=== PATIENT | female | born 1940 | race Caucasian/White ===

== ENCOUNTER → 2017-06-22 09:12 | Outpatient (CLI) | payer MEDICARE, OTHER, SELFPAY ==
[2017-06-22 10:09] LABS: Absolute Lymphocyte Count 0.96 X10^3/ul (0.83-4.51); Absolute Neutrophil Count 4.8 X10^3/uL (2.0-7.7); Basophil# 0.04 X10^3/uL; Basophil% 0.6 % (0-1); Eosinophil# 0.22 X10^3/uL; Eosinophils% 3.3 % (0-5); Hematocrit 41.8 % (37-47); Hemoglobin 13.4 g/dl (12.0-15.0); Lymphocyte # 0.96 X10^3/ul (4.0); Lymphocyte % 14.6 % (19-41); Mean Corp Hgb Conc 32.1 g/gl (32-36); Mean Corpuscular Hgb 28.2 pg (27.0-32.0); Mean Platelet Vol. 9.7 fl (6.2-12.0); Monocyte# 0.54 X10^3/uL; Monocyte% 8.2 % (0-10); Neutrophil % 73.1 % (47-70); Platelet Count 298 K/mm3 (150-450); RBC Distribution Width SD 50.8 fl (35.1-43.9); Red Blood Count 4.75 M/mm3 (4.2-5.4); White Blood Count 6.6 K/mm3 (4.4-11.0)
[2017-06-22 10:11] LABS: POSITIVE COUNT NO; POSITIVE DIFFERENTIAL NO; POSITIVE MORPHOLOGY NO
[2017-06-22 10:51] LABS: ALB/GLOB Ratio 0.7 RATIO (0.9-2.4); AST(SGOT) 16 U/L (15-37); Alanine Aminotransfer ALT/SGPT 18 U/L (13-56); Alkaline Phosphatase 100 U/L (45-117); Anion Gap 9 (5-15); BUN 14 mg/dL (7-18); BUN/Creat Ratio 23.4 RATIO (10-20); Calcium,Total 8.9 mg/dL (8.5-10.1); Chloride 105 mmol/L (98-107); EST Glomerular Filtration Rate 103 mL/min (>60); Est Glom Filt Rate - Afr Amer 125 mL/min (>60); Globulin 4.3 g/dL (2.2-4.2); Glucose 105 mg/dL (74-106); Potassium 4.1 mmol/L (3.5-5.1); Protein, Total 7.3 g/dL (6.4-8.2); Sodium Level 140 mmol/L (136-145); Thyroid Stim Hormone (TSH) 2.96 uIU/mL (0.358-3.74); Vitamin D,25 Hydroxy 15.1 ng/mL (19.95-100.01)
== END ==
PROVIDERS: Family Provider Nurse Practitioner; PCP Nurse Practitioner; Visit Provider Nurse Practitioner
DX: I10 Essential (primary) hypertension (principal); M81.0 Age-related osteoporosis without current pathological fracture
CPT/HCPCS: 36415; 80053; 82306; 84443; 85025

== ENCOUNTER → 2017-08-19 11:03 | Outpatient (CLI) | payer MEDICARE, OTHER, SELFPAY ==
--- NOTE | 2017-08-19 11:06 | BI_ITS ---
MAMMOGRAPHY - BILATERAL SCREENING REASON FOR EXAM: Female, 77 years old. Routine annual screening examination. PERTINENT HISTORY: Sister with breast cancer. TECHNIQUE: Digital bilateral breast sandy (3D mammographic acquisition) in the CC and MLO projections. 2-D mediolateral oblique (MLO) and craniocaudad (CC) views of both breasts were obtained. CAD: Full Field Digital Mammography with Computer Added Detection was performed. COMPARISON: Comparison is made with prior study dated August 18, 2016 and July 30, 2015. FINDINGS: Breast Composition: The breasts are almost entirely fatty. There are no dominant masses or suspicious calcifications. No other significant abnormalities are identified. There has been no significant change since the prior study. BI/SCREENING MAMM (CAD), BILAT IMPRESSION: Stable bilateral screening mammogram. Yearly follow-up mammogram recommended. (A) ASSESSMENT CATEGORY: BIRADS Category 1: Negative. A letter regarding these results will be sent to the patient by the facility within 30 days. Approximately 10% of breast cancers are not detected by mammography. A normal mammogram should not delay biopsy of a clinically suspicious abnormality. [id number] Electronically Signed: Luis Watkins MD at 13:24 EDT Tel [phone], Service support ,
== END ==
PROVIDERS: Family Provider Nurse Practitioner; PCP Nurse Practitioner; Visit Provider Nurse Practitioner
DX: Z12.31 Encounter for screening mammogram for malignant neoplasm of breast (principal)
CPT/HCPCS: 77063; 77067

== ENCOUNTER → 2017-09-14 08:42 | Outpatient (CLI) | payer MEDICARE, OTHER, SELFPAY ==
[2017-09-14 10:01] LABS: Absolute Lymphocyte Count 0.92 X10^3/ul (0.83-4.51); Absolute Neutrophil Count 4.1 X10^3/uL (2.0-7.7); Basophil# 0.02 X10^3/uL; Basophil% 0.3 % (0-1); Eosinophil# 0.24 X10^3/uL; Hematocrit 41.9 % (37-47); Hemoglobin 13.5 g/dl (12.0-15.0); Lymphocyte # 0.92 X10^3/ul (4.0); Lymphocyte % 15.5 % (19-41); Mean Corp Hgb Conc 32.2 g/gl (32-36); Mean Corpuscular Hgb 27.8 pg (27.0-32.0); Mean Corpuscular Volume 86.2 fL (81-99); Mean Platelet Vol. 9.3 fl (6.2-12.0); Monocyte# 0.62 X10^3/uL; Monocyte% 10.4 % (0-10); Neutrophil # 4.14 X10^3/uL (2.7-7.7); Neutrophil % 69.6 % (47-70); Platelet Count 305 K/mm3 (150-450); RBC Distribution Width CV 16.5 % (11.6-14.6); RBC Distribution Width SD 51.7 fl (35.1-43.9); Red Blood Count 4.86 M/mm3 (4.2-5.4)
[2017-09-14 10:12] LABS: POSITIVE COUNT NO; POSITIVE DIFFERENTIAL NO; POSITIVE MORPHOLOGY NO
[2017-09-14 10:17] LABS: ALB/GLOB Ratio 0.7 RATIO (0.9-2.4); AST(SGOT) 15 U/L (15-37); Alanine Aminotransfer ALT/SGPT 16 U/L (13-56); Alkaline Phosphatase 93 U/L (45-117); Anion Gap 8 (5-15); BUN 9 mg/dL (7-18); Calcium,Total 8.6 mg/dL (8.5-10.1); Chloride 107 mmol/L (98-107); Creatinine, Serum 0.64 mg/dL (0.55-1.02); EST Glomerular Filtration Rate 95 mL/min (>60); Est Glom Filt Rate - Afr Amer 115 mL/min (>60); Globulin 4.3 g/dL (2.2-4.2); Glucose 108 mg/dL (74-106); Potassium 4.1 mmol/L (3.5-5.1); Protein, Total 7.3 g/dL (6.4-8.2); Sodium Level 139 mmol/L (136-145)
== END ==
PROVIDERS: Family Provider Nurse Practitioner; PCP Nurse Practitioner; Visit Provider Internal Medicine Rheumatology
DX: M19.012 Primary osteoarthritis, left shoulder (principal); M19.011 Primary osteoarthritis, right shoulder; M15.9 Polyosteoarthritis, unspecified; M87.051 Idiopathic aseptic necrosis of right femur; I10 Essential (primary) hypertension; N20.0 Calculus of kidney
CPT/HCPCS: 36415; 80053; 85025

== ENCOUNTER → 2017-09-19 08:39 | Outpatient (CLI) | payer MEDICARE, OTHER, SELFPAY ==
[2017-09-19 10:36] LABS: Vitamin D,25 Hydroxy 24.9 ng/mL (29.95-100.01)
== END ==
PROVIDERS: Family Provider Nurse Practitioner; PCP Nurse Practitioner; Visit Provider Nurse Practitioner
DX: M81.0 Age-related osteoporosis without current pathological fracture (principal); I10 Essential (primary) hypertension
CPT/HCPCS: 36415; 82306

== ENCOUNTER → 2017-09-29 08:53 | Outpatient (CLI) | payer MEDICARE, OTHER, SELFPAY ==
[2017-09-29 10:19] LABS: Absolute Lymphocyte Count 1.11 X10^3/ul (0.83-4.51); Absolute Neutrophil Count 4.6 X10^3/uL (2.0-7.7); Basophil# 0.04 X10^3/uL; Basophil% 0.6 % (0-1); Eosinophil# 0.32 X10^3/uL; Eosinophils% 4.7 % (0-5); Hematocrit 42.5 % (37-47); Hemoglobin 13.4 g/dl (12.0-15.0); Lymphocyte # 1.11 X10^3/ul (4.0); Lymphocyte % 16.2 % (19-41); Mean Corp Hgb Conc 31.5 g/gl (32-36); Mean Corpuscular Hgb 27.5 pg (27.0-32.0); Mean Corpuscular Volume 87.3 fL (81-99); Mean Platelet Vol. 9.5 fl (6.2-12.0); Monocyte# 0.76 X10^3/uL; Monocyte% 11.1 % (0-10); Neutrophil # 4.61 X10^3/uL (2.7-7.7); Neutrophil % 67.3 % (47-70); Platelet Count 255 K/mm3 (150-450); RBC Distribution Width CV 16.2 % (11.6-14.6); RBC Distribution Width SD 51.7 fl (35.1-43.9); Red Blood Count 4.87 M/mm3 (4.2-5.4); White Blood Count 6.9 K/mm3 (4.4-11.0)
[2017-09-29 10:20] LABS: POSITIVE COUNT NO; POSITIVE DIFFERENTIAL NO; POSITIVE MORPHOLOGY NO
[2017-09-29 10:45] LABS: ALB/GLOB Ratio 0.8 RATIO (0.9-2.4); AST(SGOT) 18 U/L (15-37); Alanine Aminotransfer ALT/SGPT 14 U/L (13-56); Albumin, Serum 3.2 g/dL (3.2-5.0); Alkaline Phosphatase 79 U/L (45-117); Anion Gap 6 (5-15); BUN 14 mg/dL (7-18); BUN/Creat Ratio 20.4 RATIO (10-20); Calcium,Total 8.8 mg/dL (8.5-10.1); Chloride 109 mmol/L (98-107); Creatinine, Serum 0.69 mg/dL (0.55-1.02); EST Glomerular Filtration Rate 88 mL/min (>60); Est Glom Filt Rate - Afr Amer 106 mL/min (>60); Globulin 3.8 g/dL (2.2-4.2); Glucose 105 mg/dL (74-106); Potassium 4.3 mmol/L (3.5-5.1); Sodium Level 140 mmol/L (136-145)
== END ==
PROVIDERS: Family Provider Nurse Practitioner; PCP Nurse Practitioner; Visit Provider Internal Medicine Rheumatology
DX: M47.896 Other spondylosis, lumbar region (principal); M19.012 Primary osteoarthritis, left shoulder; M19.011 Primary osteoarthritis, right shoulder; M87.051 Idiopathic aseptic necrosis of right femur
CPT/HCPCS: 36415; 80053; 85025

== ENCOUNTER → 2018-01-16 18:50 | Outpatient (CLI) | payer MEDICARE, OTHER, SELFPAY | PROVIDERS: Family Provider Nurse Practitioner; PCP Nurse Practitioner; Visit Provider Otolaryngology Otolaryngology/Facial Plastic Surgery | DX: J02.9 Acute pharyngitis, unspecified (principal) | CPT/HCPCS: 87070 ==

== ENCOUNTER 2018-01-25 15:21 | Emergency (ER) | payer OTHER, MEDICARE, SELFPAY ==
[2018-01-25 15:22] VITALS: BP 132/86; PULSE 78; RESP 16; O2SAT 92
[2018-01-25 15:23] VITALS: BP 150/88; PULSE 82; RESP 14; TEMP 36.6; O2SAT 93; BMI 36.6
[2018-01-25] MEDS: Ondansetron 4 MG/2 ML Vial IV (16:03)
[2018-01-25] MEDS: Morphine 4 MG/ML Syringe IV ×3 (16:03→19:05)
--- NOTE | 2018-01-25 16:15 | CT_ITS ---
STUDY: CT BRAIN WITHOUT CONTRAST REASON FOR EXAM: Female, 77 years old. Trauma RADIATION DOSAGE (If Supplied By Facility): CTDIvol = ( 44.99 ) mGy, DLP = ( 779.24 ) mGycm TECHNIQUE: Transaxial CT imaging of the brain was performed without administration of intravenous contrast material. Individualized dose optimization techniques were used for this CT. COMPARISON: 04/14/2017 FINDINGS: There is no acute bleed or infarct. There are stable chronic ischemic and atrophic changes. The ventricles are normal in configuration. There is no hydrocephalus. The visualized paranasal sinuses are clear. The mastoid air cells are well aerated. There is no skull fracture. There is mild scalp soft tissue swelling in the left posterior parietal region. CT/Brain/Head without Contrast IMPRESSION: Stable chronic ischemic and atrophic changes. No acute intracranial abnormality. Mild scalp soft tissue swelling in the left posterior parietal region. Electronically Signed: Ashutosh Antonio, at 18:17 EDT Tel , Service support ,
--- NOTE | 2018-01-25 16:15 | CT_ITS ---
STUDY: CT CERVICAL SPINE WITHOUT CONTRAST REASON FOR EXAM: Female, 77 years old. Trauma RADIATION DOSAGE (If Supplied By Facility): CTDIvol = ( 29.61 ) mGy, DLP = ( 523.14 ) mGycm TECHNIQUE: High resolution transaxial imaging was performed without contrast material. Sagittal and coronal images were reconstructed. Individualized dose optimization techniques were used for this CT. COMPARISON: 04/14/2017 FINDINGS: There is no evidence of fracture or dislocation in the cervical spine. There are stable moderate degenerative changes. The visualized paraspinal soft tissues are within normal limits. CT/Spine Cervical without Contras IMPRESSION: No fracture or dislocation in the cervical spine. Stable degenerative change. Electronically Signed: Ashutosh Antonio, at 18:22 EDT Tel , Service support ,
--- NOTE | 2018-01-25 16:25 | ED.VISSUMM ---
- ER Visit Summary Date of Service: 01/25/18 Chief Complaint: Fall History of Present Illness: The patient is a 77 F presenting after fall. Patient was at Dr. Finch's office receiving an injection in her right shoulder. As she was leaving the office she tripped on a curb in the parking lot. She complains of low back pain. She hit her head but did not lose consciousness. She is on Pradaxa. She denies other complaints. Physical Examination: Vitals are stable. Patient is afebrile. Alert no acute distress. HEENT exam is unremarkable. Left scalp hematoma Neck is nontender Lungs are clear and equal bilaterally. Heart is regular rate and rhythm. Abdomen is soft nontender nondistended. Back: lumbar tenderness diffusely Extremities are unremarkable. Skin is warm and dry. No focal neurologic deficit. Remainder of exam is unremarkable. Emergency Department Course and Treatment: Patient given morphine, Zofran IV. CT head and C-spine showed no acute process. Lumbar x-ray shows no acute process. Patient feels improved in the emergency department. She is able to ambulate at her baseline. She will follow-up with her primary care physician. She is advised to return to ED for worsening complaints. Disposition: Discharge home Impression: Status post mechanical fall, lumbar strain This note was generated with [employer] dictation software. It may contain incorrect words, spelling, and punctuation that were not noted in review of the chart prior to signing ED Disposition - Plan for ED Patient: Disposition: Home or Assisted Living Chief Complaint: Fall Instructions: ED Mechanical Fall Referrals: Lydia Shearer [Primary Care Provider] -
--- NOTE | 2018-01-25 17:00 | RAD_ITS ---
STUDY: X-RAY - LUMBAR SPINE REASON FOR EXAM: Female, 77 years old. Fall. Pain. TECHNIQUE: 3 view(s) of the lumbar spine were obtained. COMPARISON: 04/14/2017 FINDINGS: There is no evidence of fracture or dislocation in the lumbar spine. There is stable extensive multilevel degenerative changes. There are atherosclerotic calcifications noted in the aorta. RAD/Lumbar Spine 2 or 3 Views IMPRESSION: No fracture or dislocation in the lumbar spine. Stable extensive degenerative change. Electronically Signed: Ashutosh Antonio, at 18:12 EDT Tel , Service support ,
--- NOTE | 2018-01-25 18:46 | ED.DEP ---
ED Disposition - Plan for ED Patient: Chief Complaint: Fall Instructions: ED Mechanical Fall Referrals: Lydia Shearer [Primary Care Provider] -
[2018-01-25 19:06] VITALS: BP 147/80; PULSE 102; RESP 17; O2SAT 91
[2018-01-25 19:34] VITALS: BP 147/80; PULSE 100; RESP 18
== END 2018-01-25 19:35 | disposition home or self-care (01) ==
PROVIDERS: Emergency Provider Emergency Medicine; Family Provider Nurse Practitioner; PCP Nurse Practitioner
DX: S39.012A Strain of muscle, fascia and tendon of lower back, initial encounter (principal); S00.03XA Contusion of scalp, initial encounter; W18.09XA Striking against other object with subsequent fall, initial encounter; Y93.01 Activity, walking, marching and hiking; Y92.481 Parking lot as the place of occurrence of the external cause
CPT/HCPCS: 70450; 72100; 72125; 96374; 96375; 96376; 99284; A4216; J2405

== ENCOUNTER → 2018-02-06 15:43 | Outpatient (CLI) | payer MEDICARE, OTHER, SELFPAY ==
--- NOTE | 2018-02-06 15:46 | RAD_ITS ---
STUDY: X-RAY - ABDOMEN/PELVIS REASON FOR EXAM: Female, 77 years old. Right-sided pain. TECHNIQUE: Two AP supine views of the abdomen and pelvis. COMPARISON: 3 views of the lumbar spine January 25, 2018. Right upper quadrant ultrasound October 16, 2014 not available for comparison at the time of this dictation, but reports that study was reviewed. FINDINGS: Bilaterally visualized lung bases. There is an unremarkable bowel gas pattern. There is no demonstrated free abdominal air. The visualized liver, spleen and kidneys are grossly normal in size and morphology. Atherosclerotic vascular calcifications project in the pelvic soft tissues. There are stable diffuse degenerative changes of the visualized spine as well as mild degenerative arthroses of the bilateral sacroiliac joints and left hip. 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 RAD/Abdomen Single View IMPRESSION: 1. Nonspecific bowel gas pattern. No free gas. 2. Mild atherosclerotic vascular calcifications present. 3. Extensive degenerative changes of the spine again noted. Prior right total hip arthroplasty. Electronically Signed: Robert King MD at 16:15 EDT , Service support ,
== END ==
PROVIDERS: Family Provider Nurse Practitioner; PCP Nurse Practitioner; Referring Provider Nurse Practitioner; Visit Provider Nurse Practitioner
DX: R10.9 Unspecified abdominal pain (principal)
CPT/HCPCS: 74018

== ENCOUNTER → 2018-03-27 14:29 | Outpatient (CLI) | payer MEDICARE, OTHER, SELFPAY ==
--- NOTE | 2018-03-27 14:32 | CT_ITS ---
STUDY: CT LEFT FEMUR WITH CONTRAST REASON FOR EXAM: Female, 77 years old. Left thigh soft tissue mass. History of fall one year ago. RADIATION DOSAGE (If Supplied By Facility): CTDIvol = ( ) mGy, DLP = ( ) mGycm TECHNIQUE: Transaxial CT imaging of the femur was performed post contrast administration. The examination was performed with intravenous administration of 100 ml of Isovue-300 contrast material. Sagittal and coronal images were reconstructed. Individualized dose optimization techniques were used for this CT. COMPARISON: None. FINDINGS: There is degenerative periarticular spurring of the superolateral left acetabular rim. There is mild cortical spurring at the greater tuberosity of the femur. Distally, there is subarticular sclerosis and periarticular spurring of the femoral condyles. Periarticular spurring of the tibial plateaus and subarticular sclerosis of the lateral tibial plateau also present at the knee. Degenerative narrowing most prominent in the lateral femorotibial joint compartment. There are subcutaneous varices in the dorsal lateral mid to lower thigh, extending to the lateral aspect of the knee or a small, ill-defined groundglass densities in the anterolateral subcutaneous tissues at the mid thigh may be small ecchymoses. There is no other defined soft tissue mass or enhancing abnormality.. Normal urinary bladder. Normal visualized small intestine. There are multiple colonic diverticula of the sigmoid colon consistent with chronic diverticulosis. There is no pelvic fluid. There is no pelvic lymphadenopathy or mass lesion. There is atrophy of the uterus. Normal visualized pelvic arteries. There is diffuse atherosclerotic calcification of the common and superficial femoral as well as popliteal arteries. There is normal is early takeoff of the anterior tibial artery just above the level of the knee joint CT/Extremity Lower WITH Contrast IMPRESSION: 1. Degenerative changes at the left hip and left knee, as described. Left femur is otherwise intact. 2. Small subcutaneous ecchymoses in the anterolateral mid left thigh. There are venous varices in the posterior lateral soft tissues extending from the mid to lower thigh to lateral knee. 3. Atherosclerotic vascular calcifications are present. No demonstrated left femoral or popliteal aneurysm. 4. Sigmoid colonic diverticulosis without acute diverticulitis. Electronically Signed: Robert King MD at 17:23 EST , Service support ,
== END ==
PROVIDERS: Family Provider Nurse Practitioner; PCP Nurse Practitioner; Referring Provider Internal Medicine Medical Oncology; Visit Provider Internal Medicine Medical Oncology
DX: R22.42 Localized swelling, mass and lump, left lower limb (principal)
CPT/HCPCS: 73701; Q9967

== ENCOUNTER → 2018-06-13 14:41 | Outpatient (CLI) | payer MEDICARE, OTHER, SELFPAY ==
[2018-04-11 11:29] VITALS: BMI 33.2
--- NOTE | 2018-06-13 14:54 | BD_ITS ---
STUDY: DUAL ENERGY X-RAY ABSORPTIOMETRY / DXA REASON FOR EXAM: Female, 77 years old. The patient is postmenopausal. Loss of height. TECHNIQUE: Bone Mineral Density (BMD) measurements of lumbar spine and left hip were obtained. The patient is status post right hip replacement. COMPARISON: Comparison is made with prior study dated May 04, 2016. FINDINGS: Lumbar Spine (L1-L4): g/cm2 (1.333) / T-score (1.1) / Z-score (2.9) Findings are suggestive of normal bone density with a low fracture risk. Left Femur Total: g/cm2 (0.738) / T-score (-2.1) / Z-score (-0.2) Left Femoral Neck: g/cm2 (0.678) / T-score (-2.6) / Z-score (-0.5) The T-Scores on the most recent prior examination were: Lumbar Spine (L1-L4): There has been improvement of bone density since the previous examination. Left Femur Total: which represents an improvement of 10.1%. Right Femur Total: . BD/Dexa Bone Density Study IMPRESSION: The patient is considered osteoporotic as outlined below according to World [employer] Organization (WHO) criteria with a high fracture risk. There has been improvement of bone density since the previous examination. Reference Information: The T-score is the number of standard deviations above or below the standard which is normal for young adults at their peak bone mineral density. The World Health Organization (WHO) interprets the T-scores as follows: Above -1 Normal bone density Between -1 and -2.5 Osteopenia Equal to / or below -2.5 Osteoporosis As a practical clinical guideline, osteopenia may be graded as follows: Mild -1 through -1.5 Moderate -1.6 through -2.0 Severe -2.1 through -2.4 The Z-score is the number of standard deviations above or below age-matched controls. A Z-score of less than -1.5 would be considered abnormal. References: 1. NIH Osteoporosis and Related Bone Diseases http://www.osteo.org 2. International Society for Clinical Densitometry http://www.iscd.org 3. National Osteoporosis Foundation http://www.nof.org Electronically Signed: Luis Watkins MD at 15:31 EST , Service support ,
== END ==
PROVIDERS: Family Provider Nurse Practitioner; PCP Nurse Practitioner; Visit Provider Nurse Practitioner
DX: M81.0 Age-related osteoporosis without current pathological fracture (principal)
CPT/HCPCS: 77080

== ENCOUNTER → 2018-08-09 08:36 | Outpatient (CLI) | payer MEDICARE, OTHER, SELFPAY ==
[2018-04-11 11:29] VITALS: BMI 33.2
[2018-08-09 09:58] LABS: Absolute Neutrophil Count 6.6 X10^3/uL (2.0-7.7); Basophil# 0.02 X10^3/uL; Basophil% 0.2 % (0-1); Eosinophil# 0.26 X10^3/uL; Eosinophils% 3.1 % (0-5); Hematocrit 41.4 % (37-47); Hemoglobin 13.2 g/dl (12.0-15.0); Lymphocyte % 11.8 % (19-41); Mean Corp Hgb Conc 31.9 g/gl (32-36); Mean Corpuscular Hgb 27.7 pg (27.0-32.0); Mean Corpuscular Volume 86.8 fL (81-99); Mean Platelet Vol. 9.5 fl (6.2-12.0); Monocyte# 0.56 X10^3/uL; Monocyte% 6.6 % (0-10); Neutrophil # 6.62 X10^3/uL (2.7-7.7); Neutrophil % 77.9 % (47-70); Platelet Count 258 K/mm3 (150-450); RBC Distribution Width CV 15.3 % (11.6-14.6); RBC Distribution Width SD 48.4 fl (35.1-43.9); Red Blood Count 4.77 M/mm3 (4.2-5.4); White Blood Count 8.5 K/mm3 (4.4-11.0)
[2018-08-09 09:59] LABS: POSITIVE COUNT NO; POSITIVE DIFFERENTIAL NO; POSITIVE MORPHOLOGY NO
[2018-08-09 10:17] LABS: Hemoglobin A1c 5.9 % (4.2-6.3)
[2018-08-09 10:36] LABS: ALB/GLOB Ratio 0.8 RATIO (0.9-2.4); AST(SGOT) 14 U/L (15-37); Alanine Aminotransfer ALT/SGPT 20 U/L (13-56); Albumin, Serum 3.1 g/dL (3.2-5.0); Alkaline Phosphatase 97 U/L (45-117); Anion Gap 8 (5-15); BUN 17 mg/dL (7-18); BUN/Creat Ratio 26.6 RATIO (10-20); Calcium,Total 8.4 mg/dL (8.5-10.1); Chloride 107 mmol/L (98-107); Cholesterol 150 mg/dL (200); Creatinine, Serum 0.64 mg/dL (0.55-1.02); EST Glomerular Filtration Rate 95 mL/min (>60); Est Glom Filt Rate - Afr Amer 115 mL/min (>60); Globulin 3.9 g/dL (2.2-4.2); Glucose 113 mg/dL (74-106); High Density Lipoprotein 44 mg/dL; Potassium 4.1 mmol/L (3.5-5.1); Sodium Level 140 mmol/L (136-145); Thyroid Stim Hormone (TSH) 1.91 uIU/mL (0.358-3.74); Triglycerides 216 mg/dL; Very Low Density Lipoprotein 43 mg/dL (5-40)
== END ==
PROVIDERS: Family Provider Nurse Practitioner; PCP Nurse Practitioner; Referring Provider Nurse Practitioner; Visit Provider Nurse Practitioner
DX: I10 Essential (primary) hypertension (principal); R73.01 Impaired fasting glucose
CPT/HCPCS: 36415; 80053; 80061; 83036; 84443; 85025

== ENCOUNTER → 2018-08-28 07:56 | Outpatient (CLI) | payer MEDICARE, OTHER, SELFPAY ==
[2018-04-11 11:29] VITALS: BMI 33.2
[2018-08-28 10:25] LABS: Absolute Lymphocyte Count 1.32 X10^3/ul (0.83-4.51); Absolute Neutrophil Count 4.5 X10^3/uL (2.0-7.7); Basophil# 0.03 X10^3/uL; Basophil% 0.4 % (0-1); Eosinophil# 0.26 X10^3/uL; Eosinophils% 3.9 % (0-5); Hematocrit 42.2 % (37-47); Hemoglobin 13.5 g/dl (12.0-15.0); Lymphocyte # 1.32 X10^3/ul (4.0); Lymphocyte % 19.6 % (19-41); Mean Corpuscular Hgb 28.2 pg (27.0-32.0); Mean Corpuscular Volume 88.3 fL (81-99); Mean Platelet Vol. 9.5 fl (6.2-12.0); Monocyte% 8.9 % (0-10); Neutrophil # 4.52 X10^3/uL (2.7-7.7); Neutrophil % 67.1 % (47-70); Platelet Count 261 K/mm3 (150-450); RBC Distribution Width CV 14.9 % (11.6-14.6); RBC Distribution Width SD 48.1 fl (35.1-43.9); Red Blood Count 4.78 M/mm3 (4.2-5.4); White Blood Count 6.7 K/mm3 (4.4-11.0)
[2018-08-28 10:27] LABS: POSITIVE COUNT NO; POSITIVE DIFFERENTIAL NO; POSITIVE MORPHOLOGY NO
[2018-08-28 10:45] LABS: ALB/GLOB Ratio 0.8 RATIO (0.9-2.4); AST(SGOT) 21 U/L (15-37); Alanine Aminotransfer ALT/SGPT 20 U/L (13-56); Albumin, Serum 3.3 g/dL (3.2-5.0); Alkaline Phosphatase 88 U/L (45-117); Anion Gap 7 (5-15); BUN 17 mg/dL (7-18); BUN/Creat Ratio 24.8 RATIO (10-20); Calcium,Total 8.8 mg/dL (8.5-10.1); Chloride 107 mmol/L (98-107); Creatinine, Serum 0.69 mg/dL (0.55-1.02); EST Glomerular Filtration Rate 88 mL/min (>60); Est Glom Filt Rate - Afr Amer 106 mL/min (>60); Globulin 3.9 g/dL (2.2-4.2); Glucose 110 mg/dL (74-106); Potassium 4.2 mmol/L (3.5-5.1); Protein, Total 7.2 g/dL (6.4-8.2); Sodium Level 142 mmol/L (136-145)
== END ==
PROVIDERS: Family Provider Nurse Practitioner; PCP Nurse Practitioner; Referring Provider Internal Medicine Rheumatology; Visit Provider Internal Medicine Rheumatology
DX: M47.896 Other spondylosis, lumbar region (principal); M19.012 Primary osteoarthritis, left shoulder; M19.011 Primary osteoarthritis, right shoulder; M87.051 Idiopathic aseptic necrosis of right femur; I10 Essential (primary) hypertension; N20.0 Calculus of kidney; I26.99 Other pulmonary embolism without acute cor pulmonale; G47.33 Obstructive sleep apnea (adult) (pediatric); E78.5 Hyperlipidemia, unspecified; I70.1 Atherosclerosis of renal artery; I25.10 Atherosclerotic heart disease of native coronary artery without angina pectoris; M81.0 Age-related osteoporosis without current pathological fracture
CPT/HCPCS: 36415; 80053; 85025

== ENCOUNTER → 2018-09-14 10:08 | Outpatient (CLI) | payer MEDICARE, OTHER, SELFPAY ==
[2018-04-11 11:29] VITALS: BMI 33.2
--- NOTE | 2018-09-14 10:11 | BI_ITS ---
MAMMOGRAPHY - BILATERAL SCREENING REASON FOR EXAM: Female, 78 years old. Routine annual screening examination. PERTINENT HISTORY: Sister with breast cancer. TECHNIQUE: Digital bilateral breast sandy (3D mammographic acquisition) in the CC and MLO projections. 2-D mediolateral oblique (MLO) and craniocaudad (CC) views of both breasts were obtained. CAD: Full Field Digital Mammography with Computer Added Detection was performed. COMPARISON: Comparison is made with prior study dated August 19, 2017 and August 18, 2016. FINDINGS: Breast Composition: The breasts are almost entirely fatty. There are no dominant masses or suspicious calcifications. No other significant abnormalities are identified. There has been no significant change since the prior study. BI/SCREENING MAMM (CAD), BILAT IMPRESSION: Stable bilateral screening mammogram. Yearly follow-up mammogram recommended. (A) ASSESSMENT CATEGORY: BIRADS Category 1: Negative. A letter regarding these results will be sent to the patient by the facility within 30 days. Approximately 10% of breast cancers are not detected by mammography. A normal mammogram should not delay biopsy of a clinically suspicious abnormality. [id number] Electronically Signed: Luis Watkins, at 13:04 EDT , Service support ,
== END ==
PROVIDERS: Family Provider Nurse Practitioner; PCP Nurse Practitioner; Referring Provider Nurse Practitioner; Visit Provider Nurse Practitioner
DX: Z12.31 Encounter for screening mammogram for malignant neoplasm of breast (principal)
CPT/HCPCS: 77063; 77067

== ENCOUNTER → 2018-11-24 | Outpatient (CLI) | payer MEDICARE, OTHER, SELFPAY ==
[2018-04-11 11:29] VITALS: BMI 33.2
[2018-11-24 14:27] LABS: D-Dimer Quantitative (DVT/PE) 0.68 FEU/ug/m (0.27-0.49)
== END | disposition home or self-care (01) ==
PROVIDERS: Family Provider Nurse Practitioner; PCP Nurse Practitioner; Referring Provider Internal Medicine Pulmonary Disease; Visit Provider Internal Medicine Pulmonary Disease
DX: R60.9 Edema, unspecified (principal); Z86.711 Personal history of pulmonary embolism
CPT/HCPCS: 36415; 85379

== ENCOUNTER → 2018-11-24 | Outpatient (CLI) | payer MEDICARE, OTHER, SELFPAY ==
[2018-04-11 11:29] VITALS: BMI 33.2
--- NOTE | 2018-11-24 12:46 | VDLE_ITS ---
Reason For Study: EDEMA RIGHT LEFT CFV is compressible, spontaneous, phasic, GSV is normal. competent and demonstrates normal CFV is compressible, spontaneous, phasic, augmentation. competent, and demonstrates normal FV is compressible, spontaneous, phasic, augmentation. competent and demonstrates normal FV is compressible, spontaneous, phasic, augmentation. competent and demonstrates normal POP V is compressible, spontaneous, phasic, augmentation. competent and demonstrates normal POP V is compressible, spontaneous, phasic, augmentation. competent and demonstrates normal T/P Trunk is compressible. augmentation. PTV is compressible. T/P Trunk is compressible. RT PerV is compressible. PTV is compressible. Rt GSV not visualized due to vein ablation. LT PerV is compressible. Interpretation Summary Deep veins of the lower extremities are bilaterally patent and compressible segmentally. There is no evidence of deep vein thrombosis on either side. Valvular competence appears intact within the proximal deep venous systems bilaterally. The right greater saphenous vein appears to be absent. The left greater saphenous vein appears patent and compressible segmentally. Ordering Physician: Kosta Spangler Referring Physician: MIKE GREENE Performed By: Rosy Zarate, LEATHA, RVT
== END | disposition home or self-care (01) ==
LOC: CVS 12:44
PROVIDERS: Family Provider Nurse Practitioner; PCP Nurse Practitioner; Referring Provider Internal Medicine Pulmonary Disease; Visit Provider Internal Medicine Pulmonary Disease
DX: Z86.711 Personal history of pulmonary embolism (principal); R60.9 Edema, unspecified
CPT/HCPCS: 93970

== ENCOUNTER → 2018-11-27 10:30 | Outpatient (CLI) | payer MEDICARE, OTHER, SELFPAY ==
[2018-04-11 11:29] VITALS: BMI 33.2
--- NOTE | 2018-11-27 10:40 | CT_ITS ---
STUDY: CTA CHEST REASON FOR EXAM: Female, 78 years old. Acute substernal shortness of breath RADIATION DOSAGE (If Supplied By Facility): CTDIvol = ( 12.16 ) mGy, DLP = ( 473.58 ) mGycm TECHNIQUE: The examination was performed with the intravenous administration of 100mL IV Isovue 370. Post-processing of the angiographic images was performed, with multiplanar reformation and 3D reconstruction. Individualized dose optimization techniques were used for this CT. COMPARISON: 2014 FINDINGS: There is limited enhancement of the main pulmonary artery and right and left pulmonary arteries. There is limited enhancement of the bilateral peripheral pulmonary arteries. There is no demonstrated pulmonary embolism. Normal thoracic aorta and visualized great vessels. There is no demonstrated aortic dissection. Normal heart and pericardium. Calcified coronary vessels. Scattered subcentimeter axillary and mediastinal lymphadenopathy Normal hilar regions. Normal visualized trachea and bronchi. The lungs are well expanded. Normal pulmonary parenchyma. Normal pleura. Normal chest wall structures. There are degenerative changes of thoracic spine. Limited cuts of the upper abdomen show stable renal cysts CT/CTA Chest W/WO Contrast IMPRESSION: No demonstrated PE, or thoracic aortic aneurysm or dissection. However, the contrast bolus within the pulmonary arteries is not optimal. A subtle filling defect could be present in the distal vessels. Chronic interstitial changes in both lung patel without a superimposed acute pulmonary process Calcified coronary vessels Degenerative bony changes Electronically Signed: Robert Whaley MD at 11:20 EDT , Service support ,
[2018-11-27 11:01] LABS: CREATININE FINGERSTICK < 0.6 mg/dL (0.55-1.02)
[2018-11-27 12:38] LABS: Prothrombin Time (Protime)PT. 13.4 SECONDS (11.7-14.9)
[2018-11-27 13:25] LABS: AST(SGOT) 15 U/L (15-37); Alanine Aminotransfer ALT/SGPT 17 U/L (13-56); Albumin, Serum 3.1 g/dL (3.2-5.0); Alkaline Phosphatase 81 U/L (45-117); Anion Gap 8 (5-15); BUN 17 mg/dL (7-18); BUN/Creat Ratio 26.1 RATIO (10-20); Bilirubin, Direct 0.06 mg/dL (0.00-0.30); Chloride 104 mmol/L (98-107); Creatinine, Serum 0.65 mg/dL (0.55-1.02); EST Glomerular Filtration Rate 93 mL/min (>60); Est Glom Filt Rate - Afr Amer 113 mL/min (>60); Globulin 3.8 g/dL (2.2-4.2); Glucose 89 mg/dL (74-106); Phosphorus 3.1 mg/dL (2.5-4.9); Potassium 4.3 mmol/L (3.5-5.1); Protein, Total 6.9 g/dL (6.4-8.2); Sodium Level 140 mmol/L (136-145)
== END ==
PROVIDERS: Family Provider Nurse Practitioner; PCP Nurse Practitioner; Referring Provider Nurse Practitioner; Visit Provider Nurse Practitioner
DX: R79.89 Other specified abnormal findings of blood chemistry (principal); Z86.711 Personal history of pulmonary embolism
CPT/HCPCS: 36415; 71275; 80048; 80076; 84100; 85610; Q9967

== ENCOUNTER → 2019-02-20 08:23 | Outpatient (CLI) | payer MEDICARE, OTHER, SELFPAY ==
[2018-04-11 11:29] VITALS: BMI 33.2
[2019-02-20 08:30] LABS: Mucous, Urine 0 SEEN /hpf (<or=2+)
[2019-02-20 10:00] LABS: Color, Urine Yellow (Yellow); Glucose, Dipstick Normal (Normal); Ketone-Dipstick Negative (Negative); Leukocyte Esterase-Dipstick 500 /ul (Negative); Nitrite-Dipstick Negative (Negative); Occult Blood-Urine 25 /ul (Negative); Protein-Dipstick 30 mg/dl (Negative); Specific Gravity, Urine 1.015 (1.002-1.030); Urine Bilirubin Dipstick Negative (Negative); Urine Clarity Cloudy (Clear); Urine Urobilinogen Normal (Normal)
[2019-02-20 10:05] LABS: Absolute Lymphocyte Count 1.43 X10^3/uL (0.83-4.51); Absolute Neutrophil Count 3.6 X10^3/uL (2.0-7.7); Basophil# 0.04 X10^3/uL; Basophil% 0.7 % (0-1); Eosinophil# 0.33 X10^3/uL; Eosinophils% 5.6 % (0-5); Hematocrit 42.3 % (37-47); Hemoglobin 13.3 g/dL (12.0-15.0); Lymphocyte # 1.43 X10^3/ul (4.0); Lymphocyte % 24.3 % (19-41); Mean Corp Hgb Conc 31.4 g/dL (32-36); Mean Corpuscular Hgb 28.2 pg (27.0-32.0); Mean Corpuscular Volume 89.8 fL (81-99); Mean Platelet Vol. 9.6 fl (6.2-12.0); Monocyte# 0.48 X10^3/uL; Monocyte% 8.2 % (0-10); NRBC Flagged by Analyzer 0 % (0-5); Neutrophil # 3.58 X10^3/uL (2.7-7.7); Neutrophil % 60.9 % (47-70); Platelet Count 244 K/mm3 (150-450); RBC Distribution Width CV 14.2 % (11.6-14.6); RBC Distribution Width SD 46.5 fl (35.1-43.9); Red Blood Count 4.71 M/mm3 (4.2-5.4); White Blood Count 5.9 K/mm3 (4.4-11.0)
[2019-02-20 10:17] LABS: Red Blood Cells-Urine 0-5 SEEN /hpf (0-5); White Blood Cells 50-100 SEEN /hpf (0-5)
[2019-02-20 10:18] LABS: Bacteria 2+ /hpf (None Seen); Squamous Epithelial Cells - UA 5-10 SEEN /hpf (5-10)
[2019-02-20 10:33] LABS: ALB/GLOB Ratio 0.8 RATIO (0.9-2.4); AST(SGOT) 20 U/L (15-37); Alanine Aminotransfer ALT/SGPT 18 U/L (13-56); Albumin, Serum 3.2 g/dL (3.2-5.0); Alkaline Phosphatase 89 U/L (45-117); Anion Gap 7 (5-15); BUN 24 mg/dL (7-18); BUN/Creat Ratio 36.9 RATIO (10-20); Calcium,Total 9.1 mg/dL (8.5-10.1); Chloride 107 mmol/L (98-107); Cholesterol 156 mg/dL (200); Creatinine, Serum 0.65 mg/dL (0.55-1.02); EST Glomerular Filtration Rate 93 mL/min (>60); Est Glom Filt Rate - Afr Amer 113 mL/min (>60); Glucose 102 mg/dL (74-106); High Density Lipoprotein 46 mg/dL; Protein, Total 7.2 g/dL (6.4-8.2); Sodium Level 142 mmol/L (136-145); Thyroid Stim Hormone (TSH) 2.91 uIU/mL (0.358-3.74); Triglycerides 293 mg/dL; Very Low Density Lipoprotein 59 mg/dL (5-40)
== END ==
PROVIDERS: Family Provider Nurse Practitioner; PCP Nurse Practitioner; Referring Provider Nurse Practitioner; Visit Provider Nurse Practitioner
DX: I10 Essential (primary) hypertension (principal)
CPT/HCPCS: 36415; 80053; 80061; 81001; 84443; 85025

== ENCOUNTER → 2019-03-07 10:42 | Outpatient (CLI) | payer MEDICARE, OTHER, SELFPAY ==
[2018-04-11 11:29] VITALS: BMI 33.2
[2019-03-07 14:08] LABS: Absolute Lymphocyte Count 1.71 X10^3/uL (0.83-4.51); Absolute Neutrophil Count 5.2 X10^3/uL (2.0-7.7); Basophil# 0.07 X10^3/uL; Basophil% 0.9 % (0-1); Eosinophil# 0.24 X10^3/uL; Hematocrit 41.5 % (37-47); Hemoglobin 13.5 g/dL (12.0-15.0); Lymphocyte # 1.71 X10^3/ul (4.0); Lymphocyte % 21.4 % (19-41); Mean Corp Hgb Conc 32.5 g/dL (32-36); Mean Corpuscular Hgb 28.5 pg (27.0-32.0); Mean Corpuscular Volume 87.7 fL (81-99); Mean Platelet Vol. 9.7 fl (6.2-12.0); Monocyte# 0.77 X10^3/uL; Monocyte% 9.6 % (0-10); NRBC Flagged by Analyzer 0 % (0-5); Neutrophil # 5.18 X10^3/uL (2.7-7.7); Neutrophil % 64.7 % (47-70); Platelet Count 298 K/mm3 (150-450); RBC Distribution Width CV 14.5 % (11.6-14.6); Red Blood Count 4.73 M/mm3 (4.2-5.4)
[2019-03-07 14:25] LABS: ALB/GLOB Ratio 0.8 RATIO (0.9-2.4); AST(SGOT) 16 U/L (15-37); Alanine Aminotransfer ALT/SGPT 21 U/L (13-56); Albumin, Serum 3.4 g/dL (3.2-5.0); Alkaline Phosphatase 93 U/L (45-117); Anion Gap 9 (5-15); BUN 19 mg/dL (7-18); BUN/Creat Ratio 27.1 RATIO (10-20); Calcium,Total 9.1 mg/dL (8.5-10.1); Chloride 105 mmol/L (98-107); EST Glomerular Filtration Rate 85 mL/min (>60); Est Glom Filt Rate - Afr Amer 103 mL/min (>60); Globulin 4.1 g/dL (2.2-4.2); Glucose 80 mg/dL (74-106); Potassium 3.9 mmol/L (3.5-5.1); Protein, Total 7.5 g/dL (6.4-8.2); Sodium Level 139 mmol/L (136-145)
== END ==
PROVIDERS: Family Provider Nurse Practitioner; PCP Nurse Practitioner; Referring Provider Internal Medicine Rheumatology; Visit Provider Internal Medicine Rheumatology
DX: M47.896 Other spondylosis, lumbar region (principal); M19.012 Primary osteoarthritis, left shoulder; M19.011 Primary osteoarthritis, right shoulder; M87.051 Idiopathic aseptic necrosis of right femur; I10 Essential (primary) hypertension; N20.0 Calculus of kidney; I26.99 Other pulmonary embolism without acute cor pulmonale; G47.33 Obstructive sleep apnea (adult) (pediatric); E78.5 Hyperlipidemia, unspecified; I70.0 Atherosclerosis of aorta; I25.10 Atherosclerotic heart disease of native coronary artery without angina pectoris; M81.0 Age-related osteoporosis without current pathological fracture
CPT/HCPCS: 36415; 80053; 85025

== ENCOUNTER → 2019-11-01 07:58 | Outpatient (CLI) | payer MEDICARE, OTHER, SELFPAY ==
[2018-04-11 11:29] VITALS: BMI 33.2
[2019-11-01 10:20] LABS: Absolute Lymphocyte Count 1.28 X10^3/uL (0.83-4.51); Absolute Neutrophil Count 4.6 X10^3/uL (2.0-7.7); Basophil# 0.06 X10^3/uL; Basophil% 0.9 % (0-1); Eosinophil# 0.37 X10^3/uL; Eosinophils% 5.4 % (0-5); Hematocrit 44.1 % (37-47); Hemoglobin 13.7 g/dL (12.0-15.0); Lymphocyte # 1.28 X10^3/ul (4.0); Lymphocyte % 18.7 % (19-41); Mean Corp Hgb Conc 31.1 g/dL (32-36); Mean Corpuscular Hgb 28.5 pg (27.0-32.0); Mean Corpuscular Volume 91.7 fL (81-99); Mean Platelet Vol. 10.3 fl (6.2-12.0); Monocyte% 7.3 % (0-10); NRBC Flagged by Analyzer 0 % (0-5); Neutrophil # 4.62 X10^3/uL (2.7-7.7); Neutrophil % 67.3 % (47-70); Platelet Count 275 K/mm3 (150-450); RBC Distribution Width CV 14.8 % (11.6-14.6); RBC Distribution Width SD 50.2 fl (35.1-43.9); Red Blood Count 4.81 M/mm3 (4.2-5.4); White Blood Count 6.9 K/mm3 (4.4-11.0)
[2019-11-01 10:56] LABS: ALB/GLOB Ratio 0.8 RATIO (0.9-2.4); AST(SGOT) 18 U/L (15-37); Alanine Aminotransfer ALT/SGPT 23 U/L (13-56); Albumin, Serum 3.3 g/dL (3.2-5.0); Alkaline Phosphatase 89 U/L (45-117); Anion Gap 7 (5-15); BUN 26 mg/dL (7-18); BUN/Creat Ratio 36.3 RATIO (10-20); Calcium,Total 9.5 mg/dL (8.5-10.1); Chloride 107 mmol/L (98-107); Cholesterol 168 mg/dL (200); Creatinine, Serum 0.72 mg/dL (0.55-1.02); EST Glomerular Filtration Rate 83 mL/min (>60); Est Glom Filt Rate - Afr Amer 101 mL/min (>60); Globulin 4.1 g/dL (2.2-4.2); Glucose 109 mg/dL (74-106); High Density Lipoprotein 48 mg/dL; Potassium 4.2 mmol/L (3.5-5.1); Protein, Total 7.4 g/dL (6.4-8.2); Sodium Level 139 mmol/L (136-145); Thyroid Stim Hormone (TSH) 2.28 uIU/mL (0.358-3.74); Triglycerides 241 mg/dL; Very Low Density Lipoprotein 48 mg/dL (5-40)
== END ==
PROVIDERS: PCP Nurse Practitioner; Referring Provider Nurse Practitioner; Visit Provider Nurse Practitioner
DX: I10 Essential (primary) hypertension (principal); E55.9 Vitamin D deficiency, unspecified
CPT/HCPCS: 36415; 80053; 80061; 82306; 84443; 85025

== ENCOUNTER 2019-12-06 09:23 | Inpatient (IN) | payer MEDICARE, OTHER, SELFPAY ==
[2018-04-11 11:29] VITALS: BMI 33.2
[2019-12-06] VITALS (23 sets, daily range): BP systolic 103–176; BP diastolic 61–104; PULSE 79–116; RESP 11–21; TEMP 36.7; O2SAT 95–100; BMI 33.0; BMI 31.4; BMI 31.5
--- NOTE | 2019-12-06 09:25 | RAD_ITS ---
STUDY: X-RAY CHEST REASON FOR EXAM: Female, 79 years old. STEMI, SOB, CHEST PAIN TECHNIQUE: Single AP portable view of the chest. COMPARISON: Comparison is made with prior study dated 08/17/2016. FINDINGS: Defibrillator pads are seen overlying the thorax. Stable elevation of the right hemidiaphragm. The lungs are clear. There is no demonstrated pleural abnormality. Normal size heart. Normal mediastinum and froylan. Normal visualized pulmonary arteries. There is atherosclerotic tortuosity of the aortic arch and descending thoracic aorta. There are diffuse degenerative changes of the visualized thoracic spine. There is degenerative osteoarthritis of the bilateral shoulders. There is no demonstrated abnormality of the visualized soft tissue structures of the upper abdomen. RAD/Chest 1 View (Portable) IMPRESSION: No acute abnormality is seen. Electronically Signed: Luis Watkins, at 10:00 EDT , Service support ,
--- NOTE | 2019-12-06 09:36 | EKG12_ITS ---
Test Reason : AM EKG Blood Pressure : / mmHG Vent. Rate : 098 BPM Atrial Rate : 098 BPM P-R Int : 180 ms QRS Dur : 078 ms QT Int : 342 ms P-R-T Axes : 045 -22 022 degrees QTc Int : 436 ms Normal sinus rhythm Low voltage QRS Inferior infarct , age undetermined Abnormal ECG When compared with ECG of 06-DEC-2019 11:42, MANUAL COMPARISON REQUIRED, DATA IS UNCONFIRMED Confirmed by CASSIDY ANTONIO, CRISTIN ([id number]), city editor GENIE QUACH ([id number]) on 12/10/2019 2:09:32 PM Referred By: Zahira Monet Confirmed By:GUIDO MONET MD
--- NOTE | 2019-12-06 09:38 | ED.VISSUMM ---
- ER Visit Summary Date of Service: 12/06/19 Chief Complaint: Syncope History of Present Illness: The patient is a 79 F who presents with a syncopal episode that occurred this morning. Patient was eating breakfast when she slumped over. reported that the patient was not breathing. reportedly did [id number] resuscitation. stated the patient did not lose her pulse during any of this. Patient denies any chest pain. Patient does admit to some shortness of breath. Patient admits to nausea but denies any vomiting. Patient denies any lightheadedness or dizziness. Physical Examination: Vital signs are stable except for an elevated blood pressure of 176/101. Patient is afebrile. Patient is in no acute distress. Patient is awake, alert, talking pleasantly. Oral mucosa is pink and moist. Neck is supple. Trachea is midline. There is no JVD. Heart was regular rate and rhythm. Lungs are clear and equal bilaterally. Abdomen is soft. Bowel sounds are normal. There is no tenderness. Pedal pulses are equal bilaterally. Radial pulses are equal bilaterally. Test Results: Prehospital EKG showed ST elevation in leads II, III, and aVF. EKG on arrival here showed continued ST elevation in leads II, III, and aVF with ST depression in leads I and aVL. CBC shows a leukocytosis of 14.9. Basic metabolic profile was essentially within normal limits. Troponin was slightly elevated at 0.164. Portable chest x-ray was obtained. There is no acute cardiopulmonary process. This was interpreted by myself and the radiologist. PT with INR and PTT were essentially within normal limits. Emergency Department Course and Treatment: Prehospital STEMI was called. EMS administered aspirin. Patient was given Brilinta and heparin here. Case was discussed with Dr. Monet. He agrees that this is a STEMI and will take the patient to the [facility] Project [facility]. Patient was advised of her results and the need for emergent heart catheterization. She is agreeable with this. Patient will be transferred to the Construction Project Engineer and then admitted to the hospital. Disposition: Admit to hospital Impression: 1. Acute STEMI This note was generated with [employer] dictation software. It may contain incorrect words, spelling, and punctuation that were not noted in review of the chart prior to signing ED Disposition - Plan for ED Patient: Disposition: Acute Care Hospital [facility] Diagnosis: Acute ST elevation myocardial infarction (STEMI)
[2019-12-06] MEDS: TICAGRELOR 90 MG TABLET 180 MG PO (09:39)
[2019-12-06] MEDS: Heparin Injection (Vial) 5,000 UNIT/ML VIAL 4000 UNIT IV (09:39)
[2019-12-06 09:55] LABS: Absolute Lymphocyte Count 1.45 X10^3/uL (0.83-4.51); Absolute Neutrophil Count 12.6 X10^3/uL (2.0-7.7); Basophil# 0.04 X10^3/uL; Basophil% 0.3 % (0-1); Eosinophil# 0.21 X10^3/uL; Eosinophils% 1.4 % (0-5); Hemoglobin 13.7 g/dL (12.0-15.0); Lymphocyte # 1.45 X10^3/ul (4.0); Lymphocyte % 9.7 % (19-41); Mean Corp Hgb Conc 31.9 g/dL (32-36); Mean Corpuscular Hgb 28.4 pg (27.0-32.0); Mean Platelet Vol. 9.8 fl (6.2-12.0); Monocyte# 0.59 X10^3/uL; NRBC Flagged by Analyzer 0 % (0-5); Neutrophil # 12.58 X10^3/uL (2.7-7.7); Neutrophil % 84.3 % (47-70); Platelet Count 287 K/mm3 (150-450); RBC Distribution Width CV 15.1 % (11.6-14.6); RBC Distribution Width SD 48.8 fl (35.1-43.9); Red Blood Count 4.83 M/mm3 (4.2-5.4); White Blood Count 14.9 K/mm3 (4.4-11.0)
[2019-12-06 10:03] LABS: Prothrombin Time (Protime)PT. 12.6 SECONDS (11.7-14.9)
[2019-12-06 10:04] LABS: Partial Thromboplast Time 23.2 Seconds (24.1-36.2)
[2019-12-06 10:08] LABS: Anion Gap 6 (5-15); BUN 27 mg/dL (7-18); BUN/Creat Ratio 33.7 RATIO (10-20); Calcium,Total 9.9 mg/dL (8.5-10.1); Chloride 108 mmol/L (98-107); EST Glomerular Filtration Rate 73 mL/min (>60); Est Glom Filt Rate - Afr Amer 89 mL/min (>60); Estimated Creatinine Clearance 40.29 ml/min; Glucose 170 mg/dL (74-106); Sodium Level 140 mmol/L (136-145)
[2019-12-06 11:56] LABS: ACT Activated Clotting Time 103 sec (74-137)
[2019-12-06 11:56] LABS: ACT Activated Clotting Time 109 sec (74-137)
--- NOTE | 2019-12-06 12:08 | HP.PCM_ITS ---
Problem List (1) Benign essential HTN Status: Chronic (2) HLD (hyperlipidemia) Status: Chronic Qualifiers: Hyperlipidemia type: unspecified hyperlipidemia Qualified Code(s): E78.5 - Hyperlipidemia, unspecified (3) Pulmonary embolism, bilateral Status: Resolved (4) Pulmonary HTN Status: Chronic (5) Obesity Status: Chronic Qualifiers: Obesity type: unspecified obesity type Qualified Code(s): E66.9 - Obesity, unspecified (6) Osteoarthritis Status: Chronic Qualifiers: Osteoarthritis location: unspecified site Osteoarthritis type: unspecified Qualified Code(s): M19.90 - Unspecified osteoarthritis, unspecified site (7) BALTAZAR (obstructive sleep apnea) Status: Chronic (8) 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 Before that, patient had syncope in the morning while she was eating her breakfast. 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 Patient denies any chest pain but has some shortness of breath. Mild nausea but not vomiting. Prehospital EKG shows ST elevation in leads II, III and aVF and EKG in the ED shows ST elevation, 2 mm in inferior leads with mild ST depression in lead V1 a nd aVL. STEMI alert was called and patient was taken to [facility] immediately. Troponin was found 0.164. 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 Patient started on aspirin, Brilinta Lipitor and metoprolol. Labs shows leukocytosis 15,000. Chest x-ray portable no acute cardiopulmonary abnormality seen. 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 Osteoporosis M81.0 Pulmonary embolism I26.99 Sleep apnea G47.30 laser vein surgery 2012 oopherectomy and tumor removed 1992 Hypertension I10 Allergies kiwi Allergy (Unknown, Verified 04/11/18 11:29) Anaphylaxis trimethoprim [From Bactrim] Allergy (Unknown, Verified 04/11/18 11:29) Rash tree and shrub pollen Allergy (Verified 04/11/18 11:29) Unknown ciprofloxacin HCl [From Cipro] Adverse Reaction (Severe, Verified 04/11/18 11:29) Itching rash clarithromycin [From Biaxin] Adverse Reaction (Severe, Verified 04/11/18 11:29) Rash codeine Adverse Reaction (Severe, Verified 04/11/18 11:29) Unknown prednisone Adverse Reaction (Severe, Verified 04/11/18 11:29) Unknown Sulfa (Sulfonamide Antibiotics) Adverse Reaction (Severe, Verified 04/11/18 11:29) Unknown adhesive Adverse Reaction (Intermediate, Verified 04/11/18 11:29) Rash animal dander Adverse Reaction (Unknown, Verified 04/11/18 11:29) Unknown levofloxacin [From Levaquin] Adverse Reaction (Unknown, Verified 04/11/18 11:29) Itching nickel Adverse Reaction (Unknown, Verified 04/11/18 11:29) NOT SURE sulfamethoxazole [From Bactrim] Adverse Reaction (Unknown, Verified 04/11/18 11:29) Rash tape Allergy (Unknown, Uncoded 04/11/18 11:29) Itching Home Medications: Ambulatory Orders Medication Instructions Recorded Atorvastatin Calcium [Lipitor] 40 mg PO QHS 02/21/13 Metoprolol(XL)Succ [Toprol Xl 50 mg PO DAILY 02/21/13 (Beta Romina)] Multivit-Min/FA/Lycopen/Lutein 1 each PO DAILY 06/17/15 [Centrum Silver Tablet] Amlodipine Besylate [Norvasc] 5 mg PO DAILY 08/04/16 Cholecalciferol (Vitamin D3) 10,000 unit PO DAILY 08/04/16 [Vitamin D3] Olmesartan Medoxomil [Benicar] 20 mg PO DAILY 08/04/16 Duloxetine HCl 60 mg PO DAILY 12/06/16 Morphine Sulfate [Arymo ER] 15 mg PO TID PRN 09/21/17 Gabapentin [Neurontin] 100 mg PO DAILY 01/25/18 Glucosamn/Condroitn/C/Mn/[place] 1 tab PO DAILY 03/21/18 [[facility] Glucosamine Chondroit Cplt] Denosumab [Prolia] 60 mg SQ Q6M 12/06/19 Surgical History: Surgical History (Last Reviewed 04/11/18 @ 11:28 by Arleen Reyes) H/O repair of rotator cuff Z98.890 1999 History of right hip replacement Z96.641 03/10/15 Hx of tonsillectomy Z90.89 1971 Surgical History: - - Right rotator cuff surgery, benign tumor right kidney, A&P repair, GF filter placement, R THR as noted. Psychiatric History: Anxiety - with occasional panic attacks. DIESEL ENGINE SPECIALIST History: No pertinent DIESEL ENGINE SPECIALIST history Smoking Status: Never smoker - *Family History Maternal Family History: Family History (Last Reviewed 04/11/18 @ 11:28 by Arleen Reyes) Father Bone cancer Arthritis Mother Leukemia Heart disease History Items: No pertinent history Paternal Family History: Family History (Last Reviewed 04/11/18 @ 11:28 by Arleen Reyes) Father Bone cancer Arthritis Mother Leukemia Heart disease History Items: No pertinent history Review of Systems Constitutional: Denies: Chills, Fever, Weight Change HEENT: Denies: Head Aches, Sinus Congestion, Sinus Drainage Cardiovascular: Reports: Edema, Syncope, - - Mild dizziness in ICU. Denies: Chest Pain, Chest Pressure, Chest Tightness, Palpitations Respiratory: Reports: Shortness of breath at rest. Denies: Cough, Sputum production Gastrointestinal: Denies: Abdominal Pain, Vomiting Genitourinary: Denies: Dysuria Musculoskeletal: Reports: Joint Pain. Denies: Joint Tenderness Skin: Denies: Rash, Wounds Neurological: Denies: Focal weakness, Numbness, Tingling Psychiatric: Denies: Anxiety, Depression, Homicidal Ideations, Suicidal Ideations Hematologic/ Lymphatic: Denies: Easy Bleeding VTE Information - Inpt Only VTE Present on Admission: No VTE Mechan Device Prophylaxis: SCD's VTE Pharm Prophylaxis ordered?: No Reason prophylaxis not ordered:: Medical Contraindication - STEMI, 24 hours after the procedure of cardiac cath On IV Integrilin drip Patient Problems: Active and Suspected Problems (Last Reviewed 04/11/18 @ 11:28 by Arleen Reyes) Acute ST elevation myocardial infarction (STEMI) (Acute) - Physical Exam Vitals/I&O's: Vital Signs Temp Pulse Resp BP Pulse Ox 98.1 F 107 H 17 176/104 H 98 12/06/19 09:44 12/06/19 09:44 12/06/19 09:44 12/06/19 09:44 12/06/19 09:44 Oxygen Flow Rate (L/min) 2 Oxygen Delivery Method Nasal Cannula Weight: 168 lb 13.985 oz Body Mass Index (BMI) 33.0 General: Alert, Oriented x3, Cooperative HEENT: Atraumatic, PERRLA, EOMI, Normocephalic Neck: Supple, No JVD, Negative Carotid Bruits Lungs: Clear to auscultation, Normal air movement, No rhonchi, No wheeze, No rales Cardiovascular: Regular rate, Regular Rhythm, Normal S1, Normal S2, No murmurs Abdomen: Bowel Sounds Present, Soft, Non Tender, Non-Distended Extremities: Capillary Refill Less than 3 Seconds, Edema - Mild ankle edema Skin: No rashes, No breakdown Musculoskeletal: No Tenderness to Palpation of Joints or Extremities, Arthritic Changes Neurological: Cranial nerves II-XII grossly intact, Deep Tendon Reflexes 2+/4 and Symmetrical, Neuro grossly intact, Motor Exam 5/5 strength throughout Psych/Mental Status: Normal Affect, Appropriate Laboratory Results 12/06/19 09:30: WBC 14.9 H, RBC 4.83, Hgb 13.7, Hct 43.0, MCV 89.0, MCH 28.4, MCHC 31.9 L, RDW Std Deviation 48.8 H, RDW Coeff of Archie 15.1 H, Plt Count 287, MPV 9.8, Immature Gran % (Auto) 0.300, Neut % (Auto) 84.3 H, Lymph % (Auto) 9.7 L, [place] % (Auto) 4.0, Eos % (Auto) 1.4, Baso % (Auto) 0.3, Absolute Neuts (auto) 12.6 H, Absolute Lymphs (auto) 1.45, Nucleated RBC % 0 12/06/19 09:30: PT 12.6, INR 1.0, APTT 23.2 L 12/06/19 09:30: Sodium 140, Potassium 4.0, Chloride 108 H, Carbon Dioxide 26.0, Anion Gap 6, BUN 27 H, Creatinine 0.80, Estim Creat Clear Calc 40.29, Est GFR (MDRD) Af Amer 89, Est GFR (MDRD) Non-Af 73, BUN/Creatinine Ratio 33.7 H, Glucose 170 H, Calcium 9.9, Troponin I 0.164 H 12/06/19 10:44: Activated Clotting Time 103 12/06/19 11:06: Activated Clotting Time 109 Assessment/Plan All Active Problems (Last Reviewed 04/11/18 @ 11:28 by Arleen Reyes) Pulmonary embolism, bilateral (Resolved) Acute ST elevation myocardial infarction (STEMI) (Acute) The patient is a 79 year old F with history of pulmonary embolism and hypertension was brought in by EMS for syncope and found to be inferior wall STEMI. 1. Inferior wall STEMI: Patient is being admitted in ICU after emergent cardiac cath as per STEMI protocol. Discussed with the personal chef. Patient was developing clot at the end of the procedure probably has hypercoagulable state and she also history of DVT and PE and varicose vein. On aspirin, Brilinta, IV Integrilin drip, beta-romina, losartan and high intensity statin Fasting profile and A1c tomorrow a.m. Hyperglycemia on BMP 170. Patient denies history of diabetes. 2. Hypertension: Patient on amlodipine and olmesartan at home. Blood pressure is elevated 176/104. Losartan and amlodipine. IV labetalol for systolic blood pressure more than 180. On labetalol 10 mg IV as needed for SBP more than 180 mmHg 3. History of recurrent DVT/PE: Patient not on Xarelto for last 2 to 3 years patient developed severe epistaxis and was discontinued. Patient also has history of varicose vein and laser surgery on right leg 4. Obstructive sleep apnea on CPAP, pulmonary hypertension, dyslipidemia and obesity grade 2, BMI 31.5 kg/m?. Home medication reconciliation done. DVT prophylaxis: Bilateral SCDs. As patient just had cardiac cath and on IV Integrilin drip, no pharmacological prophylaxis for 24 hours Living will/advanced directive/end of life care: Patient does not have living will. Her is power of commercial attorney for health. After discussion of procedures involved with full code, DNR CC arrest and DNR CC, the patient want intubation, ventilator and other resuscitation measures for temporary length of time but want to withdraw if it prolongs or goes an irreversible stage Patient does want artificial life support including intubation, tube feed, ventilator and/chest compression, central venous catheter, vasopressor and DC shock if needed in the beginning. Full code. Total time spent in [id number] encounter in discussion of advanced directive 16 minutes Inpatient E&M: 25297 Init Hosp L3 Procedures: 20140 Advncd Care Plan 30 Min
--- NOTE | 2019-12-06 12:09 | EKG12_ITS ---
Test Reason : L ARM PAIN Blood Pressure : / mmHG Vent. Rate : 072 BPM Atrial Rate : 072 BPM P-R Int : 192 ms QRS Dur : 078 ms QT Int : 408 ms P-R-T Axes : 044 -06 064 degrees QTc Int : 446 ms Normal sinus rhythm Low voltage QRS Inferior infarct , age undetermined Abnormal ECG When compared with ECG of 08-SEP-2014 09:14, Vent. rate has decreased BY [address] elevation now present in Inferior leads Confirmed by CASSIDY ANTONIO, CRISTIN ([id number]), acquisition editor GENIE QUACH ([id number]) on 12/10/2019 2:15:50 PM Referred By: Zahira Monet Confirmed By:GUIDO MONET MD
[2019-12-06] MEDS: 0.9% Normal Saline 1,000 ML 60 ML IV (12:15)
--- NOTE | 2019-12-06 12:24 | PCM.CONS.C ---
Reason for Consult Date of Consultation: 12/06/19 History of Present Illness: The patient is a 79 year old F [with past medical history of hypertension, PE for which she was on Xarelto and then had to discontinue it because of nosebleeds coming to [facility] after passing out this morning patient was having breakfast with her when she passed out. Patient's who is a retired psychiatric nursing assistant noted that she had a pulse but she was not breathing and he had to give [id number] breaths a few times. Patient finally regained consciousness. 911 was called and an EKG done at the scene revealed inferior ST elevation NE. Patient had another EKG done in the ER which also confirmed this. Patient was not having any chest pain. However because of syncope which could be secondary to cardiac arrest related to an arrhythmia related to patient's inferior ST elevation NE, patient was brought emergently to the cardiac Pooling Operator and underwent coronary angiography which revealed 100% occlusion of the RCA. This was treated with thrombectomy and bare-metal stent placement. Patient is doing well at the end of the procedure. Review of systems: All systems reviewed. All else is negative except that in the HPI] Past Medical History Allergies/Adverse Reactions: Allergies kiwi Allergy (Unknown, Verified 04/11/18 11:29) Anaphylaxis trimethoprim [From Bactrim] Allergy (Unknown, Verified 04/11/18 11:29) Rash tree and shrub pollen Allergy (Verified 04/11/18 11:29) Unknown ciprofloxacin HCl [From Cipro] Adverse Reaction (Severe, Verified 04/11/18 11:29) Itching rash clarithromycin [From Biaxin] Adverse Reaction (Severe, Verified 04/11/18 11:29) Rash codeine Adverse Reaction (Severe, Verified 04/11/18 11:29) Unknown prednisone Adverse Reaction (Severe, Verified 04/11/18 11:29) Unknown Sulfa (Sulfonamide Antibiotics) Adverse Reaction (Severe, Verified 04/11/18 11:29) Unknown adhesive Adverse Reaction (Intermediate, Verified 04/11/18 11:29) Rash animal dander Adverse Reaction (Unknown, Verified 04/11/18 11:29) Unknown levofloxacin [From Levaquin] Adverse Reaction (Unknown, Verified 04/11/18 11:29) Itching nickel Adverse Reaction (Unknown, Verified 04/11/18 11:29) NOT SURE sulfamethoxazole [From Bactrim] Adverse Reaction (Unknown, Verified 04/11/18 11:29) Rash tape Allergy (Unknown, Uncoded 04/11/18 11:29) Itching Home Medications: Ambulatory Orders Medication Instructions Recorded Atorvastatin Calcium [Lipitor] 40 mg PO QHS 02/21/13 Metoprolol(XL)Succ [Toprol Xl 50 mg PO DAILY 02/21/13 (Beta Romina)] Multivit-Min/FA/Lycopen/Lutein 1 each PO DAILY 06/17/15 [Centrum Silver Tablet] Amlodipine Besylate [Norvasc] 5 mg PO DAILY 08/04/16 Cholecalciferol (Vitamin D3) 10,000 unit PO DAILY 08/04/16 [Vitamin D3] Olmesartan Medoxomil [Benicar] 20 mg PO DAILY 08/04/16 Duloxetine HCl 60 mg PO DAILY 12/06/16 Morphine Sulfate [Arymo ER] 15 mg PO TID PRN 09/21/17 Gabapentin [Neurontin] 100 mg PO DAILY 01/25/18 Glucosamn/Condroitn/C/Mn/[place] 1 tab PO DAILY 03/21/18 [[facility] Glucosamine Chondroit Cplt] Denosumab [Prolia] 60 mg SQ Q6M 12/06/19 Past Medical History (Chronic Problems): Chronic Problems (Last Reviewed 04/11/18 @ 11:28 by Arleen Reyes) Benign essential HTN (Chronic) HLD (hyperlipidemia) (Chronic) Pulmonary HTN (Chronic) Obesity (Chronic) Osteoarthritis (Chronic) BALTAZAR (obstructive sleep apnea) (Chronic) History of recurrent deep vein thrombosis (DVT) (Chronic) History of pulmonary embolism (Chronic) Surgical History: - - Right rotator cuff surgery, benign tumor right kidney, A&P repair, GF filter placement, R THR as noted. Psychiatric History: Anxiety - with occasional panic attacks. BUNDLE CLERK History: No pertinent BUNDLE CLERK history - *Family History Maternal Family History: Family History (Last Reviewed 04/11/18 @ 11:28 by Arleen Reyes) Father Bone cancer Arthritis Mother Leukemia Heart disease History Items: No pertinent history Paternal Family History: Family History (Last Reviewed 04/11/18 @ 11:28 by Arleen Reyes) Father Bone cancer Arthritis Mother Leukemia Heart disease History Items: No pertinent history Smoking Status: Never smoker Objective: Vital Signs Temp Pulse Resp BP Pulse Ox 98.1 F 107 H 17 176/104 H 98 12/06/19 09:44 12/06/19 09:44 12/06/19 09:44 12/06/19 09:44 12/06/19 09:44 Oxygen Flow Rate (L/min) 2 Oxygen Delivery Method Nasal Cannula Weight: 171 lb 15.369 oz Body Mass Index (BMI) 31.4 General: Awake, Alert, Oriented x 3 HEENT: Atraumatic Neck: Supple Lungs: Clear to auscultation Cardiovascular: Normal S1, Normal S2 Abdomen: Soft 12/06/19 09:30: WBC 14.9 H, RBC 4.83, Hgb 13.7, Hct 43.0, MCV 89.0, MCH 28.4, MCHC 31.9 L, Plt Count 287, MPV 9.8, Immature Gran % (Auto) 0.300, Neut % (Auto) 84.3 H, Lymph % (Auto) 9.7 L, [place] % (Auto) 4.0, Eos % (Auto) 1.4, Baso % (Auto) 0.3, Absolute Neuts (auto) 12.6 H, Nucleated RBC % 0 12/06/19 09:30: PT 12.6, INR 1.0, APTT 23.2 L 12/06/19 09:30: Sodium 140, Potassium 4.0, Chloride 108 H, Carbon Dioxide 26.0, Anion Gap 6, BUN 27 H, Creatinine 0.80, Est GFR (MDRD) Af Amer 89, Est GFR (MDRD) Non-Af 73, BUN/Creatinine Ratio 33.7 H, Glucose 170 H, Calcium 9.9, Troponin I 0.164 H Rhythm: EKG: ECHO: Stress Test: Cardiac Cath: PCI: CT Surgery: Holter monitor: EPS: PPM: CXR: Chest CT Scan: Assessment/Plan 1. Inferior ST elevation NE: Patient appears to have had cardiac arrest as well secondary to this. She did not require intubation or any further maneuvers for cardiac arrest apart from the [id number] resuscitation done by the . She was found to have 100% occlusion of the RCA that was treated with thrombectomy and bare-metal stent placement. Patient appears to have a hypercoagulable state with her history of PE and also because she was developing clots at the end of the procedure. We had to do thrombectomy a few times. We will keep the patient on Integrilin overnight. We will also keep her on aspirin, Brilinta, Lipitor and metoprolol. We will check a 2D echo to evaluate her LV function.
--- NOTE | 2019-12-06 13:44 | CRPHASE1 ---
Patient Communication Former Patient:: Phase I PHII Cardiac Rehab Discussed with Patient:: Yes Guide to Cardiac Rehab Given to Patient:: Yes Cardiac Rehab Facility Choice List Given to Patient:: Yes Choice Program [facility] CR PHII:: Communication Given to CR Numerical Analysis Group Manager:: Zahira Monet Phase II Cardiac Rehab:: Yes Sessions:: 36 sessions - 3 days/wk, 12 weeks Risk Factors/Lifestyle Smoking Status: Former smoker Second-Hand Smoke:: No Hx Hypertension: Yes Hx Diabetes Mellitus Type 1: No Hx Diabetes Mellitus Type 2: No Hx Metabolic Disorders: No Hx Dyslipidemia: Yes Hx Obesity: Yes Post-Menopausal: Yes ETOH: No Caffeine: No Substance Abuse: No Risk Factor for Sedentary Lifestyle: Moderate Risk Family History: Family History (Last Reviewed 04/11/18 @ 11:28 by Arleen Reyes) Father Bone cancer Arthritis Mother Leukemia Heart disease Phase I Education Given On:: [place], Nutrition, Antiplatelet medication Issues Affecting Care:: None Knowledge of Condition:: Yes Learning Preferences: Verbal Cardiac Rehabilitation Info Cardiac Rehabilitation Program Information: Cardiac Rehabilitation is important for patients like you who are recovering from a heart problem. Cardiac rehabilitation programs are recognized as integral to the continued care of the patient with coronary heart disease. The cardiac rehabilitation program is designed to optimize a patient's physical, psychological, and social functioning. Health health care specialist work in cardiac rehabilitation programs and assist you with getting the treatments you need to get stronger and healthier - like exercise, healthy eating habits, and medications. Cardiac rehabilitation has been show to help people with heart problems live longer and have better life enjoyment than people who do not go to cardiac rehabilitation. Please contact the Cardiac Rehabilitation Program at [facility] at in two weeks if you have not heard from them.
--- NOTE | 2019-12-06 13:46 | CRPH1.INSTRU ---
General Education CAD and cardiac anatomy and function:: Patient communicates acknowledgment Explanation of diagnoses and procedures:: Patient communicates acknowledgment Sign/Symptoms of ID:: Patient communicates acknowledgment Antiplatelet therapy: Patient communicates acknowledgment Proper use of NTG-SL: Patient communicates acknowledgment Emergency procedures and activation of EMS: Patient communicates acknowledgment Compliance of all prescribed medications: Patient communicates acknowledgment Dyslipidemia Patient Dyslipidemia Risk Factors Are:: Triglycerides, LDL Recommendations Include:: Lipid profile provided, Reviewed NCEP/ATP guidelines, Therapeutic Lifestyle Change dietary guidelines Dyslipidemia Response Code:: Patient communicates acknowledgment Overweight/Obesity Patient Overweight/Obesity Risk Factors Are:: Obesity - > or = 30 Recommendations Include:: Weight loss of 5-10%, Reduced calorie diet, Exercise 5-7 times/week Overweight/Obesity:: Patient communicates acknowledgment Hypertension Recommendations Include:: Maintain BP <130/85, DASH dietary guidelines, Decrease/maintain normal body weight, Moderation of ETOH Hypertension:: Patient communicates acknowledgment Sedentary Patient Sedentary Risk Factors Are:: Lack of regular exercise Recommendations Include:: Aerobic exercise 5-7 times/week for 20-30 minutes continuously, Benefits of regular exercise, Discussed home walking program, Monitored Outpatient Cardiac Rehab Sedentary Response Code:: Patient communicates acknowledgment Stress Patient Stress Risk Factors Are:: Patient denies stress as a risk factor
[2019-12-06 13:48] LABS: Magnesium 1.9 mg/dL (1.6-2.6)
[2019-12-06 14:19] LABS: Hemoglobin A1c 5.7 % (3.8-5.6)
--- NOTE | 2019-12-06 16:15 | ECHOD_ITS ---
Version 2 Reason For Study: S/P [place] Procedure This was a 2D Doppler, Color Flow transthoracic echocardiogram. Exam performed portable in ICU/CCU. Left Ventricle Normal LV size. The estimated ejection fraction is 60 %. Unable to assess diastolic dysfunction. No regional wall motion abnormalities noted. Right Ventricle Normal RV size. Normal systolic function. Atria Normal left atrium. Normal right atrium. No doppler evidence for ASD. Mitral Valve There is moderate mitral annular calcification. There is no mitral valve stenosis. No mitral valve insufficiency. Tricuspid Valve There is no tricuspid stenosis. Trivial tricuspid valve insufficiency. Unable to estimate RV systolic pressure due to insufficient tricuspid regurgitant envelope. Aortic Valve Trisinus/trileaflet aortic valve. There is no aortic stenosis. No aortic valve insufficiency. Pulmonic Valve There is no pulmonic valvular stenosis. No pulmonic valve insufficiency. Great Vessels Normal aortic root. Pericardium/Pleural No pericardial effusion. MMode/2D Measurements & Calculations LVIDd: 4.5 cm IVSd: 1.3 cm Ao root diam: 3.3 cm LVIDs: 2.5 cm LVPWd: 1.1 cm RVDd: 3.1 cm FS: 43.9 % LAV(MOD-bp): 34.3 ml LA A4 area: 12.3 cm2 LA dimension(2D): 3.1 cm LAV(MOD-bp) Indexed: 19.2 ml/m2 LAV(MOD-sp2): 32.5 ml LAV(MOD-sp4): 30.2 ml RA A4 area: 8.3 cm2 Doppler Measurements & Calculations MV E max cruz: 65.1 cm/sec Lat Peak E' Cruz: 5.7 cm/sec Med Peak E' Cruz: 3.4 cm/sec MV A max cruz: 129.8 cm/sec E/E' lat: 11.3 E/E' med: 18.9 MV E/A: 0.50 Ao V2 max: 150.5 cm/sec LV V1 max: 137.6 cm/sec PA V2 max: 114.6 cm/sec Ao max P.1 mmHg LV V1 max P.6 mmHg Interpretation Summary The estimated ejection fraction is 60 %. Unable to assess diastolic dysfunction. Ordering Physician: Zahira Monet Referring Physician: Lydia Shearer Performed By: Michelle Ellsworth, RUELCS, RVT
[2019-12-06 16:41] LABS: Bedside Glucose 93 mg/dL (70-110)
[2019-12-06] MEDS: TICAGRELOR 90 MG TABLET PO (21:19)
[2019-12-06] MEDS: Atorvastatin Calcium 40 MG Tablet PO (21:22)
[2019-12-07] VITALS (30 sets, daily range): BP systolic 100–153; BP diastolic 61–96; PULSE 78–118; RESP 14–118; TEMP 36.4–36.7; O2SAT 92–100
[2019-12-07 04:53] LABS: Hematocrit 34.4 % (37-47); Hemoglobin 10.9 g/dL (12.0-15.0); Mean Corp Hgb Conc 31.7 g/dL (32-36); Mean Corpuscular Hgb 28.2 pg (27.0-32.0); Mean Corpuscular Volume 89.1 fL (81-99); Mean Platelet Vol. 9.6 fl (6.2-12.0); Platelet Count 252 K/mm3 (150-450); RBC Distribution Width CV 15.1 % (11.6-14.6); RBC Distribution Width SD 48.7 fl (35.1-43.9); Red Blood Count 3.86 M/mm3 (4.2-5.4); White Blood Count 9.3 K/mm3 (4.4-11.0)
[2019-12-07] MEDS: oxyCODONE 5 MG Tablet PO (05:21)
[2019-12-07 05:24] LABS: ALB/GLOB Ratio 0.9 RATIO (0.9-2.4); AST(SGOT) 101 U/L (15-37); Alanine Aminotransfer ALT/SGPT 29 U/L (13-56); Albumin, Serum 2.9 g/dL (3.2-5.0); Alkaline Phosphatase 75 U/L (45-117); Anion Gap 5 (5-15); BUN 24 mg/dL (7-18); BUN/Creat Ratio 32.8 RATIO (10-20); Calcium,Total 8.4 mg/dL (8.5-10.1); Chloride 110 mmol/L (98-107); Cholesterol 128 mg/dL (200); Creatinine, Serum 0.73 mg/dL (0.55-1.02); EST Glomerular Filtration Rate 81 mL/min (>60); Est Glom Filt Rate - Afr Amer 98 mL/min (>60); Estimated Creatinine Clearance 35.49 ml/min; Globulin 3.4 g/dL (2.2-4.2); Glucose 99 mg/dL (74-106); High Density Lipoprotein 40 mg/dL; Phosphorus 3.2 mg/dL (2.5-4.9); Potassium 3.6 mmol/L (3.5-5.1); Protein, Total 6.3 g/dL (6.4-8.2); Sodium Level 140 mmol/L (136-145); Triglycerides 199 mg/dL; Very Low Density Lipoprotein 40 mg/dL (5-40)
[2019-12-07] MEDS: 0.9% Saline Lock 10 ML Syringe IV (07:01)
--- NOTE | 2019-12-07 09:31 | EKG12_ITS ---
Test Reason : AFIB Blood Pressure : / mmHG Vent. Rate : 101 BPM Atrial Rate : 101 BPM P-R Int : 182 ms QRS Dur : 082 ms QT Int : 362 ms P-R-T Axes : 048 -05 -06 degrees QTc Int : 469 ms Sinus tachycardia Low voltage QRS Inferior infarct , age undetermined Abnormal ECG When compared with ECG of 07-DEC-2019 09:39, MANUAL COMPARISON REQUIRED, DATA IS UNCONFIRMED Confirmed by ANGELINA ANTONIO, JUAN ([id number]), map editor NOEMY SOLER ([id number]) on 12/13/2019 3:50:08 PM Referred By: Zahira Monet Confirmed By:JUAN ALFARO MD
[2019-12-07] MEDS: Gabapentin 100 MG Capsule PO (09:47)
[2019-12-07] MEDS: Metoprolol(XL)Succ 50 MG Tablet PO ×2 (09:48→12:18)
[2019-12-07] MEDS: amLODIPine 5 MG Tablet PO (09:49)
[2019-12-07] MEDS: TICAGRELOR 90 MG TABLET PO ×2 (09:49→21:35)
[2019-12-07] MEDS: DULoxetine Hcl 60 MG Capsule PO (09:50)
--- NOTE | 2019-12-07 10:00 | EKG12_ITS ---
Test Reason : AFIB Blood Pressure : / mmHG Vent. Rate : 102 BPM Atrial Rate : 102 BPM P-R Int : 170 ms QRS Dur : 080 ms QT Int : 358 ms P-R-T Axes : 037 -25 007 degrees QTc Int : 466 ms Sinus tachycardia Low voltage QRS Inferior infarct , age undetermined , age undetermined Poor R wave progression Anterior septal Mi, age undetermined, cannot be excluded Abnormal ECG Confirmed by DULCE ANTONIO, YVONNE ([id number]), order editor NOEMY SOLER ([id number]) on 12/13/2019 3:46:41 PM Referred By: Zahira Monet Confirmed By:YVONNE CARDONA MD
[2019-12-07] MEDS: 0.9% Normal Saline 1,000 ML 100 ML IV (12:49)
[2019-12-07] MEDS: Ondansetron 4 MG/2 ML Vial IV (14:15)
--- NOTE | 2019-12-07 14:53 | CT_ITS ---
STUDY: CTA CHEST REASON FOR EXAM: Female, 79 years old. R/O PE, HEART STENT PERFORMED YESTERDAY, HX PE RADIATION DOSAGE (If Supplied By Facility): CTDIvol = ( 12.46 ) mGy, DLP = ( 474.86 ) mGycm TECHNIQUE: The examination was performed with the intravenous administration of 100ML ISOVUE 370. Post-processing of the angiographic images was performed, with multiplanar reformation and 3D reconstruction. Individualized dose optimization techniques were used for this CT. COMPARISON: None. FINDINGS: Normal enhancement of the main pulmonary artery and right and left pulmonary arteries. Normal enhancement of the bilateral peripheral pulmonary arteries. There is no demonstrated pulmonary embolism. Normal thoracic aorta and visualized great vessels. There is no demonstrated aortic dissection. Normal heart and pericardium. Normal mediastinum. Normal hilar regions. Normal visualized trachea and bronchi. The lungs are well expanded. Normal pulmonary parenchyma. Normal pleura. Normal chest wall structures. Normal osseous structures. Normal visualized upper abdomen. CT/CTA Chest W/WO Contrast IMPRESSION: Normal CTA chest examination, without a demonstrated pulmonary embolism or arterial dissection. Electronically Signed: Vamshi Payton MD at 16:19 EDT Tel , Service support ,
--- NOTE | 2019-12-07 15:07 | CHAPLAIN ---
Type of Pastoral Visit _x__ Initial Visit ___ Follow-up Visit ___ On-call Visit ___ General Patient Visit ___ Spiritual Assessment ___ Family Conference ___ Bereavement ___ Rapid Response ___ Code Blue ___ Other (describe below) Pastoral Care Referral From _x__ Patient ___ Family ___ Nurse ___ Physician ___ Conveyor System Dispatcher ___ General Teller ___ Other (describe below) Sacrament/Intervention ___ Active listening ___ Anointing ___ Amish ___ Bereavement ___ Communion ___ Naty exploration ___ ___ Life review ___ Prayer ___ Reconciliation ___ Sacrament of Sick _x__ Supportive presence ___ Wedding _x__ Other (describe below) Pastoral Comments patient had indicated at admission of desire to have her baptist contacted; after meeting with pt this was completed by this dynamite packing machine operator; pt was offered spiritual support during her stay
--- NOTE | 2019-12-07 15:16 | PCM.PN.HOSP ---
Patient Problems: Active and Suspected Problems (Last Reviewed 04/11/18 @ 11:28 by Arleen Reyes) Acute ST elevation myocardial infarction (STEMI) (Acute) Reason for Visit: Inferior wall STEMI. Patient is mildly tachycardic Objective: Sinus tachycardia, heart rate is increased to 110 in the morning currently 100. Metoprolol dose increased from 50 mg 200 mg daily. No chest pain or shortness of breath. Physical exam General: Alert, Oriented x3, Cooperative HEENT: Atraumatic, PERRLA, EOMI, Normocephalic Oral: No Gingival or Mucosal Lesions/ Ulcerations Neck: Supple, No JVD, Negative Carotid Bruits Lungs: Air entry diminished in bilateral lung bases. No crepitation/rhonchi. No hypoxia Cardiovascular: Sinus tachycardia. Regular Rhythm, Normal S1, Normal S2, No murmurs Abdomen: Bowel Sounds Present, Soft, Non Tender, Non-Distended : No renal angle tenderness. No suprapubic tenderness. Extremities: No edema, Capillary Refill Less than 3 Seconds. Right forearm is wrapped under Juan Carlos wrap bandage Skin: No rashes, No breakdown Musculoskeletal: No Tenderness to Palpation of Joints or Extremities Neurological: Cranial nerves II-XII grossly intact, Deep Tendon Reflexes 2+/4 and Symmetrical, Neuro grossly intact Psych/Mental Status: Normal Affect, Appropriate. Vitals/I&O's: Vital Signs Temp Pulse Resp BP Pulse Ox 98.0 F 101 H 18 115/65 93 12/07/19 12:00 12/07/19 13:00 12/07/19 13:00 12/07/19 13:00 12/07/19 13:00 Oxygen Flow Rate (L/min) 2 Oxygen Delivery Method Room Air Weight: 172 lb 13.478 oz Body Mass Index (BMI) 31.4 Intake and Output for Last 24 Hours 12/05/19 12/06/19 12/07/19 23:59 23:59 23:59 Intake Total 1539.38 / 1551.88 1400.00 / 1400.00 Output Total 900 / 950 1050 / 1050 Balance 639.38 / 601.88 350.0 / 350.00 Laboratory Results 12/06/19 16:32: POC Glucose 93 12/07/19 04:40: Sodium 140, Potassium 3.6, Chloride 110 H, Carbon Dioxide 25.0, Anion Gap 5, BUN 24 H, Creatinine 0.73, Estim Creat Clear Calc 35.49, Est GFR (MDRD) Af Amer 98, Est GFR (MDRD) Non-Af 81, BUN/Creatinine Ratio 32.8 H, Glucose 99, Calcium 8.4 L, Phosphorus 3.2, Total Bilirubin 0.60, Direct Bilirubin 0.20, AST 101 H, ALT 29, Alkaline Phosphatase 75, Total Protein 6.3 L, Albumin 2.9 L, Globulin 3.4, Albumin/Globulin Ratio 0.9, Triglycerides 199, Cholesterol 128, LDL Cholesterol 48, VLDL Cholesterol 40, HDL Cholesterol 40 12/07/19 04:40: WBC 9.3, RBC 3.86 L, Hgb 10.9 L, Hct 34.4 L, MCV 89.1, MCH 28.2, MCHC 31.7 L, RDW Std Deviation 48.7 H, RDW Coeff of Archie 15.1 H, Plt Count 252, MPV 9.6 Current Medications Acetaminophen (Tylenol) 650 mg PO Q6H PRN PRN PRN Reason: Pain Score 1-3/Temp > 100.7 F Al Hydroxide/Mg Hydroxide (Mylanta Ii) 30 ml PO Q6H PRN PRN PRN Reason: Gastric Burning Albuterol Sulfate (Ventolin Aerosols) 2.5 mg INHALATION Q2H PRN PRN PRN Reason: SOB/Wheezing Amlodipine Besylate (Norvasc) 5 mg PO DAILY [facility] Last Admin: 12/07/19 09:49 Dose: 5 mg Documented by: Atorvastatin Calcium (Lipitor) 40 mg PO QHS [facility] Last Admin: 12/06/19 21:22 Dose: 40 mg Documented by: Atropine Sulfate () 0.5 mg IV UD PRN PRN Reason: HR <50 bpm Cholecalciferol (Vitamin D (25mcg)) 10,000 unit PO DAILY [facility] Last Admin: 12/07/19 09:51 Dose: 10,000 unit Documented by: Duloxetine HCl (Cymbalta) 60 mg PO DAILY [facility] Last Admin: 12/07/19 09:50 Dose: 60 mg Documented by: Gabapentin (Neurontin) 100 mg PO DAILY [facility] Last Admin: 12/07/19 09:47 Dose: 100 mg Documented by: Heparin Sodium (Beef Lung) (Heparin 500 Unit/5 Ml (100/Ml)) 500 unit IV UD PRN PRN Reason: HEPARIN FLUSH Sodium Chloride () 1,000 mls @ 100 mls/hr IV .Q10H [facility] Stop: 12/07/19 22:59 Last Admin: 12/07/19 12:49 Dose: 100 mls/hr Documented by: Labetalol HCl (Trandate) 5 mg IV X1 PRN PRN Reason: SBP > 160 when pulling sheath Labetalol HCl (Trandate) 10 mg IV Q6H PRN PRN Reason: SBP>180 Melatonin (Melatonin) 3 mg PO QHS PRN PRN PRN Reason: INSOMNIA Metoprolol Succinate (Toprol Xl (Beta Romina)) 100 mg PO DAILY [facility] Morphine Sulfate () 2 mg IV Q3H PRN PRN PRN Reason: Pain Score 6-10/10 Nitroglycerin (Nitrostat) 0.4 mg SUBLINGUAL Q5M PRN PRN Reason: CHEST PAIN Ondansetron HCl (Zofran) 4 mg IV Q8H PRN PRN PRN Reason: NAUSEA/VOMITING Last Admin: 12/07/19 14:15 Dose: 4 mg Documented by: Oxycodone HCl (Oxyir) 5 mg PO Q4H PRN PRN PRN Reason: Pain Score 4-5/10 Last Admin: 12/07/19 05:21 Dose: 5 mg Documented by: Senna/Docusate Sodium (Senokot-S, Gabi-Colace) 2 tablet PO BID PRN PRN Reason: Constipation Sodium Chloride () 500 ml IV BOLUS PRN PRN Reason: VASO-VAGAL PROTOCOL Sodium Chloride () 10 - 40 ml IV UD PRN PRN Reason: SALINE FLUSH Last Admin: 12/07/19 07:01 Dose: 20 ml Documented by: Ticagrelor (Brilinta) 90 mg PO BID [facility] Last Admin: 12/07/19 09:49 Dose: 90 mg Documented by: STROKE Vital Signs/Narrative: Vital Signs Temp Pulse Resp BP Pulse Ox 12/07/19 13:00 101 H 18 115/65 93 12/07/19 12:18 115 H 114/66 12/07/19 12:11 110 H 12/07/19 12:00 98.0 F 113 H 118 H 114/66 96 Medical Necessity - Tobacco Use Smoking Status: Former smoker Assessment/Plan All Active Problems (Last Reviewed 04/11/18 @ 11:28 by Arleen Reyes) Pulmonary embolism, bilateral (Resolved) Acute ST elevation myocardial infarction (STEMI) (Acute) The patient is a 79 year old F with history of pulmonary embolism and hypertension was brought in by EMS for syncope and found to be inferior wall STEMI. 1. Inferior wall STEMI: Patient is being admitted in ICU after emergent cardiac cath as per STEMI protocol. Discussed with the lingo cleaner. Patient was developing clot at the end of the procedure probably has hypercoagulable state and she also history of DVT and PE and varicose vein. On aspirin, Brilinta, beta-romina, losartan and high intensity statin 12/06 mild sinus tachycardia. Metoprolol succinate increased to 100 mg daily. Fasting profile LDL 48, total cholesterol 128. Integrilin drip discontinued. Hyperglycemia on BMP 170. Patient denies history of diabetes. A1c 5.7 suggestive of prediabetes. 2. Hypertension: Patient on amlodipine and olmesartan at home. Blood pressure was elevated 176/104. Losartan and amlodipine. On labetalol 10 mg IV as needed for SBP more than 180 mmHg Blood pressure is controlled. 3. History of recurrent DVT/PE: Patient not on Xarelto for last 2 to 3 years patient developed severe epistaxis and was discontinued. Patient also has history of varicose vein and laser surgery on right leg 4. Obstructive sleep apnea on CPAP, pulmonary hypertension, dyslipidemia and obesity grade 2, BMI 31.5 kg/m?. Home medication reconciliation done. DVT prophylaxis: Bilateral SCDs. As patient just had cardiac cath and on IV Integrilin drip, no pharmacological prophylaxis for 24 hours Total time of the visit including total time spent in counseling or coordination of care, (more than 50% of the total time, spent in obtaining medical information from nurses and other ancillary care providers), , review of labs and imaging is 30 minutes. Living will/advanced directive/end of life care: Patient does not have living will. Her is power of attorney general for health. After discussion of procedures involved with full code, DNR CC arrest and DNR CC, the patient want intubation, ventilator and other resuscitation measures for temporary length of time but want to withdraw if it prolongs or goes an irreversible stage Patient does want artificial life support including intubation, tube feed, ventilator and/chest compression, central venous catheter, vasopressor and DC shock if needed in the beginning. Full code. Total time spent in [id number] encounter in discussion of advanced directive 16 minutes Inpatient E&M: 85236 Subs Hosp L3
--- NOTE | 2019-12-07 15:22 | CASEMGMT ---
Addendum entered by Tanisha Barney 12/07/19 15:38: Assessment completed at 1040, not 1538. Original Note: RN CM MACHINE SHORTHAND REPORTER CM to room to meet with patient for initial transition planning/care coordination assessment. GRETA GRULLON introduced self and role at [facility]. Pt voices understanding and consents to assessment at this time. Pt resting in bed in no distress at this time. Pt is A/O at this time and answers all questions appropriately. Care providers, pharmacy, and demographics verified/updated at this time. PCP: Lydia Shearer, FORGING MACHINE HAND Specialists: Dr Spangler--pulmonology, Dr Christopher--oncology, Dr Wong--pain mgmt Preferred Pharmacy: Curry Kirk ([facility]) Insurance: [facility] [place] Prescription Benefit: yes. Pt will be going home on Brilinta. Brilinta savings card given to pt and instructed on use. Pt made aware, if cost of refills is not affordable to discuss other options w/cable tester. Pt states has had big nose bleed in the past when on anticoagulant in the past. Pt made aware to let her physician know if she develops nosebleed while on Brilinta. Living Will/HPOA: Has both LW and Healthcare POA, who is her , Jamie LNOK: , Jamie. 4 adult children. Living Arrangements: Lives w/her in one-story home w/basement. Pt independent w/ADL's. /pt share home mgmt tasks. Pt manages her own medications/doctor appts. Transportation: DME: States has the following DME: shower chair, rails/grab bars, hand held shower, walker, CPAP. Pt states no need for further DME at this time. HHC/SNF: [facility] and [facility] in the past. Denies need for HHC or OP therapy at this time. No needs identified. Plans on doing cardiac rehab. Pt wishes to return home and states has no concerns with going home at time of discharge. CM to follow for any further discharge planning/needs. Pt voices no concerns/needs at this time. Advised pt to ask for CM if any further questions/concerns/needs arise. Voices understanding. PLAN: Home on Brilinta. Has been given Brilinta savings card. Jennifer CEJA RN, CM
--- NOTE | 2019-12-07 17:56 | PCM.PN.CARD ---
Subjectve: Have any chest pain or shortness of breath. She had one episode of sudden onset of nausea and significant sweating. She was evaluated after that. By then her profuse sweating had resolved and she was given Zofran. This helped with her nausea. Patient has been having on and off sinus tachycardia. Her EKGs have not revealed significant ST elevation. Objective: Vital Signs Temp Pulse Resp BP Pulse Ox 97.6 F L 86 18 129/68 H 97 12/07/19 16:00 12/07/19 17:00 12/07/19 17:00 12/07/19 17:00 12/07/19 17:00 Oxygen Flow Rate (L/min) 2 Oxygen Delivery Method Room Air Weight: 172 lb 13.478 oz Body Mass Index (BMI) 31.4 Intake and Output for Last 24 Hours 12/05/19 12/06/19 12/07/19 23:59 23:59 23:59 Intake Total 1539.38 / 1551.88 1768.33 / 1768.33 Output Total 900 / 950 1350 / 1350 Balance 639.38 / 601.88 418.33 / 418.33 General: Awake, Alert, Oriented x 3 HEENT: Atraumatic Oral: Moist Mucosa Neck: Supple Lungs: Clear to auscultation Cardiovascular: Regular Rhythm Abdomen: Soft Skin: No Rashes Psych/Mental Status: Appropriate 12/07/19 04:40: Sodium 140, Potassium 3.6, Chloride 110 H, Carbon Dioxide 25.0, Anion Gap 5, BUN 24 H, Creatinine 0.73, Est GFR (MDRD) Af Amer 98, Est GFR (MDRD) Non-Af 81, BUN/Creatinine Ratio 32.8 H, Glucose 99, Calcium 8.4 L, Phosphorus 3.2, Total Bilirubin 0.60, Direct Bilirubin 0.20, Triglycerides 199, Cholesterol 128, LDL Cholesterol 48, VLDL Cholesterol 40, HDL Cholesterol 40 12/07/19 04:40: WBC 9.3, RBC 3.86 L, Hgb 10.9 L, Hct 34.4 L, MCV 89.1, MCH 28.2, MCHC 31.7 L, Plt Count 252, MPV 9.6 Rhythm: EKG: ECHO: Stress Test: Cardiac Cath: PCI: CT Surgery: Holter monitor: EPS: PPM: CXR: Chest CT Scan: Medical Necessity - Tobacco Use Smoking Status: Former smoker Assessment/Plan 1. Inferior ST elevation CT: EF is preserved. Status post thrombectomy and bare-metal stent placement to the RCA. We will keep the patient on dual antiplatelet therapy. We will increase the beta-macrina. Since patient is tachycardic without a clear explanation for it and has history of PE we will proceed with a CT angiogram to rule out new pulmonary embolism. When patient had the PE last time she said she was just feeling anxious and did not have any shortness of breath or chest pain. She seems to have similar symptoms at this time as well.
--- NOTE | 2019-12-07 20:15 | CPS ---
Hospital CPAP pulled from room. Patient's own PAP machine setup and tested. She would like to wear this over the hospital's machine. COMPUTING CONSULTANT will monitor overnight.
[2019-12-07] MEDS: Atorvastatin Calcium 40 MG Tablet PO (21:35)
[2019-12-08] VITALS (15 sets, daily range): BP systolic 118–143; BP diastolic 73–94; PULSE 68–111; RESP 15–19; TEMP 36.5–36.7; O2SAT 91–97
[2019-12-08 04:59] LABS: Hematocrit 34.2 % (37-47); Hemoglobin 11.3 g/dL (12.0-15.0); Mean Corpuscular Hgb 28.7 pg (27.0-32.0); Mean Corpuscular Volume 86.8 fL (81-99); Mean Platelet Vol. 9.4 fl (6.2-12.0); Platelet Count 249 K/mm3 (150-450); RBC Distribution Width CV 14.6 % (11.6-14.6); RBC Distribution Width SD 46.5 fl (35.1-43.9); Red Blood Count 3.94 M/mm3 (4.2-5.4); White Blood Count 9.9 K/mm3 (4.4-11.0)
[2019-12-08] MEDS: DULoxetine Hcl 60 MG Capsule PO (08:23)
[2019-12-08] MEDS: Metoprolol(XL)Succ 100 MG Tablet PO (08:23)
[2019-12-08] MEDS: amLODIPine 5 MG Tablet PO (08:23)
[2019-12-08] MEDS: TICAGRELOR 90 MG TABLET PO (08:23)
[2019-12-08] MEDS: Gabapentin 100 MG Capsule PO (08:24)
--- NOTE | 2019-12-08 08:34 | PCM.DC ---
- Discharge Diagnoses Current Active Problems: Current Active and Chronic Problems (Last Reviewed 04/11/18 @ 11:28 by Arleen Reyes) Acute ST elevation myocardial infarction (STEMI) (Acute) You will use the following diet at home:: Cardiac Your food should be the consistency of: Regular Discharge Activity: May Not Drive Call your doctor if you observe: Fever of 101 or Higher, Coldness, Increased Pain, Change in Color, Inability to urinate, Inability to have a bowel movement, Shortness of breath, Dizziness, Fainting spells, Swelling in the ankles, Chest pain, Prolonged hiccoughing, Increased palpitations (irregular heartbeat) Allergies/Adverse Reactions: Allergies kiwi Allergy (Unknown, Verified 04/11/18 11:29) Anaphylaxis trimethoprim [From Bactrim] Allergy (Unknown, Verified 04/11/18:) Rash tree and shrub pollen Allergy (Verified 04/11/18 11:29) Unknown ciprofloxacin HCl [From Cipro] Adverse Reaction (Severe, Verified 04/11/18 11:29) Itching rash clarithromycin [From Biaxin] Adverse Reaction (Severe, Verified 04/11/18 11:29) Rash codeine Adverse Reaction (Severe, Verified 04/11/18 11:29) Unknown prednisone Adverse Reaction (Severe, Verified 04/11/18 11:29) Unknown Sulfa (Sulfonamide Antibiotics) Adverse Reaction (Severe, Verified 04/11/18 11:29) Unknown adhesive Adverse Reaction (Intermediate, Verified 04/11/18 11:29) Rash animal dander Adverse Reaction (Unknown, Verified 04/11/18 11:29) Unknown levofloxacin [From Levaquin] Adverse Reaction (Unknown, Verified 04/11/18 11:29) Itching nickel Adverse Reaction (Unknown, Verified 04/11/18 11:29) NOT SURE sulfamethoxazole [From Bactrim] Adverse Reaction (Unknown, Verified 04/11/18 11:29) Rash tape Allergy (Unknown, Uncoded 04/11/18 11:29) Itching Medications to take at Discharge Multivit-Min/FA/Lycopen/Lutein [Centrum Silver Tablet] 1 each PO DAILY 06/17/15 Amlodipine Besylate [Norvasc] 5 mg PO DAILY 08/04/16 Cholecalciferol (Vitamin D3) [Vitamin D3] 10,000 unit PO DAILY 08/04/16 Olmesartan Medoxomil [Benicar] 20 mg PO DAILY 08/04/16 Duloxetine HCl 60 mg PO DAILY 12/06/16 Morphine Sulfate [Arymo ER] 15 mg PO TID PRN 09/21/17 Gabapentin [Neurontin] 100 mg PO DAILY 01/25/18 Glucosamn/Condroitn/C/Mn/[place] [[facility] Glucosamine Chondroit Cplt] 1 tab PO DAILY 03/21/18 Denosumab [Prolia] 60 mg SQ Q6M 12/06/19 Aspirin E.C. [Ecotrin] 81 mg PO DAILY@0800 #30 tab 12/08/19 Atorvastatin Calcium [Lipitor] 40 mg PO QHS #30 tab 12/08/19 Metoprolol(XL)Succ [Toprol Xl (Beta Romina)] 100 mg PO DAILY #30 tab 12/08/19 Ticagrelor [Brilinta] 90 mg PO BID #30 tab 12/08/19 The following prescriptions were given: Ticagrelor [Brilinta] 90 mg PO BID #30 tab Transmission Status: Received by [facility]/pharmacy #[id number] Aspirin E.C. [Ecotrin] 81 mg PO DAILY@0800 #30 tab Transmission Status: Received by [facility]/pharmacy #[id number] Atorvastatin Calcium [Lipitor] 40 mg PO QHS #30 tab Transmission Status: Received by [facility]/pharmacy #[id number] Metoprolol(XL)Succ [Toprol Xl (Beta Romina)] 100 mg PO DAILY #30 tab Transmission Status: Received by [facility]/pharmacy #[id number] Primary Care Physician: Lydia Shearer, CONTROL VALVE MECHANIC-C [Primary Care Provider] - Please follow up with your Primary Care Physician in: [place] 2 weeks Test Results: Test results from this visit will be discussed in further detail at your follow-up appointment, if applicable. Please Follow Up With: Zahira Monet MD When: in 3-4 weeks
--- NOTE | 2019-12-08 08:46 | DS.PCM_ITS ---
Discharge Date and Diagnosis Date of Admission: 12/06/19 Date of Discharge: 12/08/19 - Primary Discharge Diagnosis Acute Problems: Active Problems (Last Reviewed 04/11/18 @ 11:28 by Arleen Reyes) Acute ST elevation myocardial infarction (STEMI) (Acute) - Secondary Discharge Diagnosis Chronic Problems: Chronic Problems (Last Reviewed 04/11/18 @ 11:28 by Arleen Reyes) Benign essential HTN (Chronic) HLD (hyperlipidemia) (Chronic) Pulmonary HTN (Chronic) Obesity (Chronic) Osteoarthritis (Chronic) BALTAZAR (obstructive sleep apnea) (Chronic) History of recurrent deep vein thrombosis (DVT) (Chronic) History of pulmonary embolism (Chronic) Mass of left thigh (Chronic) Ecchymosis (Chronic) Hospital Course and Treatment Operations: None Summary of Care Provided: [] The patient is a 79 year old F with history of pulmonary embolism and hypertension was brought in by EMS for syncope and found to be inferior wall STEMI. 1. Inferior wall STEMI: Patient is being admitted in ICU after emergent cardiac cath as per STEMI protocol. Discussed with the pyrometallurgical engineer. Patient was developing clot at the end of the procedure probably has hypercoagulable state and she also history of DVT and PE and varicose vein is maintained on IV and Integrilin drip for some time after the procedure. On aspirin, Brilinta, beta-romina, losartan and high intensity statin Metoprolol succinate was increased 200 mg daily. Patient had sinus tachycardia for which CTPA was done which reported normal without PE or arterial dissection. Metoprolol dose increased to 100 mg daily. Fasting profile LDL 48, total cholesterol 128. Hyperglycemia on BMP 170. Patient denies history of diabetes. A1c 5.7 suggestive of prediabetes. 2. Hypertension: Patient on amlodipine and olmesartan at home. Blood pressure was elevated 176/104. Losartan and amlodipine. On labetalol 10 mg IV as needed for SBP more than 180 mmHg Blood pressure is controlled. 3. History of recurrent DVT/PE: Patient not on Xarelto for last 2 to 3 years patient developed severe epistaxis and was discontinued. Patient also has history of varicose vein and laser surgery on right leg 4. Obstructive sleep apnea on CPAP, pulmonary hypertension, dyslipidemia and obesity grade 2, BMI 31.5 kg/m?. Home medication reconciliation done. DVT prophylaxis: Bilateral SCDs. As patient just had cardiac cath and on IV Integrilin drip, no pharmacological prophylaxis for 24 hours Patient is prescription was sent to the pharmacy. Discharge medication reconciliation done. Discharge follow-up instructions completed. Discharge process discussed with the patient and all questions were answered to patient's satisfaction. Total time spent, exact 35 minutes on discharge meds reconciliation, examination, coordination of care with nurses and ancillary staff, review of imaging and blood test and discussion with the patient on follow-up instructions Objective: Seen and examined. No fever or chills. Blood pressure and heart rate is good Normal sinus rhythm on surveillance system monitor. Physical exam General: Alert, Oriented x3, Cooperative HEENT: Atraumatic, PERRLA, EOMI, Normocephalic Oral: No Gingival or Mucosal Lesions/ Ulcerations Neck: Supple, No JVD, Negative Carotid Bruits Lungs: Air entry equal in bilateral lung bases. No crepitation/rhonchi Cardiovascular: Regular rate, Regular Rhythm, Normal S1, Normal S2, No murmurs Abdomen: Bowel Sounds Present, Soft, Non Tender, Non-Distended : No renal angle tenderness. No suprapubic tenderness. Extremities: Mild bruise over right forearm at cardiac access site. No hematoma or bruit. No edema, Capillary Refill Less than 3 Seconds Skin: No rashes, No breakdown Musculoskeletal: No Tenderness to Palpation of Joints or Extremities Neurological: Cranial nerves II-XII grossly intact, Deep Tendon Reflexes 2+/4 and Symmetrical, Neuro grossly intact Psych/Mental Status: Normal Affect, Appropriate. - Physical Exam Vitals/I&O's: Vital Signs Temp Pulse Resp BP Pulse Ox 97.7 F L 89 18 135/78 H 97 12/08/19 04:00 12/08/19 08:23 12/08/19 06:00 12/08/19 08:23 12/08/19 07:47 Oxygen Flow Rate (L/min) 2 Oxygen Delivery Method Room Air Weight: 171 lb 8.314 oz Body Mass Index (BMI) 31.4 Intake and Output for Last 24 Hours 12/06/19 12/07/19 12/08/19 23:59 23:59 23:59 Intake Total 1539.38 / 1551.88 2028.33 / 2148.33 120 / 120 Output Total 900 / 950 1750 / 1850 300 / 300 Balance 639.38 / 601.88 278.33 / 298.33 -180 / -180 Laboratory Results 12/08/19 04:55: WBC 9.9, RBC 3.94 L, Hgb 11.3 L, Hct 34.2 L, MCV 86.8, MCH 28.7, MCHC 33.0, RDW Std Deviation 46.5 H, RDW Coeff of Archie 14.6, Plt Count 249, MPV 9.4 12/08/19 04:55: Troponin I 6.490 H* Current Medications Acetaminophen (Tylenol) 650 mg PO Q6H PRN PRN PRN Reason: Pain Score 1-3/Temp > 100.7 F Al Hydroxide/Mg Hydroxide (Mylanta Ii) 30 ml PO Q6H PRN PRN PRN Reason: Gastric Burning Albuterol Sulfate (Ventolin Aerosols) 2.5 mg INHALATION Q2H PRN PRN PRN Reason: SOB/Wheezing Amlodipine Besylate (Norvasc) 5 mg PO DAILY [facility] Last Admin: 12/08/19 08:23 Dose: 5 mg Documented by: Aspirin (Ecotrin) 81 mg PO DAILY@0800 [facility] Atorvastatin Calcium (Lipitor) 40 mg PO QHS [facility] Last Admin: 12/07/19 21:35 Dose: 40 mg Documented by: Atropine Sulfate () 0.5 mg IV UD PRN PRN Reason: HR <50 bpm Cholecalciferol (Vitamin D (25mcg)) 10,000 unit PO DAILY [facility] Last Admin: 12/08/19 08:24 Dose: 10,000 unit Documented by: Duloxetine HCl (Cymbalta) 60 mg PO DAILY [facility] Last Admin: 12/08/19 08:23 Dose: 60 mg Documented by: Gabapentin (Neurontin) 100 mg PO DAILY [facility] Last Admin: 12/08/19 08:24 Dose: 100 mg Documented by: Heparin Sodium (Beef Lung) (Heparin 500 Unit/5 Ml (100/Ml)) 500 unit IV UD PRN PRN Reason: HEPARIN FLUSH Labetalol HCl (Trandate) 5 mg IV X1 PRN PRN Reason: SBP > 160 when pulling sheath Labetalol HCl (Trandate) 10 mg IV Q6H PRN PRN Reason: SBP>180 Melatonin (Melatonin) 3 mg PO QHS PRN PRN PRN Reason: INSOMNIA Metoprolol Succinate (Toprol Xl (Beta Romina)) 100 mg PO DAILY [facility] Last Admin: 12/08/19 08:23 Dose: 100 mg Documented by: Morphine Sulfate () 2 mg IV Q3H PRN PRN PRN Reason: Pain Score 6-10/10 Nitroglycerin (Nitrostat) 0.4 mg SUBLINGUAL Q5M PRN PRN Reason: CHEST PAIN Ondansetron HCl (Zofran) 4 mg IV Q8H PRN PRN PRN Reason: NAUSEA/VOMITING Last Admin: 12/07/19 14:15 Dose: 4 mg Documented by: Oxycodone HCl (Oxyir) 5 mg PO Q4H PRN PRN PRN Reason: Pain Score 4-5/10 Last Admin: 12/07/19 05:21 Dose: 5 mg Documented by: Senna/Docusate Sodium (Senokot-S, Gabi-Colace) 2 tablet PO BID PRN PRN Reason: Constipation Sodium Chloride () 500 ml IV BOLUS PRN PRN Reason: VASO-VAGAL PROTOCOL Sodium Chloride () 10 - 40 ml IV UD PRN PRN Reason: SALINE FLUSH Last Admin: 12/07/19 07:01 Dose: 20 ml Documented by: Ticagrelor (Brilinta) 90 mg PO BID [facility] Last Admin: 12/08/19 08:23 Dose: 90 mg Documented by: Home Medications: Medications to take at Discharge Multivit-Min/FA/Lycopen/Lutein [Centrum Silver Tablet] 1 each PO DAILY 06/17/15 Amlodipine Besylate [Norvasc] 5 mg PO DAILY 08/04/16 Cholecalciferol (Vitamin D3) [Vitamin D3] 10,000 unit PO DAILY 08/04/16 Olmesartan Medoxomil [Benicar] 20 mg PO DAILY 08/04/16 Duloxetine HCl 60 mg PO DAILY 12/06/16 Morphine Sulfate [Arymo ER] 15 mg PO TID PRN 09/21/17 Gabapentin [Neurontin] 100 mg PO DAILY 01/25/18 Glucosamn/Condroitn/C/Mn/[place] [[facility] Glucosamine Chondroit Cplt] 1 tab PO DAILY 03/21/18 Denosumab [Prolia] 60 mg SQ Q6M 12/06/19 Aspirin E.C. [Ecotrin] 81 mg PO DAILY@0800 #30 tab 08/01/20 Atorvastatin Calcium [Lipitor] 40 mg PO QHS #30 tab 12/08/19 Metoprolol(XL)Succ [Toprol Xl (Beta Romina)] 100 mg PO DAILY #30 tab 12/08/19 Ticagrelor [Brilinta] 90 mg PO BID #30 tab 12/08/19 Following Prescriptions Were Given to Patient: Ticagrelor [Brilinta] 90 mg PO BID #30 tab Transmission Status: Received by [facility]/pharmacy #[id number] Aspirin E.C. [Ecotrin] 81 mg PO DAILY@0800 #30 tab Transmission Status: Received by [facility]/pharmacy #[id number] Atorvastatin Calcium [Lipitor] 40 mg PO QHS #30 tab Transmission Status: Received by [facility]/pharmacy #[id number] Metoprolol(XL)Succ [Toprol Xl (Beta Romina)] 100 mg PO DAILY #30 tab Transmission Status: Received by [facility]/pharmacy #[id number] Primary Care Physician: Lydia Shearer NP-C [Primary Care Provider] - Medical Necessity - Tobacco Use Smoking Status: Former smoker Meaningful Use Info Meaningful Use Diagnoses (Choose all that apply): AMI - AMI/Post PCI/Angioplasty Aspirin given w/in 24hrs of arrival?: Yes ASA at discharge?: Yes Antiplatelet Therapy at Discharge:: Yes Statins at discharge?: Yes Juan Carlos/ARB at discharge?: Yes Beta Romina at discharge?: Yes Done w/ Acute PA measure.: Yes Documented LVEF (%): 60 OBSV E&M: [id number] Initial observation care L3
--- NOTE | 2019-12-08 10:00 | EKG12_ITS ---
Test Reason : AM EKG Blood Pressure : / mmHG Vent. Rate : 081 BPM Atrial Rate : 081 BPM P-R Int : 178 ms QRS Dur : 080 ms QT Int : 362 ms P-R-T Axes : 040 -18 -02 degrees QTc Int : 420 ms Normal sinus rhythm Inferior infarct , age undetermined Abnormal ECG Confirmed by DULCE ANTONIO, YVONNE ([id number]), non linear editor NOEMY SOLER ([id number]) on 12/13/2019 3:46:59 PM Referred By: Zahira Monet Confirmed By:YVONNE CARDONA MD
[2019-12-08] MEDS: Aspirin E.C. 81 MG Tablet PO (10:11)
--- NOTE | 2019-12-11 10:36 | CL.I_ITS ---
Patient Name: JODI SANCHES Study Date: 12/06/2019 Performing: Juan Miguel Monet MD Ht: 59.84 inches 152 cm : 1940 Wt: 169.76 lbs 77 kg Age: 79 Gender: female BSA: 1.74 PROCEDURE(S) PERFORMED [id number]/COR [id number], BMS AND/OR PTCA ARTERY OR GRAFT SINGLE VESSEL CLINICAL PROFILE AND CO-MORBIDITIES Indications: ACS <= 24 hrs Heart Failure: None Stress/Imaging Stress/Image Study Performed: No CAD Presentations: STEMI. Symptom onset Date/Time: 12/06/19 Time Not Available CONCLUSIONS CAD as described. Successful thrombectomy and BMS to the RCA as described RECOMMENDATIONS DESCRIPTION OF PROCEDURE The patient arrived to the procedure lab. The risks and benefits of the procedure as well as a full d escription of our services here and lack of surgical backup were fully explained to the patient and/o r their significant other prior to the catheterization. The Timeout was completed, verifying the elba ect patient and procedure. The patient's procedural site was prepped and draped in the usual fashion. Local anesthetic was given subcutaneously to right radial region with Lidocaine 2%. Using a modified Seldinger technique, arterial access was obtained via the right radial artery, a 6Fr sheath was inse rted.. Left Coronary Artery selective angiography was performed in multiple views using a 5 Fr. JL3. 5 catheter JR 4 Guide catheter was inserted and engaged into the RCA. Guide wire was inserted as a marivel wir e BMW Guide wire was advanced to the RCA. [place] AP inserted Pass # 1 [place] AP Removed Angiogram per formed pre balloon dilatation. Emerge 2.50x12 Balloon catheter was inserted. Emerge 2.50x12 Balloon c atheter was inserted. Emerge 1.50x15 Balloon catheter was inserted. PTCA balloon inflated at 12 atms for 15 secs. PTCA balloon inflated at 12 atms for 16 secs. Emerge 2.50x12 Balloon catheter was insert ed. PTCA balloon inflated at 14 atms for 27 secs. Angiogram performed post balloon dilatation. Integr ity 3.5x22 Bare Metal stent was inserted Bare Metal stent was removed with stent intact, failed to cr oss lesion Integrity 3.5x22 Bare Metal stent was inserted Angiogram performed post stent deployment. NC Emerge 3.50x12 Balloon catheter was inserted. Angiogram performed post balloon dilatation. Emerge 2.50x12 Balloon catheter was inserted. PTCA balloon inflated at 12 atms for 14 secs. PTCA balloon inflated at 12 atms for 10 secs. Angiogram performed post balloon dilatation. [place] AP inser lynntete Pass # 2 [place] AP Removed Angiogram performed post [place] JR 4 Guide catheter was inserted and e ngaged into the RCA. BMW Guide wire was advanced to the RCA. [place] AP inserted Pass # 3 [place] AP Re moved Angiogram performed post [place] Emerge 3.50x12 Balloon catheter was inserted. PTCA balloon infl ated at 8 atms for 29 secs. PTCA balloon inflated at 6 atms for 16 secs. Angiogram performed post bal loon dilatation. Integrity 3.5x30 Bare Metal stent was inserted Angiogram performed post stent deploy ment. Emerge 3.50x15 Balloon catheter was inserted. PTCA balloon inflated at 12 atms for 10 secs. PTC A balloon inflated at 6 atms for 19 secs. PTCA balloon inflated at 10 atms for 10 secs. PTCA balloon inflated at 10 atms for 15 secs. PTCA balloon inflated at 10 atms for 15 secs. Angiogram performed po st balloon dilatation. Emerge 3.50x15 Balloon catheter was inserted. PTCA balloon inflated at 8 atms for 14 secs. Angiogram performed post balloon dilatation. The arterial sheath was pulled and a TR Band was applied for hemostasis w/ 11ml air CORONARY ANGIOGRAPHY DOMINANCE: Right Dominant LEFT HEART ASSESSMENT Left Ventricular Ejection Fraction: Not assessed LEFT MAIN: Mild luminal irregularities LEFT ANTERIOR DESCENDING ARTERY: PROX LAD: 50 % Stenosis. There is myocardial bridging in the mLAD CIRCUMFLEX ARTERY: Mild luminal irregularities OM 1: Proximal - 50 % Stenosis RIGHT CORONARY ARTERY: DISTAL RCA: 100 % Stenosis INTERVENTION INFORMATION LESION SITE: RCA (Distal) Lesion Complexity: High/C, chronic total occlusion: No, lesion at bifurcation: No, thrombus present: Yes, lesion length: 40 mm, culprit lesion: Yes, Previously treated lesion: No Pre Stenosis: 100 % Pre intervention GELACIO flow: 0 PROCEDURE: Thrombectomy, Bare Metal Stent with pre and post dilatation. There was thrombus that developed immediately proximal to the first stent despite using heparin and i ntegrillin and this was treated with thrombectomy and PTCA Post Stenosis: 0 % Post intervention GELACIO flow: 3 Lesion Devices: Cardinal 6 Fr JR4 100cm Guide Catheter Goode .014 BMW [place] Straight 190cm Medtronic 6 Fr. [place] AP Aspiration Catheter Luis Sci EMERGE MR 2.50x12 BALLOON Luis Sci EMERGE MR 1.50x15 BALLOON Medtronic Integrity RX BMS 3.5x22 Luis Sci NC EMERGE MR 3.50x12 BALLOON Medtronic Integrity RX BMS 3.5x30 Luis Sci EMERGE MR 3.50x15 BALLOON COMPLICATIONS No Complications PROCEDURE MEDICATIONS Fentanyl 50 mcg IV Fentanyl 25 mcg IV Oxygen: 2 L/min via nasal cannula Heparin given IA 12/06/2019 09:58:03 Heparin 3000 unit(s) IV 12/06/2019 10:46:33 Heparin 2000 unit(s) IV 12/06/2019 11:09:02 Nitro 200 mcg IC 12/06/2019 10:39:10 Verapamil 2.5mg, Ntg 100mcgs, 3000 units of Heparin given IA 12/06/2019 09:58:03 Zofran 4 mg IV 12/06/2019 10:10:36 IV Bolus: .9 NaCl 1000 ml total 12/06/2019 11:28:32 SUMMARY OF HEMODYNAMIC DATA Time AIR REST ECG 09:43:05 AO 96/66 (79) SA 10:00:54 Signed By Juan Miguel Monet MD On 12/11/2019 10:35:10 Juan Miguel Monet MD
== END 2019-12-08 11:30 | disposition home or self-care (01) | DRG 249 ==
LOC: ED 09:43 → ICU 13:18
PROVIDERS: Admitting Provider Internal Medicine; Emergency Provider Emergency Medicine; PCP Nurse Practitioner; Referring Provider Specialist; Visit Provider Specialist
DX: I21.19 ST elevation (STEMI) myocardial infarction involving other coronary artery of inferior wall (principal); I25.10 Atherosclerotic heart disease of native coronary artery without angina pectoris; I27.20 Pulmonary hypertension, unspecified; I10 Essential (primary) hypertension; E78.5 Hyperlipidemia, unspecified; M19.90 Unspecified osteoarthritis, unspecified site; R73.9 Hyperglycemia, unspecified; G47.33 Obstructive sleep apnea (adult) (pediatric); F41.0 Panic disorder [episodic paroxysmal anxiety]; F41.9 Anxiety disorder, unspecified; E66.9 Obesity, unspecified; Z68.31 Body mass index [BMI] 31.0-31.9, adult; Z79.899 Other long term (current) drug therapy; Z86.711 Personal history of pulmonary embolism; Z86.718 Personal history of other venous thrombosis and embolism; Z87.891 Personal history of nicotine dependence; Z96.641 Presence of right artificial hip joint
CPT/HCPCS: 71045; 71275; 80048; 80053; 80061; 82248; 82962; 83036; 83735; 84100; 84484; 85025; 85027; 85347; 85610; 85730; 92941; 93005; 93306; 93454; 99152; 99153; 99251; 99281; 99284; J7030; J7040; Q9967; A4216; C1725; C1757; C1769; C1876; C1887; C1894; G0463; J1327; J2405

== ENCOUNTER 2020-01-20 12:48 | Inpatient (IN) | payer MEDICARE, OTHER, SELFPAY ==
[2019-12-24 15:10] VITALS: BMI 31.4
[2020-01-20] VITALS (8 sets, daily range): BP systolic 127–158; BP diastolic 62–87; PULSE 76–103; RESP 17–20; TEMP 36.2–37.3; O2SAT 86–99; BMI 32.4
--- NOTE | 2020-01-20 12:58 | RAD_ITS ---
STUDY: X-RAY - LEFT KNEE REASON FOR EXAM: Female, 79 years old. Fell last night -- unable to ambulate -- pain left leg -- unable to straighten knee for x-rays TECHNIQUE: 3 view(s) of the knee. COMPARISON: None. FINDINGS: Normal visualized distal femur. Normal visualized proximal tibia and fibula. Normal proximal tibiofibular articulation. Normal medial femorotibial compartment. There is moderate degenerative arthrosis of the lateral femorotibial compartment with moderate joint space narrowing. There is mild degenerative arthrosis of the patellofemoral articulation. There is a soft tissue prominence in the suprapatellar region suggesting a small volume joint effusion. There are atherosclerotic calcifications. RAD/Knee 3 Views IMPRESSION: Joint effusion. Degenerative changes. Atherosclerosis. Electronically Signed: Joan Pérez MD at 14:30 EDT Tel , Service support ,
--- NOTE | 2020-01-20 12:58 | RAD_ITS ---
STUDY: X-RAY - PELVIS AND LEFT HIP REASON FOR EXAM: Female, 79 years old. Fell last night, unable to ambulate, unable to straighten leg for xrays-knee bent for APs TECHNIQUE: 4 views of the pelvis and hip. COMPARISON: 10/19/2016 FINDINGS: There is a non-specific bowel gas pattern. There are atherosclerotic vascular calcifications of the pelvic arteries. There are degenerative changes of the visualized lower lumbar spine. Normal bilateral iliac wings, sacroiliac joints and visualized sacrum. Normal bilateral superior and inferior pubic rami. Normal pubic symphysis. Normal bilateral ischial tuberosities. There is a stable right hip arthroplasty. There are degenerative changes of the left hip. RAD/HIP, UNI W/ Pelvis 2-3 Views IMPRESSION: Degenerative changes. Electronically Signed: Joan Pérez MD at 14:52 EDT Tel , Service support ,
--- NOTE | 2020-01-20 13:02 | ED.DCSUM_ITS ---
- ER Visit Summary Date of Service: 01/20/20 Chief Complaint: [Fall] History of Present Illness: The patient is a 79 F [presents to the emergency department via EMS after sustaining a fall last evening after dinner. Patient states that she was walking with her walker and bent over to pick something off the floor when she lost her balance and fell. Patient denies striking her head or loss of consciousness. She denies any neck pain. Patient is complaining of pain in her left hip and left knee and inability to ambulate. She denies any pain in her back. Patient has history of coronary artery disease, hypertension, DVT history, PE history, and history of obstructive sleep apnea. Currently on Brilinta.] Physical Examination: [HEENT-PERRLA, EOMI. Cranial nerves II through XII grossly intact. TMs clear. Mucous membranes moist. No adenopathy. Cardiovascular-regular rate and rhythm without murmur or ectopy Lungs-clear to auscultation, chest wall stable without crepitus or subcu emphysema Abdomen-normoactive bowel sounds, soft, nontender, no rebound or rigidity, no p eritoneal signs. Extremities-intact ?4, normal range of motion, normal pulses. Left leg-patient holds the hip flexed as well as the knee flexed. She has diffuse tenderness palpation over the right hip with painful range of motion. Patient also has diffuse tenderness about left knee. Painful flexion extension of the knee. There is no obvious effusion or ecchymosis or bruising noted. She does not tolerate ligamentous exam. She is neurovascular intact distally.] Test Results: [CBC with differential obtained was unremarkable. Chemistries unremarkable. X-rays of the left hip obtained showed no fractures only degenerative changes. Patient also had x-rays of the left knee which showed an effusion and degenerative changes but no fractures.] Emergency Department Course and Treatment: [Patient was medicated with Dilaudid 1 mg IV.] Treatment Plan: [Admit] Disposition: [Admit] Impression: [Mechanical fall Inability to ambulate Contusion left hip Contusion/sprain left knee-possible internal derangement] This note was generated with [employer] dictation software. It may contain incorrect words, spelling, and punctuation that were not noted in review of the chart prior to signing ED Disposition - Plan for ED Patient: Referrals: Lydia Shearer NP, [employer] MECHANIC APPRENTICE-C [Primary Care Provider] -
[2020-01-20] MEDS: Ondansetron 4 MG/2 ML Vial IV (13:11)
[2020-01-20] MEDS: HYDROmorphone 1 MG/ML Syringe IV (13:11)
[2020-01-20 13:19] LABS: Absolute Lymphocyte Count 0.81 X10^3/uL (0.83-4.51); Absolute Neutrophil Count 11.4 X10^3/uL (2.0-7.7); Basophil# 0.05 X10^3/uL; Basophil% 0.4 % (0-1); Eosinophil# 0.24 X10^3/uL; Eosinophils% 1.8 % (0-5); Hematocrit 38.6 % (37-47); Hemoglobin 12.5 g/dL (12.0-15.0); Lymphocyte # 0.81 X10^3/ul (4.0); Mean Corp Hgb Conc 32.4 g/dL (32-36); Mean Corpuscular Hgb 28.9 pg (27.0-32.0); Mean Corpuscular Volume 89.4 fL (81-99); Mean Platelet Vol. 9.4 fl (6.2-12.0); Monocyte# 1.09 X10^3/uL; NRBC Flagged by Analyzer 0 % (0-5); Neutrophil # 11.35 X10^3/uL (2.7-7.7); Neutrophil % 83.4 % (47-70); Platelet Count 303 K/mm3 (150-450); RBC Distribution Width SD 49.1 fl (35.1-43.9); Red Blood Count 4.32 M/mm3 (4.2-5.4); White Blood Count 13.6 K/mm3 (4.4-11.0)
[2020-01-20] MEDS: 0.9% Normal Saline 1,000 ML 150 ML IV (13:19)
[2020-01-20 13:48] LABS: Anion Gap 6 (5-15); BUN 16 mg/dL (7-18); BUN/Creat Ratio 22.9 RATIO (10-20); Calcium,Total 9.2 mg/dL (8.5-10.1); Chloride 110 mmol/L (98-107); EST Glomerular Filtration Rate 86 mL/min (>60); Est Glom Filt Rate - Afr Amer 104 mL/min (>60); Estimated Creatinine Clearance 33.86 ml/min; Glucose 110 mg/dL (74-106); Sodium Level 140 mmol/L (136-145)
--- NOTE | 2020-01-20 15:31 | HP.PCM_ITS ---
<Jacqui Wang RN MANAGED CARE - Last Filed: 01/20/20 15:49> Problem List (1) Atherosclerosis of coronary artery of kiana heart without angina pectoris Status: Chronic (2) History of coronary artery stent placement Status: Chronic Comment: 3.5 x 30 mm Integrity RX BMS to RCA 12/11/19 (3) Benign essential HTN Status: Chronic (4) HLD (hyperlipidemia) Status: Chronic (5) Pulmonary embolism, bilateral Status: Resolved (6) Pulmonary HTN Status: Chronic (7) Obesity Status: Chronic (8) Osteoarthritis Status: Chronic (9) BALTAZAR (obstructive sleep apnea) Status: Chronic (10) History of recurrent deep vein thrombosis (DVT) Status: Chronic (11) History of pulmonary embolism Status: Chronic (12) Mass of left thigh Status: Chronic (13) Acute ST elevation myocardial infarction (STEMI) Status: Resolved History of Present Illness Date of Admission: 01/20/20 Chief Complaint: Fall with left leg pain. The patient is a 79 year old F who presents the emergency room due to fall with left leg pain. 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 She denies hitting her head. She complains of left buttock pain which extends down to her left knee. Her was able to help her up however today she is unable to ambulate due to significant pain. She denies loss of consciousness. Patient was recently admitted 12/06/2019 where she was found to have inferior wall STEMI. Patient did not want to come to hospital cardiac rehab due to COVID and has been doing light exercises at home without any chest pain. She does report some shortness of breath with exertion. She has a past medical history of PE/DVT, hypertension, BALTAZAR, hyperlipidemia, CAD with recent thrombectomy and BMS to RCA, severe osteoarthritis. Past Medical History Past Medical History (Chronic Problems): Chronic Problems (Last Reviewed 12/24/19 @ 16:[address] Zahira Monet MD) Atherosclerosis of coronary artery of kiana heart without angina pectoris (Chronic) History of coronary artery stent placement (Chronic) 3.5 x 30 mm Integrity RX BMS to RCA 12/11/19 Benign essential HTN (Chronic) HLD (hyperlipidemia) (Chronic) Pulmonary HTN (Chronic) Obesity (Chronic) Osteoarthritis (Chronic) BALTAZAR (obstructive sleep apnea) (Chronic) History of recurrent deep vein thrombosis (DVT) (Chronic) History of pulmonary embolism (Chronic) Mass of left thigh (Chronic) Medical History: Medical History (Last Reviewed 12/24/19 @ 16:[address] 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 Pulmonary embolism I26.99 laser vein surgery 2012 oopherectomy and tumor removed 1992 Allergies rivaroxaban [From Xarelto] Allergy (Intermediate, Verified 01/20/20 12:48) nose bleeds kiwi Allergy (Unknown, Verified 01/20/20 12:48) Anaphylaxis trimethoprim [From Bactrim] Allergy (Unknown, Verified 01/20/20 12:48) Rash tree and shrub pollen Allergy (Verified 01/20/20 12:48) Unknown ciprofloxacin HCl [From Cipro] Adverse Reaction (Severe, Verified 01/20/20 12:48) Itching rash clarithromycin [From Biaxin] Adverse Reaction (Severe, Verified 01/20/20 12:48) Rash codeine Adverse Reaction (Severe, Verified 01/20/20 12:48) Unknown prednisone Adverse Reaction (Severe, Verified 01/20/20 12:48) Unknown Sulfa (Sulfonamide Antibiotics) Adverse Reaction (Severe, Verified 01/20/20 12:48) Unknown adhesive Adverse Reaction (Intermediate, Verified 01/20/20 12:48) Rash animal dander Adverse Reaction (Unknown, Verified 01/20/20 12:48) Unknown levofloxacin [From Levaquin] Adverse Reaction (Unknown, Verified 01/20/20 12:48) Itching nickel Adverse Reaction (Unknown, Verified 01/20/20 12:48) NOT SURE sulfamethoxazole [From Bactrim] Adverse Reaction (Unknown, Verified 01/20/20 12:48) Rash tape Allergy (Unknown, Uncoded 01/20/20 12:48) Itching Home Medications: Ambulatory Orders Medication Instructions Recorded Multivit-Min/FA/Lycopen/Lutein 1 ea PO DAILY 06/17/15 [Centrum Silver Tablet] Amlodipine Besylate [Norvasc] 5 mg PO DAILY 08/04/16 Cholecalciferol (Vitamin D3) 10,000 unit PO DAILY 08/04/16 [Vitamin D3] Morphine Sulfate [Arymo ER] 15 mg PO TID PRN 09/21/17 Glucosamn/Condroitn/C/Mn/[place] 1 tab PO DAILY 03/21/18 [[facility] Glucosamine Chondroit Cplt] Aspirin E.C. [Ecotrin] 81 mg PO DAILY@0800 #30 tab 12/08/19 Atorvastatin Calcium [Lipitor] 40 mg PO QHS #30 tab 12/08/19 alendronate 70 mg tablet 70 mg PO QWEEK 12/24/19 losartan 100 mg tablet 50 mg PO DAILY tab 12/24/19 meloxicam 15 mg tablet 15 mg PO DAILY PRN tab 12/24/19 metoprolol succinate 100 mg 100 mg PO DAILY tab 12/24/19 tablet,extended release 24 hr ticagrelor 90 mg tablet 90 mg PO BID #180 tab 12/27/19 Surgical History: Surgical History (Last Reviewed 12/24/19 @ 16:[address] Zahira Monet MD) History of coronary artery stent placement (Acute) Z95.5 3.5 x 30 mm Integrity RX BMS to RCA 12/11/19 A&P repair 1991 H/O repair of rotator cuff Z98.890 1999 History of right hip replacement Z96.641 03/10/15 Hx of tonsillectomy Z90.89 1971 Surgical History: - - Right rotator cuff surgery, benign tumor right kidney, A&P repair, GF filter placement, R THR, thrombectomy and BMS to RCA. Psychiatric History: Anxiety - with occasional panic attacks. 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 Lives: Spouse/ Significant Other Smoking Status: Former smoker Alcohol: None Drugs: None - *Family History Maternal Family History: Family History (Last Reviewed 01/20/20 @ 15:41 by Jacqui Wang NP, RN MANAGED CARE-C) Father Bone cancer Arthritis Mother Leukemia Heart disease Paternal Family History: Family History (Last Reviewed 01/20/20 @ 15:41 by Jacqui Wang NP, RN MANAGED CARE-C) Father Bone cancer Arthritis Mother Leukemia Heart disease Review of Systems Constitutional: Denies: Chills, Fever, Weight Change HEENT: Denies: Head Aches, Sinus Congestion, Sinus Drainage Cardiovascular: Denies: Chest Pain, Palpitations Respiratory: Denies: Cough, Shortness of breath at rest, Sputum production Gastrointestinal: Denies: Abdominal Pain, Nausea, Vomiting Genitourinary: Denies: Dysuria Musculoskeletal: Reports: - - Left leg pain, hip/knee Skin: Denies: Rash, Wounds Neurological: Denies: Numbness, Tingling, Focal weakness Psychiatric: Denies: Anxiety, Depression, Homicidal Ideations, Suicidal Ideations Hematologic/ Lymphatic: Denies: Easy Bruising, Easy Bleeding VTE Information - Inpt Only VTE Present on Admission: No VTE Mechan Device Prophylaxis: None VTE Pharm Prophylaxis ordered?: Yes - Physical Exam Vitals/I&O's: Vital Signs Temp Pulse Resp BP Pulse Ox 97.1 F L 84 18 158/85 H 99 01/20/20 15:26 01/20/20 15:26 01/20/20 15:26 01/20/20 15:26 01/20/20 15:26 Oxygen Delivery Method Room Air Weight: 171 lb 11.841 oz Body Mass Index (BMI) 32.4 Intake and Output for Last 24 Hours 01/18/20 01/19/20 01/20/20 23:59 23:59 23:59 Intake Total 322.5 / 322.5 Balance 322.5 / 322.5 General: Alert, Oriented x3, Cooperative HEENT: Atraumatic, PERRLA, EOMI, Normocephalic Oral: Dry Mucosa Neck: Supple, No JVD, Negative Carotid Bruits Lungs: Clear to auscultation, Diminished Cardiovascular: Regular rate, No murmurs Abdomen: Bowel Sounds Present, Soft, Non Tender, Non-Distended Extremities: No clubbing, No cyanosis, Capillary Refill Less than 3 Seconds, Edema - Left knee edema Skin: No rashes, No breakdown, - - Ecchymosis bilateral legs Musculoskeletal: Tenderness - Left knee and hip Neurological: Cranial nerves II-XII grossly intact, Neuro grossly intact Psych/Mental Status: Normal Affect, Appropriate Laboratory Results 01/20/20 13:14: WBC 13.6 H, RBC 4.32, Hgb 12.5, Hct 38.6, MCV 89.4, MCH 28.9, MCHC 32.4, RDW Std Deviation 49.1 H, RDW Coeff of Archie 15.0 H, Plt Count 303, MPV 9.4, Immature Gran % (Auto) 0.400, Neut % (Auto) 83.4 H, Lymph % (Auto) 6.0 L, [place] % (Auto) 8.0, Eos % (Auto) 1.8, Baso % (Auto) 0.4, Absolute Neuts (auto) 11.4 H, Absolute Lymphs (auto) 0.81 L, Nucleated RBC % 0 01/20/20 13:14: Sodium 140, Potassium 4.0, Chloride 110 H, Carbon Dioxide 24.0, Anion Gap 6, BUN 16, Creatinine 0.70, Estim Creat Clear Calc 33.86, Est GFR (MDRD) Af Amer 104, Est GFR (MDRD) Non-Af 86, BUN/Creatinine Ratio 22.9 H, Glucose 110 H, Calcium 9.2 Current Medications Sodium Chloride () 1,000 mls @ 150 mls/hr IV .Q6H40M AMBERLY Last Infusion: 01/20/20 15:28 Dose: Infused Documented by: Assessment/Plan All Active Problems (Last Reviewed 12/24/19 @ 16:[address] Zahira Monet MD) Pulmonary embolism, bilateral (Resolved) Acute ST elevation myocardial infarction (STEMI) (Resolved) 1. Mechanical fall with left lower extremity pain causing debility with inability to ambulate-hip and pelvis x-ray demonstrate degenerative changes, no acute process. Left knee x-ray shows joint effusion in the suprapatellar region. PRN pain regimen. PT/OT. Case management consult for discharge planning. Patient's states patient has been in rehab in the past and pending PT eval, would like to return there if appropriate at discharge. Consider MRI of left knee if no improvement. 2. CAD with recent thrombectomy and BMS to RCA 12/06/2019 -continue aspirin, statin, Brilinta, metoprolol. 3. History of PE/DVT-chronic/recurrent. Follows with hematology. Placed on Pradaxa by hematology. Previously on Xarelto however had multiple episodes of epistaxis. Appears patient is now on aspirin and Brilinta. 4. Hypertension-stable, continue amlodipine, losartan, metoprolol. 5. Hyperlipidemia- continue statin. 6. BALTAZAR- continue home CPAP regimen. 7. Severe osteoarthritis- prn pain regimen. PT/OT. DVT prophylaxis- lovenox sc This patient was seen by TORI Lewis under the supervision of Dr. Keenan. <Koby Keenan - Last Filed: 01/20/20 16:03> History of Present Illness The patient is a 79 year old F with recent admission on 12/06.?12/08 2019 for inferior wall STEMI for which RCA was stented came to ER fall when she lost her balance while picking up pill from floor and fell down on her left side. She does not remember exactly whether she twisted her hip or knee but her left knee, hip and buttock hurts. She denies loss of consciousness or hitting head. She is on aspirin and Brilinta after recent PCI. Earlier, she was on Xarelto for DVT and PE but she stopped after developing severe epistaxis. Complaint of severe left knee pain mainly on lateral aspect, 9/10 intensity. In ED, vitals shows blood pressure elevated 158/85 with heart rate is controlled. Left hip/pelvis and knee x-ray shows degenerative changes. She had right hip total hip replacement couple years ago and she has bilateral shoulder joint and left hip arthritis. [] Past Medical History Medical History: Medical History (Last Reviewed 12/24/19 @ 16:[address] Zahira Monet MD) Atherosclerosis of coronary artery of kiana heart without angina pectoris (Acute) I25.10 Arthritis M19.90 Essential hypertension I10 Hypercholesterolemia E78.00 BALTAZAR on CPAP G47.33, Z99.89 Osteoporosis M81.0 Kidney tumor D49.519 removed 2008 Pulmonary embolism I26.99 laser vein surgery 2012 oopherectomy and tumor removed 1992 Allergies rivaroxaban [From Xarelto] Allergy (Intermediate, Verified 01/20/20 12:48) nose bleeds kiwi Allergy (Unknown, Verified 01/20/20 12:48) Anaphylaxis trimethoprim [From Bactrim] Allergy (Unknown, Verified 01/20/20 12:48) Rash tree and shrub pollen Allergy (Verified 01/20/20 12:48) Unknown ciprofloxacin HCl [From Cipro] Adverse Reaction (Severe, Verified 01/20/20 12:48) Itching rash clarithromycin [From Biaxin] Adverse Reaction (Severe, Verified 01/20/20 12:48) Rash codeine Adverse Reaction (Severe, Verified 01/20/20 12:48) Unknown prednisone Adverse Reaction (Severe, Verified 01/20/20 12:48) Unknown Sulfa (Sulfonamide Antibiotics) Adverse Reaction (Severe, Verified 01/20/20 12:48) Unknown adhesive Adverse Reaction (Intermediate, Verified 01/20/20 12:48) Rash animal dander Adverse Reaction (Unknown, Verified 01/20/20 12:48) Unknown levofloxacin [From Levaquin] Adverse Reaction (Unknown, Verified 01/20/20 12:48) Itching nickel Adverse Reaction (Unknown, Verified 01/20/20 12:48) NOT SURE sulfamethoxazole [From Bactrim] Adverse Reaction (Unknown, Verified 01/20/20 12:48) Rash tape Allergy (Unknown, Uncoded 01/20/20 12:48) Itching Surgical History: Surgical History (Last Reviewed 12/24/19 @ 16:[address] Zahira Monet MD) History of coronary artery stent placement (Acute) Z95.5 3.5 x 30 mm Integrity RX BMS to RCA 12/11/19 A&P repair 1991 H/O repair of rotator cuff Z98.890 1999 History of right hip replacement Z96.641 03/10/15 Hx of tonsillectomy Z90.89 1971 - *Family History Maternal Family History: Family History (Last Reviewed 01/20/20 @ 15:41 by Jacqui Wang NP, RN MANAGED CARE-C) Father Bone cancer Arthritis Mother Leukemia Heart disease Paternal Family History: Family History (Last Reviewed 01/20/20 @ 15:41 by Jacqui Wang NP, RN MANAGED CARE-C) Father Bone cancer Arthritis Mother Leukemia Heart disease Review of Systems Constitutional: Denies: Chills, Fever, Weight Change HEENT: Denies: Head Aches, Sinus Congestion, Sinus Drainage Cardiovascular: Denies: Chest Pain, Palpitations Respiratory: Denies: Cough, Shortness of breath at rest, Sputum production Gastrointestinal: Denies: Abdominal Pain, Constipation, Diarrhea, Nausea, Vomiting Genitourinary: Reports: Incontinence - Urgent and distress incontinence, Urgency. Denies: Dysuria, Frequency Musculoskeletal: Reports: Back Pain, Joint Pain, Joint stiffness, Joint Tenderness Skin: Denies: Rash, Wounds Neurological: Reports: Balance problems, Incoordination. Denies: Focal weakness, Numbness, Tingling Psychiatric: Denies: Anxiety, Depression, Homicidal Ideations, Suicidal Ideations Hematologic/ Lymphatic: Denies: Easy Bruising, Easy Bleeding VTE Information - Inpt Only VTE Present on Admission: No VTE Mechan Device Prophylaxis: None VTE Pharm Prophylaxis ordered?: Yes - Physical Exam Vitals/I&O's: Vital Signs Temp Pulse Resp BP Pulse Ox 97.1 F L 84 18 158/85 H 99 01/20/20 15:26 01/20/20 15:26 01/20/20 15:26 01/20/20 15:26 01/20/20 15:26 Oxygen Delivery Method Room Air Weight: 171 lb 11.841 oz Body Mass Index (BMI) 32.4 Intake and Output for Last 24 Hours 01/18/20 01/19/20 01/20/20 23:59 23:59 23:59 Intake Total 322.5 / 322.5 Balance 322.5 / 322.5 General: Alert, Oriented x3, Cooperative HEENT: Atraumatic, PERRLA, EOMI, Normocephalic Neck: Supple, No JVD, Negative Carotid Bruits Lungs: Clear to auscultation, No rhonchi, No wheeze, No rales, Diminished Cardiovascular: Regular rate, Regular Rhythm, Normal S1, Normal S2, No murmurs Abdomen: Bowel Sounds Present, Soft, Non Tender, No Hepato-splenomegaly Extremities: Capillary Refill Less than 3 Seconds, Edema, Tenderness Skin: No rashes, No breakdown Musculoskeletal: Arthritic Changes, Tenderness - Left knee and hip Tenderness to the left knee mainly anterolateral aspect and left thigh and buttock area. Patient extension is restricted to 30 degrees at knee joint. Neurological: Cranial nerves II-XII grossly intact, Deep Tendon Reflexes 2+/4 and Symmetrical, Neuro grossly intact Psych/Mental Status: Normal Affect, Appropriate Laboratory Results 01/20/20 13:14: WBC 13.6 H, RBC 4.32, Hgb 12.5, Hct 38.6, MCV 89.4, MCH 28.9, MCHC 32.4, RDW Std Deviation 49.1 H, RDW Coeff of Archie 15.0 H, Plt Count 303, MPV 9.4, Immature Gran % (Auto) 0.400, Neut % (Auto) 83.4 H, Lymph % (Auto) 6.0 L, [place] % (Auto) 8.0, Eos % (Auto) 1.8, Baso % (Auto) 0.4, Absolute Neuts (auto) 11.4 H, Absolute Lymphs (auto) 0.81 L, Nucleated RBC % 0 01/20/20 13:14: Sodium 140, Potassium 4.0, Chloride 110 H, Carbon Dioxide 24.0, Anion Gap 6, BUN 16, Creatinine 0.70, Estim Creat Clear Calc 33.86, Est GFR ( MDRD) Af Amer 104, Est GFR (MDRD) Non-Af 86, BUN/Creatinine Ratio 22.9 H, Glucose 110 H, Calcium 9.2 Current Medications Sodium Chloride () 1,000 mls @ 150 mls/hr IV .Q6H40M AMBERLY Last Infusion: 01/20/20 15:28 Dose: Infused Documented by: Assessment/Plan This patient was seen in conjunction with RN MANAGED CARE, Jacqui. I have independently interviewed and examined the patient and reviewed pertinent history, examination findings, laboratory and plan of management. I have reviewed the note and agree with the documented findings with the few additional points. In brief, patient is 79-year-old female is being admitted for left knee, hip and buttock pain after she fell down on walker. Pain control, PT, OT and incentive spirometry. If pain is not controlled or exacerbates especially at knee joint she might need orthopedic consult and MRI to evaluate for ligament injury of the knee. Patient might need SNF. Continue meloxicam for anti-inflammatory effect. She has recent inferior wall STEMI status post RCA BMS stent and is on aspirin and Brilinta. Earlier, she was on Xarelto for DVT and PE but she stopped after developing severe epistaxis. She other chronic comorbidities hypertension, dyslipidemia, chronic degenerative joint disease: Home medication reconciliation done. VTE prophylaxis: Lovenox. Discontinue if platelet count drops less than 50,000 or hemoglobin less than 8 g% Living will/advanced directive/end of life care: Patient does not have living will. Her is power of county attorney for health. After discussion of procedures involved with full code, DNR CC arrest and DNR CC, the patient and her does not want intubation, ventilator, CPR and other resuscitation measures including CVC, vasopressor, DC shock DNR CC arrest with no intubation. Total time spent in [id number]-ty-lobg encounter in discussion of advanced directive 16 minutes Clinical Impression(s) from Imaging Studies Hip/Pelvis X-Ray 01/20/20 12:58 IMPRESSION: Degenerative changes. Electronically Signed: Joan Pérez MD at 14:52 EDT Tel , Service support , Knee X-Ray 01/20/20 12:58 IMPRESSION: Joint effusion. Degenerative changes. Atherosclerosis. I have discussed my assessment with Jacqui GUSTAFSON and orders have been reviewed. OBSV E&M: 13641 Initial observation care L3 Procedures: 81476 Advncd Care Plan 30 Min
[2020-01-20] MEDS: Acetaminophen 325 MG Tablet 650 MG PO (16:28)
[2020-01-20] MEDS: 0.9% Saline Lock 10 ML Syringe IV (16:28)
[2020-01-20] MEDS: HYDROmorphone 0.5 MG/0.5 ML SYRINGE IV ×2 (16:29→20:37)
[2020-01-20] MEDS: 0.9% Normal Saline 1,000 ML 75 ML IV (16:29)
[2020-01-20] MEDS: oxyCODONE 5 MG Tablet PO ×2 (17:26→21:56)
[2020-01-20] MEDS: Senna/Docusate Sodium 1 Tablet 2 TABLET PO (17:26)
[2020-01-20] MEDS: Enoxaparin 40 MG/0.4 ML Syringe SC (17:26)
[2020-01-20] MEDS: Meloxicam 15 MG Tablet PO (17:26)
[2020-01-20] MEDS: Losartan Potassium 50 MG Tablet PO (17:27)
[2020-01-20 18:12] LABS: Color, Urine Yellow (Yellow); Glucose, Dipstick Normal (Normal); Ketone-Dipstick Negative (Negative); Leukocyte Esterase-Dipstick Negative /ul (Negative); Nitrite-Dipstick Negative (Negative); Occult Blood-Urine 10 /ul (Negative); Protein-Dipstick 30 mg/dl (Negative); Specific Gravity, Urine 1.025 (1.002-1.030); Urine Bilirubin Dipstick Negative (Negative); Urine Clarity Clear (Clear); Urine Urobilinogen Normal (Normal)
[2020-01-20] MEDS: Atorvastatin Calcium 40 MG Tablet PO (21:56)
[2020-01-20] MEDS: Metoprolol(XL)Succ 100 MG Tablet PO (21:56)
[2020-01-20] MEDS: Menthol/Lanolin/Calamine/Znox 113 GM Tube 1 APPLIC TOPICAL (21:56)
[2020-01-20] MEDS: TICAGRELOR 90 MG TABLET PO (21:56)
[2020-01-20] MEDS: Nystatin Powder 15gm Bottle 1 APPLIC TOPICAL (21:56)
--- NOTE | 2020-01-20 22:37 | NURSING ---
VS entered at 2015 by Christine WEAVER were entered under the wrong patient, please refer to VS for this patient at 2008 entered by this RN.
[2020-01-21] VITALS (9 sets, daily range): BP systolic 101–125; BP diastolic 52–74; PULSE 64–99; RESP 15–20; TEMP 36.5–37.3; O2SAT 92–100
[2020-01-21] MEDS: Acetaminophen 325 MG Tablet 650 MG PO ×2 (02:18→09:48)
[2020-01-21] MEDS: oxyCODONE 5 MG Tablet PO ×2 (02:19→09:49)
[2020-01-21] MEDS: Enoxaparin 40 MG/0.4 ML Syringe SC (05:19)
[2020-01-21 06:23] LABS: Absolute Lymphocyte Count 0.88 X10^3/uL (0.83-4.51); Absolute Neutrophil Count 8.8 X10^3/uL (2.0-7.7); Basophil# 0.05 X10^3/uL; Basophil% 0.4 % (0-1); Eosinophil# 0.12 X10^3/uL; Hematocrit 33.3 % (37-47); Hemoglobin 10.5 g/dL (12.0-15.0); Lymphocyte # 0.88 X10^3/ul (4.0); Lymphocyte % 7.7 % (19-41); Mean Corp Hgb Conc 31.5 g/dL (32-36); Mean Corpuscular Hgb 28.2 pg (27.0-32.0); Mean Corpuscular Volume 89.3 fL (81-99); Mean Platelet Vol. 9.7 fl (6.2-12.0); Monocyte# 1.54 X10^3/uL; Monocyte% 13.5 % (0-10); NRBC Flagged by Analyzer 0 % (0-5); Neutrophil # 8.78 X10^3/uL (2.7-7.7); Neutrophil % 76.9 % (47-70); POSITIVE DIFFERENTIAL YES; Platelet Count 274 K/mm3 (150-450); RBC Distribution Width SD 49.2 fl (35.1-43.9); Red Blood Count 3.73 M/mm3 (4.2-5.4); White Blood Count 11.4 K/mm3 (4.4-11.0)
[2020-01-21 06:34] LABS: Differential Indicated SCAN CRITERIA MET
[2020-01-21 06:56] LABS: Differential Comment SCANNED
[2020-01-21] MEDS: Nystatin Powder 15gm Bottle 1 APPLIC TOPICAL ×2 (07:31→20:38)
[2020-01-21] MEDS: TICAGRELOR 90 MG TABLET PO ×2 (07:32→20:35)
[2020-01-21] MEDS: Aspirin E.C. 81 MG Tablet PO (07:32)
[2020-01-21] MEDS: Psyllium 1 PACKET PO (07:32)
[2020-01-21] MEDS: amLODIPine 5 MG Tablet PO (07:32)
[2020-01-21] MEDS: Menthol/Lanolin/Calamine/Znox 113 GM Tube 1 APPLIC TOPICAL ×2 (07:33→20:37)
[2020-01-21] MEDS: 0.9% Saline Lock 10 ML Syringe IV ×2 (07:35→13:15)
[2020-01-21] MEDS: Ondansetron 4 MG/2 ML Vial IV (07:35)
--- NOTE | 2020-01-21 10:33 | CASEMGMT ---
Addendum entered by Chantel Stahl 01/21/20 13:02: SW spoke with Kalpana with [facility], [facility] is able to accept pt tomorrow. SW in to speak with pt. SW updated pt on acceptance to [facility] and likely discharge tomorrow. Pt gave this worker permission to call her Jamie to update him. SW placed a call to pt's Jamie and updated him on plan for [facility] likely tomorrow. Jamie states understanding. 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 SW introduced self and role at [facility]. Pt is alert and orientated x3. Pt states that she lives with her in a two story home with first floor set up. Pt states there are four steps to enter the home. Pt states she doesn't drive but her does. Pt states she utilizes a walker at home and assists with getting pt dressed. DME include walker, shower chair, rails/grab bars. and CPAP. PCP is Lydia Shearer. Pharmacy is [facility] in [place]. Substance abuse Hx: Pt denied Mental Health Hx: Pt states little bit of anxiety and depression. Pt denied currently taking any medications. HHC: Pt states has had [facility] in the past SNF: Pt denied SNF, does confirm pt has been to [facility] at [facility] before SW spoke with pt regarding discharge plans. Pt states she prefers to discharge home but may be agreeable to [facility] if [facility] is able to accept pt. JAIME explained that pt will need to have qualifying diagnosis for [facility] so this worker will need to make referral and determine if [facility] is able to accept or not. Pt states understanding, agreeable to [facility] referral. JAIME attempted to call Kalpana with [facility], Kalpana states she will call this worker back. Plan: TBD. [facility] vs Home Chantel HUBBARD, JEIMY
--- NOTE | 2020-01-21 11:00 | PCM.PROGNOTE ---
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 Reports left knee pain slightly improved however continues to have significant pain and unable to ambulate. Denies other symptoms or complaints. - Physical Exam Vitals/I&O's: Vital Signs Temp Pulse Resp BP Pulse Ox 98.0 F 67 18 101/63 97 01/21/20 07:28 01/21/20 07:28 01/21/20 07:28 01/21/20 07:28 01/21/20 08:00 Oxygen Flow Rate (L/min) 2 Oxygen Delivery Method Room Air Weight: 171 lb 11.841 oz Body Mass Index (BMI) 32.4 Intake and Output for Last 24 Hours 01/19/20 01/20/20 01/21/20 23:59 23:59 23:59 Intake Total 562.5 / 562.5 926.25 / 926.25 Output Total 150 / 150 150 / 150 Balance 412.5 / 412.5 776.25 / 776.25 General: Alert, Oriented x3, Cooperative HEENT: Atraumatic, PERRLA, EOMI, Normocephalic Neck: Supple, No JVD, Negative Carotid Bruits Lungs: Clear to auscultation, Diminished Cardiovascular: Regular rate, No murmurs Abdomen: Bowel Sounds Present, Soft, Non Tender, Non-Distended Extremities: No clubbing, No cyanosis, Capillary Refill Less than 3 Seconds, Edema - Left knee Skin: No rashes, No breakdown, - - Scattered ecchymosis bilateral legs Musculoskeletal: No Tenderness to Palpation of Joints or Extremities, Tenderness - Left knee and hip Neurological: Cranial nerves II-XII grossly intact, Neuro grossly intact Psych/Mental Status: Normal Affect, Appropriate Laboratory Results 01/20/20 13:14: WBC 13.6 H, RBC 4.32, Hgb 12.5, Hct 38.6, MCV 89.4, MCH 28.9, MCHC 32.4, RDW Std Deviation 49.1 H, RDW Coeff of Archie 15.0 H, Plt Count 303, MPV 9.4, Immature Gran % (Auto) 0.400, Neut % (Auto) 83.4 H, Lymph % (Auto) 6.0 L, Wirt % (Auto) 8.0, Eos % (Auto) 1.8, Baso % (Auto) 0.4, Absolute Neuts (auto) 11.4 H, Absolute Lymphs (auto) 0.81 L, Nucleated RBC % 0 01/20/20 13:14: Sodium 140, Potassium 4.0, Chloride 110 H, Carbon Dioxide 24.0, Anion Gap 6, BUN 16, Creatinine 0.70, Estim Creat Clear Calc 33.86, Est GFR (MDRD) Af Amer 104, Est GFR (MDRD) Non-Af 86, BUN/Creatinine Ratio 22.9 H, Glucose 110 H, Calcium 9.2 01/20/20 17:36: Urine Color Yellow, Urine Clarity Clear, Urine pH 5.0, Ur Specific [place] 1.025, Urine Protein 30 H, Urine Glucose (UA) Normal, Urine Ketones Negative, Urine Occult Blood 10 H, Urine Nitrite Negative, Urine Bilirubin Negative, Urine Urobilinogen Normal, Ur Leukocyte Esterase Negative 01/21/20 05:37: WBC 11.4 H, RBC 3.73 L, Hgb 10.5 L, Hct 33.3 L, MCV 89.3, MCH 28.2, MCHC 31.5 L, RDW Std Deviation 49.2 H, RDW Coeff of Archie 15.0 H, Plt Count 274, MPV 9.7, Immature Gran % (Auto) 0.500, Neut % (Auto) 76.9 H, Lymph % (Auto) 7.7 L, Wirt % (Auto) 13.5 H, Eos % (Auto) 1.0, Baso % (Auto) 0.4, Absolute Neuts (auto) 8.8 H, Absolute Lymphs (auto) 0.88, Nucleated RBC % 0, Differential Comment SCANNED, Diff Path Review May foll Current Medications Acetaminophen (Tylenol) 650 mg PO Q6H PRN PRN PRN Reason: Pain Score 1-10/Temp > 100.7 F Last Admin: 01/21/20 09:48 Dose: 650 mg Documented by: Al Hydroxide/Mg Hydroxide (Mylanta Ii) 30 ml PO Q6H PRN PRN PRN Reason: Gastric Burning Albuterol Sulfate (Ventolin Aerosols) 2.5 mg INHALATION Q2H PRN PRN PRN Reason: Shortness of Breath/Wheezing Amlodipine Besylate (Norvasc) 5 mg PO DAILY [facility] Last Admin: 01/21/20 07:32 Dose: 5 mg Documented by: Aspirin (Ecotrin) 81 mg PO DAILY@0800 [facility] Last Admin: 01/21/20 07:32 Dose: 81 mg Documented by: Atorvastatin Calcium (Lipitor) 40 mg PO QHS [facility] Last Admin: 01/20/20 21:56 Dose: 40 mg Documented by: Calamine/Phenol (Calmoseptine Ointment) 1 applic TOPICAL BID [facility]; Protocol Last Admin: 01/21/20 07:33 Dose: 1 applicatio Documented by: Enoxaparin Sodium (Lovenox) 40 mg SC DAILY@0600 [facility] Last Admin: 01/21/20 05:19 Dose: 40 mg Documented by: Hydromorphone HCl (Dilaudid Inj) 0.5 mg IV Q4H PRN PRN PRN Reason: Pain Score 6-10/10 Last Admin: 01/20/20 20:37 Dose: 0.5 mg Documented by: Sodium Chloride () 250 mls @ 15 mls/hr IV .[id number] PRN PRN Reason: Saline Flush Sodium Chloride () 250 mls @ 15 mls/hr IV .[id number] PRN PRN Reason: Additional IVPB Infusion Losartan Potassium (Cozaar) 50 mg PO DAILY@1400 [facility] Last Admin: 01/20/20 17:27 Dose: 50 mg Documented by: Melatonin (Melatonin) 3 mg PO QHS PRN PRN PRN Reason: INSOMNIA Meloxicam (Mobic) 15 mg PO DAILY PRN PRN Reason: Pain 1-10/10 or Fever Last Admin: 01/20/20 17:26 Dose: 15 mg Documented by: Metoprolol Succinate (Toprol Xl (Beta Romina)) 100 mg PO QHS [facility] Last Admin: 01/20/20 21:56 Dose: 100 mg Documented by: Nitroglycerin (Nitrostat) 0.4 mg SUBLINGUAL Q5M PRN PRN Reason: CARDIAC/CHEST PAIN Nystatin (Mycostatin Powder) 1 applic TOPICAL BID [facility]; Protocol Last Admin: 01/21/20 07:31 Dose: 1 applicatio Documented by: Ondansetron HCl (Zofran) 4 mg IV Q8H PRN PRN PRN Reason: NAUSEA/VOMITING Last Admin: 01/21/20 07:35 Dose: 4 mg Documented by: Oxycodone HCl (Oxyir) 5 mg PO Q4H PRN PRN PRN Reason: Pain Score 4-10/10 Last Admin: 01/21/20 09:49 Dose: 5 mg Documented by: Psyllium Hydrophilic Mucilloid (Metamucil) 1 packet PO DAILY [facility] Last Admin: 01/21/20 07:32 Dose: 1 packet Documented by: Senna/Docusate Sodium (Senokot-S, Gabi-Colace) 2 tablet PO BID PRN PRN PRN Reason: Constipation Last Admin: 01/20/20 17:26 Dose: 2 tablet Documented by: Sodium Chloride () 10 - 40 ml IV UD PRN PRN Reason: SALINE FLUSH Last Admin: 01/21/20 07:35 Dose: 10 ml Documented by: Ticagrelor (Brilinta) 90 mg PO BID [facility] Last Admin: 01/21/20 07:32 Dose: 90 mg Documented by: Medical Necessity - Tobacco Use Smoking Status: Former smoker Assessment/Plan All Active Problems (Last Reviewed 12/24/19 @ 16:[address] Zahira Monet MD) Pulmonary embolism, bilateral (Resolved) Acute ST elevation myocardial infarction (STEMI) (Resolved) 1. Mechanical fall with left knee pain causing debility with inability to ambulate-hip and pelvis x-ray demonstrate degenerative changes, no acute process. Left knee x-ray shows joint effusion in the suprapatellar region. PRN pain regimen. PT/OT. Case management consult for discharge planning. Patient's states patient has been in rehab in the past and pending PT eval, would like to return there if appropriate at discharge. Given continued intractable pain with inability to ambulate, will obtain MRI for further evaluation regarding left knee pain. 2. CAD with recent inferior wall STEMI s/p thrombectomy and BMS to RCA 12/06/2019 -continue aspirin, statin, Brilinta, metoprolol. 3. History of PE/DVT-chronic/recurrent. Follows with hematology. Placed on Pradaxa by hematology. Previously on Xarelto however had multiple episodes of epistaxis. Appears patient is now on aspirin and Brilinta. 4. Hypertension-stable, continue amlodipine, losartan, metoprolol. 5. Hyperlipidemia- continue statin. 6. BALTAZAR- continue home CPAP regimen. 7. Severe osteoarthritis- prn pain regimen. PT/OT. DVT prophylaxis- lovenox sc This patient was seen by TORI Lewis under the supervision of Dr. Faria. <Lucho Faria F - Last Filed: 01/21/20 16:23> - Physical Exam Vitals/I&O's: Vital Signs Temp Pulse Resp BP Pulse Ox 97.7 F L 64 15 118/63 100 01/21/20 13:22 01/21/20 14:32 01/21/20 14:32 01/21/20 14:32 01/21/20 14:32 Oxygen Flow Rate (L/min) 2 Oxygen Delivery Method Room Air Weight: 171 lb 11.841 oz Body Mass Index (BMI) 32.4 Intake and Output for Last 24 Hours 01/19/20 01/20/20 01/21/20 23:59 23:59 23:59 Intake Total 562.5 / 562.5 1286.25 / 1286.25 Output Total 150 / 150 150 / 150 Balance 412.5 / 412.5 1136.25 / 1136.25 Laboratory Results 01/20/20 17:36: Urine Color Yellow, Urine Clarity Clear, Urine pH 5.0, Ur Specific [place] 1.025, Urine Protein 30 H, Urine Glucose (UA) Normal, Urine Ketones Negative, Urine Occult Blood 10 H, Urine Nitrite Negative, Urine Bilirubin Negative, Urine Urobilinogen Normal, Ur Leukocyte Esterase Negative 01/21/20 05:37: WBC 11.4 H, RBC 3.73 L, Hgb 10.5 L, Hct 33.3 L, MCV 89.3, MCH 28.2, MCHC 31.5 L, RDW Std Deviation 49.2 H, RDW Coeff of Archie 15.0 H, Plt Count 274, MPV 9.7, Immature Gran % (Auto) 0.500, Neut % (Auto) 76.9 H, Lymph % (Auto) 7.7 L, Wirt % (Auto) 13.5 H, Eos % (Auto) 1.0, Baso % (Auto) 0.4, Absolute Neuts (auto) 8.8 H, Absolute Lymphs (auto) 0.88, Nucleated RBC % 0, Differential Comment SCANNED, Diff Path Review May foll Current Medications Acetaminophen (Tylenol) 1,000 mg PO Q8 [facility] Last Admin: 01/21/20 13:19 Dose: 1,000 mg Documented by: Al Hydroxide/Mg Hydroxide (Mylanta Ii) 30 ml PO Q6H PRN PRN PRN Reason: Gastric Burning Albuterol Sulfate (Ventolin Aerosols) 2.5 mg INHALATION Q2H PRN PRN PRN Reason: Shortness of Breath/Wheezing Amlodipine Besylate (Norvasc) 5 mg PO DAILY [facility] Last Admin: 01/21/20 07:32 Dose: 5 mg Documented by: Aspirin (Ecotrin) 81 mg PO DAILY@0800 [facility] Last Admin: 01/21/20 07:32 Dose: 81 mg Documented by: Atorvastatin Calcium (Lipitor) 40 mg PO QHS [facility] Last Admin: 01/20/20 21:56 Dose: 40 mg Documented by: Calamine/Phenol (Calmoseptine Ointment) 1 applic TOPICAL BID [facility]; Protocol Last Admin: 01/21/20 07:33 Dose: 1 applicatio Documented by: Enoxaparin Sodium (Lovenox) 40 mg SC DAILY@0600 [facility] Last Admin: 01/21/20 05:19 Dose: 40 mg Documented by: Hydromorphone HCl (Dilaudid Inj) 0.5 mg IV Q4H PRN PRN PRN Reason: Pain Score 6-10/10 Last Admin: 01/20/20 20:37 Dose: 0.5 mg Documented by: Sodium Chloride () 250 mls @ 15 mls/hr IV .[id number] PRN PRN Reason: Saline Flush Sodium Chloride () 250 mls @ 15 mls/hr IV .[id number] PRN PRN Reason: Additional IVPB Infusion Losartan Potassium (Cozaar) 50 mg PO DAILY@1400 [facility] Last Admin: 01/21/20 13:17 Dose: 50 mg Documented by: Melatonin (Melatonin) 3 mg PO QHS PRN PRN PRN Reason: INSOMNIA Meloxicam (Mobic) 15 mg PO DAILY PRN PRN Reason: Pain 1-10/10 or Fever Last Admin: 01/20/20 17:26 Dose: 15 mg Documented by: Metoprolol Succinate (Toprol Xl (Beta Romina)) 100 mg PO QHS [facility] Last Admin: 01/20/20 21:56 Dose: 100 mg Documented by: Nitroglycerin (Nitrostat) 0.4 mg SUBLINGUAL Q5M PRN PRN Reason: CARDIAC/CHEST PAIN Nystatin (Mycostatin Powder) 1 applic TOPICAL BID [facility]; Protocol Last Admin: 01/21/20 07:31 Dose: 1 applicatio Documented by: Ondansetron HCl (Zofran) 4 mg IV Q8H PRN PRN PRN Reason: NAUSEA/VOMITING Last Admin: 01/21/20 07:35 Dose: 4 mg Documented by: Oxycodone HCl (Oxyir) 5 - 10 mg PO Q4H PRN PRN PRN Reason: Pain Score 4-10/10 Psyllium Hydrophilic Mucilloid (Metamucil) 1 packet PO DAILY [facility] Last Admin: 01/21/20 07:32 Dose: 1 packet Documented by: Senna/Docusate Sodium (Senokot-S, Gabi-Colace) 2 tablet PO BID PRN PRN PRN Reason: Constipation Last Admin: 01/20/20 17:26 Dose: 2 tablet Documented by: Sodium Chloride () 10 - 40 ml IV UD PRN PRN Reason: SALINE FLUSH Last Admin: 01/21/20 13:15 Dose: 10 ml Documented by: Ticagrelor (Brilinta) 90 mg PO BID [facility] Last Admin: 01/21/20 07:32 Dose: 90 mg Documented by: Addendum: Dr. Faria I personally examined the patient and reviewed the chart. I agree with the above. 79-year-old female status post mechanical fall with left hip and knee pain. X-rays demonstrate initially degenerative changes however an MRI today obtained of her left knee demonstrates a partial tear of the ACL, with tears of the medial and lateral meniscus and sprains of the medial collateral and fibular collateral ligaments. The MRI findings were discussed with orthopedic surgery who felt like she can be seen as an outpatient. Unfortunately she is unable to bear weight, or at least significant weight on her left knee while undergoing physical therapy today therefore she may need to be placed in a halfway facility for rehab at discharge. Inpatient E&M: [id number] [facility] L[facility]
--- NOTE | 2020-01-21 11:04 | MRI_ITS ---
STUDY: MRI LEFT KNEE REASON FOR EXAM: Left knee pain, fall. TECHNIQUE: Standardized fat and water weighted pulse sequences were obtained in all 3 orthogonal planes. COMPARISON: Radiographs 01/20/2020. FINDINGS: Although there is image degradation secondary to patient motion, there is still significant diagnostically useful information available from this examination. There is a horizontal/oblique tear of the inferior articular surface of the posterior horn/posterior body of the medial meniscus (proton-density coronal images 13-15). Normal hyaline cartilage of the medial femorotibial compartment. Normal medial femoral condyle and tibial plateau. There is a sprain of the superficial fibers of the medial collateral ligament (T2 coronal image 17). Normal distal semimembranosus, gracilis and semitendinosus tendons. There is diffuse tear/degeneration of the lateral meniscus (proton-density sagittal images 29-34). There is arthrosis of the lateral femorotibial compartment with marginal osteophytes, chondral thinning (T2 sagittal image 16) and slight subchondral bone edema of the lateral tibial plateau. Normal proximal tibiofibular articulation. There is a sprain of the superficial fibers of the fibular collateral ligament (T2 coronal image 15). Normal popliteus tendon. Normal biceps femoris tendon. There is a tear of the proximal anterior cruciate ligament, likely a partial tear (T2 axial image 12; series 8 image 13). Normal posterior cruciate ligament (PCL). Normal congruent patellofemoral articulation. There is chondromalacia of the medial patellar facet (T2 axial image 9) with very mild subchondral bone edema. There are sprains of the medial and lateral patellar retinaculum (T2 axial image 11). Normal quadriceps tendon. Normal patellar tendon. Normal Hoffa''s fat pad. There is a moderate-sized joint effusion with extravasation of fluid. There is a medial patellar plica. There are strains of the distal vastus medialis and lateralis muscles (T2 coronal images 19-23). There is a low-grade strain of the popliteus muscle (T2 axial image 23). There is a small cyst in the proximal tibia at the insertion site of the posterior cruciate ligament. MRI/Lower Ext Joint Only (Routine) IMPRESSION: Tear/degeneration of the lateral meniscus. Medial meniscal tear. Partial tear of the anterior cruciate ligament. Sprains of the medial collateral and fibular collateral ligaments. Arthrosis of the lateral femorotibial compartment. Chondromalacia patellae. Sprains of the medial and lateral patellar retinaculum. Strains of the vastus medialis, vastus lateralis and popliteus muscles. Joint effusion with extravasation of fluid. Electronically Signed: Yon Pro MD at 15:17 EDT Tel , Service support ,
[2020-01-21] MEDS: LORazepam 2 MG/ML Syringe 0.5 MG IV (13:15)
[2020-01-21] MEDS: Losartan Potassium 50 MG Tablet PO (13:17)
[2020-01-21] MEDS: Acetaminophen 500 MG Tablet 1000 MG PO ×2 (13:19→20:35)
--- NOTE | 2020-01-21 13:22 | CHAPLAIN ---
Type of Pastoral Visit _x__ Initial Visit ___ Follow-up Visit ___ On-call Visit ___ General Patient Visit ___ Spiritual Assessment ___ Family Conference ___ Bereavement ___ Rapid Response ___ Code Blue ___ Other (describe below) Pastoral Care Referral From _x__ Patient ___ Family ___ Nurse ___ Physician ___ Structural Biologist ___ Sinker Puller ___ Other (describe below) Sacrament/Intervention _x__ Active listening ___ Anointing ___ Restorationist ___ Bereavement ___ Communion ___ Naty exploration ___ _x__ Life review _x__ Prayer ___ Reconciliation ___ Sacrament of Sick _x__ Supportive presence ___ Wedding ___ Other (describe below) Pastoral Comments patient had alston to be delivered to room and this delivery crew member offered to assist with delivery; at meeting the patient and introducing self the patient was welcoming and began to talk about her story and health need; 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
[2020-01-21] MEDS: Metoprolol(XL)Succ 100 MG Tablet PO (20:36)
[2020-01-21] MEDS: Atorvastatin Calcium 40 MG Tablet PO (20:37)
[2020-01-22 01:51] VITALS: BP 125/67; PULSE 74; RESP 16; TEMP 36.5; O2SAT 95
[2020-01-22] MEDS: Acetaminophen 500 MG Tablet 1000 MG PO ×2 (04:52→13:27)
[2020-01-22] MEDS: Enoxaparin 40 MG/0.4 ML Syringe SC (04:53)
[2020-01-22 06:00] LABS: Hematocrit 31.6 % (37-47); Hemoglobin 10.4 g/dL (12.0-15.0); Mean Corp Hgb Conc 32.9 g/dL (32-36); Mean Corpuscular Hgb 29.6 pg (27.0-32.0); Mean Platelet Vol. 9.7 fl (6.2-12.0); Platelet Count 233 K/mm3 (150-450); RBC Distribution Width CV 14.9 % (11.6-14.6); RBC Distribution Width SD 49.1 fl (35.1-43.9); Red Blood Count 3.51 M/mm3 (4.2-5.4); White Blood Count 8.9 K/mm3 (4.4-11.0)
[2020-01-22 07:21] VITALS: O2SAT 94
[2020-01-22 07:50] VITALS: BP 107/60; PULSE 79; RESP 14; TEMP 36.9; O2SAT 97
[2020-01-22] MEDS: amLODIPine 5 MG Tablet PO (08:26)
[2020-01-22] MEDS: Aspirin E.C. 81 MG Tablet PO (08:26)
[2020-01-22] MEDS: Nystatin Powder 15gm Bottle 1 APPLIC TOPICAL (08:27)
[2020-01-22] MEDS: TICAGRELOR 90 MG TABLET PO (08:27)
[2020-01-22] MEDS: Menthol/Lanolin/Calamine/Znox 113 GM Tube 1 APPLIC TOPICAL (08:27)
[2020-01-22] MEDS: Psyllium 1 PACKET PO (08:27)
[2020-01-22] MEDS: Meloxicam 15 MG Tablet PO (08:32)
--- NOTE | 2020-01-22 09:12 | NURSING ---
AM MEDS GIVEN EARLY THIS AM PER PT REQUEST
--- NOTE | 2020-01-22 11:32 | PCM.DC ---
You will use the following diet at home:: Cardiac Discharge Activity: Return to Normal Activity, Use Walker, - - Weightbearing as tolerated Call your doctor if you observe: Shortness of breath, Dizziness, Fainting spells, Chest pain Additional Instructions: Please obtain brace for left knee. Allergies/Adverse Reactions: Allergies rivaroxaban [From Xarelto] Allergy (Intermediate, Verified 01/20/20 12:48) nose bleeds kiwi Allergy (Unknown, Verified 01/20/20 12:48) Anaphylaxis trimethoprim [From Bactrim] Allergy (Unknown, Verified 01/20/20 12:48) Rash tree and shrub pollen Allergy (Verified 01/20/20 12:48) Unknown ciprofloxacin HCl [From Cipro] Adverse Reaction (Severe, Verified 01/20/20 12:48) Itching rash clarithromycin [From Biaxin] Adverse Reaction (Severe, Verified 01/20/20 12:48) Rash codeine Adverse Reaction (Severe, Verified 01/20/20 12:48) Unknown prednisone Adverse Reaction (Severe, Verified 01/20/20 12:48) Unknown Sulfa (Sulfonamide Antibiotics) Adverse Reaction (Severe, Verified 01/20/20 12:48) Unknown adhesive Adverse Reaction (Intermediate, Verified 01/20/20 12:48) Rash animal dander Adverse Reaction (Unknown, Verified 01/20/20 12:48) Unknown levofloxacin [From Levaquin] Adverse Reaction (Unknown, Verified 01/20/20 12:48) Itching nickel Adverse Reaction (Unknown, Verified 01/20/20 12:48) NOT SURE sulfamethoxazole [From Bactrim] Adverse Reaction (Unknown, Verified 01/20/20 12:48) Rash tape Allergy (Unknown, Uncoded 01/20/20 12:48) Itching Medications to take at Discharge Multivit-Min/FA/Lycopen/Lutein [Centrum Silver Tablet] 1 ea PO DAILY 06/17/15 Amlodipine Besylate [Norvasc] 5 mg PO QHS 08/04/16 Cholecalciferol (Vitamin D3) [Vitamin D3] 10,000 unit PO DAILY 08/04/16 Morphine Sulfate [Arymo ER] 15 mg PO TID PRN 09/21/17 Glucosamn/Condroitn/C/Mn/[place] [Cvs Glucosamine Chondroit Cplt] 1 tab PO DAILY 03/21/18 Aspirin E.C. [Ecotrin] 81 mg PO DAILY@0800 #30 tab 12/08/19 Atorvastatin Calcium [Lipitor] 40 mg PO QHS #30 tab 12/08/19 alendronate 70 mg tablet 70 mg PO QWEEK 12/24/19 losartan 100 mg tablet 50 mg PO 1400 tab 12/24/19 metoprolol succinate 100 mg tablet,extended release 24 hr 100 mg PO 0800 tab 12/24/19 ticagrelor 90 mg tablet 90 mg PO BID #180 tab 12/27/19 Acetaminophen [Tylenol] 1,000 mg PO Q8 tablet 01/22/20 Primary Care Physician: Lydia Shearer STAIN SPRAYER, STAIN SPRAYER-C [Primary Care Provider] - Please follow up with your Primary Care Physician in: 1 Week Test Results: Test results from this visit will be discussed in further detail at your follow-up appointment, if applicable. Please Follow Up With: Danish Finch MD When: 2 Weeks Proposed Discharge Date: 01/22/20
--- NOTE | 2020-01-22 12:52 | DS.PCM_ITS ---
<FelipeJacqui [facility] [facility] - Last Filed: 01/22/20 13:03> Discharge Date and Diagnosis Date of Admission: 01/20/20 Date of Discharge: 01/22/20 - Primary Discharge Diagnosis Acute Problems: 1. Mechanical fall with left knee pain causing debility with inability to ambulate 2. CAD with recent inferior wall STEMI s/p thrombectomy and BMS to RCA 12/06/2019 3. History of PE/DVT-chronic/recurrent. 4. Hypertension 5. Hyperlipidemia 6. BALTAZAR 7. Severe osteoarthritis - Secondary Discharge Diagnosis Chronic Problems: Chronic Problems (Last Reviewed 12/24/19 @ 16:[address] Zahira Monet MD) Atherosclerosis of coronary artery of [place] heart without angina pectoris (Chronic) History of coronary artery stent placement (Chronic) 3.5 x 30 mm Integrity RX BMS to RCA 12/11/19 Benign essential HTN (Chronic) HLD (hyperlipidemia) (Chronic) Pulmonary HTN (Chronic) Obesity (Chronic) Osteoarthritis (Chronic) BALTAZAR (obstructive sleep apnea) (Chronic) History of recurrent deep vein thrombosis (DVT) (Chronic) History of pulmonary embolism (Chronic) Mass of left thigh (Chronic) Hospital Course and Treatment Imaging Results: Diagnostic Data Hip/Pelvis X-Ray 01/20/20 12:58 IMPRESSION: Degenerative changes. Electronically Signed: Joan Pérez MD at 14:52 EDT Tel , Service support , Knee X-Ray 01/20/20 12:58 IMPRESSION: Joint effusion. Degenerative changes. Atherosclerosis. Electronically Signed: Joan Pérez MD at 14:30 EDT Tel , Service support , Lower Extremity MRI 01/21/20 11:04 IMPRESSION: Tear/degeneration of the lateral meniscus. Medial meniscal tear. Partial tear of the anterior cruciate ligament. Sprains of the medial collateral and fibular collateral ligaments. Arthrosis of the lateral femorotibial compartment. Chondromalacia patellae. Sprains of the medial and lateral patellar retinaculum. Strains of the vastus medialis, vastus lateralis and popliteus muscles. Joint effusion with extravasation of fluid. Electronically Signed: Yon Pro MD at 15:17 EDT Tel , Service support , Operations: None Procedures: None Summary of Care Provided: The patient is a 79 year old F admitted 01/20/2020 due to fall with left leg pain. 1. Mechanical fall with left knee pain causing debility with inability to ambulate-hip and pelvis x-ray demonstrate degenerative changes, no acute process. Left knee x-ray shows joint effusion in the suprapatellar region. MRI obtained which shows tear/degeneration of the lateral meniscus, medial meniscus tear, partial tear of the ACL, sprains of the medial collateral and fibular collateral ligaments, sprains of the medial and lateral patellar retinaculum as well as muscle strains and joint effusion. Discussed with orthopedic medicine, recommended conservative management and outpatient follow-up. Continue ice, elevation. Requested knee brace. Scheduled Tylenol. Avoid meloxicam/NSAIDs given patient is on Brilinta with recent STEMI/stent. Rehab at discharge for further therapy and continued pain management. 2. CAD with recent inferior wall STEMI s/p thrombectomy and BMS to RCA 12/06/2019 -continue aspirin, statin, Brilinta, metoprolol. 3. History of PE/DVT-chronic/recurrent. Follows with hematology. Placed on Pradaxa by hematology. Previously on Xarelto however had multiple episodes of epistaxis. Appears patient is now on aspirin and Brilinta. 4. Hypertension-stable, continue amlodipine, losartan, metoprolol. 5. Hyperlipidemia- continue statin. 6. BALTAZAR- continue home CPAP regimen. 7. Severe osteoarthritis- prn pain regimen. PT/OT. General: Alert, Oriented x3, Cooperative HEENT: Atraumatic, PERRLA, EOMI, Normocephalic Neck: Supple, No JVD, Negative Carotid Bruits Lungs: Clear to auscultation, Diminished Cardiovascular: Regular rate, No murmurs Abdomen: Bowel Sounds Present, Soft, Non Tender, Non-Distended Extremities: No clubbing, No cyanosis, Capillary Refill Less than 3 Seconds, Edema - Left knee Skin: No rashes, No breakdown, - - Scattered ecchymosis bilateral legs Musculoskeletal: No Tenderness to Palpation of Joints or Extremities, Tenderness - Left knee and hip Neurological: Cranial nerves II-XII grossly intact, Neuro grossly intact Psych/Mental Status: Normal Affect, Appropriate Patient seen and examined prior to discharge. Physical assessment as noted above. Patient is stable for discharge with follow up recommendations as noted above. This patient was seen by TORI Lewis under the supervision of Dr. Faria. - Physical Exam Vitals/I&O's: Vital Signs Temp Pulse Resp BP Pulse Ox 98.5 F 79 14 107/60 97 01/22/20 07:50 01/22/20 07:50 01/22/20 07:50 01/22/20 07:50 01/22/20 07:50 Oxygen Flow Rate (L/min) 2 Oxygen Delivery Method Room Air Weight: 171 lb 11.841 oz Body Mass Index (BMI) 32.4 Intake and Output for Last 24 Hours 01/20/20 01/21/20 01/22/20 23:59 23:59 23:59 Intake Total 562.5 / 562.5 1286.25 / 1286.25 Output Total 150 / 150 150 / 150 700 / 700 Balance 412.5 / 412.5 1136.25 / 1136.25 -700 / -700 Microbiology Past 72 Hours 01/20/20 17:36 Urine, Catheterized Urine Culture - Preliminary Culture exhibits no growth. Laboratory Results 01/22/20 05:42: WBC 8.9, RBC 3.51 L, Hgb 10.4 L, Hct 31.6 L, MCV 90.0, MCH 29.6, MCHC 32.9, RDW Std Deviation 49.1 H, RDW Coeff of Archie 14.9 H, Plt Count 233, MPV 9.7 Current Medications Acetaminophen (Tylenol) 1,000 mg PO Q8 [facility] Last Admin: 01/22/20 04:52 Dose: 1,000 mg Documented by: Al Hydroxide/Mg Hydroxide (Mylanta Ii) 30 ml PO Q6H PRN PRN PRN Reason: Gastric Burning Albuterol Sulfate (Ventolin Aerosols) 2.5 mg INHALATION Q2H PRN PRN PRN Reason: Shortness of Breath/Wheezing Amlodipine Besylate (Norvasc) 5 mg PO DAILY [facility] Last Admin: 01/22/20 08:26 Dose: 5 mg Documented by: Aspirin (Ecotrin) 81 mg PO DAILY@0800 [facility] Last Admin: 01/22/20 08:26 Dose: 81 mg Documented by: Atorvastatin Calcium (Lipitor) 40 mg PO QHS [facility] Last Admin: 01/21/20 20:37 Dose: 40 mg Documented by: Calamine/Phenol (Calmoseptine Ointment) 1 applic TOPICAL BID [facility]; Protocol Last Admin: 01/22/20 08:27 Dose: 1 applicatio Documented by: Enoxaparin Sodium (Lovenox) 40 mg SC DAILY@0600 [facility] Last Admin: 01/22/20 04:53 Dose: 40 mg Documented by: Hydromorphone HCl (Dilaudid Inj) 0.5 mg IV Q4H PRN PRN PRN Reason: Pain Score 6-10/10 Last Admin: 01/20/20 20:37 Dose: 0.5 mg Documented by: Sodium Chloride () 250 mls @ 15 mls/hr IV .[id number] PRN PRN Reason: Saline Flush Sodium Chloride () 250 mls @ 15 mls/hr IV .[id number] PRN PRN Reason: Additional IVPB Infusion Losartan Potassium (Cozaar) 50 mg PO DAILY@1400 [facility] Last Admin: 01/21/20 13:17 Dose: 50 mg Documented by: Melatonin (Melatonin) 3 mg PO QHS PRN PRN PRN Reason: INSOMNIA Meloxicam (Mobic) 15 mg PO DAILY PRN PRN Reason: Pain 1-10/10 or Fever Last Admin: 01/22/20 08:32 Dose: 15 mg Documented by: Metoprolol Succinate (Toprol Xl (Beta Romina)) 100 mg PO QHS [facility] Last Admin: 01/21/20 20:36 Dose: 100 mg Documented by: Nitroglycerin (Nitrostat) 0.4 mg SUBLINGUAL Q5M PRN PRN Reason: CARDIAC/CHEST PAIN Nystatin (Mycostatin Powder) 1 applic TOPICAL BID [facility]; Protocol Last Admin: 01/22/20 08:27 Dose: 1 applicatio Documented by: Ondansetron HCl (Zofran) 4 mg IV Q8H PRN PRN PRN Reason: NAUSEA/VOMITING Last Admin: 01/21/20 07:35 Dose: 4 mg Documented by: Oxycodone HCl (Oxyir) 5 - 10 mg PO Q4H PRN PRN PRN Reason: Pain Score 4-10/10 Psyllium Hydrophilic Mucilloid (Metamucil) 1 packet PO DAILY [facility] Last Admin: 01/22/20 08:27 Dose: 1 packet Documented by: Senna/Docusate Sodium (Senokot-S, Gabi-Colace) 2 tablet PO BID PRN PRN PRN Reason: Constipation Last Admin: 01/20/20 17:26 Dose: 2 tablet Documented by: Sodium Chloride () 10 - 40 ml IV UD PRN PRN Reason: SALINE FLUSH Last Admin: 01/21/20 13:15 Dose: 10 ml Documented by: Ticagrelor (Brilinta) 90 mg PO BID [facility] Last Admin: 01/22/20 08:27 Dose: 90 mg Documented by: Discharge Diet: Low fat/ Low Cholesterol Discharge Activity: Return to Normal Activity, Use Walker, - - Weightbearing as tolerated Call your doctor if you observe: Shortness of breath, Dizziness, Fainting spells, Chest pain Home Medications: Medications to take at Discharge Multivit-Min/FA/Lycopen/Lutein [Centrum Silver Tablet] 1 ea PO DAILY 06/17/15 Amlodipine Besylate [Norvasc] 5 mg PO QHS 08/04/16 Cholecalciferol (Vitamin D3) [Vitamin D3] 10,000 unit PO DAILY 08/04/16 Morphine Sulfate [Arymo ER] 15 mg PO TID PRN 09/21/17 Glucosamn/Condroitn/C/Mn/Montegut [Cvs Glucosamine Chondroit Cplt] 1 tab PO DAILY 03/21/18 Aspirin E.C. [Ecotrin] 81 mg PO DAILY@0800 #30 tab 12/08/19 Atorvastatin Calcium [Lipitor] 40 mg PO QHS #30 tab 12/08/19 alendronate 70 mg tablet 70 mg PO QWEEK 12/24/19 losartan 100 mg tablet 50 mg PO 1400 tab 12/24/19 metoprolol succinate 100 mg tablet,extended release 24 hr 100 mg PO 0800 tab 12/24/19 ticagrelor 90 mg tablet 90 mg PO BID #180 tab 12/27/19 Acetaminophen [Tylenol] 1,000 mg PO Q8 tab 01/22/20 Primary Care Physician: Lydia Shearer [facility], [facility] [Primary Care Provider] - Please follow up with your Primary Care Physician in: 1 Week Please Follow Up With: Danish Finch MD When: 2 Weeks Disposition: Inpt Rehab Unit/Facility Minutes spent on discharge:: 35 Patient Condition:: Stable Medical Necessity - Tobacco Use Smoking Status: Former smoker Meaningful Use Info Meaningful Use Diagnoses (Choose all that apply): None applicable <Lucho Faria F - Last Filed: 01/22/20 14:09> Discharge Date and Diagnosis - Secondary Discharge Diagnosis Chronic Problems: Chronic Problems (Last Reviewed 12/24/19 @ 16:[address] Zahira Monet MD) Atherosclerosis of coronary artery of [place] heart without angina pectoris (Chronic) History of coronary artery stent placement (Chronic) 3.5 x 30 mm Integrity RX BMS to RCA 12/11/19 Benign essential HTN (Chronic) HLD (hyperlipidemia) (Chronic) Pulmonary HTN (Chronic) Obesity (Chronic) Osteoarthritis (Chronic) BALTAZAR (obstructive sleep apnea) (Chronic) History of recurrent deep vein thrombosis (DVT) (Chronic) History of pulmonary embolism (Chronic) Mass of left thigh (Chronic) Hospital Course and Treatment Summary of Care Provided: The patient is a 79 year old F [] - Physical Exam Vitals/I&O's: Vital Signs Temp Pulse Resp BP Pulse Ox 98.5 F 79 14 107/60 97 01/22/20 07:50 01/22/20 07:50 01/22/20 07:50 01/22/20 07:50 01/22/20 07:50 Oxygen Flow Rate (L/min) 2 Oxygen Delivery Method Room Air Weight: 171 lb 11.841 oz Body Mass Index (BMI) 32.4 Intake and Output for Last 24 Hours 01/20/20 01/21/20 01/22/20 23:59 23:59 23:59 Intake Total 562.5 / 562.5 1286.25 / 1286.25 Output Total 150 / 150 150 / 150 700 / 700 Balance 412.5 / 412.5 1136.25 / 1136.25 -700 / -700 Microbiology Past 72 Hours 01/20/20 17:36 Urine, Catheterized Urine Culture - Preliminary Culture exhibits no growth. Laboratory Results 01/21/20 05:37: Diff Path Review Reviewed 01/22/20 05:42: WBC 8.9, RBC 3.51 L, Hgb 10.4 L, Hct 31.6 L, MCV 90.0, MCH 29.6, MCHC 32.9, RDW Std Deviation 49.1 H, RDW Coeff of Archie 14.9 H, Plt Count 233, MPV 9.7 Current Medications Acetaminophen (Tylenol) 1,000 mg PO Q8 [facility] Last Admin: 01/22/20 13:27 Dose: 1,000 mg Documented by: Al Hydroxide/Mg Hydroxide (Mylanta Ii) 30 ml PO Q6H PRN PRN PRN Reason: Gastric Burning Albuterol Sulfate (Ventolin Aerosols) 2.5 mg INHALATION Q2H PRN PRN PRN Reason: Shortness of Breath/Wheezing Amlodipine Besylate (Norvasc) 5 mg PO DAILY [facility] Last Admin: 01/22/20 08:26 Dose: 5 mg Documented by: Aspirin (Ecotrin) 81 mg PO DAILY@0800 [facility] Last Admin: 01/22/20 08:26 Dose: 81 mg Documented by: Atorvastatin Calcium (Lipitor) 40 mg PO QHS [facility] Last Admin: 01/21/20 20:37 Dose: 40 mg Documented by: Calamine/Phenol (Calmoseptine Ointment) 1 applic TOPICAL BID [facility]; Protocol Last Admin: 01/22/20 08:27 Dose: 1 applicatio Documented by: Enoxaparin Sodium (Lovenox) 40 mg SC DAILY@0600 [facility] Last Admin: 01/22/20 04:53 Dose: 40 mg Documented by: Hydromorphone HCl (Dilaudid Inj) 0.5 mg IV Q4H PRN PRN PRN Reason: Pain Score 6-10/10 Last Admin: 01/20/20 20:37 Dose: 0.5 mg Documented by: Sodium Chloride () 250 mls @ 15 mls/hr IV .[id number] PRN PRN Reason: Saline Flush Sodium Chloride () 250 mls @ 15 mls/hr IV .[id number] PRN PRN Reason: Additional IVPB Infusion Losartan Potassium (Cozaar) 50 mg PO DAILY@1400 [facility] Last Admin: 01/22/20 13:27 Dose: 50 mg Documented by: Melatonin (Melatonin) 3 mg PO QHS PRN PRN PRN Reason: INSOMNIA Meloxicam (Mobic) 15 mg PO DAILY PRN PRN Reason: Pain 1-10/10 or Fever Last Admin: 01/22/20 08:32 Dose: 15 mg Documented by: Metoprolol Succinate (Toprol Xl (Beta Romina)) 100 mg PO QHS [facility] Last Admin: 01/21/20 20:36 Dose: 100 mg Documented by: Nitroglycerin (Nitrostat) 0.4 mg SUBLINGUAL Q5M PRN PRN Reason: CARDIAC/CHEST PAIN Nystatin (Mycostatin Powder) 1 applic TOPICAL BID [facility]; Protocol Last Admin: 01/22/20 08:27 Dose: 1 applicatio Documented by: Ondansetron HCl (Zofran) 4 mg IV Q8H PRN PRN PRN Reason: NAUSEA/VOMITING Last Admin: 01/21/20 07:35 Dose: 4 mg Documented by: Oxycodone HCl (Oxyir) 5 - 10 mg PO Q4H PRN PRN PRN Reason: Pain Score 4-10/10 Last Admin: 01/22/20 13:28 Dose: 5 mg Documented by: Psyllium Hydrophilic Mucilloid (Metamucil) 1 packet PO DAILY [facility] Last Admin: 01/22/20 08:27 Dose: 1 packet Documented by: Senna/Docusate Sodium (Senokot-S, Gabi-Colace) 2 tablet PO BID PRN PRN PRN Reason: Constipation Last Admin: 01/20/20 17:26 Dose: 2 tablet Documented by: Sodium Chloride () 10 - 40 ml IV UD PRN PRN Reason: SALINE FLUSH Last Admin: 01/21/20 13:15 Dose: 10 ml Documented by: Ticagrelor (Brilinta) 90 mg PO BID [facility] Last Admin: 01/22/20 08:27 Dose: 90 mg Documented by: Addendum: Dr. Faria I personally examined the patient and reviewed the chart. I agree with the above. 79-year-old female status post mechanical fall with left hip and knee pain. X-rays demonstrate initially degenerative changes however an MRI today obtained of her left knee demonstrates a partial tear of the ACL, with tears of the medial and lateral meniscus and sprains of the medial collateral and fibular collateral ligaments. The MRI findings were discussed with orthopedic surgery who felt like she can be seen as an outpatient. Unfortunately she is unable to bear weight, or at least significant weight on her left knee while undergoing physical therapy today therefore she may need to be placed in a [facility] facility for rehab at discharge. 01/22/2020: Doing well today, no new issues. Pain is little bit better controlled in her left knee but still has difficulty walking and would like to go to the inpatient rehab facility if able. We will provide her with a knee brace from the hospital prior to transfer to the rehab unit to assist with stability and hopefully pain management. She will likely need to follow-up with orthopedic surgery as an outpatient for her partial ACL tear as well as her meniscal tears. Inpatient E&M: [id number] [facility] Hosp
[2020-01-22 12:59] LABS: Pathologist Review Reviewed
[2020-01-22] MEDS: Losartan Potassium 50 MG Tablet PO (13:27)
[2020-01-22] MEDS: oxyCODONE 5 MG Tablet PO (13:28)
[2020-01-22 14:00] VITALS: BP 123/56; PULSE 75; RESP 14; TEMP 36.7; O2SAT 100
--- NOTE | 2020-01-22 14:21 | CASEMGMT ---
Social Work Note Pt is able to discharge to [facility] today. SW in to speak with pt. SW updated pt on discharge to [facility] today. Pt states understanding, agreeable to [facility]. JAIME updated pt that this worker will call her Jamie to update, pt states understanding. JAIME placed a call to pt's Jamie and updated him on discharge to [facility] today. Jamei states understanding. JAIME placed a call to Kalpana with [facility] and updated her on discharge to [facility] today. JAIME updated RN. 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
== END 2020-01-22 15:40 | DRG 563 ==
LOC: ED 13:26 → MS3 15:11
PROVIDERS: Nurse Practitioner Family; Admitting Provider Internal Medicine; Emergency Provider Emergency Medicine; PCP Nurse Practitioner; Visit Provider Family Medicine
DX: S83.512A Sprain of anterior cruciate ligament of left knee, initial encounter (principal); I25.2 Old myocardial infarction; S83.242A Other tear of medial meniscus, current injury, left knee, initial encounter; I25.10 Atherosclerotic heart disease of native coronary artery without angina pectoris; E78.5 Hyperlipidemia, unspecified; I10 Essential (primary) hypertension; G47.33 Obstructive sleep apnea (adult) (pediatric); I27.20 Pulmonary hypertension, unspecified; E66.9 Obesity, unspecified; M16.12 Unilateral primary osteoarthritis, left hip; W01.0XXA Fall on same level from slipping, tripping and stumbling without subsequent striking against object, initial encounter; Y93.01 Activity, walking, marching and hiking; Y92.9 Unspecified place or not applicable; Z87.891 Personal history of nicotine dependence; Z86.711 Personal history of pulmonary embolism; Z86.718 Personal history of other venous thrombosis and embolism; Z68.32 Body mass index [BMI] 32.0-32.9, adult; M25.462 Effusion, left knee
CPT/HCPCS: 36415; 73502; 73562; 73721; 80048; 81002; 85025; 85027; 87086; 97110; 97116; 97162; 97166; 97530; 99251; 99285; J7030; A4216; G0463; J2405

== ENCOUNTER 2020-01-22 15:45 | Inpatient (IN) | payer MEDICARE, OTHER, SELFPAY ==
[2020-01-20 16:03] VITALS: BMI 32.4
[2020-01-22 15:53] VITALS: BP 135/71; PULSE 92; RESP 18; TEMP 37; O2SAT 96; BMI 31.0
[2020-01-22] MEDS: oxyCODONE 5 MG Tablet PO (18:47)
--- NOTE | 2020-01-22 19:00 | NURSING ---
PT INCONTINENT OF URINE, THEN ASSISTED TO BSC & VOIDED MORE. UNABLE TO GET ACCURATE AMOUNT OF URINE PRIOR TO PVR. PVR 12ML.
[2020-01-22 19:36] VITALS: BP 135/71; PULSE 92; RESP 18; TEMP 37; O2SAT 96
[2020-01-22] MEDS: Nystatin Powder 15gm Bottle 1 APPLIC TOPICAL (21:33)
[2020-01-22] MEDS: MELATONIN 3 MG TABLET PO (21:36)
[2020-01-22] MEDS: Acetaminophen 500 MG Tablet 1000 MG PO (21:36)
[2020-01-22 21:37] VITALS: PULSE 89
[2020-01-22] MEDS: Metoprolol(XL)Succ 100 MG Tablet PO (21:37)
[2020-01-22] MEDS: TICAGRELOR 90 MG TABLET PO (21:37)
[2020-01-22] MEDS: Atorvastatin Calcium 40 MG Tablet PO (21:37)
[2020-01-22] MEDS: Senna/Docusate Sodium 1 Tablet 2 TABLET PO (21:38)
[2020-01-22] MEDS: amLODIPine 5 MG Tablet PO (21:38)
[2020-01-22] MEDS: Menthol/Lanolin/Calamine/Znox 113 GM Tube 1 APPLIC TOPICAL (21:40)
[2020-01-22 22:00] VITALS: PULSE 68; RESP 16
[2020-01-23] MEDS: Acetaminophen 500 MG Tablet 1000 MG PO ×3 (06:35→20:03)
[2020-01-23 08:10] VITALS: PULSE 72
[2020-01-23] MEDS: Meloxicam 15 MG Tablet PO (08:13)
[2020-01-23] MEDS: oxyCODONE 5 MG Tablet PO ×3 (08:14→17:42)
[2020-01-23] MEDS: Enoxaparin 40 MG/0.4 ML Syringe SC (08:15)
[2020-01-23] MEDS: Senna/Docusate Sodium 1 Tablet 2 TABLET PO (08:15)
[2020-01-23] MEDS: Multivitamins,Ther W-Minerals Tablet 1 TABLET PO (08:15)
[2020-01-23] MEDS: Aspirin E.C. 81 MG Tablet PO (08:15)
[2020-01-23] MEDS: Polyethylene Glycol 3350 17 GM PACKET PO (08:15)
[2020-01-23] MEDS: Losartan Potassium 50 MG Tablet PO (08:17)
[2020-01-23] MEDS: TICAGRELOR 90 MG TABLET PO ×2 (08:17→20:05)
[2020-01-23] MEDS: Nystatin Powder 15gm Bottle 1 APPLIC TOPICAL (08:23)
[2020-01-23] MEDS: Menthol/Lanolin/Calamine/Znox 113 GM Tube 1 APPLIC TOPICAL ×2 (08:25→20:05)
[2020-01-23 08:27] VITALS: BP 108/61; PULSE 69; RESP 18; TEMP 36.7; O2SAT 99
--- NOTE | 2020-01-23 16:03 | PCM.HP.STD ---
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 (4) Effusion of left knee joint Status: Acute (5) Atherosclerosis of coronary artery of [place] heart without angina pectoris Status: Chronic Qualifiers: (6) History of coronary artery stent placement Status: Chronic Comment: 3.5 x 30 mm Integrity RX BMS to RCA 12/11/19 (7) Benign essential HTN Status: Chronic (8) HLD (hyperlipidemia) Status: Chronic (9) Pulmonary HTN Status: Chronic (10) Obesity Status: Chronic (11) Osteoarthritis Status: Chronic Qualifiers: Osteoarthritis location: knee (12) BALTAZAR (obstructive sleep apnea) Status: Chronic (13) History of recurrent deep vein thrombosis (DVT) Status: Chronic (14) History of pulmonary embolism Status: Chronic (15) Mass of left thigh Status: Chronic (16) Acute ST elevation myocardial infarction (STEMI) Status: Resolved Qualifiers: (17) Osteoporosis Status: Chronic History of Present Illness Date of Admission: 01/22/20 Chief Complaint: Inability to ambulate secondary to recent mechanical fall resulting in traumatic injuries to the left knee and exacerbation of osteoarthritis of the left hip. The patient is a 79 year old F who fell on 01/19/2020 while leaning over with her wheeled walker to pick something off the floor. She lost her balance and fell to the floor. She presented to the emergency department at [facility] on 01/20/2020 complaining of left hip and left knee pain with inability to ambulate. X-ray of the left hip showed degenerative arthritis with no acute fracture. Left knee x-ray showed a joint effusion with degenerative changes. She was admitted to the hospital due to her inability to ambulate. An MRI of the left knee was done on 01/21/2020 and showed a tear/degeneration of the lateral meniscus, medial meniscal tear, partial tear of the ACL, sprains of the medial collateral and fibular collateral ligaments, chondral malacia patellae, sprains of the medial and lateral patellar retinaculum, strains of the vastus medialis, vastus lateralis and popliteus muscles and a joint effusion with extravasation of fluid. She was seen by orthopedics and no surgery was recommended. She was seen by PT/OT and admission to the acute rehab unit was recommended. Sonia was admitted to the in rehab unit on 01/22/20 for > 3 Hours of therapy daily to restore her at or near her prior level of function. Past medical history is significant for hypertension, hyperlipidemia, recurrent DVTs, pulmonary emboli, obesity, osteoarthritis, obstructive sleep apnea, a mass of the left thigh and acute STEMI on 12/06/2019. She underwent cardiac catheterization on 12/06/2019 and this showed 100% occlusion of the distal RCA, 50% stenosis of the OM1, 50% stenosis of the proximal LAD and mild luminal irregularities of the left main. She underwent successful thrombectomy and a bare-metal stent to the RCA. Past Medical History Past Medical History (Chronic Problems): Chronic Problems (Last Reviewed 01/23/20 @ 17:[address] Lydia Glass DO) Chondromalacia patellae of left knee (Chronic) Osteoporosis (Chronic) Atherosclerosis of coronary artery of [place] heart without angina pectoris (Chronic) History of coronary artery stent placement (Chronic) 3.5 x 30 mm Integrity RX BMS to RCA 12/11/19 Benign essential HTN (Chronic) HLD (hyperlipidemia) (Chronic) Pulmonary HTN (Chronic) Obesity (Chronic) Osteoarthritis (Chronic) BALTAZAR (obstructive sleep apnea) (Chronic) History of recurrent deep vein thrombosis (DVT) (Chronic) History of pulmonary embolism (Chronic) Mass of left thigh (Chronic) Medical History: Medical History (Last Reviewed 01/23/20 @ 17:[address] 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 Pulmonary embolism I26.99 laser vein surgery 2012 oopherectomy and tumor removed 1992 Allergies rivaroxaban [From Xarelto] Allergy (Intermediate, Verified 01/20/20 12:48) nose bleeds kiwi Allergy (Unknown, Verified 01/20/20 12:48) Anaphylaxis trimethoprim [From Bactrim] Allergy (Unknown, Verified 01/20/20 12:48) Rash tree and shrub pollen Allergy (Verified 01/20/20 12:48) Unknown ciprofloxacin HCl [From Cipro] Adverse Reaction (Severe, Verified 01/20/20 12:48) Itching rash clarithromycin [From Biaxin] Adverse Reaction (Severe, Verified 01/20/20 12:48) Rash codeine Adverse Reaction (Severe, Verified 01/20/20 12:48) Unknown prednisone Adverse Reaction (Severe, Verified 01/20/20 12:48) Unknown Sulfa (Sulfonamide Antibiotics) Adverse Reaction (Severe, Verified 01/20/20 12:48) Unknown adhesive Adverse Reaction (Intermediate, Verified 01/20/20 12:48) Rash animal dander Adverse Reaction (Unknown, Verified 01/20/20 12:48) Unknown levofloxacin [From Levaquin] Adverse Reaction (Unknown, Verified 01/20/20 12:48) Itching nickel Adverse Reaction (Unknown, Verified 01/20/20 12:48) NOT SURE sulfamethoxazole [From Bactrim] Adverse Reaction (Unknown, Verified 01/20/20 12:48) Rash tape Allergy (Unknown, Uncoded 01/20/20 12:48) Itching Home Medications: Ambulatory Orders Medication Instructions Recorded Multivit-Min/FA/Lycopen/Lutein 1 ea PO DAILY 06/17/15 [Centrum Silver Tablet] Amlodipine Besylate [Norvasc] 5 mg PO QHS 08/04/16 Cholecalciferol (Vitamin D3) 10,000 unit PO DAILY 08/04/16 [Vitamin D3] Glucosamn/[place]n/C/Mn/[place] 1 tab PO DAILY 03/21/18 [Cvs Glucosamine [place] Cplt] alendronate 70 mg tablet 70 mg PO QWEEK 12/24/19 losartan 100 mg tablet 50 mg PO DAILY tab 12/24/19 metoprolol succinate 100 mg 100 mg PO QHS tab 12/24/19 tablet,extended release 24 hr Acetaminophen [Tylenol] 1,000 mg PO Q8 01/22/20 Albuterol Sulfate 2.5 mg IH Q2H PRN 01/22/20 Aspirin E.C. [Ecotrin] 81 mg PO DAILY@0800 01/22/20 Atorvastatin Calcium [Lipitor] 40 mg PO QHS 01/22/20 Enoxaparin Sodium [Lovenox] 40 mg SQ DAILY 01/22/20 Mag Hydrox/Al Hydrox/Simeth 30 ml PO Q6H PRN PRN 01/22/20 [Mylanta II] Melatonin 3 mg PO QHS PRN 01/22/20 Meloxicam 15 mg PO DAILY PRN 01/22/20 Menthol/Lanolin/Calamine/Znox 1 applic TOPICAL BID 01/22/20 [Calmoseptine Ointment] Nitroglycerin 0.4 mg SL PRN 01/22/20 Oxycodone [Oxyir] 5 mg PO Q4H PRN PRN 01/22/20 Ticagrelor [Brilinta] 90 mg PO BID 01/22/20 Surgical History: Surgical History (Last Reviewed 01/23/20 @ 17:[address] Lydia Glass DO) History of coronary artery stent placement (Chronic) Z95.5 3.5 x 30 mm Integrity RX BMS to RCA 12/11/19 A&P repair 1991 H/O repair of rotator cuff Z98.890 1999 History of right hip replacement Z96.641 03/10/15 Hx of tonsillectomy Z90.89 1971 Surgical History: - - Right rotator cuff surgery, benign tumor right kidney, A&P repair, GF filter placement, R THR, thrombectomy and BMS to RCA. Psychiatric History: No pertinent psych hx, Anxiety - with occasional panic attacks. 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 Lydia Glass DO) Father Bone cancer Arthritis Mother Leukemia Heart disease Review of Systems Constitutional: Denies: Chills, Fever, Weight Change Eyes: Denies: Vision Change HEENT: Denies: Head Aches, Nasal Congestion, Post Nasal Drip, Sinus Congestion, Sinus Drainage, Sore Throat Cardiovascular: Denies: Chest Pain, Edema, Light Headedness, Palpitations, Syncope Respiratory: Denies: Cough, Shortness of Breath, Shortness of breath at rest, Sputum production Gastrointestinal: Reports: Constipation. Denies: Abdominal Pain, Diarrhea, Nausea, Vomiting Genitourinary: Denies: Dysuria Gynecological: Denies: Breast symptoms, Vaginal itching Musculoskeletal: Reports: Back Pain, Joint Pain - Left hip and knee Skin: Reports: Skin Changes. Denies: Jaundice, Lesions, Rash, Wounds Neurological: Denies: Numbness, Tingling, Focal weakness Psychiatric: Denies: Anxiety, Depression, Homicidal Ideations, Suicidal Ideations Endocrine: Denies: Hx of Irradiation Hematologic/ Lymphatic: Reports: Easy Bruising, Hx of blood clot. Denies: Easy Bleeding VTE Information - Inpt Only VTE Present on Admission: No VTE Mechan Device Prophylaxis: Knee High WALDO Hose VTE Pharm Prophylaxis ordered?: Yes Patient Problems: Active and Suspected Problems (Last Reviewed 01/23/20 @ 17:[address] Lydia Glass, ) Physical debility (Acute) Due to injuries to the left knee and left hip related to a fall on 01/19/2020 Acute meniscal tear of left knee (Acute) Medial and lateral meniscus Effusion of left knee joint (Acute) - Physical Exam Vitals/I&O's: Vital Signs Temp Pulse Resp BP Pulse Ox 98.0 F 69 18 108/61 99 01/23/20 08:27 01/23/20 08:27 01/23/20 08:27 01/23/20 08:27 01/23/20 08:27 Oxygen Delivery Method Room Air Weight: 164 lb 6 oz Body Mass Index (BMI) 31.0 Intake and Output for Last 24 Hours 01/21/20 01/22/20 01/23/20 23:59 23:59 23:59 Intake Total 480 / 480 960 / 960 Output Total 350 / 350 600 / 600 Balance 130 / 130 360 / 360 General: Alert, Oriented x3, Cooperative, Well developed, Well nourished, - - NASD while sitting in the recliner but has significant L knee pain with weight bearing. HEENT: Atraumatic, PERRLA, EOMI, Normocephalic Oral: No Gingival or Mucosal Lesions/ Ulcerations, Dry Mucosa Neck: Supple, No JVD, Negative Carotid Bruits, - - Brisk carotid upstroke with good pulse volume Lungs: Clear to auscultation - With excellent air exchange, Normal air movement, No rhonchi, No wheeze, No rales Cardiovascular: Regular rate, Regular Rhythm, Normal S1, Normal S2, No murmurs, No rub noted, No Gallop Abdomen: Bowel Sounds Present, Soft, Non Tender, Non-Distended Extremities: No clubbing, No cyanosis, No edema, Capillary Refill Less than 3 Seconds, Tenderness - mild tenderness in the left calf.....neg Loli's and no ankle edema Skin: No breakdown, Rash Present - beneath the breasts and the pannus .......no openings in the skin. The skin is pink and rash is consistent with intertrigo, - - large area of ecchymosis on the Left back extending from the mid thoracic area to the lumbar area...no openings in the skin Musculoskeletal: No Tenderness to Palpation of Joints or Extremities, Arthritic Changes, - - The Left knee is swollen and has increased warmth to touch. No openings in the skin. There is an effusion present. Increrased pain with flexion and with weight bearing Neurological: Cranial nerves II-XII grossly intact, Neuro grossly intact Psych/Mental Status: Normal Affect, Appropriate Current Medications Acetaminophen (Tylenol) 650 mg PO Q6H PRN PRN PRN Reason: Pain Score 1-10/10 Acetaminophen (Tylenol) 1,000 mg PO Q8 [facility] Last Admin: 01/23/20 13:34 Dose: 1,000 mg Documented by: Albuterol Sulfate (Ventolin Aerosols) 2.5 mg INHALATION Q2H PRN PRN Reason: SOB/WHEEZING Alendronate Sodium (Fosamax) 70 mg PO QWEEK [facility] Amlodipine Besylate (Norvasc) 5 mg PO QHS [facility] Last Admin: 01/22/20 21:38 Dose: 5 mg Documented by: Aspirin (Ecotrin) 81 mg PO DAILY@0800 [facility] Last Admin: 01/23/20 08:15 Dose: 81 mg Documented by: Atorvastatin Calcium (Lipitor) 40 mg PO QHS [facility] Last Admin: 01/22/20 21:37 Dose: 40 mg Documented by: Bisacodyl (Dulcolax) 10 mg RECTAL .PRN X 1 PRN PRN Reason: Constipation Calamine/Phenol (Calmoseptine Ointment) 1 applic TOPICAL BID [facility]; Protocol Last Admin: 01/23/20 08:25 Dose: 1 applicatio Documented by: Enoxaparin Sodium (Lovenox) 40 mg SC DAILY [facility] Last Admin: 01/23/20 08:15 Dose: 40 mg Documented by: Losartan Potassium (Cozaar) 50 mg PO DAILY [facility] Last Admin: 01/23/20 08:17 Dose: 50 mg Documented by: Magnesium Hydroxide (Milk Of Magnesia) 30 ml PO .PRN X 1 PRN PRN Reason: Constipation Melatonin (Melatonin) 3 mg PO QHS PRN PRN Reason: .INSOMNIA Last Admin: 01/22/20 21:36 Dose: 3 mg Documented by: Meloxicam (Mobic) 15 mg PO DAILY PRN PRN Reason: PAIN 1-10/10 Last Admin: 01/23/20 08:13 Dose: 15 mg Documented by: Metoprolol Succinate (Toprol Xl (Beta Romina)) 100 mg PO QHS [facility] Last Admin: 01/22/20 21:37 Dose: 100 mg Documented by: Multivitamins/Minerals (Multivitamin With Minerals (Bkc)) 1 tablet PO DAILY@0800 [facility] Last Admin: 01/23/20 08:15 Dose: 1 tablet Documented by: Nitroglycerin (Nitrostat) 0.4 mg SUBLINGUAL Q5M PRN PRN Reason: chest pain Nystatin (Mycostatin Powder) 1 applic TOPICAL BID [facility]; Protocol Last Admin: 01/23/20 08:23 Dose: 1 applicatio Documented by: Oxycodone HCl (Oxyir) 5 - 10 mg PO Q4H PRN PRN PRN Reason: Pain Score 1-10/10 Last Admin: 01/23/20 11:46 Dose: 5 mg Documented by: Polyethylene Glycol (Miralax) 17 gm PO DAILY [facility] Last Admin: 01/23/20 08:15 Dose: 17 gm Documented by: Senna/Docusate Sodium (Senokot-S, Gabi-Colace) 2 tablet PO BID [facility] Last Admin: 01/23/20 08:15 Dose: 2 tablet Documented by: Ticagrelor (Brilinta) 90 mg PO BID [facility] Last Admin: 01/23/20 08:17 Dose: 90 mg Documented by: Assessment/Plan All Active Problems (Last Reviewed 01/23/20 @ 17:[address] Lydia Glass, DO) Physical debility (Acute) Acute meniscal tear of left knee (Acute) Effusion of left knee joint (Acute) Acute ST elevation myocardial infarction (STEMI) (Resolved) Impressions 1. Physical debility secondary to recent mechanical fall with multiple traumatic injuries to the left knee and exacerbation of osteoarthritis of the left hip. 2. Traumatic acute meniscal tears of the left knee-medial and lateral, partial tear of the left ACL, sprains of the medial collateral and fibular collateral ligaments, sprains of the medial and lateral patellar retinaculum, strains of the vastus medialis, vastus lateralis and popliteus muscles 3. Left knee effusion 4. Chondromalacia patella of the left knee 5. Osteoarthritis 6. Coronary artery disease with history of STEMI on 12/06/2019 with bare-metal stent to the RCA 7. Hypertension 8. Hyperlipidemia 9. Obesity 10. BALTAZAR on CPAP 11. History of recurrent DVT and pulmonary emboli - not currently on an anticoagulant....possibly because she is now on ASA and Brilinta 12. Osteoporosis PLAN PT for gait stability OT for ADL's Analgesics as needed Bowel protocol - no BM in 4 days...started on stool softeners and given prune juice tonight. Has PRN Dulcolax ordered Fall precautions Assess for Anxiety/Depression GI prophylaxis not needed at this time - she has no hx of PUD and has no sx at this time DVT prophylaxis with Lovenox 40 mg subcu daily Follow up with Dr. Danish Finch following DC from IP Rehab to follow her progress with knee pain CMP, magnesium, phosphorus, H&H on Tuesday Encouraged increased fluid intake I am concerned about the hx of recurrent DVT's and PE. She has severe knee pain that is limiting her ability to walk and this puts her at increased risk for DVT. She is on ASA and Brilinta since STEMI on 12/06/19. She has a BMS to the RCA. Will discuss with Dr. Monet what to do if she develops DVT. I think she is likely going to need DVT prophylaxis until she can ambulate much better.......Lovenox OR should she be placed on Apixaban? Continue Tylenol 1 g p.o. every 8 hours, discontinue meloxicam as needed, start compounded arthritic cream 3 times daily to the left knee, secured a polar ice machine for her and apply ice at least 3 times a day for 15 minutes to the left knee to decrease inflammation. Continue OxyIR every 4 hours as needed. If pain continues to be uncontrolled with these measures will discuss with orthopedics whether a steroid injection into the left knee will help with pain control/inflammation. is going to obtain a brace from [employer]....PT gave him the measurements of the L knee. She will wear this anytime she is weight bearing Inpatient E&M: [id number] Init Hosp L3
[2020-01-23 16:17] VITALS: BP 134/68; PULSE 77; RESP 16; TEMP 36.7; O2SAT 97
--- NOTE | 2020-01-23 17:39 | PCM.RU.PYE ---
Admission Information Primary Diagnosis:: Debility secondary to recent mechanical fall resulting in multiple traumatic injuries to the left knee and acute exacerbation of arthritic pain left hip. Status Changes from Prescreening?: No changes Identified Actual Problem List:: Falls, Pain, ALteration in Cmfrt, Bowel, Constipation, Mobility Impaired, Self Care Deficit, Fluid Change-Dehydration Potential Problem List:: DVT, Bleeding, Infection, UTI, Aspiration, Falls, Skin Integrity, Depression Risk of Complications DVT: LMWH, WALDO Hose Bleeding: Monitor Lab Values, Nursing to Teach Precautions for anti-coagulation therapy., Wound, if applicable, to be assessed every shift., Stroke patients assessed for lethargy or change in status. Infection: Clinical Staff to Monitor for S/S of infection:, S/S of infection include fever, redness, warmth, etc. Urinary Tract Infection: Monitor for frequency, burning, discomfort, or incontinence., Nursing will obtain urine sample for urinalysis and C&S when ordered. Aspiration: Clinical staff will monitor for coughing, drooling, congestion., Speech will evaluate swallowing and dsyphasia., Nursing will monitor patient swallowing during meals. Falls: Patient will be evaluated for Fall Precautions, Patient will be placed on Fall Precautions as indicated per protocol. Skin Breakdown: Nursing will assess skin daily using assessment tool., Nursing will place on Skin Breakdown Precautions as indicated. Pain: Clinical staff will assess patient's pain level per protocol., Medications will be given, if needed, and the pain level reassessed., Other methods: Massage, distraction, decrease stimulus, etc. used PRN. Plan of Care Patient requires physician specializing in physical medicine and rehab oversight to provide close medical supervision of rehab issues including: Pain Management, Sleep Problems, Bowel and Bladder, Medical and co-morbidity Management, DVT prophylaxis, Rehabilitation Leadership, Coordination of treatment team Patient needs Physical Therapy: For a minimum of 1 hour, At least 5 out of 7 days Patient needs Physical Therapy to improve:: Mobility, Mobility, Mobility, Strengthening, Transfers, Stretching, ROM, Endurance, Stairs, Gait, Balance Patient needs Occupational Therapy: For a minimum of 1 hour, At least 5 out of 7 days Patient needs Occupational Therapy to improve ADL's incl.: Eating, Grooming, Bathing, Dressing, Toileting, Toilet transfers, Community Reintegration, Higher functioning activities, Household tasks, Adaptive Equipment, Splinting, Other activities as determined Patient requires 24/7 Rehabilitation Nursing for: Pain Issues, Identifying and preventing risk factors, Monitoring and reporting current medical conditions, Assisting with ambulation, transfer, and all ADL's, Teaching patients about disease process and medications, Family teaching, Providing safe environment, Bowel and Bladder Issues, Skin integrity, Medication Management Patient needs Acting Instructor/ Case Management for: Discharge Planning, Arranging Home Equipment or Services, Family Interventions Patient needs Dietary and Nutrition Services for: Adequate Nutrition, Nutritional Supplements, Nutritional Education Goals Patient will remain: free from falls, or injury at time of discharge. Patient will perform bed mobility at: MOD I level of assist. Patient will complete transfers from bed to chair at: - - Will complete transfers from various surfaces at mod I Patient will ambulate: with MOD I assist, with LRD, - - 150 feet with a wheeled walker on various surfaces. She will ascend and descend 5 steps with 2 rails at standby assist Patient will propel wheelchair: - - Not applicable Patient will complete upper body dressing at: MOD I level of assist. Patient will complete lower body dressing at: MOD I level of assist. Patient will complete toileting at: Standby Assist. Patient will perform bathing at: Standby Assist. Patient will complete grooming at: MOD I level of assist. Patient will complete home management skills at: MOD I level of assist. Patient will achieve: 12 stairs, at MOD I assist Patient will have pain level of: of 3 or less Patient's skin will: remain intact, free from infection. Patient will receive: adequate nutrition. Discharge Planning Pt Prognosis for Sig. Practical Improv. w/in Reasonable Time: Good Estimated Length of stay (days): 12 Anticipated D/C Destination: Home with Outpt Therapy Was Preadmission Assessment Accurate?: Yes
[2020-01-23 19:43] VITALS: BP 134/68; PULSE 77; RESP 16; TEMP 36.7; O2SAT 97
[2020-01-23 19:45] VITALS: PULSE 77; RESP 16; O2SAT 97
[2020-01-23 20:04] VITALS: BP 134/68; PULSE 77
[2020-01-23] MEDS: Atorvastatin Calcium 40 MG Tablet PO (20:04)
[2020-01-23] MEDS: amLODIPine 5 MG Tablet PO (20:04)
[2020-01-23] MEDS: Metoprolol(XL)Succ 100 MG Tablet PO (20:04)
[2020-01-23] MEDS: Arthritis Pain Compound 60 CLICK TUBE TOPICAL (20:05)
[2020-01-23] MEDS: MELATONIN 3 MG TABLET PO (20:07)
[2020-01-23] MEDS: Nystatin/Triamcin Cream Tube 1 APPLIC TOPICAL (20:31)
--- NOTE | 2020-01-24 02:28 | NURSING ---
Reviewed and agree with ENVIRONMENTAL LAW PROFESSOR documentation and charting.
[2020-01-24] MEDS: Acetaminophen 500 MG Tablet 1000 MG PO ×3 (05:03→20:28)
[2020-01-24] MEDS: Arthritis Pain Compound 60 CLICK TUBE TOPICAL ×2 (05:06→20:31)
[2020-01-24] MEDS: Aspirin E.C. 81 MG Tablet PO (07:55)
[2020-01-24] MEDS: Multivitamins,Ther W-Minerals Tablet 1 TABLET PO (07:55)
[2020-01-24] MEDS: TICAGRELOR 90 MG TABLET PO ×2 (07:55→20:30)
[2020-01-24] MEDS: Polyethylene Glycol 3350 17 GM PACKET PO (07:56)
[2020-01-24] MEDS: Losartan Potassium 50 MG Tablet PO (07:56)
[2020-01-24] MEDS: Nystatin/Triamcin Cream Tube 1 APPLIC TOPICAL ×2 (07:56→20:29)
[2020-01-24] MEDS: Enoxaparin 40 MG/0.4 ML Syringe SC (07:56)
[2020-01-24] MEDS: oxyCODONE 5 MG Tablet PO (07:58)
[2020-01-24] MEDS: Menthol/Lanolin/Calamine/Znox 113 GM Tube 1 APPLIC TOPICAL ×2 (08:02→20:30)
--- NOTE | 2020-01-24 08:57 | PCM.PN.BLA ---
Progress Note Afebrile VSS Maintaining appropriate oxygen saturation on RA Oral intake is good Discussed with nursing - no problems that need addressed Reviewed the PT/OT/ST notes Medication list reviewed. She is still complaining of L knee pain.....mostly when bearing weight. She thinks the compounded cream is helping somewhat. She denies calf pain. She also denies chest pain, shortness of breath, nausea/vomiting/abdominal pain. Alert, oriented x3, no apparent distress while sitting in the recliner at the bedside. Mucous membranes are dry and the patient was reminded to increase her fluid intake Lungs-clear to auscultation with good air exchange throughout Heart-regular rate and rhythm, no murmur, no gallop Abdomen-soft, nontender, nondistended, normal bowel sounds heard No calf pain No focal neurologic deficits Impressions 1. Debility secondary to a fall resulting in multiple traumatic injuries to the left knee and exacerbation of osteoarthritis in the left hip. 2. Pain secondary to above-not adequately controlled yet 3. NSTEMI on 12/06/2019-on aspirin and Brilinta... Not currently on pharmacologic prophylaxis for DVT. Discontinue meloxicam. Patient is already on aspirin and Brilinta and this would likely significantly increase her risk for GI bleeding. Continue oxycodone for breakthrough pain. Continue Tylenol every 8 hours Inpatient E&M: [id number] [facility] Hosp L2
[2020-01-24 09:28] VITALS: BP 138/71; PULSE 68; RESP 18; TEMP 36.9; O2SAT 98
--- NOTE | 2020-01-24 14:51 | PT ---
MEASURED L KNEE (3 ABOVE/BELOW) TO GIVE TO FOR HIM TO GET A KNEE BRACE. DISCUSSED STYLES WITH Pt AND AND PLACES TO PURCHASE WELL.
--- NOTE | 2020-01-24 15:43 | NURSING ---
pt calls this nurse into pt room and shows this nurse scratch fisher on posterior portion of L wrist. this nurse removed bracelet and places a new one onto R wrist. will continue to monitor L wrist for s/sx of infection.
[2020-01-24 19:25] VITALS: BP 129/70; PULSE 89; RESP 16; TEMP 36.5; O2SAT 99
[2020-01-24 20:29] VITALS: BP 129/70; PULSE 89
[2020-01-24] MEDS: amLODIPine 5 MG Tablet PO (20:29)
[2020-01-24] MEDS: Senna/Docusate Sodium 1 Tablet 2 TABLET PO (20:29)
[2020-01-24] MEDS: Metoprolol(XL)Succ 100 MG Tablet PO (20:29)
[2020-01-24] MEDS: Atorvastatin Calcium 40 MG Tablet PO (20:30)
--- NOTE | 2020-01-25 01:00 | NURSING ---
PT UP TO [facility] AND HAS DIARRHEA. REPORTS FINGERTIPS OF BOTH HANDS FEEL NUMB. REPORTS SHE DOES NOT GET THIS NUMB SENSATION AT HOME. FINGERS/HANDS ARE WARM AND PIN. PT HAS BEEN LAYING ON LEFT SIDE.
[2020-01-25 01:20] VITALS: BP 149/80; PULSE 90; RESP 16; TEMP 36.5; O2SAT 98
--- NOTE | 2020-01-25 01:20 | NURSING ---
PT CONTINUES TO FEEL NUMB SENSATION-IS ABLE TO FEEL NURSE TOUCHING FINGERTIPS-BUT SENSATION IS DECREASED. VITAL SIGNS OBTAINED WHILE PT LAYING ON HER BACK. NO CHANGE IN NUMBNESS WITH PT LAYING ON BACK. PT STATES HER STOMACH IS GURGLING. PT DOES NOT HAVE PAIN ANYWHERE.
--- NOTE | 2020-01-25 01:30 | NURSING ---
DR HOLLIS NOTIFIED OF PT'S C/O NUMB SENSATION TO FINGERTIPS BOTH HANDS. INFORMED THAT VITAL SIGNS HAVE BEEN OBTAINED. TO CONTINUE TO MONITOR PT AT THIS TIME.
[2020-01-25] MEDS: oxyCODONE 5 MG Tablet PO ×2 (01:53→07:00)
[2020-01-25] MEDS: Acetaminophen 500 MG Tablet 1000 MG PO ×3 (05:42→21:55)
[2020-01-25] MEDS: Enoxaparin 40 MG/0.4 ML Syringe SC (05:42)
[2020-01-25] MEDS: Arthritis Pain Compound 60 CLICK TUBE TOPICAL ×3 (05:43→21:52)
[2020-01-25 05:50] LABS: Hematocrit 36.1 % (37-47); Hemoglobin 11.6 g/dL (12.0-15.0)
[2020-01-25 06:10] LABS: ALB/GLOB Ratio 0.7 RATIO (0.9-2.4); AST(SGOT) 31 U/L (15-37); Alanine Aminotransfer ALT/SGPT 27 U/L (13-56); Albumin, Serum 2.9 g/dL (3.2-5.0); Alkaline Phosphatase 83 U/L (45-117); Anion Gap 7 (5-15); BUN 16 mg/dL (7-18); BUN/Creat Ratio 24.4 RATIO (10-20); Chloride 106 mmol/L (98-107); Creatinine, Serum 0.66 mg/dL (0.55-1.02); EST Glomerular Filtration Rate 92 mL/min (>60); Est Glom Filt Rate - Afr Amer 112 mL/min (>60); Estimated Creatinine Clearance 33.86 ml/min; Globulin 4.3 g/dL (2.2-4.2); Glucose 111 mg/dL (74-106); Magnesium 1.9 mg/dL (1.6-2.6); Phosphorus 3.1 mg/dL (2.5-4.9); Potassium 3.9 mmol/L (3.5-5.1); Protein, Total 7.2 g/dL (6.4-8.2); Sodium Level 139 mmol/L (136-145)
[2020-01-25 07:36] VITALS: BP 145/88; PULSE 91; RESP 16; TEMP 36.6; O2SAT 97
[2020-01-25] MEDS: TICAGRELOR 90 MG TABLET PO ×2 (07:51→21:55)
[2020-01-25] MEDS: Multivitamins,Ther W-Minerals Tablet 1 TABLET PO (07:51)
[2020-01-25] MEDS: Aspirin E.C. 81 MG Tablet PO (07:51)
[2020-01-25] MEDS: Losartan Potassium 50 MG Tablet PO (07:52)
[2020-01-25] MEDS: Nystatin/Triamcin Cream Tube 1 APPLIC TOPICAL ×2 (07:56→21:56)
[2020-01-25] MEDS: Menthol/Lanolin/Calamine/Znox 113 GM Tube 1 APPLIC TOPICAL ×2 (07:59→21:55)
--- NOTE | 2020-01-25 12:38 | PN_ITS ---
Progress Note Afebrile VSS -BP is mildly increased today and the most recent blood pressure is 145/88. Maintaining appropriate oxygen saturation on RA Oral intake is good Post void residuals at admission were not elevated. Discussed with nursing - night nurses report that the pt is having numbness in both hands at night Reviewed the PT/OT notes Medication list reviewed. All labs personally reviewed. Hemoglobin is stable at 11.6. Sodium, potassium, calcium, phosphorus and magnesium are all within normal limits. The BUN is 16 and the creatinine is 0.66. Sonia tells me that she has had numbness in her hands prior to the recent fall. I suspect she has CTS. She tells me the Oxycodone improves pain when she takes it and she is not having pain awaken her at night. She has been able to do PT/OT despite some increased pain with activity. She denies chest pain, dyspnea on exertion, orthopnea, palpitations. Alert, oriented x3, no apparent distress when sitting in her recliner at the bedside Lungs-clear to auscultation Heart-regular rate and rhythm, no gallop Abdomen-soft nontender No calf pain Impressions 1. 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 There are no hip fractures. 2. Pain secondary to above 3. Coronary artery disease with recent NSTEMI on 12/06/2019. Continue current pain relief regimen Continue therapy Inpatient E&M: [id number] [facility] L1
[2020-01-25 19:39] VITALS: BP 157/85; PULSE 87; RESP 16; TEMP 36.7; O2SAT 95
[2020-01-25 21:54] VITALS: PULSE 86
[2020-01-25] MEDS: Metoprolol(XL)Succ 100 MG Tablet PO (21:54)
[2020-01-25] MEDS: amLODIPine 5 MG Tablet PO (21:54)
[2020-01-25] MEDS: Atorvastatin Calcium 40 MG Tablet PO (21:55)
[2020-01-26] MEDS: Acetaminophen 500 MG Tablet 1000 MG PO ×3 (06:38→22:01)
[2020-01-26] MEDS: Enoxaparin 40 MG/0.4 ML Syringe SC (06:38)
[2020-01-26] MEDS: Arthritis Pain Compound 60 CLICK TUBE TOPICAL ×3 (06:41→22:04)
[2020-01-26] MEDS: Multivitamins,Ther W-Minerals Tablet 1 TABLET PO (07:43)
[2020-01-26] MEDS: Aspirin E.C. 81 MG Tablet PO (07:43)
[2020-01-26] MEDS: TICAGRELOR 90 MG TABLET PO ×2 (07:43→22:04)
[2020-01-26] MEDS: Losartan Potassium 50 MG Tablet PO (07:44)
[2020-01-26] MEDS: oxyCODONE 5 MG Tablet PO ×2 (07:45→12:43)
[2020-01-26] MEDS: Menthol/Lanolin/Calamine/Znox 113 GM Tube 1 APPLIC TOPICAL ×2 (07:47→22:04)
[2020-01-26] MEDS: Nystatin/Triamcin Cream Tube 1 APPLIC TOPICAL ×2 (07:47→22:03)
[2020-01-26 08:00] VITALS: BP 140/81; PULSE 100; RESP 18; TEMP 36.4; O2SAT 98
--- NOTE | 2020-01-26 18:32 | NURSING ---
offered to apply ice to left knee today and pt denied the need for.
--- NOTE | 2020-01-26 19:24 | NURSING ---
This nurse offered flu vaccine and patient refused at this time.
[2020-01-26 19:35] VITALS: BP 144/77; PULSE 56; RESP 16; TEMP 36.6; O2SAT 94
[2020-01-26 22:02] VITALS: BP 144/77; PULSE 88
[2020-01-26] MEDS: Metoprolol(XL)Succ 100 MG Tablet PO (22:02)
[2020-01-26] MEDS: amLODIPine 5 MG Tablet PO (22:03)
[2020-01-26] MEDS: Senna/Docusate Sodium 1 Tablet 2 TABLET PO (22:03)
[2020-01-26] MEDS: Atorvastatin Calcium 40 MG Tablet PO (22:04)
[2020-01-27] MEDS: Arthritis Pain Compound 60 CLICK TUBE TOPICAL ×3 (05:27→20:11)
[2020-01-27] MEDS: Acetaminophen 500 MG Tablet 1000 MG PO ×3 (05:27→20:09)
[2020-01-27] MEDS: Alendronate Sodium 70 MG Tablet PO (06:50)
[2020-01-27] MEDS: Enoxaparin 40 MG/0.4 ML Syringe SC (06:50)
[2020-01-27 07:32] VITALS: BP 142/80; PULSE 89; RESP 16; TEMP 36.6; O2SAT 96
[2020-01-27] MEDS: TICAGRELOR 90 MG TABLET PO ×2 (07:52→20:11)
[2020-01-27] MEDS: Multivitamins,Ther W-Minerals Tablet 1 TABLET PO (07:52)
[2020-01-27] MEDS: Aspirin E.C. 81 MG Tablet PO (07:53)
[2020-01-27] MEDS: Losartan Potassium 100 MG Tablet PO (07:53)
[2020-01-27] MEDS: Nystatin/Triamcin Cream Tube 1 APPLIC TOPICAL ×2 (07:54→20:10)
[2020-01-27] MEDS: Menthol/Lanolin/Calamine/Znox 113 GM Tube 1 APPLIC TOPICAL ×2 (07:55→20:11)
[2020-01-27] MEDS: oxyCODONE 5 MG Tablet PO ×2 (07:59→13:19)
[2020-01-27 19:09] VITALS: BP 143/79; PULSE 79; RESP 18; TEMP 36.6; O2SAT 97
[2020-01-27 20:09] VITALS: BP 143/79; PULSE 79
[2020-01-27] MEDS: Metoprolol(XL)Succ 100 MG Tablet PO (20:09)
[2020-01-27] MEDS: amLODIPine 5 MG Tablet PO (20:10)
[2020-01-27] MEDS: Atorvastatin Calcium 40 MG Tablet PO (20:10)
--- NOTE | 2020-01-28 01:30 | NURSING ---
PT WAKES FROM SLEEP WITH HEAD KINKED TOWARDS R SIDE C/O R SHOULDER AND NECK PAIN. PT STATES SHE HAS ARTHRITIS IN NECK. SKIN IS WARM AND DRY AND COLOR IS PINK. PT REPORTS UPPER R BACK/SHOULDER AREA FEELS BETTER WITH MILD MASSAGE. PT WANTS ROOM TEMP WARMER. MEDICATED FOR PAIN AND PT EATS PACK OF SALTINE CRACKERS TOO.
[2020-01-28] MEDS: oxyCODONE 5 MG Tablet PO ×2 (01:34→07:51)
--- NOTE | 2020-01-28 02:05 | NURSING ---
PT RESTING ON LEFT SIDE WITH EYES CLOSED. RESP ARE EVEN AND EASY.
[2020-01-28] MEDS: Acetaminophen 500 MG Tablet 1000 MG PO ×3 (05:50→20:07)
[2020-01-28] MEDS: Enoxaparin 40 MG/0.4 ML Syringe SC (05:51)
[2020-01-28] MEDS: Arthritis Pain Compound 60 CLICK TUBE TOPICAL ×3 (05:51→20:09)
[2020-01-28] MEDS: Aspirin E.C. 81 MG Tablet PO (07:48)
[2020-01-28] MEDS: Multivitamins,Ther W-Minerals Tablet 1 TABLET PO (07:48)
[2020-01-28] MEDS: Losartan Potassium 100 MG Tablet PO (07:49)
[2020-01-28] MEDS: TICAGRELOR 90 MG TABLET PO ×2 (07:49→20:09)
[2020-01-28] MEDS: Nystatin/Triamcin Cream Tube 1 APPLIC TOPICAL (07:52)
[2020-01-28] MEDS: Menthol/Lanolin/Calamine/Znox 113 GM Tube 1 APPLIC TOPICAL (07:52)
[2020-01-28 07:53] VITALS: BP 104/62; PULSE 80; RESP 12; TEMP 37.1; O2SAT 97
--- NOTE | 2020-01-28 13:08 | CASEMGMT ---
Social Work IDT met with patient and for Team meeting. Discussed patient's progress in therapy. Pt is SBA to min for transfers, ambulating 200ft with FWW SBA, completed 3 steps with 2HR CGA, Joshua for bathing, SBA to min for UE dressing depending on pain in shoulders, SBA for LE dressing if using AE but Joshua for pants and max for socks w/o AE, supervision for toileting, SBA to CGA for shower tx. at home to assist pt. Pt's pain varies. Physician adding pain cream to shoulders. Explained Medicare approved 12 days with DC 02/02. Pt and requesting DC 02/01 as it is their wedding anniversary. IDT agreed. Pt prefers HHC then OP and requesting MOW resources. Provided MOW resources, referred to [facility] HHC PT/OT and no DME needs. Plan: DC home with 02/01 with above services. Apoorva Gleason, STEVIE RUSSELLW
--- NOTE | 2020-01-28 15:10 | PCM.PN.BLA ---
Progress Note Sonia was seen on team rounds today. Her was present. Afebrile VSS Maintaining appropriate oxygen saturation on RA Oral intake is [] Discussed with nursing - no problems that need addressed Reviewed the PT/OT/ST notes Medication list reviewed. Sonia is c/o BL shoulder pain R>L. This is not new but, the pressure on the WW by UE's may be exacerbating. 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 The arthritic cream is working well on her knee and she wonders if we can try this on her shoulders. She denies CP, calf pain, SOB. Alert, appropriate Mucous membranes are moist Lungs-clear to auscultation Heart-regular rate and rhythm, no gallop Abdomen-soft, nontender No calf pain No rashes and no skin breakdown Knee brace is in place Impressions 1. Physical debility secondary to recent fall resulting in multiple injuries to the left knee and exacerbation of left hip osteoarthritis 2. Bilateral shoulder pain-this is not new but has been made worse by the pressure she is applying to the walker with her upper extremities to offload the weight on the left lower extremity. Apply the arthritic pain cream to the bilateral shoulders as well as the left knee 3 times daily. Continue therapy. Inpatient E&M: [id number] [facility] L1
--- NOTE | 2020-01-28 16:02 | CHAPLAIN ---
Type of Pastoral Visit ___ Initial Visit _x__ Follow-up Visit ___ On-call Visit ___ General Patient Visit ___ Spiritual Assessment ___ Family Conference ___ Bereavement ___ Rapid Response ___ Code Blue ___ Other (describe below) Pastoral Care Referral From _x__ Patient ___ Family ___ Nurse ___ Physician ___ Assistant Designer ___ Acid Purification Equipment Operator ___ Other (describe below) Sacrament/Intervention _x__ Active listening ___ Anointing ___ Pentecostal ___ Bereavement ___ Communion ___ Naty exploration ___ _x__ Life review _x__ Prayer ___ Reconciliation ___ Sacrament of Sick ___ Supportive presence ___ Wedding ___ Other (describe below) Pastoral Comments conversation and support offered; pt has life review; pt is expressive about going home on Tuesday for her anniversary; pt acknowledges good care and things yet to do
[2020-01-28 20:00] VITALS: PULSE 92; RESP 18; O2SAT 97
[2020-01-28 20:08] VITALS: BP 134/69; PULSE 92
[2020-01-28] MEDS: Atorvastatin Calcium 40 MG Tablet PO (20:08)
[2020-01-28] MEDS: Metoprolol(XL)Succ 100 MG Tablet PO (20:08)
[2020-01-28] MEDS: amLODIPine 5 MG Tablet PO (20:09)
[2020-01-28] MEDS: MELATONIN 3 MG TABLET PO (20:09)
[2020-01-28 22:00] VITALS: BP 134/69; PULSE 92; RESP 18; TEMP 36.8; O2SAT 97
[2020-01-29] MEDS: oxyCODONE 5 MG Tablet PO ×2 (06:49→22:17)
[2020-01-29] MEDS: Enoxaparin 40 MG/0.4 ML Syringe SC (06:49)
[2020-01-29] MEDS: Acetaminophen 500 MG Tablet 1000 MG PO ×3 (06:49→20:44)
[2020-01-29] MEDS: Arthritis Pain Compound 60 CLICK TUBE TOPICAL ×3 (06:50→20:42)
[2020-01-29 07:44] VITALS: BP 133/72; PULSE 95; RESP 16; TEMP 36.5; O2SAT 99
[2020-01-29] MEDS: TICAGRELOR 90 MG TABLET PO ×2 (08:31→20:43)
[2020-01-29] MEDS: Aspirin E.C. 81 MG Tablet PO (08:31)
[2020-01-29] MEDS: Losartan Potassium 100 MG Tablet PO (08:31)
[2020-01-29] MEDS: Multivitamins,Ther W-Minerals Tablet 1 TABLET PO (08:31)
[2020-01-29] MEDS: Bupivacaine Mpf 0.5% 30 ML VIAL INFILT ×2 (14:08→14:09)
[2020-01-29 20:43] VITALS: PULSE 77
[2020-01-29] MEDS: amLODIPine 5 MG Tablet PO (20:43)
[2020-01-29] MEDS: Senna/Docusate Sodium 1 Tablet 2 TABLET PO (20:43)
[2020-01-29] MEDS: Metoprolol(XL)Succ 100 MG Tablet PO (20:43)
[2020-01-29] MEDS: Atorvastatin Calcium 40 MG Tablet PO (20:43)
[2020-01-29 22:00] VITALS: BP 120/71; PULSE 77; RESP 16; TEMP 36.8; O2SAT 97
[2020-01-30] MEDS: oxyCODONE 5 MG Tablet PO ×3 (06:45→23:42)
[2020-01-30] MEDS: Enoxaparin 40 MG/0.4 ML Syringe SC (06:45)
[2020-01-30] MEDS: Acetaminophen 500 MG Tablet 1000 MG PO ×3 (06:45→20:50)
[2020-01-30] MEDS: Arthritis Pain Compound 60 CLICK TUBE TOPICAL ×3 (06:45→20:48)
[2020-01-30] MEDS: Senna/Docusate Sodium 1 Tablet 2 TABLET PO (08:50)
[2020-01-30] MEDS: TICAGRELOR 90 MG TABLET PO ×2 (08:50→20:50)
[2020-01-30] MEDS: Multivitamins,Ther W-Minerals Tablet 1 TABLET PO (08:50)
[2020-01-30] MEDS: Aspirin E.C. 81 MG Tablet PO (08:50)
[2020-01-30] MEDS: Losartan Potassium 100 MG Tablet PO (08:50)
[2020-01-30] MEDS: Polyethylene Glycol 3350 17 GM PACKET PO (08:50)
[2020-01-30] MEDS: Menthol/Lanolin/Calamine/Znox 113 GM Tube 1 APPLIC TOPICAL (08:51)
[2020-01-30 09:39] VITALS: BP 147/62; PULSE 69; RESP 16; TEMP 36.8; O2SAT 98
--- NOTE | 2020-01-30 13:09 | PN_ITS ---
Progress Note Late entry for 01/28. She continues to c/o pain in the arms and the shoulders. The pain is actually in the trapezius muscles and not in the shoulder joint itself. She does not appear to be in any distress. there is no swelling or redness in either shoulder joint. There is muscle spasm in both Trapezius muscles and she has point tenderness with palpation of the paravertebral muscles medial to the scapula BL. There are small bruises over the traps BL and this is more than likely due to the recent fall. The bruise over the Left low back is fading but blending kettle tender. There are no openings in the skin. The focal areas of reproducible ppain medial to the scapula BL were each injected with 2 cc of Marcaine and 1 cc of 2% lidocaine. The area was cleansed with a chlorhexidine sponge followed by alcohol wipes. The skin was allowed to and dry and the areas were injected. She tolerated the procedure well and 10 minutes after injection she denied pain. Impressions 1. Myospasm with trigger points in the trapezius muscle BL - likely due to leaning on the walker heavily 2. Trigger point injection X 2 sites STROKE Vital Signs/Narrative: Vital Signs Temp Pulse Resp BP Pulse Ox 01/30/20 09:39 98.2 F 69 16 147/62 H 98 Multi Select Codes - Visit Charges Visit Charges: 30034 Subs Hosp L1 - Hospitalists' Procedures Procedures: Other Procedure - See Report - trigger point injections with Lidocaine and Marcaine X 2 sites
--- NOTE | 2020-01-30 13:21 | PN_ITS ---
Progress Note Afebrile since admission Vital signs are stable She is maintaining appropriate oxygen saturation on room air She is still requiring Oxycodone for pain control. Pain medicine currently consists of acetaminophen 1 g p.o. every 8 hours, compounded arthritic cream 3 times daily to the shoulders and knee, oxycodone 5 mg every morning and 5 mg every 4 hours as needed pain. I have not placed her on a nonsteroidal anti- inflammatory drug because she is currently taking Lovenox for DVT prophylaxis and aspirin and Brilinta for recent stent placement. She had trigger points in the upper back injected yesterday and she tells me the pain is a little better. She has been on Gabapentin in the past which helped but, Dr. Simpson would no longer prescribe because the patient was not coming to the office to be examined. She has spasm of the BL trapezius muscles but, they are better than yesterday. There is no erythema of the shoulder joints and no significant increased warmth to touch. Her gait is less antalgic and she is walking at a more normal pace She is sleeping well at night Good bowel function no calf pain Impressions 1. Her complaints of pain are more in the shoulders and the muscles in the upper back and UE's - fibromyalgia? Gabapentin has helped with pain in the past. The left knee pain is much better controlled. 2. physical debility due to recent fall with multiple internal injuries to the left knee 3. CAD on dual antiplatelet agents for the next year Add Gabapentin 100 TID She is doing well in therapy and will continue. STROKE Vital Signs/Narrative: Vital Signs Temp Pulse Resp BP Pulse Ox 01/30/20 09:39 98.2 F 69 16 147/62 H 98 Inpatient E&M: [id number] Subs Hosp L1
[2020-01-30] MEDS: Gabapentin 100 MG Capsule PO (17:37)
[2020-01-30 20:50] VITALS: BP 126/73; PULSE 82; RESP 16; TEMP 37.1; O2SAT 96
[2020-01-30] MEDS: Atorvastatin Calcium 40 MG Tablet PO (20:50)
[2020-01-30] MEDS: amLODIPine 5 MG Tablet PO (20:50)
[2020-01-30 20:51] VITALS: BP 126/73; PULSE 82
[2020-01-30] MEDS: Metoprolol(XL)Succ 100 MG Tablet PO (20:51)
--- NOTE | 2020-01-31 04:49 | NURSING ---
Reviewed and agree with RETAIL PRODUCT ADVISOR documentation and charting
[2020-01-31] MEDS: Acetaminophen 500 MG Tablet 1000 MG PO ×3 (05:40→21:12)
[2020-01-31] MEDS: Enoxaparin 40 MG/0.4 ML Syringe SC (05:41)
[2020-01-31] MEDS: oxyCODONE 5 MG Tablet PO (05:41)
[2020-01-31] MEDS: Gabapentin 100 MG Capsule PO ×3 (08:00→16:49)
[2020-01-31] MEDS: Aspirin E.C. 81 MG Tablet PO (08:00)
[2020-01-31] MEDS: Arthritis Pain Compound 60 CLICK TUBE TOPICAL ×3 (08:00→21:11)
[2020-01-31] MEDS: Multivitamins,Ther W-Minerals Tablet 1 TABLET PO (08:00)
[2020-01-31] MEDS: TICAGRELOR 90 MG TABLET PO ×2 (08:00→21:11)
[2020-01-31] MEDS: Losartan Potassium 100 MG Tablet PO (08:00)
[2020-01-31 08:53] VITALS: BP 137/88; PULSE 70; RESP 18; TEMP 36.6; O2SAT 99
--- NOTE | 2020-01-31 15:26 | PCM.PN.BLA ---
Progress Note Afebrile Vital signs stable-blood pressure is well controlled Maintaining good oxygen saturation on room air Pt states that her pain in the left knee is well controlled. She continues to have some pain in the shoulders. The Gabapentin has helped with the pain in the shoulders and the upper back. It is much more tolerable. No adverse reactions with the addition of the Gabapentin to her drug regimen. Alert, no apparent distress Lungs-clear to auscultation No calf pain No rashes and no skin breakdown The muscle spasms in the trapezius have improved and today there is no focal/trigger points in the trapezius muscles. Less painful range of motion in the shoulders. Impressions 1. Physical debility secondary to a fall resulting in multiple internal derangements of the left knee, exacerbation of osteoarthritis of the left hip and exacerbation of suspected fibromyalgia. 2. Coronary artery disease with recent NSTEMI the end of November 3. Essential [id number] H&H, BMP, ESR and CRP in the a.m. Patient was instructed to continue to ice her knee after activity 2-3 times daily, even after DC. We discussed her planned discharge tomorrow and I answered all her questions. I advised her not to take nonsteroidal anti-inflammatory drugs such as meloxicam, Motrin, naproxen....... due to increased risk for GI bleeds since she is on Brilinta and aspirin for the next year. She can use Tylenol as needed. She will follow up with Dr. Ashutosh Singleton for orthopedics. I suspect she may need a total knee replacement in the future but due to the recent NSTEMI no elective surgeries should be considered until June 2020. She will also follow-up with Lydia Shearer in 1 to 2 weeks following discharge. Inpatient E&M: [id number] Subs Hosp L2
[2020-01-31 19:24] VITALS: BP 118/62; PULSE 80; RESP 18; TEMP 36.7; O2SAT 93
[2020-01-31] MEDS: amLODIPine 5 MG Tablet PO (21:08)
[2020-01-31] MEDS: Senna/Docusate Sodium 1 Tablet 2 TABLET PO (21:08)
[2020-01-31] MEDS: Gabapentin 100 MG Capsule 200 MG PO (21:09)
[2020-01-31] MEDS: Atorvastatin Calcium 40 MG Tablet PO (21:11)
[2020-01-31 21:12] VITALS: PULSE 83
[2020-01-31] MEDS: Metoprolol(XL)Succ 100 MG Tablet PO (21:12)
[2020-01-31 22:00] VITALS: PULSE 82; RESP 16; O2SAT 94
[2020-02-01] MEDS: Acetaminophen 500 MG Tablet 1000 MG PO ×3 (05:54→20:35)
[2020-02-01] MEDS: Enoxaparin 40 MG/0.4 ML Syringe SC (05:56)
[2020-02-01] MEDS: oxyCODONE 5 MG Tablet PO ×2 (05:57→22:50)
[2020-02-01] MEDS: Arthritis Pain Compound 60 CLICK TUBE TOPICAL ×3 (05:59→20:40)
[2020-02-01 06:22] LABS: Hematocrit 40.9 % (37-47)
[2020-02-01 06:35] LABS: Erythrocyte Sedimentation Rate 50 mm/hr (0-30)
[2020-02-01 06:43] LABS: Anion Gap 5 (5-15); BUN 18 mg/dL (7-18); BUN/Creat Ratio 24.7 RATIO (10-20); CRP 4.99 mg/L (0.0-3.0); Calcium,Total 9.2 mg/dL (8.5-10.1); Chloride 106 mmol/L (98-107); Creatinine, Serum 0.73 mg/dL (0.55-1.02); EST Glomerular Filtration Rate 82 mL/min (>60); Est Glom Filt Rate - Afr Amer 99 mL/min (>60); Estimated Creatinine Clearance 33.86 ml/min; Glucose 89 mg/dL (74-106); Potassium 4.3 mmol/L (3.5-5.1); Sodium Level 136 mmol/L (136-145)
[2020-02-01] MEDS: Aspirin E.C. 81 MG Tablet PO (07:45)
[2020-02-01] MEDS: Gabapentin 100 MG Capsule PO ×3 (07:45→17:39)
[2020-02-01] MEDS: Multivitamins,Ther W-Minerals Tablet 1 TABLET PO (07:45)
[2020-02-01] MEDS: Losartan Potassium 100 MG Tablet PO (07:45)
[2020-02-01] MEDS: Menthol/Lanolin/Calamine/Znox 113 GM Tube 1 APPLIC TOPICAL (07:46)
[2020-02-01] MEDS: TICAGRELOR 90 MG TABLET PO ×2 (07:46→20:39)
[2020-02-01 09:18] VITALS: BP 149/73; PULSE 73; RESP 17; TEMP 36.6; O2SAT 97
--- NOTE | 2020-02-01 15:07 | DCINST_ITS ---
- Discharge Diagnoses Current Active Problems: Current Active and Chronic Problems (Last Reviewed 01/23/20 @ 17:[address] Lydia Glass, DO) Physical debility (Acute) Due to injuries to the left knee and left hip related to a fall on 01/19/2020 Acute meniscal tear of left knee (Acute) Medial and lateral meniscus Chondromalacia patellae of left knee (Chronic) Effusion of left knee joint (Acute) Osteoporosis (Chronic) You will use the following diet at home:: Cardiac - low salt and low fat Your food should be the consistency of: Regular Your liquids should be the consistency of: Regular/Thin Discharge Activity: May not drive while taking narcotic pain medications., May Shower, Use Walker, - - make sure to do the exercises given to you by the therapists twice a day Ice area for (Minutes): 15 - 2-3 times a day and ALWAYS after PT Weight Bearing Status: Weight bearing as tolerated Keep extremity elevated above heart level: Left Leg Additional Activity Instructions:: The longer you sit the stiffer you get SO DO NOT sit for longer than 1-2 hours without getting up and taking a stroll. Call your doctor if you observe: Fever of 101 or Higher, Inability to urinate, Inability to have a bowel movement, Shortness of breath, Dizziness, Fainting spells, Swelling in the ankles, Chest pain, Increased palpitations (irregular heartbeat), Calf discomfort, Uncontrolled pain Additional Instructions: 1. You have done very well in therapy Sonia. I am sending you home with prescriptions for the pain cream and Gabapentin. I think it is possible you have fibromyalgia and Gabapentin helps with the pain due to this. It has helped you in the past. I do not want you taking Meloxicam for now.......you are on both Aspirin and Brilinta for your heart and both of theses medications cam lead to bleeding in the GI tract. Meloxicam increases the risk for bleeding in the GI tract. I have given you a few Oxycodone to take home with you in case the pain gets very bad. 2. Take care of yourself Sonia. I have enjoyed meeting you and if you have any questions after you go home or the re is anything we can help with please do not hesitate to call me. cell - [phone]. Office - [phone]. Rehab floor [phone]. I hope you do not need a knee replacement BUT if you do we would be happy to see you in rehab again! Allergies/Adverse Reactions: Allergies rivaroxaban [From Xarelto] Allergy (Intermediate, Verified 01/20/20 12:48) nose bleeds kiwi Allergy (Unknown, Verified 01/20/20 12:48) Anaphylaxis trimethoprim [From Bactrim] Allergy (Unknown, Verified 01/20/20 12:48) Rash tree and shrub pollen Allergy (Verified 01/20/20 12:48) Unknown ciprofloxacin HCl [From Cipro] Adverse Reaction (Severe, Verified 01/20/20 12:48) Itching rash clarithromycin [From Biaxin] Adverse Reaction (Severe, Verified 01/20/20 12:48) Rash codeine Adverse Reaction (Severe, Verified 01/20/20 12:48) Unknown prednisone Adverse Reaction (Severe, Verified 01/20/20 12:48) Unknown Sulfa (Sulfonamide Antibiotics) Adverse Reaction (Severe, Verified 01/20/20 12:48) Unknown adhesive Adverse Reaction (Intermediate, Verified 01/20/20 12:48) Rash animal dander Adverse Reaction (Unknown, Verified 01/20/20 12:48) Unknown levofloxacin [From Levaquin] Adverse Reaction (Unknown, Verified 01/20/20 12:48) Itching nickel Adverse Reaction (Unknown, Verified 01/20/20 12:48) NOT SURE sulfamethoxazole [From Bactrim] Adverse Reaction (Unknown, Verified 01/20/20 1 2:48) Rash tape Allergy (Unknown, Uncoded 01/20/20 12:48) Itching Medications to take at Discharge Multivit-Min/FA/Lycopen/Lutein [Centrum Silver Tablet] 1 ea PO DAILY 06/17/15 Amlodipine Besylate [Norvasc] 5 mg PO QHS 08/04/16 Cholecalciferol (Vitamin D3) [Vitamin D3] 10,000 unit PO DAILY 08/04/16 Glucosamn/Condroitn/C/Mn/Frankewing [Cvs Glucosamine Chondroit Cplt] 1 tab PO DAILY 03/21/18 alendronate 70 mg tablet 70 mg PO QWEEK 12/24/19 metoprolol succinate 100 mg tablet,extended release 24 hr 100 mg PO QHS tab 12/24/19 Aspirin E.C. [Ecotrin] 81 mg PO DAILY@0800 01/22/20 Atorvastatin Calcium [Lipitor] 40 mg PO QHS 01/22/20 Enoxaparin Sodium [Lovenox] 40 mg SQ DAILY 01/22/20 Mag Hydrox/Al Hydrox/Simeth [Mylanta II] 30 ml PO Q6H PRN PRN 01/22/20 Melatonin 3 mg PO QHS PRN 01/22/20 Nitroglycerin 0.4 mg SL PRN 01/22/20 Ticagrelor [Brilinta] 90 mg PO BID 01/22/20 Acetaminophen [Tylenol] 1,000 mg PO Q8 PRN #1 tablet 02/01/20 Arthritis Pain Compound 2 click TOPICAL TID gm 02/01/20 Gabapentin [Neurontin] 100 mg PO BIDCM #90 cap 02/01/20 Losartan Potassium 100 mg PO DAILY #30 tab 02/01/20 Oxycodone [Oxyir] 5 mg PO Q4H PRN PRN 7 Days #14 tablet 02/01/20 The following prescriptions were given: Losartan Potassium 100 mg PO DAILY #30 tab Transmission Status: Pending to [id number] Gabapentin [Neurontin] 100 mg PO BIDCM #90 cap Transmission Status: Pending to [facility][id number] Oxycodone [Oxyir] 5 mg PO Q4H PRN PRN 7 Days #14 tablet PRN Reason: Pain Score 1-10/10 Transmission Status: Received by [facility][id number] Acetaminophen [Tylenol] 1,000 mg PO Q8 PRN #1 tablet PRN Reason: pain Primary Care Physician: Lydia Shearer LOCKSTITCH LINING SETTER, LOCKSTITCH LINING SETTER-C [Primary Care Provider] - Test Results: Test results from this visit will be discussed in further detail at your follow- up appointment, if applicable. Please Follow Up With: Lydia Shearer-SLATE CUTTER When: 5-10 days Please Follow Up With: Ashutosh Singleton MD When: 2-3 weeks Proposed Discharge Date: 02/02/20
--- NOTE | 2020-02-01 15:23 | DS.PCM_ITS ---
Discharge Date and Diagnosis - Problem List Patient Problems: Active and Suspected Problems (Last Reviewed 01/23/20 @ 17:[address] Lydia Glass DO) Muscle spasm (Acute) Physical debility (Acute) Due to injuries to the left knee and left hip related to a fall on 01/19/2020 Acute meniscal tear of left knee (Acute) Medial and lateral meniscus Effusion of left knee joint (Acute) Date of Admission: 01/22/20 Date of Discharge: 02/02/20 - Primary Discharge Diagnosis Acute Problems: Active Problems (Last Reviewed 01/23/20 @ 17:[address] Lydia Glass DO) Physical debility (Acute) Due to injuries to the left knee and left hip related to a fall on 01/19/2020 Acute meniscal tear of left knee (Acute) Medial and lateral meniscus Effusion of left knee joint (Acute) Muscle spasm (Acute) - BL Trapezius muscles anemia - this is new since the end of November when she was placed on Brilinta and ASA. She has also been taking Meloxicam. elevated ESR and CRP - Secondary Discharge Diagnosis Chronic Problems: Chronic Problems (Last Reviewed 01/23/20 @ 17:[address] Lydia Glass DO) Chondromalacia patellae of left knee (Chronic) Osteoporosis (Chronic) Atherosclerosis of coronary artery of [place] heart without angina pectoris (Chronic) History of coronary artery stent placement (Chronic) 3.5 x 30 mm Integrity RX BMS to RCA 12/11/19 Benign essential HTN (Chronic) HLD (hyperlipidemia) (Chronic) Pulmonary HTN (Chronic) Obesity (Chronic) Osteoarthritis (Chronic) BALTAZAR (obstructive sleep apnea) (Chronic) History of recurrent deep vein thrombosis (DVT) (Chronic) History of pulmonary embolism (Chronic) Mass of left thigh (Chronic) Hospital Course and Treatment Imaging Results: Laboratory Last Values Hgb 13.0 g/dL (12.0-15.0) 02/01/20 06:10 Hct 40.9 % (37-47) 02/01/20 06:10 ESR 50 mm/hr (0-30) H 02/01/20 06:10 Sodium 136 mmol/L (136-145) 02/01/20 06:10 Potassium 4.3 mmol/L (3.5-5.1) 02/01/20 06:10 Chloride 106 mmol/L (98-107) 02/01/20 06:10 Carbon Dioxide 25.0 mmol/L (21.0-32.0) 02/01/20 06:10 Anion Gap 5 (5-15) 02/01/20 06:10 BUN 18 mg/dL (7-18) 02/01/20 06:10 Creatinine 0.73 mg/dL (0.55-1.02) 02/01/20 06:10 Estim Creat Clear Calc 33.86 ml/min 02/01/20 06:10 Est GFR (MDRD) Af Amer 99 mL/min (>60) 02/01/20 06:10 Est GFR (MDRD) Non-Af 82 mL/min (>60) 02/01/20 06:10 BUN/Creatinine Ratio 24.7 RATIO (10-20) H 02/01/20 06:10 Glucose 89 mg/dL (74-106) 02/01/20 06:10 Calcium 9.2 mg/dL (8.5-10.1) 02/01/20 06:10 Phosphorus 3.1 mg/dL (2.5-4.9) 01/25/20 05:40 Magnesium 1.9 mg/dL (1.6-2.6) 01/25/20 05:40 Total Bilirubin 0.70 mg/dL (0.20-1.00) 01/25/20 05:40 AST 31 U/L (15-37) 01/25/20 05:40 ALT 27 U/L (13-56) 01/25/20 05:40 Alkaline Phosphatase 83 U/L (45-117) 01/25/20 05:40 C-React Prot Ext Range 4.99 mg/L (0.0-3.0) H 02/01/20 06:10 Total Protein 7.2 g/dL (6.4-8.2) 01/25/20 05:40 Albumin 2.9 g/dL (3.2-5.0) L 01/25/20 05:40 Globulin 4.3 g/dL (2.2-4.2) H 01/25/20 05:40 Albumin/Globulin Ratio 0.7 RATIO (0.9-2.4) L 01/25/20 05:40 MRI/Lower Ext Joint Only (Routine) IMPRESSION: Tear/degeneration of the lateral meniscus. Medial meniscal tear. Partial tear of the anterior cruciate ligament. Sprains of the medial collateral and fibular collateral ligaments. Arthrosis of the lateral femorotibial compartment. Chondromalacia patellae. Sprains of the medial and lateral patellar retinaculum. Strains of the vastus medialis, vastus lateralis and popliteus muscles. Joint effusion with extravasation of fluid. none Operations: None Procedures: - - BL trigger point injections into trapezius muscles Summary of Care Provided: The patient is a 79 year old F who fell on 01/19/2020 while leaning over with her wheeled walker to pick something off the floor. She lost her balance and fell to the floor. She presented to the emergency department at [facility] on 01/20/2020 complaining of left hip and left knee pain with inability to ambulate. X-ray of the left hip showed degenerative arthritis with no acute fracture. Left knee x-ray showed a joint effusion with degenerative changes. She was admitted to the hospital due to her inability to ambulate. An MRI of the left knee was done on 01/21/2020 and showed a tear/degeneration of the lateral meniscus, medial meniscal tear, partial tear of the ACL, sprains of the medial collateral and fibular collateral ligaments, chondral malacia patellae, sprains of the medial and lateral patellar retinaculum, strains of the vastus medialis, vastus lateralis and popliteus muscles and a joint effusion with extravasation of fluid. She was seen by orthopedics and no surgery was recommended. She was seen by PT/OT and admission to the acute rehab unit was recommended. Sonia was admitted to the inpt rehab unit on 01/22/20 for > 3 Hours of therapy daily to restore her at or near her prior level of function. Sonia's past medical history is significant for hypertension, hyperlipidemia, recurrent DVTs, pulmonary emboli, obesity, osteoarthritis, obstructive sleep apnea, a mass of the left thigh and acute STEMI on 12/06/2019. She underwent cardiac catheterization on 12/06/2019 and this showed 100% occlusion of the distal RCA, 5 0% stenosis of the OM1, 50% stenosis of the proximal LAD and mild luminal irregularities of the left main. She underwent successful thrombectomy and a bare-metal stent to the RCA. Significant lab while in rehab included a low hemoglobin of 11.6. On January 202019 it was as low as 10.5. Prior to December 05 when she had the myocardial infarction her hemoglobin was within normal limits. She has now been taking Brilinta, aspirin and meloxicam at home. she had no GI complaints. HGB at MN was 13 however we had taken her off Meloxicam at admission to rehab and I think she is somewhat dry because here oral intake is poor at times. The BMP on 02/01/2020 shows a BUN of 18, creatinine of 0.73, normal electrolytes and an elevated BUN/creatinine ratio at 24.7. Sonia has persistently complained of BL shoulder pain. She had 2 particularly tender spots in the trapezius muscles BL and she had trigger point injections which helped some. The pain is more in the muscle than in the joint. We did a ESR on the day prior to discharge and it was elevated at 50. The CRP was mildly [id number] at 4.99. Generally if a patient has PMR the CRP is much more elevated. I suspect she may have Fibrom yalgia. She has been on Neurontin in the past, prescribed by Dr Simpson, and Sonia stated this helped her. We started Gabapentin 100 mg BID and 200 mg at HS and this has helped somewhat. We have also prescribed a compounded arthritic cream containing baclofen, lidocaine and Voltaren and this has helped considerably. She was given a prescription at discharge with 2 refills. With gabapentin and scheduled Tylenol and the compounded cream she had not required narcotics for a few days prior to discharge. Sonia was discharged home with home health care on 02/02/2020. She will follow-up with Lydia Shearer in the office in 5 to 10 days. I also instructed her to follow-up with Dr. Ashutosh Singleton in the office in 2 to 3 weeks. I am suspicious that she may need a TKR in the future. If she needs to go back on a nonsteroidal anti-inflammatory drug I would definitely consider starting an H2 romina or a PPI for GI prophylaxis. Currently she is doing well with topical Voltaren. Alert and oriented X 3, NAD, appropriate, cooperative, sitting in her chair at the bedside PERRL, EOMI MM are dry and there are no mucosal lesions The neck is supple and the trachea is midline, there are no cervical nodes Lungs are clear to auscultation throughout with good air exchange Heart has a RRR with no gallop, no murmur and no rub. Abdomen is soft, NT, ND and there are normal bowel sounds heard in all quadrants. There was no guarding with palpation CN's II - XII are grossly intact and there are no focal neurologic deficits No peripheral edema, no calf tenderness Skin is warm and dry, no rashes, no breakdown. Mood is upbeat and pleasant Patient Problems: Active and Suspected Problems (Last Reviewed 01/23/20 @ 17:[address] Lydia Glass, DO) Muscle spasm (Acute) Physical debility (Acute) Due to injuries to the left knee and left hip related to a fall on 01/19/2020 Acute meniscal tear of left knee (Acute) Medial and lateral meniscus Effusion of left knee joint (Acute) - Physical Exam Vitals/I&O's: Vital Signs Temp Pulse Resp BP Pulse Ox 97.9 F 73 17 149/73 H 97 02/01/20 09:18 02/01/20 09:18 02/01/20 09:18 02/01/20 09:18 02/01/20 09:18 Oxygen Delivery Method Room Air Weight: 163 lb 12.855 oz Body Mass Index (BMI) 31.0 Intake and Output for Last 24 Hours 01/30/20 01/31/20 02/01/20 23:59 23:59 23:59 Intake Total 860 / 860 1750 / 1750 1000 / 1000 Output Total 300 / 300 Balance 860 / 860 1450 / 1450 1000 / 1000 Laboratory Results 02/01/20 06:10: Hgb 13.0, Hct 40.9, ESR 50 H 02/01/20 06:10: Sodium 136, Potassium 4.3, Chloride 106, Carbon Dioxide 25.0, Anion Gap 5, BUN 18, Creatinine 0.73, Estim Creat Clear Calc 33.86, Est GFR (MDRD) Af Amer 99, Est GFR (MDRD) Non-Af 82, BUN/Creatinine Ratio 24.7 H, Glucose 89, Calcium 9.2, C-React Prot Ext Range 4.99 H Current Medications Acetaminophen (Tylenol) 650 mg PO Q6H PRN PRN PRN Reason: Pain Score 1-10/10 Acetaminophen (Tylenol) 1,000 mg PO Q8 AMBERLY Last Admin: 02/01/20 14:14 Dose: 1,000 mg Documented by: Albuterol Sulfate (Ventolin Aerosols) 2.5 mg INHALATION Q2H PRN PRN Reason: SOB/WHEEZING Alendronate Sodium (Fosamax) 70 mg PO QWEEK [facility] Last Admin: 01/27/20 06:50 Dose: 70 mg Documented by: Amlodipine Besylate (Norvasc) 5 mg PO QHS [facility] Last Admin: 01/31/20 21:08 Dose: 5 mg Documented by: Aspirin (Ecotrin) 81 mg PO DAILY@0800 [facility] Last Admin: 02/01/20 07:45 Dose: 81 mg Documented by: Atorvastatin Calcium (Lipitor) 40 mg PO QHS [facility] Last Admin: 01/31/20 21:11 Dose: 40 mg Documented by: Bisacodyl (Dulcolax) 10 mg RECTAL .PRN X 1 PRN PRN Reason: Constipation Calamine/Phenol (Calmoseptine Ointment) 1 applic TOPICAL BID [facility]; Protocol Last Admin: 02/01/20 07:46 Dose: 1 applicatio Documented by: Compound Med (Arthritis Pain Compound) 2 click TOPICAL TID [facility]; Protocol Last Admin: 02/01/20 14:15 Dose: 2 click Documented by: Enoxaparin Sodium (Lovenox) 40 mg SC DAILY@0600 [facility] Last Admin: 02/01/20 05:56 Dose: 40 mg Documented by: Gabapentin (Neurontin) 100 mg PO BIDCM [facility] Last Admin: 02/01/20 07:45 Dose: 100 mg Documented by: Gabapentin (Neurontin) 200 mg PO QHS [facility] Last Admin: 01/31/20 21:09 Dose: 200 mg Documented by: Losartan Potassium (Cozaar) 100 mg PO DAILY [facility] Last Admin: 02/01/20 07:45 Dose: 100 mg Documented by: Magnesium Hydroxide (Milk Of Magnesia) 30 ml PO .PRN X 1 PRN PRN Reason: Constipation Melatonin (Melatonin) 3 mg PO QHS PRN PRN Reason: .INSOMNIA Last Admin: 01/28/20 20:09 Dose: 3 mg Documented by: Metoprolol Succinate (Toprol Xl (Beta Romina)) 100 mg PO QHS [facility] Last Admin: 01/31/20 21:12 Dose: 100 mg Documented by: Multivitamins/Minerals (Multivitamin With Minerals (Bkc)) 1 tablet PO DAILY@0800 [facility] Last Admin: 02/01/20 07:45 Dose: 1 tablet Documented by: Nitroglycerin (Nitrostat) 0.4 mg SUBLINGUAL Q5M PRN PRN Reason: chest pain Oxycodone HCl (Oxyir) 5 mg PO Q4H PRN PRN PRN Reason: Pain Score 1-10/10 Last Admin: 01/30/20 23:42 Dose: 5 mg Documented by: Oxycodone HCl (Oxyir) 5 mg PO 0600 [facility] Last Admin: 02/01/20 05:57 Dose: 5 mg Documented by: Polyethylene Glycol (Miralax) 17 gm PO DAILY [facility] Last Admin: 02/01/20 07:47 Dose: Not Given Documented by: Senna/Docusate Sodium (Senokot-S, Gabi-Colace) 2 tablet PO BID [facility] Last Admin: 02/01/20 07:47 Dose: Not Given Documented by: Ticagrelor (Brilinta) 90 mg PO BID [facility] Last Admin: 02/01/20 07:46 Dose: 90 mg Documented by: Discharge Activity: May not drive while taking narcotic pain medications., May Shower, Use Walker, - - make sure to do the exercises given to you by the therapists twice a day Ice area for (Minutes): 15 - 2-3 times a day and ALWAYS after PT Weight Bearing Status: Weight bearing as tolerated Keep extremity elevated above heart level: Left Leg Additional Activity Instructions:: The longer you sit the stiffer you get SO DO NOT sit for longer than 1-2 hours without getting up and taking a stroll. Call your doctor if you observe: Fever of 101 or Higher, Inability to urinate, Inability to have a bowel movement, Shortness of breath, Dizziness, Fainting spells, Swelling in the ankles, Chest pain, Increased palpitations (irregular heartbeat), Calf discomfort, Uncontrolled pain Home Medications: Medications to take at Discharge Multivit-Min/FA/Lycopen/Lutein [Centrum Silver Tablet] 1 ea PO DAILY 06/17/15 Amlodipine Besylate [Norvasc] 5 mg PO QHS 08/04/16 Cholecalciferol (Vitamin D3) [Vitamin D3] 10,000 unit PO DAILY 08/04/16 Glucosamn/Condroitn/C/Mn/[place] [Cvs Glucosamine Chondroit Cplt] 1 tab PO DAILY 03/21/18 alendronate 70 mg tablet 70 mg PO QWEEK 12/24/19 metoprolol succinate 100 mg tablet,extended release 24 hr 100 mg PO QHS tab 12/24/19 Aspirin E.C. [Ecotrin] 81 mg PO DAILY@0800 01/22/20 Atorvastatin Calcium [Lipitor] 40 mg PO QHS 01/22/20 Enoxaparin Sodium [Lovenox] 40 mg SQ DAILY 01/22/20 Mag Hydrox/Al Hydrox/Simeth [Mylanta II] 30 ml PO Q6H PRN PRN 01/22/20 Melatonin 3 mg PO QHS PRN 01/22/20 Nitroglycerin 0.4 mg SL PRN 01/22/20 Ticagrelor [Brilinta] 90 mg PO BID 01/22/20 Acetaminophen [Tylenol] 1,000 mg PO Q8 PRN #1 tablet 02/01/20 Arthritis Pain Compound 2 click TOPICAL TID gm 02/01/20 Gabapentin [Neurontin] 100 mg PO BIDCM #90 cap 02/01/20 Losartan Potassium 100 mg PO DAILY #30 tab 02/01/20 Oxycodone [Oxyir] 5 mg PO Q4H PRN PRN 7 Days #14 tablet 02/01/20 Following Prescriptions Were Given to Patient: Losartan Potassium 100 mg PO DAILY #30 tab Transmission Status: Pending to [facility]/pharmacy #[id number] Gabapentin [Neurontin] 100 mg PO BIDCM #90 cap Transmission Status: Pending to [facility]/pharmacy #[id number] Oxycodone [Oxyir] 5 mg PO Q4H PRN PRN 7 Days #14 tablet PRN Reason: Pain Score 1-10/10 Transmission Status: Received by [facility]/pharmacy #[id number] Acetaminophen [Tylenol] 1,000 mg PO Q8 PRN #1 tablet PRN Reason: pain Primary Care Physician: Lydia Shearer MORTGAGE SALES MANAGER, [employer] SALES MANAGER[employer] [Primary Care Provider] - Please Follow Up With: Lydia Shearer-HARSH When: 5-10 days Please Follow Up With: Ashutosh Singleton MD When: 2-3 weeks Disposition: Home with Home Health Minutes spent on discharge:: 40 Patient Condition:: Good Medical Necessity - Tobacco Use Smoking Status: Former smoker Tobacco Use: Non-smoker Meaningful Use Info Meaningful Use Diagnoses (Choose all that apply): None applicable Inpatient E&M: 11944 Disch Hosp
[2020-02-01 19:54] VITALS: BP 129/68; PULSE 92; RESP 16; TEMP 36.6; O2SAT 96
[2020-02-01 20:35] VITALS: BP 129/68; PULSE 92
[2020-02-01] MEDS: amLODIPine 5 MG Tablet PO (20:35)
[2020-02-01] MEDS: Metoprolol(XL)Succ 100 MG Tablet PO (20:35)
[2020-02-01] MEDS: Gabapentin 100 MG Capsule 200 MG PO (20:36)
[2020-02-01] MEDS: Atorvastatin Calcium 40 MG Tablet PO (20:39)
[2020-02-01] MEDS: MELATONIN 3 MG TABLET PO (22:57)
[2020-02-02] MEDS: Losartan Potassium 100 MG Tablet PO (07:44)
[2020-02-02] MEDS: Arthritis Pain Compound 60 CLICK TUBE TOPICAL (07:44)
[2020-02-02] MEDS: Multivitamins,Ther W-Minerals Tablet 1 TABLET PO (07:44)
[2020-02-02] MEDS: Aspirin E.C. 81 MG Tablet PO (07:44)
[2020-02-02] MEDS: TICAGRELOR 90 MG TABLET PO (07:44)
[2020-02-02] MEDS: Acetaminophen 500 MG Tablet 1000 MG PO (07:44)
[2020-02-02 10:00] VITALS: BP 109/57; PULSE 66; RESP 18; TEMP 36.8; O2SAT 97
[2020-02-02 10:35] VITALS: BP 109/57; PULSE 66; RESP 18; TEMP 36.8; O2SAT 97
--- NOTE | 2020-02-02 10:35 | NURSING ---
Discharge to home. Patient verbalized understanding to dc instruct. Refused flu vaccine. Patient will make pcp and ortho follow appts.
== END 2020-02-02 10:35 | disposition home health service (06) | DRG 950 ==
PROVIDERS: Admitting Provider Internal Medicine; PCP Nurse Practitioner; Visit Provider Internal Medicine
DX: S83.282D Other tear of lateral meniscus, current injury, left knee, subsequent encounter (principal); S83.242D Other tear of medial meniscus, current injury, left knee, subsequent encounter; S83.512D Sprain of anterior cruciate ligament of left knee, subsequent encounter; W18.39XD Other fall on same level, subsequent encounter; S30.0XXD Contusion of lower back and pelvis, subsequent encounter; I25.10 Atherosclerotic heart disease of native coronary artery without angina pectoris; I10 Essential (primary) hypertension; E78.5 Hyperlipidemia, unspecified; I27.20 Pulmonary hypertension, unspecified; E66.9 Obesity, unspecified; G47.33 Obstructive sleep apnea (adult) (pediatric); M81.0 Age-related osteoporosis without current pathological fracture; M16.12 Unilateral primary osteoarthritis, left hip; M22.42 Chondromalacia patellae, left knee; Z86.718 Personal history of other venous thrombosis and embolism; I25.2 Old myocardial infarction; Z86.711 Personal history of pulmonary embolism; Z87.891 Personal history of nicotine dependence; Z68.31 Body mass index [BMI] 31.0-31.9, adult
CPT/HCPCS: 36415; 80048; 80053; 83735; 84100; 85014; 85018; 85652; 86140; 97110; 97116; 97162; 97166; 97530; 97535; 97802; 97803; 99251; G0463

== ENCOUNTER 2020-05-19 16:58 | Emergency (ER) | payer MEDICARE, OTHER, SELFPAY ==
[2020-01-22 15:53] VITALS: BMI 31.0
[2020-05-19 16:59] VITALS: BP 122/80; PULSE 89; RESP 16; TEMP 36.2; O2SAT 98; BMI 32.1
[2020-05-19 17:20] VITALS: O2SAT 100
--- NOTE | 2020-05-19 17:40 | EKG12_ITS ---
Test Reason : ANXIETY Blood Pressure : / mmHG Vent. Rate : 080 BPM Atrial Rate : 080 BPM P-R Int : 176 ms QRS Dur : 076 ms QT Int : 402 ms P-R-T Axes : 035 -12 009 degrees QTc Int : 463 ms Sinus rhythm with Premature atrial complexes with Aberrant conduction Minimal voltage criteria for LVH, may be normal variant Inferior infarct , age undetermined Cannot rule out Anterior infarct , age undetermined Abnormal ECG Confirmed by DULCE ANTONIO, YVONNE ([id number]), commercial production editor ZANDER CRAWFORD ([id number]) on 05/21/2020 8:21:16 AM Referred By: VARSHA Confirmed By:YVONNE CARDONA MD
[2020-05-19 17:56] VITALS: O2SAT 100
--- NOTE | 2020-05-19 18:21 | RAD_ITS ---
STUDY: X-RAY CHEST REASON FOR EXAM: Female, 79 years old. Anxiety. TECHNIQUE: Single AP portable view of the chest. COMPARISON: 12/06/2019. FINDINGS: The lungs are clear and expanded. There is no demonstrated pleural abnormality. Normal size heart. Normal mediastinum and froylan. Normal visualized pulmonary arteries. Normal visualized aortic arch and descending thoracic aorta. The thoracic spine is obscured by the mediastinum. There is marked degenerative osteoarthritis of the bilateral shoulders. There is no demonstrated abnormality of the visualized soft tissue structures of the upper abdomen. RAD/Chest 1 View (Portable) IMPRESSION: No acute cardiopulmonary disease or major interval change. Electronically Signed: Avelino Law DO at 18:48 EST Tel [phone], Service support ,
[2020-05-19 18:30] LABS: Absolute Lymphocyte Count 1.01 X10^3/uL (0.83-4.51); Absolute Neutrophil Count 7.7 X10^3/uL (2.0-7.7); Basophil# 0.04 X10^3/uL; Basophil% 0.4 % (0-1); Eosinophil# 0.25 X10^3/uL; Eosinophils% 2.6 % (0-5); Hematocrit 41.8 % (37-47); Hemoglobin 13.4 g/dL (12.0-15.0); Lymphocyte # 1.01 X10^3/ul (4.0); Lymphocyte % 10.4 % (19-41); Mean Corp Hgb Conc 32.1 g/dL (32-36); Mean Corpuscular Volume 87.4 fL (81-99); Mean Platelet Vol. 9.4 fl (6.2-12.0); Monocyte# 0.74 X10^3/uL; Monocyte% 7.6 % (0-10); NRBC Flagged by Analyzer 0 % (0-5); Neutrophil # 7.67 X10^3/uL (2.7-7.7); Neutrophil % 78.7 % (47-70); Platelet Count 321 K/mm3 (150-450); RBC Distribution Width CV 15.1 % (11.6-14.6); RBC Distribution Width SD 48.8 fl (35.1-43.9); Red Blood Count 4.78 M/mm3 (4.2-5.4); White Blood Count 9.7 K/mm3 (4.4-11.0)
[2020-05-19 18:44] LABS: Anion Gap 5 (5-15); BUN 26 mg/dL (7-18); BUN/Creat Ratio 33.4 RATIO (10-20); Calcium,Total 9.5 mg/dL (8.5-10.1); Chloride 110 mmol/L (98-107); Creatinine, Serum 0.78 mg/dL (0.55-1.02); EST Glomerular Filtration Rate 76 mL/min (>60); Est Glom Filt Rate - Afr Amer 91 mL/min (>60); Estimated Creatinine Clearance 33.86 ml/min; Glucose 97 mg/dL (74-106); Potassium 4.3 mmol/L (3.5-5.1); Sodium Level 141 mmol/L (136-145)
[2020-05-19 18:59] VITALS: PULSE 83; RESP 20; O2SAT 97
--- NOTE | 2020-05-19 19:20 | DCINST.ED_ITS ---
ED Disposition - Plan for ED Patient: Instructions: ED Viral Syndrome (Adult) Referrals: Lydia Shearer NP, [employer] [Primary Care Provider] -
--- NOTE | 2020-05-19 19:20 | ED.DEP ---
ED Disposition - Plan for ED Patient: Instructions: ED Viral Syndrome (Adult) Referrals: Lydia Shearer NP, [employer] [Primary Care Provider] -
--- NOTE | 2020-05-19 19:22 | ED.DCSUM_ITS ---
- ER Visit Summary Date of Service: 05/19/20 Chief Complaint: Nasal congestion History of Present Illness: The patient is a 79 F presenting with nasal congestion. She states she is having difficulty breathing through her nose. She feels short of breath because of this. She states when she breathes through her mouth she has no difficulty breathing. She denies chest pain. Denies fever. She has a mild cough. She is concerned about possibility of Covid but has no known exposure to Covid. Denies other complaints. Physical Examination: Vitals are stable. Patient is afebrile. Alert no acute distress. Pulse ox 97% on room air HEENT exam is unremarkable. Neck is supple. Lungs are clear and equal bilaterally. Heart is regular rate and rhythm. Abdomen is soft nontender nondistended. Extremities are unremarkable. Skin is warm and dry. No focal neurologic deficit. Remainder of exam is unremarkable. Emergency Department Course and Treatment: EKG is sinus rhythm rate of 80, similar to previous. Chest x-ray shows no acute process. Covid is negative. CBC, chemistries unremarkable. Troponin is negative. On reevaluation, patient is resting comfortably. She is advised to use saline nasal spray. Advised to follow-up with primary care physician. Advised return to ED for worsening complaints. Disposition: Discharge home Impression: Nasal congestion This note was generated with Screenie dictation software. It may contain incorrect words, spelling, and punctuation that were not noted in review of the chart prior to signing ED Disposition - Plan for ED Patient: Instructions: ED Viral Syndrome (Adult) Referrals: Lydia Shearer NP, COMPUTED TOMOGRAPHY TECHNICIAN-C [Primary Care Provider] -
[2020-05-19 19:47] VITALS: BP 141/85; PULSE 84; RESP 16; O2SAT 98
== END 2020-05-19 19:48 | disposition home or self-care (01) ==
PROVIDERS: Emergency Provider Emergency Medicine; PCP Nurse Practitioner
DX: R09.81 Nasal congestion (principal); R05 Cough; I10 Essential (primary) hypertension; E78.00 Pure hypercholesterolemia, unspecified; Z79.82 Long term (current) use of aspirin
CPT/HCPCS: 71045; 80048; 84484; 85025; 87426; 93005; 99284; A4216

== ENCOUNTER → 2020-06-02 14:26 | Outpatient (CLI) | payer MEDICARE, OTHER, SELFPAY ==
[2020-05-19 16:59] VITALS: BMI 32.1
[2020-06-02 17:56] LABS: Absolute Lymphocyte Count 1.16 X10^3/uL (0.83-4.51); Absolute Neutrophil Count 7.1 X10^3/uL (2.0-7.7); Basophil# 0.06 X10^3/uL; Basophil% 0.6 % (0-1); Eosinophil# 0.34 X10^3/uL; Eosinophils% 3.6 % (0-5); Hematocrit 39.7 % (37-47); Hemoglobin 12.6 g/dL (12.0-15.0); Lymphocyte # 1.16 X10^3/ul (4.0); Lymphocyte % 12.1 % (19-41); Mean Corp Hgb Conc 31.7 g/dL (32-36); Mean Corpuscular Hgb 28.1 pg (27.0-32.0); Mean Corpuscular Volume 88.6 fL (81-99); Mean Platelet Vol. 9.5 fl (6.2-12.0); Monocyte# 0.79 X10^3/uL; Monocyte% 8.3 % (0-10); NRBC Flagged by Analyzer 0 % (0-5); Neutrophil # 7.14 X10^3/uL (2.7-7.7); Neutrophil % 74.6 % (47-70); Platelet Count 319 K/mm3 (150-450); RBC Distribution Width CV 15.7 % (11.6-14.6); Red Blood Count 4.48 M/mm3 (4.2-5.4); White Blood Count 9.6 K/mm3 (4.4-11.0)
[2020-06-02 18:18] LABS: ALB/GLOB Ratio 0.8 RATIO (0.9-2.4); AST(SGOT) 17 U/L (15-37); Alanine Aminotransfer ALT/SGPT 22 U/L (13-56); Alkaline Phosphatase 98 U/L (45-117); Anion Gap 7 (5-15); BUN 28 mg/dL (7-18); BUN/Creat Ratio 29.5 RATIO (10-20); Calcium,Total 8.7 mg/dL (8.5-10.1); Chloride 107 mmol/L (98-107); Creatinine, Serum 0.95 mg/dL (0.55-1.02); EST Glomerular Filtration Rate 60 mL/min (>60); Est Glom Filt Rate - Afr Amer 73 mL/min (>60); Globulin 3.9 g/dL (2.2-4.2); Glucose 83 mg/dL (74-106); Protein, Total 6.9 g/dL (6.4-8.2); Sodium Level 142 mmol/L (136-145); Thyroid Stim Hormone (TSH) 1.43 uIU/mL (0.358-3.74)
== END ==
PROVIDERS: PCP Nurse Practitioner; Referring Provider Nurse Practitioner; Visit Provider Nurse Practitioner
DX: I10 Essential (primary) hypertension (principal)
CPT/HCPCS: 36415; 80053; 84443; 85025

== ENCOUNTER 2020-06-13 09:54 | Observation (INO) | payer MEDICARE, OTHER, SELFPAY ==
[2020-06-13] VITALS (10 sets, daily range): BP systolic 110–136; BP diastolic 58–83; PULSE 65–78; RESP 15–18; TEMP 35.9–36.8; O2SAT 94–99; BMI 41.5; BMI 32.8; BMI 32.9
--- NOTE | 2020-06-13 10:01 | EKG12_ITS ---
Test Reason : Blood Pressure : / mmHG Vent. Rate : 063 BPM Atrial Rate : 063 BPM P-R Int : 180 ms QRS Dur : 082 ms QT Int : 430 ms P-R-T Axes : 028 -14 -04 degrees QTc Int : 440 ms Normal sinus rhythm Inferior infarct , age undetermined Anterior infarct , age undetermined Abnormal ECG Confirmed by DULCE ANTONIO, YVONNE ([id number]), newspaper photo editor ZANDER CRAWFORD ([id number]) on 06/16/2020 2:18:27 PM Referred By: GAURAV Confirmed By:YVONNE CARDONA MD
--- NOTE | 2020-06-13 10:02 | ED.VIS.GEN ---
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 no chest pain/palpitations. Narrative: Patient presents with a syncopal episode that started spontaneously while she was sitting at the table about to eat breakfast. No recent illness except for a nose infection several weeks ago that was treated with topical antibiotic gel successfully, she states that has been gone for a little while now. No recent medication changes or other new medications. She had this happen 1 other time in November last year, and upon arrival to the ER an EKG showed a STEMI but she had received CPR by her prior to this, she did not lose her pulse with this episode. She received 2 stents as a result of her prior hospitalization and currently is on aspirin and Brilinta no anticoagulants for any reason. No known history of dysrhythmias, she did not feel any palpitations prior to this or dyspnea, she has not had Covid or exposure to it that she knows of. She states other than feeling fatigued, she feels okay now. 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 (4) HLD (hyperlipidemia) Status: Chronic (5) History of pulmonary embolism Status: Chronic (6) History of recurrent deep vein thrombosis (DVT) Status: Chronic (7) BALTAZAR (obstructive sleep apnea) Status: Chronic (8) Osteoarthritis Status: Chronic (9) Osteoporosis Status: Chronic (10) Pulmonary HTN Status: Chronic Past Medical History - Allergies and Home Meds Allergies/Adverse Reactions: Allergies rivaroxaban [From Xarelto] Allergy (Intermediate, Verified 06/13/20 09:59) nose bleeds kiwi Allergy (Unknown, Verified 06/13/20 09:59) Anaphylaxis trimethoprim [From Bactrim] Allergy (Unknown, Verified 06/13/20 09:59) Rash tree and shrub pollen Allergy (Verified 06/13/20 09:59) Unknown ciprofloxacin HCl [From Cipro] Adverse Reaction (Severe, Verified 06/13/20 09:59) Itching rash clarithromycin [From Biaxin] Adverse Reaction (Severe, Verified 06/13/20 09:59) Rash codeine Adverse Reaction (Severe, Verified 06/13/20 09:59) Unknown prednisone Adverse Reaction (Severe, Verified 06/13/20 09:59) Unknown Sulfa (Sulfonamide Antibiotics) Adverse Reaction (Severe, Verified 06/13/20 09:59) Unknown adhesive Adverse Reaction (Intermediate, Verified 06/13/20 09:59) Rash animal dander Adverse Reaction (Unknown, Verified 06/13/20 09:59) Unknown levofloxacin [From Levaquin] Adverse Reaction (Unknown, Verified 06/13/20 09:59) Itching nickel Adverse Reaction (Unknown, Verified 06/13/20 09:59) NOT SURE sulfamethoxazole [From Bactrim] Adverse Reaction (Unknown, Verified 06/13/20 09:59) Rash tape Allergy (Unknown, Uncoded 06/13/20 09:59) Itching Primary Care Physician: Lydia Shearer [employer] SOFTWARE ENGINEER, [employer] ENGINEER[employer] [Primary Care Provider] - Doctors: cardiology - [place] Surgical History: - - Right rotator cuff surgery, benign tumor right kidney, A&P repair, GF filter placement, R THR, thrombectomy and BMS to RCA, coronary stent x2 Lives: Spouse/ Significant Other Smoking Status: Never smoker - Family History Maternal Family History: Family History (Last Reviewed 01/23/20 @ 17:[address] Lydia Glass DO) Father Bone cancer Arthritis Mother Leukemia Heart disease Family History: Reports: No pertinent history Paternal Family History: Family History (Last Reviewed 01/23/20 @ 17:[address] Lydia Glass DO) Father Bone cancer Arthritis Mother Leukemia Heart disease Family History: Reports: No pertinent history Review of Systems General: Reports: Malaise. Denies: Chills, Fever, Sweats Eyes: Denies: Visual changes - bilaterally, Diplopia ENT: Denies: Bilateral ear pain, Rhinorrhea, Sore throat Cardiovascular: Denies: Chest pain, Palpitations Respiratory: Denies: Dyspnea, Cough, Dyspnea on exertion Gastrointestinal: Reports: Nausea - gone. Denies: Abdominal pain, Vomiting, Diarrhea, Melena, Hematochezia Genitourinary: Denies: Dysuria, Hematuria, Frequency Musculoskeletal: Reports: Back pain - gone now. Denies: Myalgias, Neck pain, Swelling, Extremity Pain Skin: Denies: Rash, Wounds Neurological: Denies: Headache, Weakness, Numbness Physical Exam Vital Signs/Narrative: Vital Signs Temp Pulse Resp BP Pulse Ox 06/13/20 09:56 97.6 F L 73 18 130/58 H 99 Inital Vital Signs reviewed: Yes General: Well nourished, Well developed, No Acute Distress - Well-appearing, oriented, conversive in full sentences Head: Normocephalic, Atraumatic Eyes: Perrl, EOMI ENT: Moist mucous membranes, No rhinorrhea Neck: Supple, Nontender, No lymphadenopathy, No JVD Cardiovascular: Regular rate, Regular rhythm, No murmurs Respiratory: No distress, CTA bilaterally, Chest nontender Abdomen: Soft, Nontender, Nondistended, Normal bowel sounds Back: Nontender, Normal Inspection Extremities: Nontender, No edema. Negative for: Calf Tenderness Skin: Normal color, No rash, No Trauma Neurological: Alert, Oriented x3, Cranial nerves II-XII grossly intact, Normal Strength, Normal Sensation Psychological: Normal affect, Normal Mood Diagnostic/Tx/Re-eval Chest X-Ray - ED: 1 View, Read by ED Physician, No Acute Disease Impressions Chest X-Ray 06/13/20 10:18 IMPRESSION: Hyperinflation. No acute abnormality is seen. Electronically Signed: Luis Watkins MD at 10:54 EST , Service support , 06/13/20 10:18 Chest 1 View (Portable) [RAD] Stat Laboratory Results 06/13/20 06/13/20 10:15 10:15 WBC 9.6 RBC 4.60 Hgb 13.0 Hct 40.5 MCV 88.0 MCH 28.3 MCHC 32.1 RDW Std Deviation 50.6 H RDW Coeff of Archie 15.6 H Plt Count 309 MPV 9.5 Immature Gran % (Auto) 0.600 Neut % (Auto) 85.5 H Lymph % (Auto) 5.9 L [place] % (Auto) 5.6 Eos % (Auto) 2.1 Baso % (Auto) 0.3 Absolute Neuts (auto) 8.2 H Absolute Lymphs (auto) 0.57 L Nucleated RBC % 0 Differential Comment COMMENT Sodium 142 Potassium 4.4 Chloride 109 H Carbon Dioxide 27.0 Anion Gap 6 BUN 20 H Creatinine 0.80 Estim Creat Clear Calc 42.32 Est GFR (MDRD) Af Amer 88 Est GFR (MDRD) Non-Af 73 BUN/Creatinine Ratio 24.9 H Glucose 121 H Calcium 9.3 Troponin I < 0.015 - Rhythm Strip Rhythm Strip: Sinus Rhythm Rate: 65 Ectopy: None - EKG Initial EKG Interpretation: Sinus Rhythm, No Acute Injury Pattern, - - 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 With no telemetry events or recurrent syncope/symptoms. Her work-up is unremarkable, her EKG is unchanged and shows no evidence of acute ischemia, and her troponin is negative. Discussed with cardiology, plan is to admit and obtain a regular 2D echo today, she had normal ejection fraction at her STEMI follow-up back in December, and continue to monitor. ED Disposition - Plan for ED Patient: Disposition: Acute Care Hospital [facility] Diagnosis: Syncope Referrals: Lydia Shearer NP, [employer] ENGINEER-[employer] [Primary Care Provider] -
[2020-06-13] MEDS: 0.9% Normal Saline 1,000 ML 15 ML IV (10:17)
--- NOTE | 2020-06-13 10:18 | RAD_ITS ---
STUDY: X-RAY CHEST REASON FOR EXAM: Female, 79 years old. SYNCOPAL EPISODE TECHNIQUE: Single AP portable view of the chest. COMPARISON: Comparison is made with prior study dated 05/19/2020. FINDINGS: EKG electrodes are seen. Hyperinflation. Stable blunting of the left costophrenic angle. No acute abnormality is seen. There is no demonstrated pleural abnormality. Normal size heart. Normal mediastinum and froylan. Normal visualized pulmonary arteries. There is atherosclerotic calcification of the aortic arch with tortuosity. There are diffuse degenerative changes of the visualized thoracic spine. There is degenerative osteoarthritis of the bilateral shoulders. There is no demonstrated abnormality of the visualized soft tissue structures of the upper abdomen. RAD/Chest 1 View (Portable) IMPRESSION: Hyperinflation. No acute abnormality is seen. Electronically Signed: Luis Watkins MD at 10:54 EST , Service support ,
[2020-06-13 10:33] LABS: Absolute Lymphocyte Count 0.57 X10^3/uL (0.83-4.51); Absolute Neutrophil Count 8.2 X10^3/uL (2.0-7.7); Basophil# 0.03 X10^3/uL; Basophil% 0.3 % (0-1); Eosinophils% 2.1 % (0-5); Hematocrit 40.5 % (37-47); Lymphocyte # 0.57 X10^3/ul (4.0); Lymphocyte % 5.9 % (19-41); Mean Corp Hgb Conc 32.1 g/dL (32-36); Mean Corpuscular Hgb 28.3 pg (27.0-32.0); Mean Platelet Vol. 9.5 fl (6.2-12.0); Monocyte# 0.54 X10^3/uL; Monocyte% 5.6 % (0-10); NRBC Flagged by Analyzer 0 % (0-5); Neutrophil # 8.18 X10^3/uL (2.7-7.7); Neutrophil % 85.5 % (47-70); POSITIVE DIFFERENTIAL YES; Platelet Count 309 K/mm3 (150-450); RBC Distribution Width CV 15.6 % (11.6-14.6); RBC Distribution Width SD 50.6 fl (35.1-43.9); White Blood Count 9.6 K/mm3 (4.4-11.0)
[2020-06-13 10:37] LABS: Differential Indicated SCAN CRITERIA MET
[2020-06-13 10:47] LABS: Anion Gap 6 (5-15); BUN 20 mg/dL (7-18); BUN/Creat Ratio 24.9 RATIO (10-20); Calcium,Total 9.3 mg/dL (8.5-10.1); Chloride 109 mmol/L (98-107); EST Glomerular Filtration Rate 73 mL/min (>60); Est Glom Filt Rate - Afr Amer 88 mL/min (>60); Estimated Creatinine Clearance 42.32 ml/min; Glucose 121 mg/dL (74-106); Potassium 4.4 mmol/L (3.5-5.1); Sodium Level 142 mmol/L (136-145)
--- NOTE | 2020-06-13 12:06 | PCM.CONS.C ---
Problem List (1) Syncope Status: Acute (2) Atherosclerosis of coronary artery of osage heart without angina pectoris Status: Chronic Qualifiers: (3) History of coronary artery stent placement Status: Chronic Comment: 3.5 x 30 mm Integrity RX BMS to RCA 12/11/19 (4) HLD (hyperlipidemia) Status: Chronic (5) Benign essential HTN Status: Chronic (6) History of pulmonary embolism Status: Chronic Reason for Consult Date of Consultation: 06/13/20 History of Present Illness: The patient is a 79 year oldvuo-jzcr-jak white female with a history of syncope, CAD, status post WI, status post PCI, hyperlipidemia, and hypertension, previously evaluated and cared for by Dr. Monet who presents for a recurrent syncopal event. She states that her event this morning, similar to her original presentation, occurred while sitting at the breakfast table with her . She noted that prior to arriving at the breakfast table she had some low back discomfort and felt somewhat nauseated. She does not recall having any chest discomfort or difficulty breathing. There was no palpitations or rapid heart rate sensations. She does not recall any emesis or diaphoresis. There was no loss of bladder or bowel function. She states she was told by her that she just lost consciousness . She states, as her original event, he performed [id number] and she regained consciousness. She stated that following that event and still she just feels tired . She was evaluated by the EMS. An ECG was obtained. She had sinus rhythm with PVCs with a leftward axis and poor R wave progression with an anterior WI pattern of indeterminate age and in for WI pattern of indeterminate age. She presented to the emergency department for further evaluation. She again had no other acute symptoms. Her troponin I level was negative. A repeat ECG was performed which demonstrated no new acute changes. A chest x-ray was performed which demonstrated no new acute changes. She was placed in the PCU for further evaluation and care. At the present time she appears to be resting comfortably and states her only concern is she feels tired . She did complain recently of nasal congestion. She states she was diagnosed with a virus but not the virus referring to COVID-19. She states her COVID-19 test was negative. She has had no orthopnea or PND or peripheral pitting edema. She takes her medications as prescribed. She does note that her event occurred today before taking any of her medications. [] Past Medical History Allergies/Adverse Reactions: Allergies rivaroxaban [From Xarelto] Allergy (Intermediate, Verified 06/13/20 09:59) nose bleeds kiwi Allergy (Unknown, Verified 06/13/20 09:59) Anaphylaxis trimethoprim [From Bactrim] Allergy (Unknown, Verified 06/13/20 09:59) Rash tree and shrub pollen Allergy (Verified 06/13/20 09:59) Unknown ciprofloxacin HCl [From Cipro] Adverse Reaction (Severe, Verified 06/13/20 09:59) Itching rash clarithromycin [From Biaxin] Adverse Reaction (Severe, Verified 06/13/20 09:59) Rash codeine Adverse Reaction (Severe, Verified 06/13/20 09:59) Unknown prednisone Adverse Reaction (Severe, Verified 06/13/20 09:59) Unknown Sulfa (Sulfonamide Antibiotics) Adverse Reaction (Severe, Verified 06/13/20 09:59) Unknown adhesive Adverse Reaction (Intermediate, Verified 06/13/20 09:59) Rash animal dander Adverse Reaction (Unknown, Verified 06/13/20 09:59) Unknown levofloxacin [From Levaquin] Adverse Reaction (Unknown, Verified 06/13/20 09:59) Itching nickel Adverse Reaction (Unknown, Verified 06/13/20 09:59) NOT SURE sulfamethoxazole [From Bactrim] Adverse Reaction (Unknown, Verified 06/13/20 09:59) Rash tape Allergy (Unknown, Uncoded 06/13/20 09:59) Itching Home Medications: Ambulatory Orders Medication Instructions Recorded Multivit-Min/FA/Lycopen/Lutein 1 ea PO DAILY 06/17/15 [Centrum Silver Tablet] Amlodipine Besylate [Norvasc] 5 mg PO QHS 08/04/16 Cholecalciferol (Vitamin D3) 10,000 unit PO DAILY 08/04/16 [Vitamin D3] alendronate 70 mg tablet 70 mg PO QWEEK 12/24/19 metoprolol succinate 100 mg 100 mg PO QHS tab 12/24/19 tablet,extended release 24 hr Atorvastatin Calcium [Lipitor] 40 mg PO QHS 01/22/20 Ticagrelor [Brilinta] 90 mg PO BID 01/22/20 Losartan Potassium 100 mg PO DAILY #30 tab 02/01/20 aspirin 81 mg tablet,delayed 81 mg PO DAILY #90 tab 03/20/20 release Past Medical History (Chronic Problems): Chronic Problems (Last Reviewed 06/13/20 @ 12:[address] Francisco Braun DO) Chondromalacia patellae of left knee (Chronic) Osteoporosis (Chronic) Atherosclerosis of coronary artery of os[place] heart without angina pectoris (Chronic) History of coronary artery stent placement (Chronic 12/11/19) 3.5 x 30 mm Integrity RX BMS to RCA 12/11/19 Benign essential HTN (Chronic) HLD (hyperlipidemia) (Chronic) Pulmonary HTN (Chronic) Obesity (Chronic) Osteoarthritis (Chronic) BALTAZAR (obstructive sleep apnea) (Chronic) History of recurrent deep vein thrombosis (DVT) (Chronic) History of pulmonary embolism (Chronic) Mass of left thigh (Chronic) Surgical History: - - Right rotator cuff surgery, benign tumor right kidney, A&P repair, GF filter placement, R THR, thrombectomy and BMS to RCA, coronary stent x2 Psychiatric History: No pertinent psych hx, Anxiety - with occasional panic attacks. 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 Francisco Braun DO) Father Bone cancer Arthritis Mother Leukemia Heart disease History Items: No pertinent history Paternal Family History: Family History (Last Reviewed 06/13/20 @ 12:[address] Francisco Braun DO) Father Bone cancer Arthritis Mother Leukemia Heart disease History Items: No pertinent history Lives: Spouse/ Significant Other Smoking Status: Never smoker Review of Systems - Review of Systems General: Denies: Fever, Night Sweats, Fatigue Cardiovascular: Reports: Syncope. Denies: Chest Discomfort, Shortness of Breath, Orthopnea, PND, Peripheral Edema, Palpitations, Lightheadedness, Dizziness, Near Syncope Respiratory: Denies: Cough, Sputum Production, Hemoptysis Gastrointestinal: Reports: Nausea. Denies: Hematemesis, Hematochezia, Melena Genitourinary: Denies: Dysuria, Hematuria Muscoloskeletal: Reports: Back Pain Skin: Denies: Rash Subjectve: Is a pleasant awake alert 79-year-old white female appears to be resting comfortably at the moment in no acute distress. Objective: Vital Signs Temp Pulse Resp BP Pulse Ox 96.7 F L 66 16 121/83 H 98 06/13/20 11:56 06/13/20 11:56 06/13/20 11:56 06/13/20 11:56 06/13/20 11:56 Oxygen Delivery Method Room Air Weight: 220 lb Body Mass Index (BMI) 41.5 General: Healthy Appearing, Awake, Alert, Oriented x 3, Cooperative, No Acute Distress HEENT: Atraumatic, Normocephalic, PERRL, EOMI, Sclera Non Icteric Neck: Supple, Good ROM, No JVD Lungs: Clear to auscultation Cardiovascular: Regular Rhythm, Normal S1, Normal S2 Vascular: No Carotid Bruits Abdomen: Bowel Sounds Present, Soft, Non Tender Extremities: No edema Psych/Mental Status: Appropriate 06/13/20 10:15: WBC 9.6, RBC 4.60, Hgb 13.0, Hct 40.5, MCV 88.0, MCH 28.3, MCHC 32.1, Plt Count 309, MPV 9.5, Immature Gran % (Auto) 0.600, Neut % (Auto) 85.5 H, Lymph % (Auto) 5.9 L, [place] % (Auto) 5.6, Eos % (Auto) 2.1, Baso % (Auto) 0.3, Absolute Neuts (auto) 8.2 H, Nucleated RBC % 0 06/13/20 10:15: Sodium 142, Potassium 4.4, Chloride 109 H, Carbon Dioxide 27.0, Anion Gap 6, BUN 20 H, Creatinine 0.80, Est GFR (MDRD) Af Amer 88, Est GFR (MDRD) Non-Af 73, BUN/Creatinine Ratio 24.9 H, Glucose 121 H, Calcium 9.3, Troponin I < 0.015 Rhythm: EKG: ECHO: ?2019 Interpretation Summary The estimated ejection fraction is 60 %. Unable to assess diastolic dysfunction. Stress Test: Cardiac Cath/PCI: 12-06-2019 CONCLUSIONS CAD as described. Successful thrombectomy and BMS to the RCA as described RECOMMENDATIONS DESCRIPTION OF PROCEDURE The patient arrived to the procedure lab. The risks and benefits of the procedure as well as a full description of our services here and lack of surgical backup were fully explained to the patient and/or their significant other prior to the catheterization. The Timeout was completed, verifying the correct patient and procedure. The patient's procedural site was prepped and draped in the usual fashion. Local anesthetic was given subcutaneously to right radial region with Lidocaine 2%. Using a modified Seldinger technique, arterial access was obtained via the right radial artery, a 6Fr sheath was inserted.. Left Coronary Artery selective angiography was performed in multiple views using a 5 Fr. JL3.5 catheter JR 4 Guide catheter was inserted and engaged into the RCA. Guide wire was inserted as a marivel wire BMW Guide wire was advanced to the RCA. Ravenden AP inserted Pass # 1 Ravenden AP Removed Angiogram performed pre balloon dilatation. Emerge 2.50x12 Balloon catheter was inserted. Emerge 2.50x12 Balloon catheter was inserted. Emerge 1.50x15 Balloon catheter was inserted. PTCA balloon inflated at 12 atms for 15 secs. PTCA balloon inflated at 12 atms for 16 secs. Emerge 2.50x12 Balloon catheter was inserted. PTCA balloon inflated at 14 atms for 27 secs. Angiogram performed post balloon dilatation. Integrity 3.5x22 Bare Metal stent was inserted Bare Metal stent was removed with stent intact, failed to cross lesion Integrity 3.5x22 Bare Metal stent was inserted Angiogram performed post stent deployment. NC Emerge 3.50x12 Balloon catheter was inserted. Angiogram performed post balloon dilatation. Emerge 2.50x12 Balloon catheter was inserted. PTCA balloon inflated at 12 atms for 14 secs. PTCA balloon inflated at 12 atms for 10 secs. Angiogram performed post balloon dilatation. Ravenden AP inserted Pass # 2 Ravenden AP Removed Angiogram performed post Ravenden JR 4 Guide catheter was inserted and engaged into the RCA. BMW Guide wire was advanced to the RCA. Ravenden AP inserted Pass # 3 Ravenden AP Removed Angiogram performed post Ravenden Emerge 3.50x12 Balloon catheter was inserted. PTCA balloon inflated at 8 atms for 29 secs. PTCA balloon inflated at 6 atms for 16 secs. Angiogram performed post balloon dilatation. Integrity 3.5x30 Bare Metal stent was inserted Angiogram performed post stent deployment. Emerge 3.50x15 Balloon catheter was inserted. PTCA balloon inflated at 12 atms for 10 secs. PTCA balloon inflated at 6 atms for 19 secs. PTCA balloon inflated at 10 atms for 10 secs. PTCA balloon inflated at 10 atms for 15 secs. PTCA balloon inflated at 10 atms for 15 secs. Angiogram performed post balloon dilatation. Emerge 3.50x15 Balloon catheter was inserted. PTCA balloon inflated at 8 atms for 14 secs. Angiogram performed post balloon dilatation. The arterial sheath was pulled and a TR Band was applied for hemostasis w/ 11ml air CORONARY ANGIOGRAPHY DOMINANCE: Right Dominant LEFT HEART ASSESSMENT Left Ventricular Ejection Fraction: Not assessed LEFT MAIN: Mild luminal irregularities LEFT ANTERIOR DESCENDING ARTERY: PROX LAD: 50 % Stenosis. There is myocardial bridging in the mLAD CIRCUMFLEX ARTERY: Mild luminal irregularities OM 1: Proximal - 50 % Stenosis RIGHT CORONARY ARTERY: DISTAL RCA: 100 % Stenosis INTERVENTION INFORMATION LESION SITE: RCA (Distal) Lesion Complexity: High/C, chronic total occlusion: No, lesion at bifurcation: No, thrombus present: Yes, lesion length: 40 mm, culprit lesion: Yes, Previously treated lesion: No Pre Stenosis: 100 % Pre intervention GELACIO flow: 0 PROCEDURE: Thrombectomy, Bare Metal Stent with pre and post dilatation. There was thrombus that developed immediately proximal to the first stent despite using heparin and integrillin and this was treated with thrombectomy and PTCA Post Stenosis: 0 % Post intervention GELACIO flow: 3 Lesion Devices: Cardinal 6 Fr JR4 100cm Guide Catheter Goode .014 BMW Foley Straight 190cm Medtronic 6 Fr. Ravenden AP Aspiration Catheter Luis Sci EMERGE MR 2.50x12 BALLOON Luis Sci EMERGE MR 1.50x15 BALLOON Medtronic Integrity RX BMS 3.5x22 Luis Sci NC EMERGE MR 3.50x12 BALLOON Medtronic Integrity RX BMS 3.5x30 Luis Sci EMERGE MR 3.50x15 BALLOON Holter monitor: 04-15-2015 Sinus rhythm; rare PAC; rare PVC CXR: 06-13-2020 IMPRESSION: Hyperinflation. No acute abnormality is seen. Chest CT Scan: 12-07-2019 FINDINGS: Normal enhancement of the main pulmonary artery and right and left pulmonary arteries. Normal enhancement of the bilateral peripheral pulmonary arteries. There is no demonstrated pulmonary embolism. Normal thoracic aorta and visualized great vessels. There is no demonstrated aortic dissection. Normal heart and pericardium. Normal mediastinum. Normal hilar regions. Normal visualized trachea and bronchi. The lungs are well expanded. Normal pulmonary parenchyma. Normal pleura. Normal chest wall structures. Normal osseous structures. Normal visualized upper abdomen. CT/CTA Chest W/WO Contrast IMPRESSION: Normal CTA chest examination, without a demonstrated pulmonary embolism or arterial dissection. Assessment/Plan 1. Syncope The etiology is unclear at the present time. There may be concerns based upon her event happening after her experience of low back pain and nausea as whether this was a noxious stimuli triggered vasovagal mediated event. At the same time based upon her cardiovascular history she is being monitored for any obvious cardiac dysrhythmias or conduction system disease that would contribute to such event. She is undergoing evaluation for any evidence of recurrent acute coronary syndrome which thus far appears to be negative based upon a combination of her negative cardiac enzymes and her ECG demonstrating no acute changes. There is no report that the patient had any seizure type activity to explain it from a neurologic event. There are does not appear to be any report of any focal neurologic deficits to suggest an underlying CVA type of event. There was no report of any documented thromboembolic disease leading to such an event. However the patient does have a history of pulmonary emboli and has been without anticoagulant therapy secondary to history of recurrent epistaxis. Thus it may not be unreasonable to screen her with a D-dimer level and depending upon the findings potentially a chest CT scan to evaluate for any thromboembolic events such as recurrent PE that could lead to syncopal events. The patient states that her event occurred before taking her morning medications thus it appears less likely that it was medication induced hypotension. At the present time she will continue to be monitored. Her cardiac enzymes and ECG will be followed. She has been asked to have an echocardiogram to reassess her left ventricular wall motion and systolic function for any obvious new changes that would indicate ongoing CAD and potentially a CAD related event. It would not be unreasonable to consider, based upon her risk factors and known diagnosis, to further evaluate her carotid/vertebral arteries for any obvious issues with her carotid artery duplex study. Also, if her cardiac enzymes and ECGs and echocardiogram appear to be unremarkable then it may be reasonable, based upon her previous similar presentation occurring with what was diagnosed as an acute WI leading to the need for PCI, to consider evaluation for ongoing coronary ischemia with a pharmacologic stress nuclear imaging study which depending upon the results may or may not need to repeat diagnostic cardiac catheterization. If a noninvasive evaluation is unremarkable then it may be reasonable for the patient to be considered for continued outpatient cardiovascular follow-up with an outpatient 30-day ambulatory monitor in attempt to correlate any ongoing cardiac dysrhythmias or conduction system events with any associated symptoms, etc. If that were to be unremarkable then the patient may need to be considered for a future implantable loop recorder. 2. CAD status post RCA PCI The patient continues evaluation for any obvious evidence of recurrent acute CAD related issues contributing to her events. This includes her ongoing cardiac enzymes, ECG, and echocardiogram. Again as described above if no studies appear to be unremarkable would be reasonable to consider a pharmacologic stress nuclear imaging study to screen her for any evidence of ongoing myocardial ischemia that would warrant further evaluation and care. In the interim the patient will continue medical therapy as deemed appropriate. 3. Hyperlipidemia The patient should continue risk factor evaluation and care as deemed appropriate. 4. Hypertension The patient's blood pressure will be monitored for any obvious changes that would contribute to her recurrent syncopal event and that would warrant further adjustment of medication, etc. 5. History of pulmonary embolism The patient does have a history of pulmonary embolism. She had been treated with anticoagulants in the past. They were reportedly discontinued secondary to recurrent epistaxis. Based upon this history it may not be unreasonable to consider obtaining a D-dimer level to screen for any thromboembolic events. If this was abnormal then she may need a repeat chest CT scan to evaluate for any obvious pulmonary emboli that would contribute to her events. The patient's case was discussed and reviewed with the patient as well as Dr. Vail the [facility] ED. This note was generated using a voice recognition system and there may be incorrect words, spelling or punctuation that were not noted when reviewing the office note prior to saving.
--- NOTE | 2020-06-13 12:26 | HP.PCM_ITS ---
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 (6) Effusion of left knee joint Status: Inactive (7) Osteoporosis Status: Chronic (8) Atherosclerosis of coronary artery of [place] heart without angina pectoris Status: Chronic Qualifiers: (9) History of coronary artery stent placement Status: Chronic Comment: 3.5 x 30 mm Integrity RX BMS to RCA 12/11/19 (10) Benign essential HTN Status: Chronic (11) HLD (hyperlipidemia) Status: Chronic (12) Pulmonary HTN Status: Chronic (13) Obesity Status: Chronic (14) Osteoarthritis Status: Chronic Qualifiers: Osteoarthritis location: knee (15) BALTAZAR (obstructive sleep apnea) Status: Chronic (16) 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 Patient was sitting down for breakfast and then went unresponsive. Patient's was concerned as he did not see her breathing as her head was slumped over. He extended her head and gave her quick breaths. Patient eventually started breathing on her own release what was noticeable to him. Patient eventually came to after approximately 5 minutes. He was concerned as patient had an event similar to this while eating breakfast and the patient was found to have a myocardial infarction and required stents at that time. This time around, patient's troponin and EKG were unremarkable. Patient is asymptomatic at this time. Patient stated that before the events she did feel slightly nauseated also had some low back pain which is since resolved. [] Past Medical History Past Medical History (Chronic Problems): Chronic Problems (Last Reviewed 01/23/20 @ 17:[address] Lydia Glass, DO) Chondromalacia patellae of left knee (Chronic) Osteoporosis (Chronic) Atherosclerosis of coronary artery of [place] heart without angina pectoris (Chronic) History of coronary artery stent placement (Chronic 12/11/19) 3.5 x 30 mm Integrity RX BMS to RCA 12/11/19 Benign essential HTN (Chronic) HLD (hyperlipidemia) (Chronic) Pulmonary HTN (Chronic) Obesity (Chronic) Osteoarthritis (Chronic) BALTAZAR (obstructive sleep apnea) (Chronic) History of recurrent deep vein thrombosis (DVT) (Chronic) History of pulmonary embolism (Chronic) Mass of left thigh (Chronic) Medical History: Medical History (Last Reviewed 06/13/20 @ 12:[address] 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 Pulmonary embolism I26.99 laser vein surgery 2012 oopherectomy and tumor removed 1992 Allergies rivaroxaban [From Xarelto] Allergy (Intermediate, Verified 06/13/20 09:59) nose bleeds kiwi Allergy (Unknown, Verified 06/13/20 09:59) Anaphylaxis trimethoprim [From Bactrim] Allergy (Unknown, Verified 06/13/20 09:59) Rash tree and shrub pollen Allergy (Verified 06/13/20 09:59) Unknown ciprofloxacin HCl [From Cipro] Adverse Reaction (Severe, Verified 06/13/20 09:59) Itching rash clarithromycin [From Biaxin] Adverse Reaction (Severe, Verified 06/13/20 09:59) Rash codeine Adverse Reaction (Severe, Verified 06/13/20 09:59) Unknown prednisone Adverse Reaction (Severe, Verified 06/13/20 09:59) Unknown Sulfa (Sulfonamide Antibiotics) Adverse Reaction (Severe, Verified 06/13/20 09:59) Unknown adhesive Adverse Reaction (Intermediate, Verified 06/13/20 09:59) Rash animal dander Adverse Reaction (Unknown, Verified 06/13/20 09:59) Unknown levofloxacin [From Levaquin] Adverse Reaction (Unknown, Verified 06/13/20 09:59) Itching nickel Adverse Reaction (Unknown, Verified 06/13/20 09:59) NOT SURE sulfamethoxazole [From Bactrim] Adverse Reaction (Unknown, Verified 06/13/20 09:59) Rash tape Allergy (Unknown, Uncoded 06/13/20 09:59) Itching Home Medications: Ambulatory Orders Medication Instructions Recorded Multivit-Min/FA/Lycopen/Lutein 1 ea PO DAILY 06/17/15 [Centrum Silver Tablet] Amlodipine Besylate [Norvasc] 5 mg PO QHS 08/04/16 Cholecalciferol (Vitamin D3) 10,000 unit PO DAILY 08/04/16 [Vitamin D3] alendronate 70 mg tablet 70 mg PO QWEEK 12/24/19 metoprolol succinate 100 mg 100 mg PO QHS tab 12/24/19 tablet,extended release 24 hr Atorvastatin Calcium [Lipitor] 40 mg PO QHS 01/22/20 Ticagrelor [Brilinta] 90 mg PO BID 01/22/20 Gabapentin [Neurontin] 100 mg PO BIDCM #90 cap 02/01/20 Losartan Potassium 100 mg PO DAILY #30 tab 02/01/20 aspirin 81 mg tablet,delayed 81 mg PO DAILY #90 tab 03/20/20 release Surgical History: Surgical History (Last Reviewed 06/13/20 @ 12:[address] Francisco Braun DO) History of coronary artery stent placement (Chronic) Onset Date: 12/11/19 Z95.5 3.5 x 30 mm Integrity RX BMS to RCA 12/11/19 A&P repair 1992 H/O repair of rotator cuff Z98.890 1999 History of right hip replacement Z96.641 03/10/15 Hx of tonsillectomy Z90.89 1971 Surgical History: - - Right rotator cuff surgery, benign tumor right kidney, A&P repair, GF filter placement, R THR, thrombectomy and BMS to RCA, coronary stent x2 Psychiatric History: No pertinent psych hx, Anxiety - with occasional panic attacks. 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 Francisco Braun DO) Father Bone cancer Arthritis Mother Leukemia Heart disease History Items: No pertinent history Paternal Family History: Family History (Last Reviewed 06/13/20 @ 12:[address] Francisco Braun DO) Father Bone cancer Arthritis Mother Leukemia Heart disease History Items: No pertinent history Review of Systems Constitutional: Denies: Anorexia, Chills, Fever, Night Sweats Eyes: Denies: Blurred vision, Double vision HEENT: Denies: Head Aches, Sinus Congestion, Sinus Drainage Cardiovascular: Denies: Chest Pain, Palpitations Respiratory: Denies: Cough, Shortness of breath at rest, Sputum production Gastrointestinal: Denies: Abdominal Pain, Nausea, Vomiting Genitourinary: Denies: Dysuria Musculoskeletal: Reports: Back Pain. Denies: Joint Pain, Joint Tenderness Skin: Denies: Dryness, Jaundice Neurological: Denies: Numbness, Tingling, Focal weakness Comment: All review of systems were negative except as mentioned above in the history of present illness and the other review of systems. VTE Information - Inpt Only VTE Present on Admission: No VTE Mechan Device Prophylaxis: None VTE Pharm Prophylaxis ordered?: No Reason prophylaxis not ordered:: Treatment Not Indicated Patient Problems: Active and Suspected Problems (Last Reviewed 01/23/20 @ 17:[address] Lydia Glass DO) Syncope (Acute) - Physical Exam Vitals/I&O's: Vital Signs Temp Pulse Resp BP Pulse Ox 35.9 C L 66 16 121/83 H 98 06/13/20 11:56 06/13/20 11:56 06/13/20 11:56 06/13/20 11:56 06/13/20 11:56 Oxygen Delivery Method Room Air Weight: 99.79 kg Body Mass Index (BMI) 41.5 General: Alert, Cooperative, No apparent distress, Well developed, Well nourished HEENT: Atraumatic, PERRLA, EOMI, Normocephalic Oral: Moist Mucosa, No Gingival or Mucosal Lesions/ Ulcerations Neck: Negative Carotid Bruits, No Nodes, Thyroid Normal Size and Texture Lungs: Clear to auscultation, Normal air movement, No rhonchi, No wheeze, No rales Cardiovascular: Regular rate, Regular Rhythm, Normal S1, Normal S2, No murmurs Abdomen: Bowel Sounds Present, Soft, Non Tender, Non-Distended, No Hepato- splenomegaly Extremities: No edema, No Calf Tenderness Skin: No rashes, No breakdown Musculoskeletal: No Tenderness to Palpation of Joints or Extremities, No Muscle Wasting Neurological: Cranial nerves II-XII grossly intact, Neuro grossly intact, Motor Exam 5/5 strength throughout Psych/Mental Status: Normal Affect, Appropriate Laboratory Results 06/13/20 10:15: WBC 9.6, RBC 4.60, Hgb 13.0, Hct 40.5, MCV 88.0, MCH 28.3, MCHC 32.1, RDW Std Deviation 50.6 H, RDW Coeff of Archie 15.6 H, Plt Count 309, MPV 9.5, Immature Gran % (Auto) 0.600, Neut % (Auto) 85.5 H, Lymph % (Auto) 5.9 L, Franklin % (Auto) 5.6, Eos % (Auto) 2.1, Baso % (Auto) 0.3, Absolute Neuts (auto) 8.2 H, Absolute Lymphs (auto) 0.57 L, Nucleated RBC % 0, Differential Comment COMMENT 06/13/20 10:15: Sodium 142, Potassium 4.4, Chloride 109 H, Carbon Dioxide 27.0, Anion Gap 6, BUN 20 H, Creatinine 0.80, Estim Creat Clear Calc 42.32, Est GFR (MDRD) Af Amer 88, Est GFR (MDRD) Non-Af 73, BUN/Creatinine Ratio 24.9 H, Glucose 121 H, Calcium 9.3, Troponin I < 0.015 EKG reviewed and showed normal sinus rhythm with solitary PVC but no other acute changes. Chest x-ray personally reviewed and showed no acute infiltrate nor pulmonary vascular congestion. Current Medications Sodium Chloride () 1,000 mls @ 15 mls/hr IV .Q48H AMBERLY Last Admin: 06/13/20 10:17 Dose: 15 mls/hr Documented by: Assessment/Plan All Active Problems (Last Reviewed 01/23/20 @ 17:[address] Lydia Glass, DO) Syncope (Acute) Acute ST elevation myocardial infarction (STEMI) (Resolved) 1. Syncope: Sounds more vasovagal. is very concerned as patient had a similar presentation when she had a myocardial infarction back in December. Currently there is no evidence of any myocardial infarction. Cardiology was contacted through the emergency room recommend echocardiogram and possible Holter monitor upon discharge. So plan is to get an echocardiogram, monitor the patient on telemetry, cycle troponins. If all those are negative, the plan would be to discharge patient with an event monitor. If evidence of an arrhythmia or myocardial infarction, then will consult cardiology. I do not feel that this is iatrogenic. Reviewing the patient's MAR, patient has gabapentin but has not received a prescription for that since January. 2. Coronary artery disease: Status post PCI. Back in December. Continue with aspirin, statin and clopidogrel. 3. Hypertension: Stable. Continue with losartan, metoprolol and amlodipine. 4. VTE prophylaxis: Not indicated given that patient is observation status. OBSV E&M: 30772 Initial observation care L3
--- NOTE | 2020-06-13 12:54 | ECHOCS_ITS ---
Reason For Study: SYNCOPE Procedure This was a 2D Doppler, Color Flow transthoracic echocardiogram. The study was technically difficult. Contrast injection was performed. Exam performed portable in patient room. Left Ventricle Normal LV size. Segmental dysfunction with preserved ejection fraction (see wall motion). The estimated ejection fraction is 65 %. There is evidence of diastolic dysfunction. Infero-Basal: Hypokinetic. Basal inferoseptal: Hypokinetic. Right Ventricle Normal RV size. Normal systolic function. Atria Normal left atrium. Normal right atrium. No doppler evidence for ASD. Mitral Valve There is moderate mitral annular calcification. Extension of the mitral annular calcification onto the base of the posterior mitral valve leaflet. Trivial mitral valve insufficiency. Tricuspid Valve Normal tricuspid valve. Trivial tricuspid valve insufficiency. Right ventricular systolic pressure estimated to be 36 mmHg. Aortic Valve Trisinus/trileaflet aortic valve. Normal aortic valve. Trivial aortic valve insufficiency. Pulmonic Valve The pulmonic valve is not well visualized. Great Vessels Mildly dilated aortic root. Pericardium/Pleural No pericardial effusion. Medication Diluted definity 3.0ml given slow IV push to enhance endocardial definition. MMode/2D Measurements & Calculations LVIDd: 4.5 cm IVSd: 0.95 cm Ao root diam: 4.1 cm LVIDs: 2.3 cm LVPWd: 0.83 cm RVDd: 3.8 cm FS: 49.3 % LAV(MOD-bp): 35.8 ml LVAd ap4: 20.4 cm2 SV(MOD-sp4): 35.3 ml LAV(MOD-bp) Indexed: 18.3 ml/m2 EDV(MOD-sp4): 50.8 ml LAV(MOD-sp2): 34.9 ml EDV(sp4-el): 52.4 ml LAV(MOD-sp4): 33.4 ml LVAs ap4: 10.0 cm2 ESV(MOD-sp4): 15.4 ml ESV(sp4-el): 16.1 ml EF(MOD-sp4): 69.6 % EF(sp4-el): 69.3 % SV(sp4-el): 36.3 ml LA A4 area: 14.7 cm2 LA dimension(2D): 3.5 cm RA A4 area: 11.5 cm2 Time Measurements MV dec time: 0.34 sec Doppler Measurements & Calculations MV E max cruz: 70.7 cm/sec Lat Peak E' Cruz: 7.4 cm/sec Med Peak E' Cruz: 4.3 cm/sec MV A max cruz: 116.0 cm/sec E/E' lat: 9.5 E/E' med: 16.6 MV E/A: 0.61 MV V2 max: 123.7 cm/sec Ao V2 max: 143.5 cm/sec LV V1 max: 124.0 cm/sec MV max P.1 mmHg Ao max P.2 mmHg LV V1 max P.2 mmHg MV V2 mean: 76.3 cm/sec MV mean P.6 mmHg MV V2 VTI: 31.4 cm TR max cruz: 286.6 cm/sec MV P1/2t-pr_phl: 105.6 msec TR max P.8 mmHg Interpretation Summary The study was technically difficult. Contrast injection was performed. Segmental dysfunction with preserved ejection fraction (see wall motion). The estimated ejection fraction is 65 %. There is moderate mitral annular calcification. Extension of the mitral annular calcification onto the base of the posterior mitral valve leaflet. Trivial mitral valve insufficiency. Trivial tricuspid valve insufficiency. Trivial aortic valve insufficiency. Mildly dilated aortic root. Right ventricular systolic pressure estimated to be 36 mmHg. There is evidence of diastolic dysfunction. Ordering Physician: Francisco Braun Referring Physician: MIKE GREENE Performed By: Rosy Zarate, RDCS, RVT
--- NOTE | 2020-06-13 14:43 | CDU_ITS ---
Reason For Study: SYNCOPE Rt. Velocities/BP Lt. Velocities/BP Prox CCA 88.2/11.2 cm/sec. Prox CCA 94.1/18.2 cm/sec. Mid CCA 86.9/11.2 cm/sec. Mid CCA 92.9/21.5 cm/sec. Dist CCA 79.0/17.7 cm/sec. Dist CCA 91.8/19.3 cm/sec. Prox ICA 53.7/9.4 cm/sec. Prox ICA 57.0/15.3 cm/sec. Mid ICA 51.1/12.0 cm/sec. Mid ICA 62.5/13.1 cm/sec. Dist ICA 79.8/25.0 cm/sec. Dist ICA 65.8/17.5 cm/sec. Rt. ICA/CCA = 79.8/88.2=0.9. Lt. ICA/CCA = 65.8/94.1=0.7. Prox ECA 86.69/11.2 cm/sec. Prox ECA 85.3/9.4 cm/sec. Rt. Vert. 44.6/13.4 cm/sec. Lt. Vert. 46.1/15.3 cm/sec. Right Extracranial There is intimal thickening but no significant atherosclerotic plaque noted in the right common carotid artery. The right common carotid artery is tortuous. There is homogeneous, irregular atherosclerotic plaque noted in the right internal carotid artery. The right internal carotid artery is very tortuous. There is intimal thickening but no significant atherosclerotic plaque noted in the right external carotid artery. Antegrade flow is noted in the right vertebral artery. Left Extracranial There is intimal thickening but no significant atherosclerotic plaque noted in the left common carotid artery. There is intimal thickening but no significant atherosclerotic plaque noted in the left internal carotid artery. The left internal carotid artery is very tortuous. There is intimal thickening but no significant atherosclerotic plaque noted in the left external carotid artery. Antegrade flow is noted in the left vertebral artery. There is heterogeneous, irregular atherosclerotic plaque noted in the left bulb. Procedure Carotid Duplex [id number]. The study was technically difficult. Exam performed portable in patient room. Interpretation Summary Torturous right common carotid and internal carotid arteries with minimal plaque. <50% stenosis right internal carotid <50% stenosis right external carotid Tortuous left internal carotid artery with minimal calcific plaque. <50% stenosis left internal carotid Patent and antegrade vertebrals bilaterally Ordering Physician: Adonay Cavazos Referring Physician: Lydia Shearer Performed By: Michelle Ellsworth, LEATHA, RVT
[2020-06-13 15:33] LABS: D-Dimer Quantitative (DVT/PE) 0.54 FEU/ug/m (0.27-0.49)
--- NOTE | 2020-06-13 16:48 | CT_ITS ---
STUDY: CTA CHEST REASON FOR EXAM: Female, 79 years old. Syncope RADIATION DOSAGE (If Supplied By Facility): CTDIvol = ( 12.09 ) mGy, DLP = ( 406.41 ) mGycm TECHNIQUE: The examination was performed with the intravenous administration of IV 100mL Isovue-370. Post-processing of the angiographic images was performed, with multiplanar reformation and 3D reconstruction. Individualized dose optimization techniques were used for this CT. COMPARISON: December 07 2019 FINDINGS: There is no acute or chronic pulmonary embolism. Aorta is of normal caliber. Lungs are clear. There is no pneumothorax, pulmonary edema or pleural effusions. Mediastinal contents are normal. Coronary arteries are diseased with stents in the RCA. Osseous structures are intact. Abdominal structures are unremarkable. There is a small left posterior medial diaphragmatic fat hernia. Appearance is stable since prior. CT/CTA Chest W/WO Contrast IMPRESSION: 1. No pulmonary embolism 2. No acute thoracic disease. Electronically Signed: Zurdo Lorenzo MD at 18:21 EST Tel , Service support ,
--- NOTE | 2020-06-13 21:14 | CPS ---
Set up pt's home CPAP unit
[2020-06-13] MEDS: Metoprolol(XL)Succ 100 MG Tablet PO (21:48)
[2020-06-13] MEDS: amLODIPine 5 MG Tablet PO (21:49)
[2020-06-13] MEDS: Sodium Chloride 0.65% 1 SPRAY SPRAY.BTL 2 SPRAY NASAL (21:50)
[2020-06-13] MEDS: Atorvastatin Calcium 40 MG Tablet PO (21:50)
[2020-06-13] MEDS: TICAGRELOR 90 MG TABLET PO (21:50)
--- NOTE | 2020-06-14 01:31 | PCM.PN.BLA ---
Progress Note Patient requesting something for anxiety. Atarax ordered. STROKE Vital Signs/Narrative: Vital Signs Pulse Resp BP 06/13/20 22:00 71 18 06/13/20 21:48 77 110/63
[2020-06-14] MEDS: hydrOXYzine 10 MG Tablet PO (01:37)
[2020-06-14 03:30] VITALS: BP 126/76; PULSE 80; RESP 19; TEMP 36.4; O2SAT 97
--- NOTE | 2020-06-14 05:55 | EKG12_ITS ---
Test Reason : AM EKG Blood Pressure : / mmHG Vent. Rate : 070 BPM Atrial Rate : 070 BPM P-R Int : 186 ms QRS Dur : 080 ms QT Int : 412 ms P-R-T Axes : 045 -10 004 degrees QTc Int : 444 ms Sinus rhythm with Premature atrial complexes Inferior infarct , age undetermined Abnormal ECG When compared with ECG of 13-JUN-2020 10:05, MANUAL COMPARISON REQUIRED, DATA IS UNCONFIRMED Confirmed by ANGELINA ANTONIO, JUAN ([id number]), editor continuity and script ZANDER CRAWFORD ([id number]) on 06/17/2020 8:30:15 AM Referred By: ORLANDO Confirmed By:JUAN ALFARO MD
[2020-06-14 07:00] VITALS: PULSE 72
[2020-06-14 09:30] VITALS: BP 134/69; PULSE 76; RESP 16; TEMP 36.6; O2SAT 100
[2020-06-14 10:10] VITALS: BP 115/76; BP 116/69; BP 116/83; PULSE 72; PULSE 79; PULSE 97
[2020-06-14 11:00] VITALS: PULSE 80
--- NOTE | 2020-06-14 11:03 | STRESSREP ---
Stress Test Report Lexiscan sestamibi myocardial fusion study Indication; 79-year-old patient, presented with syncopal episode Patient known to have history of CAD prior inferior myocardial infarction/STEMI in December 2019, patient underwent PCI and stent of the RCA in December 2019 Also had a history of recurrent DVT prior history of pulmonology, obstructive sleep apnea, hypertension hyperlipidemia This presentation is for evaluation of syncope and assess for myocardial perfusion study. Resting heart rate 74bpm, resting blood pressure 132/62 mmHg. Following infusion of Lexiscan 0.4 mg heart rate [id number], with a blood pressure of 124/62 mmHg . Patient had no symptoms of chest pain. Resting electrocardiogram; old indeterminant inferior VT with small Q wave in the inferior lead, normal sinus rhythm Following injection of Lexiscan: The EKG showed no significant change from the resting. No arrhythmias noted. Resting dose of sestamibi 12 ?Ci, following injection of Lexiscan patient received 34 ?Ci of sestamibi. Review of the scintigraphic images and the gated SPECT images reveal the following Homogeneous tracer uptake was noted, with no evidence of reversible myocardial perfusion abnormality. Small fixed inferior defect consistent with prior inferior VT. The gated SPECT images revealed; Hyperdynamic left ventricle, with ejection fraction calculated 88%. Conclusion and recommendations; Negative Lexiscan sestamibi myocardial fusion study for reversible myocardial ischemia Patient presentation is syncope, to be evaluated with event monitor as an outpatient.
[2020-06-14] MEDS: Multivitamin (Healthy Eyes) Capsule 1 CAP PO (11:12)
[2020-06-14] MEDS: Aspirin E.C. 81 MG Tablet PO (11:12)
[2020-06-14] MEDS: Losartan Potassium 100 MG Tablet PO (11:13)
[2020-06-14] MEDS: TICAGRELOR 90 MG TABLET PO (11:13)
--- NOTE | 2020-06-14 11:14 | PN.CARD_ITS ---
Subjectve: 79-year-old patient, presented with syncopal episode No further symptoms reported. Patient seen and evaluated in the stress lab today. Objective: Vital Signs Temp Pulse Resp BP Pulse Ox 97.9 F 72 16 116/69 100 06/14/20 09:30 06/14/20 10:10 06/14/20 09:30 06/14/20 10:10 06/14/20 09:30 Oxygen Delivery Method Room Air Weight: 173 lb 15.115 oz Body Mass Index (BMI) 32.8 Orthostatic Vital Signs Start: 06/14/20 10:10 Freq: q24h Status: Active Protocol: Activity Type Activity Date Activity User E-Sign Co-Sign Detail Recorded Client Recorded Date Recorded By Document 06/14/20 10:10 [facility] [id number] 06/14/20 10:12 [facility] 06/14/20 10:10 Orthostatic Vitals Standing -Blood Pressure (90/60-120/80) 115/76 -Extremity Use Left Arm -Pulse Rate (60-100) 97 Sitting -Blood Pressure (90/60-120/80) 116/83 H -Pulse Rate (60-100) 79 Lying -Blood Pressure (90/60-120/80) 116/69 -Extremity Use Left Arm -Pulse Rate (60-100) 72 Intake and Output for Last 24 Hours 06/12/20 06/13/20 06/14/20 23:59 23:59 23:59 Intake Total 736.5 / 736.5 160 / 160 Balance 736.5 / 736.5 160 / 160 General: Awake, Alert, Oriented x 3 HEENT: PERRL, EOMI, Sclera Non Icteric Neck: Supple, Good ROM, No Lymph Node Enlargement Cardiovascular: Normal S1, Normal S2, No Murmurs, No Rubs, No Gallops 06/13/20 10:15: D-Dimer Quant (PE/DVT) 0.54 H* 06/13/20 13:34: Troponin I < 0.015 06/13/20 17:51: Troponin I < 0.015 Rhythm: Sinus rhythm EKG; age indeterminate inferior GA. Stress Test: Lexiscan sestamibi myocardial fusion study revealed, small prior inferior GA with no evidence of reversible myocardial ischemia. Hyperdynamic left ventricle with ejection fraction 88 PCI: And had a prior history of inferior GA in December 2019 S/p PCI and stent of the RCA Chest CT Scan: No evidence of pulmonary lesion Medical Necessity - Tobacco Use Smoking Status: Never smoker Assessment/Plan 79-year-old patient presented with syncope Patient has multiple medical comorbidities, with prior history of STEMI/inferior status post PCI and stent of the RCA Also had a history of recurrent DVT and upon embolism She underwent evaluation with CT chest which showed no evidence of pulmonary lesion and a series of cardiac markers have been negative She does not have any active chest pain Nuclear stress test with Lexiscan sestamibi showed mild inferior GA with no evidence of reversible myocardial ischemia and hyperdynamic left ventricle with ejection fraction of 88 Patient reassured, she lived with her From cardiac standpoint patient can be discharged home with the plan of follow- up as an outpatient in the cardiology clinic for continuation of cardiac care plan and also to evaluate with event monitor.
[2020-06-14] MEDS: Nystatin Powder 15gm Bottle 1 APPLIC TOPICAL (11:24)
--- NOTE | 2020-06-14 12:12 | PCM.DC ---
- Discharge Diagnoses Current Active Problems: Current Active and Chronic Problems (Last Updated 06/14/20 @ 07:34 by Roxy Mccauley) Atherosclerosis of coronary artery of [place] heart without angina pectoris (Chronic) Syncope (Acute) History of coronary artery stent placement (Chronic 12/11/19) PCI-BENNETT-RCA w/ 3.5 x 30 mm and 3.5 X 22 mm Integrity 12/11/19 Benign essential HTN (Chronic) HLD (hyperlipidemia) (Chronic) History of recurrent deep vein thrombosis (DVT) (Chronic) History of pulmonary embolism (Chronic) BALTAZAR (obstructive sleep apnea) (Chronic) You will use the following diet at home:: Cardiac Your food should be the consistency of: Regular Your liquids should be the consistency of: Regular/Thin Discharge Activity: Return to Normal Activity Allergies/Adverse Reactions: Allergies rivaroxaban [From Xarelto] Allergy (Intermediate, Verified 06/13/20 09:59) nose bleeds kiwi Allergy (Unknown, Verified 06/13/20 09:59) Anaphylaxis trimethoprim [From Bactrim] Allergy (Unknown, Verified 06/13/20 09:59) Rash tree and shrub pollen Allergy (Verified 06/13/20 09:59) Unknown ciprofloxacin HCl [From Cipro] Adverse Reaction (Severe, Verified 06/13/20 09:59) Itching rash clarithromycin [From Biaxin] Adverse Reaction (Severe, Verified 06/13/20 09:59) Rash codeine Adverse Reaction (Severe, Verified 06/13/20 09:59) Unknown prednisone Adverse Reaction (Severe, Verified 06/13/20 09:59) Unknown Sulfa (Sulfonamide Antibiotics) Adverse Reaction (Severe, Verified 06/13/20 09:59) Unknown adhesive Adverse Reaction (Intermediate, Verified 06/13/20 09:59) Rash animal dander Adverse Reaction (Unknown, Verified 06/13/20 09:59) Unknown levofloxacin [From Levaquin] Adverse Reaction (Unknown, Verified 06/13/20 09:59) Itching nickel Adverse Reaction (Unknown, Verified 06/13/20 09:59) NOT SURE sulfamethoxazole [From Bactrim] Adverse Reaction (Unknown, Verified 06/13/20 09:59) Rash tape Allergy (Unknown, Uncoded 06/13/20 09:59) Itching Medications to take at Discharge Multivit-Min/FA/Lycopen/Lutein [Centrum Silver Tablet] 1 ea PO DAILY 06/17/15 Amlodipine Besylate [Norvasc] 5 mg PO QHS 08/04/16 Cholecalciferol (Vitamin D3) [Vitamin D3] 10,000 unit PO DAILY 08/04/16 alendronate 70 mg tablet 70 mg PO QWEEK 12/24/19 metoprolol succinate 100 mg tablet,extended release 24 hr 100 mg PO QHS tab 12/24/19 Atorvastatin Calcium [Lipitor] 40 mg PO QHS 01/22/20 Ticagrelor [Brilinta] 90 mg PO BID 01/22/20 Losartan Potassium 100 mg PO DAILY #30 tab 02/01/20 aspirin 81 mg tablet,delayed release 81 mg PO DAILY #90 tab 03/20/20 Orders to be completed after discharge: Cardiac Holter Monitor, Set-Up [[facility]] Time Frame: 06/14/20, Location: None Selected Primary Care Physician: Lydia Shearer ALARM MECHANISM ADJUSTER, ALARM MECHANISM ADJUSTER-C [Primary Care Provider] - Please follow up with your Primary Care Physician in: 1-2 weeks Test Results: Test results from this visit will be discussed in further detail at your follow-up appointment, if applicable. Please Follow Up With: Adonay Cavazos MD When: 2 weeks Proposed Discharge Date: 06/14/20
--- NOTE | 2020-06-14 13:38 | PCM.DC.SUM ---
<Kai Mahan - Last Filed: 06/14/20 13:38> Discharge Date and Diagnosis - Problem List Patient Problems: Active and Suspected Problems (Last Updated 06/14/20 @ 07:34 by Roxy Mccauley) Syncope (Acute) Date of Admission: 06/13/20 Date of Discharge: 06/14/20 - Primary Discharge Diagnosis Acute Problems: Active Problems (Last Updated 06/14/20 @ 07:34 by Roxy Mccauley) Syncope (Acute) unclear etiology - Secondary Discharge Diagnosis Chronic Problems: Chronic Problems (Last Updated 06/14/20 @ 07:34 by Roxy Mccauley) Atherosclerosis of coronary artery of [place] heart without angina pectoris (Chronic) 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) History of coronary artery stent placement (Chronic 12/11/19) PCI-BENNETT-RCA w/ 3.5 x 30 mm and 3.5 X 22 mm Integrity 12/11/19 Benign essential HTN (Chronic) HLD (hyperlipidemia) (Chronic) History of recurrent deep vein thrombosis (DVT) (Chronic) History of pulmonary embolism (Chronic) BALTAZAR (obstructive sleep apnea) (Chronic) Hospital Course and Treatment Imaging Results: 06/14/20 05:55 Nuclear Stress Test - Chemical [NM] AM (NON MEDS) Conclusion and recommendations; Negative Lexiscan sestamibi myocardial fusion study for reversible myocardial ischemia Patient presentation is syncope, to be evaluated with event monitor as an outpatient. RAD/Chest 1 View (Portable) IMPRESSION: Hyperinflation. No acute abnormality is seen. 2D TTE: Interpretation Summary The study was technically difficult. Contrast injection was performed. Segmental dysfunction with preserved ejection fraction (see wall motion). The estimated ejection fraction is 65 %. There is moderate mitral annular calcification. Extension of the mitral annular calcification onto the base of the posterior mitral valve leaflet. Trivial mitral valve insufficiency. Trivial tricuspid valve insufficiency. Trivial aortic valve insufficiency. Mildly dilated aortic root. Right ventricular systolic pressure estimated to be 36 mmHg. There is evidence of diastolic dysfunction. CT/CTA Chest W/WO Contrast IMPRESSION: 1. No pulmonary embolism 2. No acute thoracic disease. Consults: Cardiology - [place] Operations: None Procedures: 2-D Echocardiogram, Stress test Summary of Care Provided: Hospital course: The patient is a 79 year old F past medical history as above notable for coronary artery disease with prior stent placement, pulmonary hypertension, PE, who presented to the emergency room with complaints of syncope. This occurred while she was sitting and eating breakfast, she suddenly slumped over. She came to after about 5 minutes. Patient was concerned that this was similar to when she had an [place] in the past. Patient was brought to the emergency room and had a negative EKG, negative troponin, negative chest x-ray. D-dimer was somewhat elevated so CT of the chest was performed which was negative for PE. Patient was admitted to the PCU and placed on telemetry. She had no events on telemetry. Her orthostatic vitals were negative. The following day she underwent a stress test ever having troponin negative x3. Stress test was negative for evidence of acute ischemia. Cardiology recommended that she have a 48-hour Holter monitor. Patient was discharged home in stable condition with order for Holter monitor, and with follow-up with her PCP in 1 to 2 weeks, and her own facility environmental technician in 2 weeks. This patient was seen by Kai Mahan PA-C under the supervision of Doctor Braun. [] Patient Problems: Active and Suspected Problems (Last Updated 06/14/20 @ 07:34 by Roxy Mccauley) Syncope (Acute) - Physical Exam Vitals/I&O's: Vital Signs Temp Pulse Resp BP Pulse Ox 97.9 F 72 16 116/69 100 06/14/20 09:30 06/14/20 10:10 06/14/20 09:30 06/14/20 10:10 06/14/20 09:30 Oxygen Delivery Method Room Air Weight: 173 lb 15.115 oz Body Mass Index (BMI) 32.8 Orthostatic Vital Signs Start: 06/14/20 10:10 Freq: q24h Status: Active Protocol: Activity Type Activity Date Activity User E-Sign Co-Sign Detail Recorded Client Recorded Date Recorded By Document 06/14/20 10:10 [facility] [id number] 06/14/20 10:12 [facility] 06/14/20 10:10 Orthostatic Vitals Standing -Blood Pressure (90/60-120/80) 115/76 -Extremity Use Left Arm -Pulse Rate (60-100) 97 Sitting -Blood Pressure (90/60-120/80) 116/83 H -Pulse Rate (60-100) 79 Lying -Blood Pressure (90/60-120/80) 116/69 -Extremity Use Left Arm -Pulse Rate (60-100) 72 Intake and Output for Last 24 Hours 06/12/20 06/13/20 06/14/20 23:59 23:59 23:59 Intake Total 736.5 / 736.5 460 / 460 Balance 736.5 / 736.5 460 / 460 General: Alert, Oriented x3, Cooperative HEENT: Atraumatic, PERRLA, EOMI, Normocephalic Neck: Supple, No JVD, Negative Carotid Bruits Lungs: Clear to auscultation, Normal air movement Cardiovascular: Regular rate, No murmurs Abdomen: Bowel Sounds Present, Soft, Non Tender Extremities: No edema, Capillary Refill Less than 3 Seconds Skin: No rashes, No breakdown Musculoskeletal: No Tenderness to Palpation of Joints or Extremities Neurological: Cranial nerves II-XII grossly intact Psych/Mental Status: Normal Affect, Appropriate, Alert and oriented to time, place, person, mood and affect Laboratory Results 06/13/20 10:15: D-Dimer Quant (PE/DVT) 0.54 H* 06/13/20 13:34: Troponin I < 0.015 06/13/20 17:51: Troponin I < 0.015 Current Medications Acetaminophen (Acetaminophen 325 Mg Tablet) 650 mg PO Q6H PRN PRN PRN Reason: Pain Score 1-10/Temp > 100.7 F Alendronate Sodium (Alendronate Sodium 70 Mg Tablet) 70 mg PO QWEEK [facility] Amlodipine Besylate (Amlodipine 5 Mg Tablet) 5 mg PO QHS [facility] Last Admin: 06/13/20 21:49 Dose: 5 mg Documented by: Aspirin (Aspirin E.C. 81 Mg Tablet) [facility] Last Admin: 06/14/20 11:12 Dose: 81 mg Documented by: Atorvastatin Calcium (Atorvastatin Calcium 40 Mg Tablet) 40 mg PO QHS [facility] Last Admin: 06/13/20 21:50 Dose: 40 mg Documented by: Cholecalciferol (Cholecalciferol (Vit D3) 1,000 Unit (25mcg)) 10,000 unit PO DAILY [facility] Last Admin: 06/14/20 11:14 Dose: 10,000 unit Documented by: Hydroxyzine HCl (Hydroxyzine 10 Mg Tablet) 10 mg PO 4X/DAY PRN PRN PRN Reason: ANXIETY Last Admin: 06/14/20 01:37 Dose: 10 mg Documented by: Losartan Potassium (Losartan Potassium 100 Mg Tablet) 100 mg PO DAILY [facility] Last Admin: 06/14/20 11:13 Dose: 100 mg Documented by: Metoprolol Succinate (Metoprolol(Xl)Succ 100 Mg Tablet) 100 mg PO QHS [facility] Last Admin: 06/13/20 21:48 Dose: 100 mg Documented by: Multivitamins/Minerals (Multivitamin (Healthy Eyes) Capsule) [facility] Last Admin: 06/14/20 11:12 Dose: 1 capsule Documented by: Nitroglycerin (Nitroglycerin (Inpatient Use) 0.4 Mg Tab.Subl) 0.4 mg SUBLINGUAL Q5M PRN PRN Reason: CARDIAC/CHEST PAIN Nystatin (Nystatin Powder 15gm Bottle) 1 applic TOPICAL BID [facility]; Protocol Last Admin: 06/14/20 11:24 Dose: 1 applic Documented by: Ondansetron HCl (Ondansetron 4 Mg/2 Ml Vial) 4 mg IV Q8H PRN PRN PRN Reason: NAUSEA/VOMITING Sodium Chloride (0.9% Saline Lock 10 Ml Syringe) 10 - 40 ml IV UD PRN PRN Reason: SALINE FLUSH Sodium Chloride (Sodium Chloride 0.65% 1 [place].Btl) 2 spray NASAL TID PRN PRN PRN Reason: NASAL DRYNESS Last Admin: 06/13/20 21:50 Dose: 2 spray Documented by: Ticagrelor (Ticagrelor 90 Mg Tablet) 90 mg PO BID [facility] Last Admin: 06/14/20 11:13 Dose: 90 mg Documented by: Discharge Diet: Low fat/ Low Cholesterol, 2000 mg Sodium Diet Discharge Activity: Return to Normal Activity Home Medications: Medications to take at Discharge Multivit-Min/FA/Lycopen/Lutein [Centrum Silver Tablet] 1 ea PO DAILY 06/17/15 Amlodipine Besylate [Norvasc] 5 mg PO QHS 08/04/16 Cholecalciferol (Vitamin D3) [Vitamin D3] 10,000 unit PO DAILY 08/04/16 alendronate 70 mg tablet 70 mg PO QWEEK 12/24/19 metoprolol succinate 100 mg tablet,extended release 24 hr 100 mg PO QHS tab 12/24/19 Atorvastatin Calcium [Lipitor] 40 mg PO QHS 01/22/20 Ticagrelor [Brilinta] 90 mg PO BID 01/22/20 Losartan Potassium 100 mg PO DAILY #30 tab 02/01/20 aspirin 81 mg tablet,delayed release 81 mg PO DAILY #90 tab 03/20/20 Other Amb Orders: Cardiac Holter Monitor, Set-Up [[facility]] Time Frame: 06/14/20, Location: None Selected Primary Care Physician: Lydia Shearer VETERINARY TECHNOLOGY INSTRUCTOR, VETERINARY TECHNOLOGY INSTRUCTOR-C [Primary Care Provider] - Please follow up with your Primary Care Physician in: 1-2 weeks Please Follow Up With: Adonay Cavazos MD When: 2 weeks Disposition: Home Minutes spent on discharge:: 35 Patient Condition:: Stable Medical Necessity - Tobacco Use Smoking Status: Never smoker Meaningful Use Info Meaningful Use Diagnoses (Choose all that apply): None applicable <Francisco Braun - Last Filed: 06/14/20 15:45> Discharge Date and Diagnosis - Primary Discharge Diagnosis Acute Problems: Active Problems (Last Updated 06/14/20 @ 07:34 by Roxy Mccauley) Syncope (Acute) - Secondary Discharge Diagnosis Chronic Problems: Chronic Problems (Last Updated 06/14/20 @ 07:34 by Roxy Mccauley) Atherosclerosis of coronary artery of [place] heart without angina pectoris (Chronic) 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 Data reviewed. I agree with the above note by the physician assistant loan processor. The patient is a 79 year old F presents with a syncopal episode. There is concerning because the patient was unresponsive and had a similar presentation when the patient had ST elevation myocardial infarction. Patient underwent an extensive work-up, including CTA, stress test and echocardiogram. All of which were negative. Likelihood is patient had a vasovagal episode related with nausea she expressed that she had nausea before she had passed out. Patient was seen in consultation by cardiology who recommended a Holter monitor. Patient will have that arranged as outpatient. There has been no evidence of any arrhythmia during her hospitalization. Reassurance provided to the patient and patient be discharged home in stable condition. [] - Physical Exam Vitals/I&O's: Vital Signs Temp Pulse Resp BP Pulse Ox 37.0 C 75 18 119/58 L 97 06/14/20 14:44 06/14/20 14:44 06/14/20 14:44 06/14/20 14:44 06/14/20 14:44 Oxygen Delivery Method Room Air Weight: 78.9 kg Body Mass Index (BMI) 32.8 Intake and Output for Last 24 Hours 06/12/20 06/13/20 06/14/20 23:59 23:59 23:59 Intake Total 736.5 / 736.5 460 / 460 Balance 736.5 / 736.5 460 / 460 General: Alert, Cooperative HEENT: Atraumatic, Normocephalic Lungs: Clear to auscultation, Normal air movement Cardiovascular: Regular rate, No murmurs Abdomen: Bowel Sounds Present, Soft, Non Tender Skin: No rashes, No breakdown Laboratory Results 06/13/20 17:51: Troponin I < 0.015 Discharge Diet: Low fat/ Low Cholesterol, 2000 mg Sodium Diet Discharge Activity: Return to Normal Activity Disposition: Home Minutes spent on discharge:: 35 Patient Condition:: Stable Medical Necessity - Tobacco Use Smoking Status: Never smoker Meaningful Use Info Meaningful Use Diagnoses (Choose all that apply): None applicable OBSV E&M: [id number] Observation care discharge
[2020-06-14 14:44] VITALS: BP 119/58; PULSE 75; RESP 18; TEMP 37; O2SAT 97
== END 2020-06-14 12:13 | disposition home or self-care (01) ==
LOC: ED 11:19 → PCU 12:28
PROVIDERS: Internal Medicine Cardiovascular Disease; Emergency Provider Emergency Medicine; PCP Nurse Practitioner
DX: R55 Syncope and collapse (principal); I10 Essential (primary) hypertension; G47.33 Obstructive sleep apnea (adult) (pediatric); E78.5 Hyperlipidemia, unspecified; I25.10 Atherosclerotic heart disease of native coronary artery without angina pectoris; I25.2 Old myocardial infarction; I27.20 Pulmonary hypertension, unspecified; M19.90 Unspecified osteoarthritis, unspecified site; Z95.5 Presence of coronary angioplasty implant and graft; Z86.711 Personal history of pulmonary embolism; Z86.718 Personal history of other venous thrombosis and embolism; Z79.899 Other long term (current) drug therapy; Z79.82 Long term (current) use of aspirin; E66.9 Obesity, unspecified; Z68.41 Body mass index [BMI] 40.0-44.9, adult
CPT/HCPCS: 36415; 71045; 71275; 78452; 80048; 84484; 85025; 85379; 93005; 93017; 93306; 93880; 99218; 99285; A9500; Q9957; Q9967; A4216; C8929; G0378; J2785

== ENCOUNTER → 2020-11-14 10:05 | Outpatient (CLI) | payer MEDICARE, OTHER, SELFPAY ==
[2020-10-02 15:07] VITALS: BMI 30.9
[2020-11-14 12:28] LABS: Absolute Lymphocyte Count 0.99 X10^3/uL (0.83-4.51); Absolute Neutrophil Count 4.8 X10^3/uL (2.0-7.7); Basophil# 0.05 X10^3/uL; Basophil% 0.7 % (0-1); Eosinophil# 0.21 X10^3/uL; Eosinophils% 3.1 % (0-5); Hematocrit 40.2 % (37-47); Hemoglobin 12.9 g/dL (12.0-15.0); Lymphocyte # 0.99 X10^3/ul (0.83-4.51); Lymphocyte % 14.8 % (19-41); Mean Corp Hgb Conc 32.1 g/dL (32-36); Mean Corpuscular Hgb 28.8 pg (27.0-32.0); Mean Corpuscular Volume 89.7 fL (81-99); Mean Platelet Vol. 9.6 fl (6.2-12.0); Monocyte# 0.64 X10^3/uL; Monocyte% 9.6 % (0-10); NRBC Flagged by Analyzer 0 % (0-5); Neutrophil # 4.78 X10^3/uL (2.7-7.7); Neutrophil % 71.4 % (47-70); Platelet Count 313 K/mm3 (150-450); RBC Distribution Width CV 15.1 % (11.6-14.6); RBC Distribution Width SD 50.4 fl (35.1-43.9); Red Blood Count 4.48 M/mm3 (4.2-5.4); White Blood Count 6.7 K/mm3 (4.4-11.0)
== END ==
PROVIDERS: PCP Nurse Practitioner; Referring Provider Physician Assistant Medical; Visit Provider Physician Assistant Medical
DX: R23.0 Cyanosis (principal); R04.0 Epistaxis; R23.8 Other skin changes; Z95.5 Presence of coronary angioplasty implant and graft
CPT/HCPCS: 36415; 85025

== ENCOUNTER → 2021-01-15 14:14 | Outpatient (CLI) | payer MEDICARE, OTHER, SELFPAY ==
[2020-10-02 15:07] VITALS: BMI 30.9
--- NOTE | 2021-01-15 14:18 | BI_ITS ---
MAMMOGRAPHY - BILATERAL SCREENING REASON FOR EXAM: Female, 80 years old. Routine annual screening examination. PERTINENT HISTORY: Sister with breast cancer. TECHNIQUE: Digital bilateral breast mary ellen (3D mammographic acquisition) in the CC and MLO projections. 2-D mediolateral oblique (MLO) and craniocaudad (CC) views of both breasts were obtained. CAD: Full Field Digital Mammography with Computer Added Detection was performed. COMPARISON: Comparison is made with prior study dated 09/14/2018 and 08/19/2017. FINDINGS: Breast Composition: The breasts are almost entirely fatty. There are no dominant masses or suspicious calcifications. No other significant abnormalities are identified. There has been no significant change since the prior study. BI/SCRN MAMM (CAD)W/MARY ELLEN BILAT IMPRESSION: Stable bilateral screening mammogram. Yearly follow-up mammogram recommended. (A) ASSESSMENT CATEGORY: BIRADS Category 1: Negative. A letter regarding these results will be sent to the patient by the facility within 30 days. Approximately 10% of breast cancers are not detected by mammography. A normal mammogram should not delay biopsy of a clinically suspicious abnormality. [id number] Electronically Signed: Luis Watkins MD at 15:31 EDT , Service support ,
--- NOTE | 2021-01-15 14:23 | BD_ITS ---
STUDY: DUAL ENERGY X-RAY ABSORPTIOMETRY / DXA REASON FOR EXAM: Female, 80 years old. [id number]. Patient is postmenopausal. TECHNIQUE: Bone Mineral Density (BMD) measurements of lumbar spine and left hip were obtained. COMPARISON: Comparison is made with prior examination dated 06/13/2018. FINDINGS: Lumbar Spine (L1-L4): g/cm2 (1.193) / T-score (0.8) / Z-score (3.7) Findings are suggestive of normal bone density with a low fracture risk. Left Femur Total: g/cm2 (0.653) / T-score (-2.4) / Z-score (-0.2) Left Femoral Neck: g/cm2 (0.440) / T-score (-3.7) / Z-score (-1.3) The T-Scores on the most recent prior examination were: Lumbar Spine (L1-L4): There has been worsening of bone density since the previous examination. Left Femur Total: which represents a worsening of 3.9%. BD/Dexa Bone Density Study IMPRESSION: The patient is considered osteoporotic as outlined below according to World [employer] Organization (WHO) criteria with a high fracture risk. Reference Information: The T-score is the number of standard deviations above or below the standard which is normal for young adults at their peak bone mineral density. The World Health Organization (WHO) interprets the T-scores as follows: Above -1 Normal bone density Between -1 and -2.5 Osteopenia Equal to / or below -2.5 Osteoporosis As a practical clinical guideline, osteopenia may be graded as follows: Mild -1 through -1.5 Moderate -1.6 through -2.0 Severe -2.1 through -2.4 The Z-score is the number of standard deviations above or below age-matched controls. A Z-score of less than -1.5 would be considered abnormal. References: 1. NIH Osteoporosis and Related Bone Diseases www osteo.org 2. International Society for Clinical Densitometry www iscd.org 3. National Osteoporosis Foundation www nof.org Electronically Signed: Luis Watkins MD at 11:10 EDT , Service support ,
== END ==
PROVIDERS: PCP Nurse Practitioner; Referring Provider Nurse Practitioner; Visit Provider Nurse Practitioner
DX: Z12.31 Encounter for screening mammogram for malignant neoplasm of breast (principal); Z78.0 Asymptomatic menopausal state
CPT/HCPCS: 77063; 77067; 77080

== ENCOUNTER → 2021-02-12 10:39 | Outpatient (CLI) | payer MEDICARE, OTHER, SELFPAY ==
[2021-02-12 10:48] VITALS: BP 112/60; PULSE 64; RESP 16; TEMP 36.6; O2SAT 95
[2021-02-12] MEDS: DENOSUMAB 60 MG/ML SC (11:08)
== END ==
PROVIDERS: PCP Nurse Practitioner; Referring Provider Nurse Practitioner; Visit Provider Nurse Practitioner
DX: M81.0 Age-related osteoporosis without current pathological fracture (principal)
CPT/HCPCS: 96372; J0897

== ENCOUNTER → 2021-04-06 10:11 | Outpatient (CLI) | payer MEDICARE, OTHER, SELFPAY ==
[2021-04-06 12:32] LABS: Absolute Lymphocyte Count 1.12 X10^3/uL (0.83-4.51); Absolute Neutrophil Count 6.5 X10^3/uL (2.0-7.7); Basophil# 0.04 X10^3/uL; Basophil% 0.5 % (0-1); Eosinophil# 0.22 X10^3/uL; Eosinophils% 2.6 % (0-5); Hematocrit 41.4 % (37-47); Hemoglobin 13.1 g/dL (12.0-15.0); Lymphocyte # 1.12 X10^3/ul (0.83-4.51); Lymphocyte % 13.2 % (19-41); Mean Corp Hgb Conc 31.6 g/dL (32-36); Mean Corpuscular Hgb 28.2 pg (27.0-32.0); Mean Corpuscular Volume 89.2 fL (81-99); Mean Platelet Vol. 9.9 fl (6.2-12.0); Monocyte# 0.55 X10^3/uL; Monocyte% 6.5 % (0-10); NRBC Flagged by Analyzer 0 % (0-5); Neutrophil # 6.53 X10^3/uL (2.7-7.7); Neutrophil % 76.6 % (47-70); Platelet Count 261 K/mm3 (150-450); RBC Distribution Width CV 14.7 % (11.6-14.6); RBC Distribution Width SD 47.9 fl (35.1-43.9); Red Blood Count 4.64 M/mm3 (4.2-5.4); White Blood Count 8.5 K/mm3 (4.4-11.0)
[2021-04-06 12:54] LABS: ALB/GLOB Ratio 0.7 RATIO (0.9-2.4); AST(SGOT) 15 U/L (15-37); Alanine Aminotransfer ALT/SGPT 18 U/L (13-56); Alkaline Phosphatase 78 U/L (45-117); Anion Gap 6 (5-15); BUN 22 mg/dL (7-18); BUN/Creat Ratio 28.1 RATIO (10-20); Calcium,Total 8.9 mg/dL (8.5-10.1); Chloride 108 mmol/L (98-107); Creatinine, Serum 0.78 mg/dL (0.55-1.02); EST Glomerular Filtration Rate 75 mL/min (>60); Est Glom Filt Rate - Afr Amer 91 mL/min (>60); Globulin 4.1 g/dL (2.2-4.2); Glucose 121 mg/dL (74-106); Potassium 3.9 mmol/L (3.5-5.1); Protein, Total 7.1 g/dL (6.4-8.2); Sodium Level 140 mmol/L (136-145); Thyroid Stim Hormone (TSH) 2.78 uIU/mL (0.358-3.74)
== END ==
PROVIDERS: PCP Nurse Practitioner; Referring Provider Nurse Practitioner; Visit Provider Nurse Practitioner
DX: I10 Essential (primary) hypertension (principal); E78.5 Hyperlipidemia, unspecified
CPT/HCPCS: 36415; 80053; 84443; 85025

== ENCOUNTER 2021-07-09 07:58 | Outpatient (CLI) | payer MEDICARE, OTHER, SELFPAY ==
[2021-07-09 10:42] LABS: Cholesterol 147 mg/dL (200); High Density Lipoprotein 46 mg/dL; Triglycerides 225 mg/dL; Very Low Density Lipoprotein 45 mg/dL (5-40)
== END 2021-07-09 23:59 | disposition home or self-care (01) ==
LOC: MTLAB 08:00
PROVIDERS: PCP Nurse Practitioner; Referring Provider Nurse Practitioner; Visit Provider Nurse Practitioner
DX: E78.5 Hyperlipidemia, unspecified (principal)
CPT/HCPCS: 36415; 80061

== ENCOUNTER 2021-08-13 10:16 | Outpatient (CLI) | payer MEDICARE, OTHER, SELFPAY ==
[2021-08-13 10:25] VITALS: BP 148/78; PULSE 84; RESP 16; TEMP 36; O2SAT 96; BMI 31.1
[2021-08-13] MEDS: DENOSUMAB 60 MG/ML SC (10:29)
== END 2021-08-13 23:59 | disposition home or self-care (01) ==
LOC: MEDOUTP 10:18
PROVIDERS: PCP Nurse Practitioner; Referring Provider Nurse Practitioner; Visit Provider Nurse Practitioner
DX: M81.0 Age-related osteoporosis without current pathological fracture (principal)
CPT/HCPCS: 96372; J0897

== ENCOUNTER → 2022-01-19 | Outpatient (CLI) | payer MEDICARE, OTHER, SELFPAY ==
--- NOTE | 2022-01-19 10:29 | BI_ITS ---
MAMMOGRAPHY - BILATERAL SCREENING REASON FOR EXAM: Female, 81 years old. Routine annual screening examination. PERTINENT HISTORY: Sister with breast cancer. TECHNIQUE: Digital bilateral breast mary ellen (3D mammographic acquisition) in the CC and MLO projections. 2-D mediolateral oblique (MLO) and craniocaudad (CC) views of both breasts were obtained. CAD: Full Field Digital Mammography with Computer Added Detection was performed. COMPARISON: Comparison is made with prior study dated 01/15/2021 and 09/14/2018. FINDINGS: Breast Composition: The breasts are almost entirely fatty. There are no dominant masses or suspicious calcifications. No other significant abnormalities are identified. There has been no significant change since the prior study. BI/SCRN MAMM (CAD)W/MARY ELLEN BILAT IMPRESSION: Stable bilateral screening mammogram. Yearly follow-up mammogram recommended. (A) ASSESSMENT CATEGORY: BIRADS Category 1: Negative. A letter regarding these results will be sent to the patient by the facility within 30 days. Approximately 10% of breast cancers are not detected by mammography. A normal mammogram should not delay biopsy of a clinically suspicious abnormality. [id number] Electronically Signed: Luis Watkins MD at 13:46 EDT ,
== END | disposition home or self-care (01) ==
LOC: OPBD 10:27
PROVIDERS: PCP Nurse Practitioner Family; Referring Provider Nurse Practitioner Family; Visit Provider Nurse Practitioner Family
DX: Z12.31 Encounter for screening mammogram for malignant neoplasm of breast (principal)
CPT/HCPCS: 77063; 77067

== ENCOUNTER → 2022-02-12 | Outpatient (CLI) | payer MEDICARE, OTHER, SELFPAY ==
[2022-02-12 10:35] VITALS: BP 136/67; PULSE 77; RESP 16; TEMP 36.6; O2SAT 97
[2022-02-12] MEDS: DENOSUMAB 60 MG/ML SC (10:38)
== END | disposition home or self-care (01) ==
LOC: MEDOUTP 10:24
PROVIDERS: PCP Nurse Practitioner Family; Referring Provider Nurse Practitioner; Visit Provider Nurse Practitioner
DX: M81.0 Age-related osteoporosis without current pathological fracture (principal)
CPT/HCPCS: 96372; J0897

== ENCOUNTER → 2022-02-22 | Outpatient (CLI) | payer MEDICARE, OTHER, SELFPAY ==
[2022-02-22 10:00] LABS: Absolute Lymphocyte Count 0.92 X10^3/uL (0.83-4.51); Absolute Neutrophil Count 7.2 X10^3/uL (2.0-7.7); Basophil# 0.06 X10^3/uL; Basophil% 0.7 % (0-1); Eosinophil# 0.28 X10^3/uL; Eosinophils% 3.1 % (0-5); Hematocrit 43.5 % (37-47); Hemoglobin 13.6 g/dL (12.0-15.0); Lymphocyte # 0.92 X10^3/ul (0.83-4.51); Lymphocyte % 10.1 % (19-41); Mean Corp Hgb Conc 31.3 g/dL (32-36); Mean Corpuscular Hgb 28.5 pg (27.0-32.0); Mean Corpuscular Volume 91.2 fL (81-99); Monocyte# 0.64 X10^3/uL; NRBC Flagged by Analyzer 0 % (0-5); Neutrophil # 7.15 X10^3/uL (2.7-7.7); Neutrophil % 78.4 % (47-70); Platelet Count 308 K/mm3 (150-450); RBC Distribution Width CV 15.2 % (11.6-14.6); RBC Distribution Width SD 51.4 fl (35.1-43.9); Red Blood Count 4.77 M/mm3 (4.2-5.4); White Blood Count 9.1 K/mm3 (4.4-11.0)
[2022-02-22 10:37] LABS: Vitamin D,25 Hydroxy 36.9 ng/mL
[2022-02-22 10:55] LABS: ALB/GLOB Ratio 0.8 RATIO (0.9-2.4); AST(SGOT) 16 U/L (15-37); Alanine Aminotransfer ALT/SGPT 21 U/L (13-56); Albumin, Serum 3.1 g/dL (3.2-5.0); Alkaline Phosphatase 83 U/L (45-117); Anion Gap 7 (5-15); BUN 24 mg/dL (7-18); BUN/Creat Ratio 33.9 RATIO (10-20); Calcium,Total 9.1 mg/dL (8.5-10.1); Chloride 110 mmol/L (98-107); Cholesterol 141 mg/dL (200); Creatinine, Serum 0.71 mg/dL (0.55-1.02); EST Glomerular Filtration Rate 84 mL/min (>60); Est Glom Filt Rate - Afr Amer 102 mL/min (>60); Glucose 109 mg/dL (74-106); High Density Lipoprotein 47 mg/dL; Potassium 4.5 mmol/L (3.5-5.1); Protein, Total 7.1 g/dL (6.4-8.2); Sodium Level 143 mmol/L (136-145); Thyroid Stim Hormone (TSH) 2.56 uIU/mL (0.358-3.74); Triglycerides 182 mg/dL; Very Low Density Lipoprotein 36 mg/dL (5-40)
== END | disposition home or self-care (01) ==
PROVIDERS: PCP Nurse Practitioner Family; Referring Provider Nurse Practitioner Family; Visit Provider Nurse Practitioner Family
DX: I10 Essential (primary) hypertension (principal); E78.5 Hyperlipidemia, unspecified; E55.9 Vitamin D deficiency, unspecified
CPT/HCPCS: 36415; 80053; 80061; 82306; 84443; 85025

== ENCOUNTER → 2022-06-14 | Outpatient (CLI) | payer MEDICARE, OTHER, SELFPAY ==
--- NOTE | 2022-06-14 11:05 | RAD_ITS ---
STUDY: X-RAY CHEST REASON FOR EXAM: Female, 81 years old. COUGH TECHNIQUE: Frontal and lateral views of the chest. COMPARISON: CT chest June 13, 2020 and chest x-ray same day FINDINGS: The lungs are clear and expanded. There is no demonstrated pleural abnormality. Normal size heart. Normal mediastinum and froylan. Normal visualized pulmonary arteries. Normal visualized aortic arch and descending thoracic aorta. Normal visualized thoracic spine. There is degenerative osteoarthritis of the bilateral shoulders. There is no demonstrated abnormality of the visualized soft tissue structures of the upper abdomen. RAD/Chest PA and Lateral IMPRESSION: No acute disease Electronically Signed: Shai Cardenas MD at 22:39 EST ,
== END | disposition home or self-care (01) ==
PROVIDERS: PCP Nurse Practitioner Family; Referring Provider Otolaryngology; Visit Provider Otolaryngology
DX: R05.9 Cough, unspecified (principal)
CPT/HCPCS: 71046

== ENCOUNTER → 2022-06-23 | Outpatient (CLI) | payer MEDICARE, OTHER, SELFPAY ==
[2022-06-23 10:46] LABS: Absolute Lymphocyte Count 1.06 X10^3/uL (0.83-4.51); Absolute Neutrophil Count 5.8 X10^3/uL (2.0-7.7); Basophil# 0.05 X10^3/uL; Basophil% 0.6 % (0-1); Eosinophil# 0.37 X10^3/uL; Eosinophils% 4.6 % (0-5); Hematocrit 42.4 % (37-47); Hemoglobin 13.3 g/dL (12.0-15.0); Lymphocyte # 1.06 X10^3/ul (0.83-4.51); Lymphocyte % 13.3 % (19-41); Mean Corp Hgb Conc 31.4 g/dL (32-36); Mean Corpuscular Hgb 28.7 pg (27.0-32.0); Mean Corpuscular Volume 91.4 fL (81-99); Mean Platelet Vol. 10.1 fl (6.2-12.0); Monocyte# 0.65 X10^3/uL; Monocyte% 8.1 % (0-10); NRBC Flagged by Analyzer 0 % (0-5); Neutrophil # 5.79 X10^3/uL (2.7-7.7); Neutrophil % 72.6 % (47-70); Platelet Count 294 K/mm3 (150-450); RBC Distribution Width CV 15.9 % (11.6-14.6); RBC Distribution Width SD 53.1 fl (35.1-43.9); Red Blood Count 4.64 M/mm3 (4.2-5.4)
[2022-06-23 11:15] LABS: ALB/GLOB Ratio 0.9 RATIO (0.9-2.4); AST(SGOT) 14 U/L (15-37); Alanine Aminotransfer ALT/SGPT 18 U/L (13-56); Albumin, Serum 3.2 g/dL (3.2-5.0); Alkaline Phosphatase 69 U/L (45-117); Anion Gap 6 (5-15); BUN 21 mg/dL (7-18); BUN/Creat Ratio 27.5 RATIO (10-20); Calcium,Total 8.9 mg/dL (8.5-10.1); Chloride 111 mmol/L (98-107); Cholesterol 135 mg/dL (200); Creatinine, Serum 0.76 mg/dL (0.55-1.02); EST Glomerular Filtration Rate 77 mL/min (>60); Est Glom Filt Rate - Afr Amer 93 mL/min (>60); Globulin 3.7 g/dL (2.2-4.2); Glucose 106 mg/dL (74-106); High Density Lipoprotein 50 mg/dL; Potassium 4.3 mmol/L (3.5-5.1); Protein, Total 6.9 g/dL (6.4-8.2); Sodium Level 143 mmol/L (136-145); Triglycerides 160 mg/dL; Very Low Density Lipoprotein 32 mg/dL (5-40)
[2022-06-25 09:43] LABS: Pathologist Review Reviewed
== END | disposition home or self-care (01) ==
PROVIDERS: PCP Nurse Practitioner Family; Referring Provider Nurse Practitioner Family; Visit Provider Nurse Practitioner Family
DX: D64.9 Anemia, unspecified (principal); E78.5 Hyperlipidemia, unspecified
CPT/HCPCS: 36415; 80053; 80061; 85025

== ENCOUNTER → 2022-07-01 | Outpatient (CLI) | payer MEDICARE, OTHER, SELFPAY ==
[2022-07-01 12:45] LABS: Ferritin 70 ng/mL (8-252); Iron 79 ug/dL (50-170); Iron Binding Capacity,Total 282 ug/dL (250-450)
== END | disposition home or self-care (01) ==
LOC: MTLAB 10:25
PROVIDERS: PCP Nurse Practitioner Family; Referring Provider Nurse Practitioner Family; Visit Provider Nurse Practitioner Family
DX: R79.89 Other specified abnormal findings of blood chemistry (principal)
CPT/HCPCS: 36415; 82728; 83540; 83550

== ENCOUNTER → 2022-08-13 | Outpatient (CLI) | payer MEDICARE, OTHER, SELFPAY ==
[2022-08-13 10:28] VITALS: BP 131/68; PULSE 76; RESP 16; TEMP 36.6; O2SAT 99; BMI 34.0
[2022-08-13] MEDS: DENOSUMAB 60 MG/ML SC (10:33)
== END | disposition home or self-care (01) ==
LOC: MEDOUTP 10:21
PROVIDERS: PCP Nurse Practitioner Family; Referring Provider Nurse Practitioner; Visit Provider Nurse Practitioner
DX: M81.0 Age-related osteoporosis without current pathological fracture (principal)
CPT/HCPCS: 96372; J0897

== ENCOUNTER 2022-11-13 07:36 | Emergency (ER) | payer MEDICARE, OTHER, SELFPAY ==
[2022-11-13 07:37] VITALS: BP 137/82; PULSE 83; RESP 16; TEMP 37.1; O2SAT 98; BMI 35.6
[2022-11-13 07:47] VITALS: O2SAT 95
--- NOTE | 2022-11-13 07:47 | EKG12_ITS ---
Test Reason : SOB/LEFT ARM PAIN Blood Pressure : / mmHG Vent. Rate : 073 BPM Atrial Rate : 073 BPM P-R Int : 174 ms QRS Dur : 074 ms QT Int : 402 ms P-R-T Axes : 026 -14 -16 degrees QTc Int : 442 ms Normal sinus rhythm Inferior infarct , age undetermined Anterior infarct , age undetermined Abnormal ECG Confirmed by CASSIDY ANTONIO, CRISTIN ([id number]), online editor ZANDER CRAWFORD ([id number]) on 11/15/2022 10:59:14 A M Referred By: YAZ Confirmed By:GUIDO BENJAMIN MD
--- NOTE | 2022-11-13 07:49 | ED.VIS.DYS ---
HPI History of Present Illness Chief Complaint: Shortness of Breath Informant: patient and EMS Narrative Narrative: 82-year-old female [place] [facility] diagnosed with COVID just over 2 weeks ago states she has been short of breath ever since and it was worse this morning. She states no chest pain or arm/jaw discomfort, but she has had some discomfort in her left shoulder blade and her upper back that is worse with moving around for the last 3 days or so. She is on amoxicillin. When asked why, she states that because I was coughing up mucus. She states she has had no testing since the positive COVID test, including chest x-ray. Swelling in her legs has been present for a long time and no worse recently. She denies any history of heart or lung problems that she can recall although her EMR states she has a history of DVT and PE she does not appear to be on anticoagulation right now, and she had a history of an old NH. [facility] Medical History Acute ST elevation myocardial infarction (STEMI) Arthritis Atherosclerosis of coronary artery of [place] heart without angina pectoris Benign essential HTN Chondromalacia patellae of left knee Contact with and (suspected) exposure to other viral communicable diseases COVID-19 Effusion of left knee joint Essential hypertension History of coronary artery stent placement (12/11/19) History of pulmonary embolism History of recurrent deep vein thrombosis (DVT) History of ST elevation myocardial infarction (STEMI) (12/11/19) HLD (hyperlipidemia) Hypercholesterolemia Kidney tumor laser vein surgery Mass of left thigh Obesity 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 BALTAZAR (obstructive sleep apnea) BALTAZAR on CPAP Osteoarthritis Osteoporosis Osteoporosis Pulmonary embolism Pulmonary HTN Syncope URI (upper respiratory infection) Home Medications amlodipine 5 mg tablet 5 mg PO QHS BLOOD PRESSURE 08/04/16 [History Last Taken 06/12/20 22:00] cholecalciferol (vitamin D3) 25 mcg (1,000 unit) capsule 10,000 unit PO DAILY SUPPLEMENT 08/04/16 [History Last Taken 06/13/20 08:00] metoprolol succinate 100 mg tablet,extended release 24 hr 100 mg PO QHS HEART 12/24/19 [History Last Taken 06/12/20 22:00] atorvastatin 40 mg tablet 40 mg PO QHS CHOLESTEROL 01/22/20 [History Last Taken 06/12/20 22:00] losartan 100 mg tablet 100 mg PO DAILY HEART #30 tabs 02/01/20 [Rx Last Taken 06/12/20 14:00] denosumab 60 mg/mL subcutaneous syringe (Prolia) 60 mg subcut [id number] 04/30/21 [History Last Taken Unknown] nystatin 100,000 unit/gram topical ointment 1 applic topical BID #30 grams 10/21/21 [Rx Last Taken Unknown] czdhizng-vuc-lyvvk acid 0.4 mg-lycopene 300 mcg-lutein 250 mcg tablet 1 tab PO DAILY SUPPLEMENT 04/22/22 [History Last Taken Unknown] benzonatate 200 mg capsule 200 mg PO TID PRN cough #20 caps 10/29/22 [Rx Last Taken Unknown] apixaban 5 mg (74 tabs) tablets in a dose pack (metraTec DVT-PE Treat 30D Start) 5 mg PO BID #74 tabs 11/13/22 [Rx Last Taken Unknown] Allergy/AdvReac Type Severity Reaction Status Date / Time rivaroxaban [From Xarelto] Allergy Intermediate nose bleeds Verified 10/29/22 15:27 adhesive tape [tape] Allergy Unknown Itching Verified 10/29/22 15:27 kiwi Allergy Unknown Anaphylaxis Verified 10/29/22 15:27 trimethoprim [From Bactrim] Allergy Unknown Rash Verified 10/29/22 15:27 tree and shrub pollen Allergy Unknown Verified 10/29/22 15:27 ciprofloxacin HCl AdvReac Severe Itching Verified 10/29/22 15:27 [From Cipro] clarithromycin [From Biaxin] AdvReac Severe Rash Verified 10/29/22 15:27 codeine AdvReac Severe Unknown Verified 10/29/22 15:27 prednisone AdvReac Severe Unknown Verified 10/29/22 15:27 Sulfa (Sulfonamide AdvReac Severe Unknown Verified 10/29/22 15:27 Antibiotics) adhesive AdvReac Intermediate Rash Verified 10/29/22 15:27 animal dander AdvReac Unknown Unknown Verified 10/29/22 15:27 levofloxacin [From Levaquin] AdvReac Unknown Itching Verified 10/29/22 15:27 nickel AdvReac Unknown NOT SURE Verified 10/29/22 15:27 sulfamethoxazole AdvReac Unknown Rash Verified 10/29/22 15:27 [From Bactrim] Family History Father Bone cancer Arthritis Mother Leukemia Heart disease Surgical History A&P repair H/O repair of rotator cuff History of right hip replacement Hx of tonsillectomy Presence of coronary angioplasty implant and graft (~12/11/19) Social History Smoking Status: Never smoker alcohol intake: never substance use type: does not use caffeine: No ROS ROS ED Constitutional Constitutional ED: Denies chills or fever(s) Eyes Eyes: Denies change in vision or diplopia ENT ENT ED: Denies rhinorrhea or sore throat Cardiovascular Cardiovascular: Reports leg edema; Denies chest pain or palpitations Respiratory/Chest Respiratory/Chest: Reports cough and dyspnea Gastrointestinal Gastrointestinal: Denies abdominal pain, diarrhea, nausea or vomiting Genitourinary Genitourinary ED: Denies dysuria or hematuria Musculoskeletal Musculoskeletal: Reports back pain; Denies neck pain Integumentary Denies abscess or rash Neurologic Neurologic: Denies headache(s), paresthesias or weakness Psychiatric Psychiatric: Denies anxiety or suicidal thoughts EXAM Physical Exam Const Vital Signs: 11/13/22 07:37 11/13/22 07:47 Temperature 98.8 F Temperature Source Oral Pulse Rate 83 Respiratory Rate 16 Respiratory Effort Non-Labored Short of Breath Blood Pressure 137/82 H Blood Pressure Mean 100 Pulse Ox 98 Oxygen Delivery Method Room Air Room Air Positive well nourished, well developed and obese General Appearance ED: well developed and NAD Nutritional Appearance: obese HEENT Reports moist mucous membranes normocephalic and atraumatic Eyes PERRL and EOMs intact bilaterally Neck full ROM and supple Resp normal respiratory effort and clear to auscultation bilaterally Resp Narrative: Conversive in full sentences no respiratory distress Cardio regular rate, regular rhythm and no murmurs GI non-tender and non-distended Auscultation: normoactive bowel sounds Palpation: soft Back/Spine no CVA tenderness General Back: other FROM Extremity normal to inspection General Extremety ED: Yes edema; Negative for pulses abnormal or tenderness General Extremity: edema bilateral lower extremity Details: moderate; Negative for pulses abnormal Neuro oriented x3, CN's II-XII intact bilaterally and no sensory deficits noted Sensorium / Orientation: awake and alert Motor Exam: strength 5/5 throughout Psych mental status grossly normal Skin no rashes or lesions noted and no wounds MDM MDM MDM Narrative Medical decision making narrative: 1 view chest x-ray is normal my interpretation, radiology in agreement. Her EKG is interpreted by myself and normal, her troponin is normal, her BNP returned slightly elevated but clinically not in acute CHF although she does have quite a bit of peripheral edema. Her D-dimer came back significantly elevated. I am concerned about the possibility of pulmonary emboli that may be related to COVID-19 that she was recently diagnosed with. I sent her for CT angiography of the chest, she does indeed have pulmonary emboli bilaterally. She is breathing well, she is not hypoxic on room air at 98% on several readings, she does not have evidence of right heart strain on the CT radiographically nor the EKG and her troponin is normal. Her PESI score is 83 see below. Given all of this, it would be reasonable to anticoagulate her and discharge her with close outpatient follow-up. Discussed all this with her. Also advised her to discontinue her aspirin now that she will be anticoagulated, and also discontinue the amoxicillin since she does not have pneumonia and I do not think she needs that. Pulmonary Embolism Severity Index (PESI) from [employer] on 11/13/2022 All calculations should be rechecked by clinician prior to use RESULT SUMMARY: 83 points Class II, Low Risk: 1.7-3.5% 30-day mortality in this group. INPUTS: Age ?> 82 years Sex ?> 0 = Female History of cancer ?> 0 = No History of heart failure ?> 0 = No History of chronic lung disease ?> 0 = No Heart rate >=10 ?> 0 = No Systolic BP ?> 0 = No Respiratory rate >=0 ?> 0 = No Temperature ?> 0 = No Altered mental status (disorientation, lethargy, stupor, or coma) ?> 0 = No O2 saturation ?> 0 = No Lab Data Attestation: I reviewed the patient's lab results. Labs: Laboratory Results - last 24 hr 11/13/22 08:23 WBC 11.3 H RBC 4.31 Hgb 12.2 Hct 38.8 MCV 90.0 MCH 28.3 MCHC 31.4 L RDW Std Deviation 51.0 H RDW Coeff of Archie 15.5 H Plt Count 276 MPV 9.3 Immature Gran % (Auto) 1.500 H Neut % (Auto) 82.7 H Lymph % (Auto) 6.1 L Catron % (Auto) 7.7 Eos % (Auto) 1.6 Baso % (Auto) 0.4 Absolute Neuts (auto) 9.4 H Absolute Lymphs (auto) 0.69 L Nucleated RBC % 0 D-Dimer Quant (PE/DVT) 4.55 H* Sodium 139 Potassium 4.9 Chloride 108 H Carbon Dioxide 26.0 Anion Gap 5 BUN 30 H Creatinine 0.87 Estim Creat Clear Calc 36.97 Est GFR (MDRD) Af Amer 80 Est GFR (MDRD) Non-Af 66 BUN/Creatinine Ratio 34.5 H Glucose 108 H Calcium 9.2 Troponin I High Sens 19 B-Natriuretic Peptide 240.7 H Radiography Diagnostic Testing: Clinical Impression(s) from Imaging Studies Chest X-Ray 11/13/22 08:05 IMPRESSION: No acute pulmonary process Electronically Signed: Robert Whaley MD at 8:24 EDT , Chest CTA 11/13/22 10:14 IMPRESSION: Low-density thrombus noted within both left and right main pulmonary arteries with extension of a low-density thrombus into branches leading to all 5 pulmonary lobes. Thrombus load more prominent in the left side than the right. There is no CT evidence of right heart strain. Chronic interstitial changes in both lung patel with chronic bronchitis and fibrotic scarring, no organized infiltrate or effusion No thoracic aortic aneurysm or dissection Degenerative bony changes Simple renal cysts, no specific follow-up needed. Electronically Signed: Robert Whaley MD at 11:33 EDT , Rhythm Strip Rhythm Strip: Sinus Rhythm Rate: 75 Ectopy: None EKG Initial EKG: Attestation: I personally reviewed and interpreted this EKG as follows: Interpretation: Sinus Rhythm and No Acute Injury Pattern Comments: Old anterior infarct. Prior EKG tracings: available for review Prior: Unchanged Management Discussion w/another healthcare provider: Radiologist Discharge Plan Triage Chief Complaint: Shortness of Breath ED Provider: Rogelio Vail Dx/Rx/DC Orders Clinical Impression: Bilateral pulmonary embolism Instructions: Embolism Pulmonary Dc Prescriptions: New Eliquis DVT-PE Treat 30D Start 5 mg (74 tabs) tablets,dose pack 5 mg PO BID Qty: 74 0RF Rx Instructions: use as directed Continued metoprolol succinate 100 mg tablet extended release 24 hr 100 mg PO QHS Prolia 60 mg/mL syringe 60 mg subcut [id number] nystatin 100,000 unit/gram ointment 1 applic topical BID Qty: 30 1RF benzonatate 200 mg capsule 200 mg PO TID PRN (Reason: cough) Qty: 20 0RF ytugmcuy-cdc-BL-lycopen-lutein 0.4 mg-300 mcg- 250 mcg tablet 1 tab PO DAILY Patient Comments: SUPPLEMENT amlodipine 5 MG tablet 5 mg PO QHS cholecalciferol (vitamin D3) 1,000 UNIT capsule 10,000 unit PO DAILY atorvastatin 40 MG tablet 40 mg PO QHS losartan 100 mg tablet 100 mg PO DAILY Qty: 30 0RF Discontinued aspirin 81 mg tablet,delayed release (DR/EC) 81 mg PO DAILY Primary Care Provider: Della Garay Referrals: Della Garay, [employer] [Primary Care Provider] - 1-2 Weeks Disposition Disposition: Home, Self Care
--- NOTE | 2022-11-13 08:05 | RAD_ITS ---
STUDY: X-RAY CHEST REASON FOR EXAM: Female, 82 years old. Fever and cough TECHNIQUE: Single AP portable view of the chest. COMPARISON: 06/14/2022 FINDINGS: EKG leads overlie the chest The lungs are clear and expanded. There is no demonstrated pleural abnormality. Normal size heart. Normal mediastinum and froylan. Normal visualized pulmonary arteries. Normal visualized aortic arch and descending thoracic aorta. There are diffuse degenerative changes of the visualized thoracic spine. There is degenerative osteoarthritis of the bilateral shoulders. There is no demonstrated abnormality of the visualized soft tissue structures of the upper abdomen. RAD/Chest 1 View (Portable) IMPRESSION: No acute pulmonary process Electronically Signed: Robert Whaley MD at 8:24 EDT ,
[2022-11-13 08:38] LABS: Absolute Lymphocyte Count 0.69 X10^3/uL (0.83-4.51); Absolute Neutrophil Count 9.4 X10^3/uL (2.0-7.7); Basophil# 0.05 X10^3/uL; Basophil% 0.4 % (0-1); Eosinophil# 0.18 X10^3/uL; Eosinophils% 1.6 % (0-5); Hematocrit 38.8 % (37-47); Hemoglobin 12.2 g/dL (12.0-15.0); Lymphocyte # 0.69 X10^3/ul (0.83-4.51); Lymphocyte % 6.1 % (19-41); Mean Corp Hgb Conc 31.4 g/dL (32-36); Mean Corpuscular Hgb 28.3 pg (27.0-32.0); Mean Platelet Vol. 9.3 fl (6.2-12.0); Monocyte# 0.87 X10^3/uL; Monocyte% 7.7 % (0-10); NRBC Flagged by Analyzer 0 % (0-5); Neutrophil # 9.36 X10^3/uL (2.7-7.7); Neutrophil % 82.7 % (47-70); Platelet Count 276 K/mm3 (150-450); RBC Distribution Width CV 15.5 % (11.6-14.6); Red Blood Count 4.31 M/mm3 (4.2-5.4); White Blood Count 11.3 K/mm3 (4.4-11.0)
[2022-11-13 08:55] LABS: Anion Gap 5 (5-15); BUN 30 mg/dL (7-18); BUN/Creat Ratio 34.5 RATIO (10-20); Calcium,Total 9.2 mg/dL (8.5-10.1); Chloride 108 mmol/L (98-107); Creatinine, Serum 0.87 mg/dL (0.55-1.02); EST Glomerular Filtration Rate 66 mL/min (>60); Est Glom Filt Rate - Afr Amer 80 mL/min (>60); Estimated Creatinine Clearance 36.97 ml/min; Glucose 108 mg/dL (74-106); Potassium 4.9 mmol/L (3.5-5.1); Sodium Level 139 mmol/L (136-145); Troponin-I HS 19 pg/mL (3.0-54.0)
[2022-11-13 09:01] LABS: BNP,B-Type NATRIURETIC PEPTIDE 240.7 pg/mL (0-100)
[2022-11-13 10:09] LABS: D-Dimer Quantitative (DVT/PE) 4.55 FEU/ug/m (0.27-0.49)
--- NOTE | 2022-11-13 10:14 | CT_ITS ---
We are attempting to reach an attending provider to discuss findings. An addendum with communication details will be sent when the communication is complete. STUDY: CTA CHEST REASON FOR EXAM: Female, 82 years old. History of increasing shortness of breath, atypical chest pain RADIATION DOSAGE (If Supplied By Facility): CTDIvol = ( 16.19 ) mGy, DLP = ( 626.99 ) mGycm TECHNIQUE: The examination was performed with the intravenous administration of IV 100mL Isovue-370. Post-processing of the angiographic images was performed, with multiplanar reformation and 3D reconstruction. Individualized dose optimization techniques were used for this CT. COMPARISON: 06/13/2020 FINDINGS: Low density thrombus noted within the main left and right pulmonary arteries as well as branches leading to all 5 pulmonary lobes. Thrombus load more prominent in the left than t he right. No CT evidence of right heart strain. Normal thoracic aorta and visualized great vessels. There is no demonstrated aortic dissection. Normal heart and pericardium. There are calcifications of the coronary arteries. Normal mediastinum. Normal hilar regions. There is peribronchial thickening. The lungs are well expanded. Chronic interstitial changes in both lung patel with lingular atelectasis. No organized infiltrate or effusion. Normal pleura. Normal chest wall structures. There are degenerative changes of thoracic spine. Limited cuts of the upper abdomen show simple renal cysts. CT/CTA Chest W/WO Contrast IMPRESSION: Low-density thrombus noted within both left and right main pulmonary arteries with extension of a low-density thrombus into branches leading to all 5 pulmonary lobes. Thrombus load more prominent in the left side than the right. There is no CT evidence of right heart strain. Chronic interstitial changes in both lung patel with chronic bronchitis and fibrotic scarring, no organized infiltrate or effusion No thoracic aortic aneurysm or dissection Degenerative bony changes Simple renal cysts, no specific follow-up needed. Electronically Signed: oRbert Whaley MD at 11:33 EDT ,
[2022-11-13] MEDS: Enoxaparin 150 MG/ML Syringe 130 MG SC (11:21)
[2022-11-13 11:53] VITALS: BP 127/69; PULSE 62; RESP 17; O2SAT 97
== END 2022-11-13 11:54 | disposition home or self-care (01) ==
PROVIDERS: Emergency Provider Emergency Medicine; PCP Nurse Practitioner Family; Visit Provider Emergency Medicine
DX: I26.99 Other pulmonary embolism without acute cor pulmonale (principal); I25.10 Atherosclerotic heart disease of native coronary artery without angina pectoris; I25.2 Old myocardial infarction; G47.33 Obstructive sleep apnea (adult) (pediatric); E66.9 Obesity, unspecified; Z86.16 Personal history of COVID-19; Z86.711 Personal history of pulmonary embolism; Z86.718 Personal history of other venous thrombosis and embolism
CPT/HCPCS: 71045; 71275; 80048; 83880; 84484; 85025; 85379; 93005; 99285; Q9967

== ENCOUNTER → 2022-11-29 | Outpatient (CLI) | payer MEDICARE, OTHER, SELFPAY ==
[2022-11-29 14:27] LABS: BNP,B-Type NATRIURETIC PEPTIDE 160.1 pg/mL (0-100)
== END | disposition home or self-care (01) ==
LOC: LABSPEC 13:26
PROVIDERS: PCP Nurse Practitioner Family; Referring Provider Nurse Practitioner Family; Visit Provider Nurse Practitioner Family
DX: I26.99 Other pulmonary embolism without acute cor pulmonale (principal)
CPT/HCPCS: 83880

== ENCOUNTER → 2022-11-30 | Outpatient (CLI) | payer MEDICARE, OTHER, SELFPAY ==
--- NOTE | 2022-11-30 10:46 | ECHOCS_ITS ---
Reason For Study: Dilated AO Root Procedure This was a 2D Doppler, Color Flow transthoracic echocardiogram. The study was technically difficult. Contrast injection was performed. Exam performed in department. Left Ventricle Normal LV size. Left ventricular systolic function is normal. The estimated ejection fraction is 65 %. Normal diastology for age. No regional wall motion abnormalities noted. Right Ventricle Normal RV size. Normal systolic function. Atria The left and right atria are normal. Mitral Valve There is Mild focal posterior mitral annular calcification. There is no mitral valve stenosis. Trivial mitral valve insufficiency. Tricuspid Valve Normal tricuspid valve. Trivial tricuspid valve insufficiency. Unable to estimate RV systolic pressure due to insufficient tricuspid regurgitant envelope. Aortic Valve Trisinus/trileaflet aortic valve. There is no aortic stenosis. Pulmonic Valve The pulmonic valve is not well visualized. Great Vessels Mildly calcified aortic root. Normal sized aortic root. Pericardium/Pleural No pericardial effusion. Medication 20 gauge I.V. with prn adaptor inserted into right arm. Diluted definity 2ml given slow IV push to enhance endocardial definition. MMode/2D Measurements & Calculations LVIDd: 5.0 cm IVSd: 0.76 cm Ao root diam: 3.8 cm LVIDs: 3.1 cm LVPWd: 0.79 cm RVDd: 3.3 cm FS: 37.9 % LAV(MOD-bp): 31.1 ml LVAd ap4: 25.0 cm2 SV(MOD-sp4): 49.8 ml LAV(MOD-bp) Indexed: 17.0 ml/m2 LVLd ap4: 6.6 cm LAV(MOD-sp2): 33.5 ml EDV(MOD-sp4): 75.4 ml LAV(MOD-sp4): 28.3 ml EDV(sp4-el): 80.0 ml LVAs ap4: 12.9 cm2 LVLs ap4: 5.4 cm ESV(MOD-sp4): 25.5 ml ESV(sp4-el): 26.4 ml EF(MOD-sp4): 66.1 % EF(sp4-el): 67.0 % SV(sp4-el): 53.6 ml LA A4 area: 12.6 cm2 RA A4 area: 10.0 cm2 TAPSE: 1.2 cm Time Measurements MV dec time: 0.39 sec Doppler Measurements & Calculations MV E max cruz: 46.7 cm/sec Lat Peak E' Cruz: 4.3 cm/sec Med Peak E' Cruz: 4.7 cm/sec MV A max cruz: 112.8 cm/sec E/E' lat: 10.9 E/E' med: 10.0 MV E/A: 0.41 MV V2 max: 117.3 cm/sec MV P1/2t max cruz: 65.3 cm/sec Ao V2 max: 126.9 cm/sec MV max P.5 mmHg MV P1/2t: 108.8 msec Ao max P.4 mmHg MV V2 mean: 49.5 cm/sec Ao V2 mean: 87.6 cm/sec MV mean P.2 mmHg MV dec slope: 175.9 cm/sec2 Ao mean P.5 mmHg MV V2 VTI: 26.6 cm MVA(P1/2t): 2.0 cm2 Ao V2 VTI: 26.8 cm AV (velocity ratio): 0.87 LV V1 max: 96.9 cm/sec PA V2 max: 95.3 cm/sec LV V1 max P.8 mmHg PA V2 mean: 60.4 cm/sec LV V1 mean P.9 mmHg LV V1 mean: 64.2 cm/sec LV V1 VTI: 23.3 cm ECHO/Echo Complete W/ Contrast Interpretation Summary The estimated ejection fraction is 65 %. There is Mild focal posterior mitral annular calcification. Mildly dilated ascending aorta. The study was technically difficult. Contrast injection was performed. Ordering Physician: Sarah Chris Referring Physician: Sarah Chris Performed By: Armani Dickey RCS
== END | disposition home or self-care (01) ==
LOC: CVS 10:45
PROVIDERS: PCP Nurse Practitioner Family; Referring Provider Nurse Practitioner Gerontology; Visit Provider Nurse Practitioner Gerontology
DX: G47.33 Obstructive sleep apnea (adult) (pediatric) (principal)
CPT/HCPCS: 93306; Q9957; A4216; C8929

== ENCOUNTER → 2022-12-24 | Outpatient (CLI) | payer MEDICARE, OTHER, SELFPAY ==
[2022-12-24 14:12] LABS: Potassium 4.4 mmol/L (3.5-5.1)
[2022-12-24 14:16] LABS: International Normalized Ratio 1.8; Prothrombin Time (Protime)PT. 20.6 SECONDS (11.7-14.9)
== END | disposition home or self-care (01) ==
LOC: LABSPEC 13:57
PROVIDERS: PCP Nurse Practitioner Family; Referring Provider Internal Medicine; Visit Provider Internal Medicine
DX: R60.0 Localized edema (principal); Z86.711 Personal history of pulmonary embolism
CPT/HCPCS: 84132; 85610

== ENCOUNTER → 2022-12-27 | Outpatient (CLI) | payer MEDICARE, OTHER, SELFPAY ==
[2022-12-27 11:16] LABS: Anion Gap 9 (5-15); BUN 39 mg/dL (7-18); BUN/Creat Ratio 41.4 RATIO (10-20); Calcium,Total 9.5 mg/dL (8.5-10.1); Chloride 105 mmol/L (98-107); Creatinine, Serum 0.94 mg/dL (0.55-1.02); EST Glomerular Filtration Rate 60 mL/min (>60); Est Glom Filt Rate - Afr Amer 73 mL/min (>60); Glucose 112 mg/dL (74-106); Sodium Level 139 mmol/L (136-145)
== END | disposition home or self-care (01) ==
PROVIDERS: PCP Nurse Practitioner Family; Referring Provider Nurse Practitioner Family; Visit Provider Nurse Practitioner Family
DX: R60.0 Localized edema (principal)
CPT/HCPCS: 36415; 80048

== ENCOUNTER → 2023-01-07 | Outpatient (CLI) | payer MEDICARE, OTHER, SELFPAY ==
[2023-01-07 10:33] LABS: International Normalized Ratio 3.1; Prothrombin Time (Protime)PT. 32.7 SECONDS (11.7-14.9)
== END | disposition home or self-care (01) ==
LOC: LAB 10:15
PROVIDERS: PCP Nurse Practitioner Family; Referring Provider Nurse Practitioner Family; Visit Provider Nurse Practitioner Family
DX: Z86.711 Personal history of pulmonary embolism (principal)
CPT/HCPCS: 85610

== ENCOUNTER → 2023-01-24 | Outpatient (CLI) | payer MEDICARE, OTHER, SELFPAY ==
[2023-01-24 12:33] LABS: International Normalized Ratio 2.2; Prothrombin Time (Protime)PT. 24.5 SECONDS (11.7-14.9)
[2023-01-24 12:43] LABS: Anion Gap 7 (5-15); BUN 37 mg/dL (7-18); BUN/Creat Ratio 38.1 RATIO (10-20); Calcium,Total 9.1 mg/dL (8.5-10.1); Chloride 103 mmol/L (98-107); Creatinine, Serum 0.97 mg/dL (0.55-1.02); EST Glomerular Filtration Rate 58 mL/min (>60); Est Glom Filt Rate - Afr Amer 70 mL/min (>60); Glucose 112 mg/dL (74-106); Potassium 4.5 mmol/L (3.5-5.1); Sodium Level 139 mmol/L (136-145)
== END | disposition home or self-care (01) ==
LOC: LABSPEC 12:12
PROVIDERS: PCP Nurse Practitioner Family; Referring Provider Nurse Practitioner Family; Visit Provider Nurse Practitioner Family
DX: I26.99 Other pulmonary embolism without acute cor pulmonale (principal); E87.70 Fluid overload, unspecified
CPT/HCPCS: 80048; 85610

== ENCOUNTER 2023-02-05 11:17 | Outpatient (RCR) | payer MEDICARE, OTHER, SELFPAY ==
[2023-02-05 12:25] LABS: International Normalized Ratio 1.5; Prothrombin Time (Protime)PT. 17.8 SECONDS (11.7-14.9)
== END 2023-02-05 23:00 | disposition home or self-care (01) ==
LOC: LAB 11:17
PROVIDERS: PCP Nurse Practitioner Family; Referring Provider Nurse Practitioner Family; Visit Provider Nurse Practitioner Family
DX: Z79.01 Long term (current) use of anticoagulants (principal)
CPT/HCPCS: 36415; 85610

== ENCOUNTER 2023-02-11 10:23 | Outpatient (CLI) | payer MEDICARE, OTHER, SELFPAY ==
[2023-02-11] MEDS: DENOSUMAB 60 MG/ML SC (10:53)
[2023-02-11 11:02] VITALS: BP 105/69; PULSE 76; RESP 16; TEMP 36.2; O2SAT 97
== END 2023-02-11 10:24 | disposition home or self-care (01) ==
LOC: MEDOUTP 10:23
PROVIDERS: PCP Nurse Practitioner Family; Referring Provider Nurse Practitioner; Visit Provider Nurse Practitioner
DX: M81.0 Age-related osteoporosis without current pathological fracture (principal)
CPT/HCPCS: 96372; J0897

== ENCOUNTER → 2023-03-15 | Outpatient (CLI) | payer MEDICARE, OTHER, SELFPAY ==
[2023-03-15 18:05] LABS: Anion Gap 10 (5-15); BUN 33 mg/dL (7-18); BUN/Creat Ratio 36.5 RATIO (10-20); Calcium,Total 9.1 mg/dL (8.5-10.1); Chloride 104 mmol/L (98-107); EST Glomerular Filtration Rate 63 mL/min (>60); Est Glom Filt Rate - Afr Amer 77 mL/min (>60); Glucose 94 mg/dL (74-106); Potassium 4.1 mmol/L (3.5-5.1); Sodium Level 141 mmol/L (136-145)
== END | disposition home or self-care (01) ==
LOC: MTLAB 15:04
PROVIDERS: PCP Nurse Practitioner Family; Referring Provider Nurse Practitioner Family; Visit Provider Nurse Practitioner Family
DX: I10 Essential (primary) hypertension (principal)
CPT/HCPCS: 36415; 80048

== ENCOUNTER 2023-04-04 10:19 | Inpatient (IN) | payer MEDICARE, OTHER, SELFPAY ==
[2023-04-04 10:21] VITALS: BP 136/78; PULSE 94; RESP 14; TEMP 36.2; O2SAT 96; BMI 34.9
--- NOTE | 2023-04-04 10:39 | ED.VIS.LOWEX ---
HPI History of Present Illness HPI Narrative: Patient presents with pain to both knees that began after a fall today. Patient states she fell while using her walker. Patient denies any loss of consciousness. Patient denies any head injuries. Patient describes her pain as aching. Patient states nothing makes her pain worse and nothing makes it better. Patient denies any paresthesias or weakness. Patient denies any other injuries. Chief Complaint: Lower Extremity Injury Informant: patient Occured/Mechanism Mechanism/Context: Yes fall and Yes same level fall Onset/Context/Timing Onset: Today Context: Sudden Onset Timing: Continuous Quality of Pain: Aching Location: Bilateral knees Worsened by: Nothing Relieved by: Nothing Associated Symptoms Associated Symptoms: Negative for Parasthesia, Weakness or Loss of Funtion PFSH [facility] Medical History Acute ST elevation myocardial infarction (STEMI) Arthritis Atherosclerosis of coronary artery of [place] heart without angina pectoris Benign essential HTN Chondromalacia patellae of left knee Contact with and (suspected) exposure to other viral communicable diseases COVID-19 Effusion of left knee joint Essential hypertension History of coronary artery stent placement (12/11/19) History of pulmonary embolism History of recurrent deep vein thrombosis (DVT) History of ST elevation myocardial infarction (STEMI) (12/11/19) HLD (hyperlipidemia) Hypercholesterolemia Kidney tumor laser vein surgery Mass of left thigh Obesity 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 BALTAZAR (obstructive sleep apnea) BALTAZAR on CPAP Osteoarthritis Osteoporosis Osteoporosis Pulmonary embolism Pulmonary HTN Syncope URI (upper respiratory infection) Home Medications cholecalciferol (vitamin D3) 25 mcg (1,000 unit) capsule 10,000 unit PO DAILY SUPPLEMENT 08/04/16 [History Last Taken 04/03/23] metoprolol succinate 100 mg tablet,extended release 24 hr 100 mg PO QHS HEART 12/24/19 [History Last Taken 04/03/23] atorvastatin 40 mg tablet 40 mg PO QHS CHOLESTEROL 01/22/20 [History Last Taken 04/03/23] losartan 100 mg tablet 100 mg PO DAILY HEART #30 tabs 02/01/20 [Rx Last Taken 04/04/23] denosumab 60 mg/mL subcutaneous syringe (Prolia) 60 mg subcut [id number] 04/30/21 [History Last Taken Unknown] ptsgwmnr-gph-yelhs acid 0.4 mg-lycopene 300 mcg-lutein 250 mcg tablet 1 tab PO DAILY SUPPLEMENT 04/22/22 [History Last Taken 04/04/23] furosemide 20 mg tablet 20 mg PO DAILY 04/04/23 [History Last Taken 04/04/23] warfarin 4 mg tablet 4 mg PO QHS 04/04/23 [History Last Taken 04/03/23] Allergy/AdvReac Type Severity Reaction Status Date / Time rivaroxaban [From Xarelto] Allergy Intermediate nose bleeds Verified 04/04/23 10:20 adhesive tape [tape] Allergy Unknown Itching Verified 04/04/23 10:20 kiwi Allergy Unknown Anaphylaxis Verified 04/04/23 10:20 trimethoprim [From Bactrim] Allergy Unknown Rash Verified 04/04/23 10:20 tree and shrub pollen Allergy Unknown Verified 04/04/23 10:20 ciprofloxacin HCl AdvReac Severe Itching Verified 04/04/23 10:20 [From Cipro] clarithromycin [From Biaxin] AdvReac Severe Rash Verified 04/04/23 10:20 codeine AdvReac Severe Unknown Verified 04/04/23 10:20 prednisone AdvReac Severe Unknown Verified 04/04/23 10:20 Sulfa (Sulfonamide AdvReac Severe Unknown Verified 04/04/23 10:20 Antibiotics) adhesive AdvReac Intermediate Rash Verified 04/04/23 10:20 animal dander AdvReac Unknown Unknown Verified 04/04/23 10:20 levofloxacin [From Levaquin] AdvReac Unknown Itching Verified 04/04/23 10:20 nickel AdvReac Unknown NOT SURE Verified 04/04/23 10:20 sulfamethoxazole AdvReac Unknown Rash Verified 04/04/23 10:20 [From Bactrim] Family History Father Bone cancer Arthritis Mother Leukemia Heart disease Surgical History A&P repair H/O repair of rotator cuff History of right hip replacement Hx of tonsillectomy Presence of coronary angioplasty implant and graft (~12/11/19) Social History Smoking Status: Never smoker alcohol intake: never substance use type: does not use caffeine: No ROS ROS ED Constitutional Constitutional ED: Denies chills or fever(s) Eyes Eyes: Denies blurry vision or change in vision ENT ENT ED: Denies rhinorrhea or sore throat Cardiovascular Cardiovascular: Denies chest pain or palpitations Respiratory/Chest Respiratory/Chest: Denies cough or dyspnea Gastrointestinal Gastrointestinal: Denies nausea or vomiting Genitourinary Genitourinary ED: Denies dysuria or hematuria Musculoskeletal Musculoskeletal: Denies back pain or neck pain Integumentary Denies abscess or rash Neurologic Neurologic: Denies headache(s) or weakness Allergic/Immunologic Allergic/Immunologic ED: Denies mouth swelling or urticaria EXAM Physical Exam Const Vital Signs: 04/04/23 10:21 04/04/23 13:58 Temperature 97.2 F L Temperature Source Temporal Pulse Rate 94 89 Respiratory Rate 14 20 H Blood Pressure 136/78 H 146/69 H Blood Pressure Mean 97 94 Pulse Ox 96 98 Oxygen Delivery Method Room Air Room Air Positive well nourished and well developed General Appearance ED: well developed and NAD HEENT Reports moist mucous membranes normocephalic and atraumatic Neck full ROM and supple Chest Wall palpation of chest normal GI non-tender and non-distended Palpation: soft Extremity Extremity Narrative: There is tenderness over the anterior knees bilaterally. There is edema and ecchymosis noted. There is no bony crepitance or step-off. Extensor mechanism is intact. Range of motion was limited in all motions of the knees bilaterally secondary to pain. Strength is 5/5 bilaterally in lower extremities. Sensation was intact to light touch bilaterally in the lower extremities. Pedal pulses are equal bilaterally. Neuro oriented x3, CN's II-XII intact bilaterally, moves all extremities and no sensory deficits noted Sensorium / Orientation: alert Motor Exam: strength 5/5 throughout Psych mental status grossly normal MDM MDM MDM Narrative Medical decision making narrative: Differential diagnosis includes fracture, contusion, and sprain. X-rays of the bilateral knees will be obtained to assess for fracture. Radiography Diagnostic Testing: Clinical Impression(s) from Imaging Studies Knee X-Ray 04/04/23 11:08 IMPRESSION: Tricompartment degenerative arthrosis. No demonstrated fracture. Electronically Signed: Margarito Dash MD at 11:45 EST , Knee X-Ray 04/04/23 11:13 IMPRESSION: Tricompartment degenerative arthrosis. No demonstrated fracture. Electronically Signed: Margarito Dash MD at 11:46 EST , X-rays of the left knee were obtained. There are 4 views. On my independent interpretation, there is no acute fracture. There are some degenerative changes noted. Radiologist also interpreted the x-rays and agrees. X-rays of the right knee were obtained. There are 4 views. On my independent interpretation, there is no acute fracture. There are some degenerative changes noted. Radiologist also interpreted the x-rays and agrees. Treatment and Re-Evaluation Narrative: Patient was given a dose of Tylenol here initially. Patient was advised of her findings. Patient was attempted ambulation with a walker. Patient was able to ambulate but was stated it was very painful. Patient is concerned that she would not be able to get into her home if she was discharged. Patient states she does not feel safe at home. Because of this, I will contact the hospitalist for possible admission. Case was discussed with the hospitalist. He is agreeable to admit the patient for physical therapy. Patient and spouse understood and were agreeable with the plan. All questions were answered. Discharge Plan Triage Chief Complaint: Lower Extremity Injury ED Provider: Francisco Burgess Dx/Rx/DC Orders Clinical Impression: Debility, Fall, Contusion of knee and lower leg Prescriptions: No Action metoprolol succinate 100 mg tablet extended release 24 hr 100 mg PO QHS Prolia 60 mg/mL syringe 60 mg subcut [id number] fcryjcij-afb-GP-lycopen-lutein 0.4 mg-300 mcg- 250 mcg tablet 1 tab PO DAILY Patient Comments: SUPPLEMENT cholecalciferol (vitamin D3) 1,000 UNIT capsule 10,000 unit PO DAILY atorvastatin 40 MG tablet 40 mg PO QHS losartan 100 mg tablet 100 mg PO DAILY Qty: 30 0RF warfarin 4 mg tablet 4 mg PO QHS Patient Comments: PT STATES SHE ALTERNATES 2, 3, AND 4MG BUT IS UNSURE OF WHICH STRENGTH SHE TAKES WHICH DAY furosemide 20 mg tablet 20 mg PO DAILY Primary Care Provider: Della Garay Referrals: Della Garay, LICENSED NUCLEAR OPERATOR-C [Primary Care Provider] - Disposition Disposition: Acute Care Hospital [facility]
--- NOTE | 2023-04-04 11:08 | RAD_ITS ---
STUDY: X-RAY - RIGHT KNEE REASON FOR EXAM: Female, 82 years old. Trauma. TECHNIQUE: 4 views of the right knee. COMPARISON: None. FINDINGS: Normal visualized distal femur. Normal visualized proximal tibia and fibula. Normal proximal tibiofibular articulation. There is no demonstrated fracture. There is moderate degenerative arthrosis of the medial femorotibial compartment with moderate joint space narrowing. There is moderate degenerative arthrosis of the lateral femorotibial compartment with moderate joint space narrowing. There is mild degenerative arthrosis of the patellofemoral articulation. There are atherosclerotic calcifications. RAD/Knee 4 or More Views IMPRESSION: Tricompartment degenerative arthrosis. No demonstrated fracture. Electronically Signed: Margarito Dash MD at 11:45 EST ,
--- NOTE | 2023-04-04 11:13 | RAD_ITS ---
STUDY: X-RAY - LEFT KNEE REASON FOR EXAM: Female, 82 years old. Trauma. TECHNIQUE: 4 views of the left knee. COMPARISON: None. FINDINGS: Normal visualized distal femur. Normal visualized proximal tibia and fibula. Normal proximal tibiofibular articulation. There is no demonstrated fracture. There is mild degenerative arthrosis of the medial femorotibial compartment. There is moderate degenerative arthrosis of the lateral femorotibial compartment with moderate joint space narrowing. There is mild degenerative arthrosis of the patellofemoral articulation. There is chondrocalcinosis of the medial meniscus. There are atherosclerotic calcifications. RAD/Knee 4 or More Views IMPRESSION: Tricompartment degenerative arthrosis. No demonstrated fracture. Electronically Signed: Margarito Dash MD at 11:46 EST ,
[2023-04-04] MEDS: Acetaminophen 500 MG Tablet 1000 MG PO (11:28)
[2023-04-04 13:58] VITALS: BP 146/69; PULSE 89; RESP 20; O2SAT 98
--- NOTE | 2023-04-04 15:19 | PCM.HP.STD ---
HPI - General General Date of Admission: 04/04/23 Date of Service: 04/04/23 Chief Complaint: Mechanical fall, debility HPI Narrative JODI SANCHES, is a 82 F who presented to [facility] ED on 04/04/2023 after a mechanical fall at home. Patient seen at bedside in the ED. Laying comfortably in bed, conversing normally, no acute distress. Patient [place] with her . Uses a 4-point walker at all times for ambulation. Has multiple levels in her home but very rarely uses the stairs. Patient states she was attempting to turn while using her walker and fell. Did not hit her head with this fall. Fell onto her knees and has had bilateral knee pain since then. Otherwise denies any other injuries with this fall. Patient states she has had minor falls at home in the last several months, none that required an ED visit. Patient did have her hip replaced about 2 years ago and has used a walker since that time. She denies having any lightheadedness or dizziness prior to fall. Denies any previous episodes of syncope. Has been taking all home medications as prescribed without issue. She denies any recent fevers or chills, chest pain, shortness of breath, abdominal pain. No other acute concerns at this time. [facility] Medical History Acute ST elevation myocardial infarction (STEMI) Arthritis Atherosclerosis of coronary artery of [place] heart without angina pectoris Benign essential HTN Chondromalacia patellae of left knee Contact with and (suspected) exposure to other viral communicable diseases COVID-19 Effusion of left knee joint Essential hypertension History of coronary artery stent placement (12/11/19) History of pulmonary embolism History of recurrent deep vein thrombosis (DVT) History of ST elevation myocardial infarction (STEMI) (12/11/19) HLD (hyperlipidemia) Hypercholesterolemia Kidney tumor laser vein surgery Mass of left thigh Obesity 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 BALTAZAR (obstructive sleep apnea) BALTAZAR on CPAP Osteoarthritis Osteoporosis Osteoporosis Pulmonary embolism Pulmonary HTN Syncope URI (upper respiratory infection) Home Medications cholecalciferol (vitamin D3) 25 mcg (1,000 unit) capsule 10,000 unit PO DAILY SUPPLEMENT 08/04/16 [History Last Taken 04/03/23] metoprolol succinate 100 mg tablet,extended release 24 hr 100 mg PO QHS HEART 12/24/19 [History Last Taken 04/03/23] atorvastatin 40 mg tablet 40 mg PO QHS CHOLESTEROL 01/22/20 [History Last Taken 04/03/23] losartan 100 mg tablet 100 mg PO DAILY HEART #30 tabs 02/01/20 [Rx Last Taken 04/04/23] denosumab 60 mg/mL subcutaneous syringe (Prolia) 60 mg subcut [id number] 04/30/21 [History Last Taken Unknown] mqpyxqyx-yds-gynop acid 0.4 mg-lycopene 300 mcg-lutein 250 mcg tablet 1 tab PO DAILY SUPPLEMENT 04/22/22 [History Last Taken 04/04/23] furosemide 20 mg tablet 20 mg PO DAILY 04/04/23 [History Last Taken 04/04/23] warfarin 4 mg tablet 4 mg PO QHS 04/04/23 [History Last Taken 04/03/23] Allergy/AdvReac Type Severity Reaction Status Date / Time rivaroxaban [From Xarelto] Allergy Intermediate nose bleeds Verified 04/04/23 10:20 adhesive tape [tape] Allergy Unknown Itching Verified 04/04/23 10:20 kiwi Allergy Unknown Anaphylaxis Verified 04/04/23 10:20 trimethoprim [From Bactrim] Allergy Unknown Rash Verified 04/04/23 10:20 tree and shrub pollen Allergy Unknown Verified 04/04/23 10:20 ciprofloxacin HCl AdvReac Severe Itching Verified 04/04/23 10:20 [From Cipro] clarithromycin [From Biaxin] AdvReac Severe Rash Verified 04/04/23 10:20 codeine AdvReac Severe Unknown Verified 04/04/23 10:20 prednisone AdvReac Severe Unknown Verified 04/04/23 10:20 Sulfa (Sulfonamide AdvReac Severe Unknown Verified 04/04/23 10:20 Antibiotics) adhesive AdvReac Intermediate Rash Verified 04/04/23 10:20 animal dander AdvReac Unknown Unknown Verified 04/04/23 10:20 levofloxacin [From Levaquin] AdvReac Unknown Itching Verified 04/04/23 10:20 nickel AdvReac Unknown NOT SURE Verified 04/04/23 10:20 sulfamethoxazole AdvReac Unknown Rash Verified 04/04/23 10:20 [From Bactrim] Family History (Reviewed 04/22/22 @ 13:30 by Sarah Chris PLASTIC PANEL INSTALLER, PLASTIC PANEL INSTALLER-C) Father Bone cancer Arthritis Mother Leukemia Heart disease Surgical History A&P repair H/O repair of rotator cuff History of right hip replacement Hx of tonsillectomy Presence of coronary angioplasty implant and graft (~12/11/19) Social History Smoking Status: Never smoker alcohol intake: never substance use type: does not use caffeine: No ROS Constitutional Constitutional: Denies change in weight, chills, fatigue, fever(s) or weakness Eyes Eyes: Denies change in vision Cardiovascular Cardiovascular: Denies chest pain, dyspnea on exertion, lightheadedness, orthopnea, palpitations, rapid heart rate or syncope Respiratory/Chest Respiratory/Chest: Denies cough, shortness of breath at rest or wheezing Gastrointestinal Gastrointestinal: Denies abdominal pain, constipation, diarrhea, nausea or vomiting Genitourinary Genitourinary: Denies dysuria Musculoskeletal Musculoskeletal: Reports joint pain; Denies arthralgias, back pain or joint swelling Neurologic Neurologic: Denies confusion, dizziness, focal weakness, headache(s), numbness or paresthesias Vital Signs Vital Signs Vital Signs: 04/04/23 10:21 04/04/23 13:58 Temperature 97.2 F L Temperature Source Temporal Pulse Rate 94 89 Respiratory Rate 14 20 H Blood Pressure 136/78 H 146/69 H Blood Pressure Mean 97 94 Pulse Ox 96 98 Oxygen Delivery Method Room Air Room Air Weight Weight: 84 kg Body Mass Index (BMI) 34.9 Physical Exam Const alert, oriented x3 and no apparent distress Constitutional Narrative: Pleasant elderly female, obese, laying comfortably in bed, conversing normally, no acute distress. General Appearance: cooperative and comfortable HEENT normocephalic, head/scalp atraumatic, hearing grossly normal bilaterally, nasal mucous membranes and turbinates normal and moist oral mucous membranes Eyes PERRL, EOMs intact bilaterally and conjunctivae normal Neck full ROM, no lymphadenopathy and supple Lymph Lymphatic: no lymphadenopathy noted Chest inspection of chest normal Resp normal respiratory effort, normal air movement, no use of accessory muscles and clear to auscultation bilaterally Cardio regular rate, regular rhythm, no murmurs and peripheral pulses 2+ throughout GI normal to inspection, nondistended, normoactive bowel sounds, soft to palpation, non-tender and non-distended Back/Spine normal ROM Extremity Extremity Narrative: Mild tenderness to palpation in bilateral knees around the joint. Knees appear grossly normal on exam. Skin Skin Narrative: Patient has several small bruises in various stages of healing on her arms and legs throughout, in the setting of being on Coumadin. Neuro oriented x3, moves all extremities and no focal motor deficits Speech: speech normal Psych mental status grossly normal Results Lab / Micro Data 04/04/23 16:19 04/04/23 16:19 Imagaing Radiology Impression Knee X-Ray 04/04/23 11:08 IMPRESSION: Tricompartment degenerative arthrosis. No demonstrated fracture. Electronically Signed: Margarito Dash MD at 11:45 EST , Knee X-Ray 04/04/23 11:13 IMPRESSION: Tricompartment degenerative arthrosis. No demonstrated fracture. Electronically Signed: Margarito Dash MD at 11:46 EST , Assessment & Plan Assessment/Plan (1) Fall: (2) Debility: PLAN: Plan Patient is an 82-year-old female who presented to [facility] ED on 04/04/2023 after a mechanical fall at home. 1. Mechanical fall, debility Fall consistent with mechanical fall based on history obtained from patient. Uses 4-point walker at home and usually does not traverse her stairs in the home. Lives with her . Did not feel comfortable going home. ? Admit under inpatient status to [facility]. PT/OT/case management consulted. Fall precautions in place. Tylenol as needed for pain. Patient has never been to an acute rehab facility but is open to this possibility. Did have home health care after her hip replacement a few years ago and was happy with their services. 2. Mild leukocytosis WBC count 13 on admit. Suspect acute stress reaction due to fall. Low concern for active infection, no overt sources of infection noted. ? Follow-up a.m. CBC. 3. History of DVT/PE on warfarin Previous history of DVT several years ago. Was on Xarelto but this was discontinued due to frequent nosebleeds. Was not on anticoagulation for a few years it appears. Then had DVT with bilateral PE diagnosed in 12/2022 after a COVID infection. Has been on warfarin since that time. ? Continue home warfarin. Daily INR. Chronic medical conditions: ? History of STEMI s/p stent placement in 2019, hypertension, hyperlipidemia: Stable. Continue home Toprol, losartan, Lasix, atorvastatin. ? Osteoporosis: Continue vitamin D3 and denosumab after discharge. ? Obesity: BMI 32, encouraged lifestyle modifications. ? BALTAZAR: Continue home CPAP. DVT prophylaxis: Warfarin CODE STATUS: Full code, verified Expected disposition: SNF versus home with home health care, TBD Total clinical time spent by myself addressing the patient's medical issues, reviewing all the data, and collaborating with patient's care team: 55 minutes. Charges/Coding Visit Charges Inpatient E&M: 23853 Init Hosp L2
[2023-04-04 16:11] VITALS: BP 123/80; PULSE 80; RESP 18; TEMP 36.1; O2SAT 98
[2023-04-04 16:30] LABS: Absolute Lymphocyte Count 1.01 X10^3/uL (0.83-4.51); Absolute Neutrophil Count 11.3 X10^3/uL (2.0-7.7); Basophil# 0.07 X10^3/uL; Basophil% 0.5 % (0-1); Eosinophil# 0.17 X10^3/uL; Eosinophils% 1.2 % (0-5); Hematocrit 43.1 % (37-47); Hemoglobin 13.3 g/dL (12.0-15.0); Lymphocyte # 1.01 X10^3/ul (0.83-4.51); Lymphocyte % 7.4 % (19-41); Mean Corp Hgb Conc 30.9 g/dL (32-36); Mean Corpuscular Hgb 28.3 pg (27.0-32.0); Mean Corpuscular Volume 91.7 fL (81-99); Mean Platelet Vol. 9.6 fl (6.2-12.0); Monocyte# 1.05 X10^3/uL; Monocyte% 7.6 % (0-10); NRBC Flagged by Analyzer 0 % (0-5); Neutrophil # 11.28 X10^3/uL (2.7-7.7); Neutrophil % 82.1 % (47-70); Platelet Count 317 K/mm3 (150-450); RBC Distribution Width CV 15.5 % (11.6-14.6); RBC Distribution Width SD 52.2 fl (35.1-43.9); White Blood Count 13.7 K/mm3 (4.4-11.0)
[2023-04-04 16:34] LABS: Prothrombin Time (Protime)PT. 23.2 SECONDS (11.7-14.9)
[2023-04-04 16:43] LABS: ALB/GLOB Ratio 0.8 RATIO (0.9-2.4); AST(SGOT) 15 U/L (15-37); Alanine Aminotransfer ALT/SGPT 21 U/L (13-56); Alkaline Phosphatase 77 U/L (45-117); Anion Gap 6 (5-15); BUN 36 mg/dL (7-18); BUN/Creat Ratio 42.3 RATIO (10-20); Calcium,Total 8.8 mg/dL (8.5-10.1); Chloride 107 mmol/L (98-107); Creatinine, Serum 0.85 mg/dL (0.55-1.02); EST Glomerular Filtration Rate 68 mL/min (>60); Est Glom Filt Rate - Afr Amer 82 mL/min (>60); Estimated Creatinine Clearance 37.84 ml/min; Glucose 107 mg/dL (74-106); Potassium 3.9 mmol/L (3.5-5.1); Sodium Level 141 mmol/L (136-145)
[2023-04-04 17:00] VITALS: BP 173/102; PULSE 63; PULSE 69; RESP 18; TEMP 36.7; O2SAT 94; BMI 32.0
[2023-04-04 20:51] VITALS: BP 124/74; PULSE 82; RESP 16; TEMP 36.5; O2SAT 95
[2023-04-04 21:08] VITALS: PULSE 82
[2023-04-04] MEDS: Atorvastatin Calcium 40 MG Tablet PO (21:08)
[2023-04-04] MEDS: Metoprolol(XL)Succ 100 MG Tablet PO (21:08)
[2023-04-04] MEDS: Acetaminophen 325 MG Tablet 650 MG PO (22:19)
[2023-04-04] MEDS: MELATONIN 3 MG TABLET PO (23:37)
[2023-04-05] VITALS (7 sets, daily range): BP systolic 119–136; BP diastolic 66–84; PULSE 77–89; RESP 16–18; TEMP 36.4–36.6; O2SAT 94–98
[2023-04-05 07:45] LABS: Hematocrit 39.4 % (37-47); Hemoglobin 12.3 g/dL (12.0-15.0); Mean Corp Hgb Conc 31.2 g/dL (32-36); Mean Corpuscular Hgb 29.2 pg (27.0-32.0); Mean Corpuscular Volume 93.6 fL (81-99); Mean Platelet Vol. 9.7 fl (6.2-12.0); Platelet Count 255 K/mm3 (150-450); RBC Distribution Width CV 15.7 % (11.6-14.6); RBC Distribution Width SD 54.4 fl (35.1-43.9); Red Blood Count 4.21 M/mm3 (4.2-5.4); White Blood Count 10.4 K/mm3 (4.4-11.0)
[2023-04-05 08:13] LABS: Anion Gap 5 (5-15); BUN 34 mg/dL (7-18); BUN/Creat Ratio 45.9 RATIO (10-20); Calcium,Total 8.5 mg/dL (8.5-10.1); Chloride 110 mmol/L (98-107); Creatinine, Serum 0.74 mg/dL (0.55-1.02); EST Glomerular Filtration Rate 80 mL/min (>60); Est Glom Filt Rate - Afr Amer 96 mL/min (>60); Estimated Creatinine Clearance 33.71 ml/min; Glucose 116 mg/dL (74-106); Potassium 3.9 mmol/L (3.5-5.1); Sodium Level 138 mmol/L (136-145)
[2023-04-05 09:09] LABS: International Normalized Ratio 2.1; Prothrombin Time (Protime)PT. 23.4 SECONDS (11.7-14.9)
[2023-04-05] MEDS: Furosemide 20 MG Tablet PO (09:10)
[2023-04-05] MEDS: Nystatin Powder 15gm Bottle 1 APPLIC TOPICAL ×2 (09:10→21:44)
[2023-04-05] MEDS: Losartan Potassium 100 MG Tablet PO (09:10)
--- NOTE | 2023-04-05 09:11 | CASEMGMT ---
Discharge Planning A list of SNF providers including quality and resource use data and consistent with the patient's preferred geographic region, medical needs, and insurance network was created in [employer] Guide.? This list was provided to the SW. Wendy Molina Discharge Planning Asst.
[2023-04-05] MEDS: Acetaminophen 325 MG Tablet 650 MG PO ×2 (09:30→19:59)
--- NOTE | 2023-04-05 10:10 | CASEMGMT ---
GRETA GRULLON BEE TENDER MITCHEL to room to meet with patient for initial transition planning/care coordination assessment. GRETA GRULLON introduced self and role at [facility]. Pt voices understanding and consents to assessment at this time. Pt sitting up in chair in room in no distress at this time. Pt is A/O at this time and answers all questions appropriately. Care providers, pharmacy, and demographics verified/updated at this time. PCP: Della Garay FIELD ADMINISTRATIVE ASSISTANT Specialists: Dr Spangler--pulmonology, [facility]/Dr Schmid-cardiology Preferred Pharmacy: [facility] Insurance: [facility], MMO Prescription Benefit: yes Living Will/HPOA: Has both LW and Healthcare POA, who is her , Jamie LNOK: , Jamie. 4 adult children. Living Arrangements: Lives w/her in one-story home w/basement. assists pt w/bathing and dressing and does most home mgmt tasks. Pt manages her own medications/doctor appts. Transportation: does most of the driving DME: States has the following DME: shower chair, rails/grab bars, hand held shower, walker, CPAP, INR machine. Pt states no need for further DME at this time. HHC/SNF: [facility] in the past. Pt initially stated wanted to get therapy @ [facility] prior to discharging home. GRETA GRULLON informed pt of [facility]'s 3 [place] In-patient rule for SNF benefits. Pt states, if she does not meet this criteria, then she would not want to pay [id number] and would want to go home w/HHC and she feels safe to return home w/her . MS3 Raine HERNANDES, and Lucy SANDOVAL, made aware. Pt chooses [facility] as her 1st preference and declines wanting list of other HHC agencies at this time. Order placed for HHC: PT/OT. Call placed to Gabriela @ [facility] and referral made. Pt wishes to return home [facility] and states has no concerns with going home at time of discharge. CM to follow for any further discharge planning/needs. Pt voices no concerns/needs at this time. Advised pt to ask for CM if any further questions/concerns/needs arise. Voices understanding. PLAN: Home w/HHC. Jennifer CEJA RN, CM
--- NOTE | 2023-04-05 11:25 | CASEMGMT ---
Addendum entered by Lucy Harding 04/05/23 11:55: Social Work Pt asked RN to have SW come in regarding therapy at home and transportation home. SW spoke w/pt, let her know the returned case inspector is working on setting up therapy for home. SW inquired about transportation home. She states her is worried about getting pt into the home. SW explained we can set up a wheelchair van but pt would still need to be able to get into the home. SW inquired how many steps it is into her home, pt states 5. SW explained will have therapy do steps w/her tomorrow. SW called PT, asked them to practice steps w/pt during therapy tomorrow. Plan continues to be home w/home health. CHRISTAL Zambrano Original Note: Social Work Pt had asked for information on home delivered meals other than [employer]. SW gave pt information for [employer] and [employer]. CHRISTAL Zambrano
--- NOTE | 2023-04-05 11:26 | CASEMGMT ---
Social Work LW is scanned into [employer] but not POA. SW spoke w/pt, let her know. She did confirm Jamie Barcenas is POA. SW asked her to ask him to bring in the document so we can copy and place on chart, as able. Pt states understanding. CHRISTAL Zambrano
--- NOTE | 2023-04-05 12:12 | CASEMGMT ---
GRETA GRULLON into pt room, pt sitting in chair, pt aware that [facility] accepted her and will see her on . Pt asks if she can be transported home by ambulance. GRETA GRULLON spoke with JAIME who asked therapy to work with pt on steps tomorrow. GRETA GRULLON called pt , he is aware of dc plan. He states pt needs to be able to go up 5 steps to get into the home or she will need an ambulance. He is aware this cost may not be covered by the insurance and is agreeable to it. He is also aware that therapy will work with her on the steps tomorrow. He states if pt can do the steps, he can transport her home.
--- NOTE | 2023-04-05 12:42 | PN_ITS ---
Subjective Subjective Patient seen and examined. SHe was admitted due to mechanical fall. She is being managed for debillity due to mechanical fall. She says she has pain in her knees due to mechanical fall. She denies any dizziness, numbness, nausea, vomiting or any other symptoms. Review of systems is otherwise negative. She has remained hemodynamically stable. Objective Data Objective Data Vital Signs: Vital Signs Temp Pulse Resp BP Pulse Ox O2 Del Method O2 Flow Rate 97.7 F L 77 16 125/69 H 97 Room Air 2 04/05/23 09:07 04/05/23 09:07 04/05/23 09:07 04/05/23 09:07 04/05/23 09:07 04/05/23 09:07 04/05/23 07:05 Oxygen Flow Rate (L/min) 2 Oxygen Delivery Method Room Air Weight: 175 lb Body Mass Index (BMI) 32.0 Intake & Output: Intake and Output for Last 24 Hours 04/03/23 04/04/23 04/05/23 23:59 23:59 23:59 Intake Total 740 / 740 Output Total 300 / 300 Balance 440 / 440 Lab / Micro Data 04/05/23 06:50 04/05/23 06:50 Labs: Laboratory Results - last 24 hr 04/04/23 16:19: WBC 13.7 H, RBC 4.70, Hgb 13.3, Hct 43.1, MCV 91.7, MCH 28.3, MCHC 30.9 L, RDW Std Deviation 52.2 H, RDW Coeff of Archie 15.5 H, Plt Count 317, M PV 9.6, Immature Gran % (Auto) 1.200 H, Neut % (Auto) 82.1 H, Lymph % (Auto) 7.4 L, [place] % (Auto) 7.6, Eos % (Auto) 1.2, Baso % (Auto) 0.5, Absolute Neuts (auto) 11.3 H, Absolute Lymphs (auto) 1.01, Nucleated RBC % 0, PT 23.2 H, INR 2.0, Sodium 141, Potassium 3.9, Chloride 107, Carbon Dioxide 28.0, Anion Gap 6, BUN 36 H, Creatinine 0.85, Estim Creat Clear Calc 37.84, Est GFR (MDRD) Af Amer 82, Est GFR (MDRD) Non-Af 68, BUN/Creatinine Ratio 42.3 H, Glucose 107 H, Calcium 8.8, Total Bilirubin 0.40, AST 15, ALT 21, Alkaline Phosphatase 77, Total Protein 7.0, Albumin 3.0 L, Globulin 4.0, Albumin/Globulin Ratio 0.8 L 04/05/23 06:50: WBC 10.4, RBC 4.21, Hgb 12.3, Hct 39.4, MCV 93.6, MCH 29.2, MCHC 31.2 L, RDW Std Deviation 54.4 H, RDW Coeff of Archie 15.7 H, Plt Count 255, MPV 9.7, PT 23.4 H, INR 2.1, Sodium 138, Potassium 3.9, Chloride 110 H, Carbon Dioxide 23.0, Anion Gap 5, BUN 34 H, Creatinine 0.74, Estim Creat Clear Calc 33.71, Est GFR (MDRD) Af Amer 96, Est GFR (MDRD) Non-Af 80, BUN/Creatinine Ratio 45.9 H, Glucose 116 H, Calcium 8.5 Physical Exam Const alert, oriented x3 and no apparent distress General Appearance: cooperative HEENT normocephalic, head/scalp atraumatic, moist oral mucous membranes and oropharynx normal Eyes PERRL and EOMs intact bilaterally Neck no lymphadenopathy, supple and no JVD Lymph Lymphatic: no lymphadenopathy noted and no lymphedema noted Resp normal respiratory effort, normal air movement and clear to auscultation bilaterally Cardio regular rate, regular rhythm, S1 normal heart sound, S2 normal heart sound and no murmurs GI normal to inspection, nondistended, normoactive bowel sounds, soft to palpation, non-tender and non-distended Extremity normal capillary refill, no clubbing, cyanosis or edema and no calf tenderness General Extremity: no tenderness to palpation of joints or extremities Skin General Skin Exam: no breakdown Neuro CN's II-XII intact bilaterally, no focal motor deficits, no sensory deficits noted and deep tendon reflexes 2+ bilaterally Motor Exam: strength 5/5 throughout and general weakness Psych thought process normal, cooperative and affect normal Appearance: appropriate Assessment & Plan Assessment/Plan (1) Debility: (2) Fall: PLAN: Plan #Debility due to mechanical fall * PT/OT on board. * Fall precautions * uses a walker at home. * wants placement in rehab to help her regain her strength * PO tylenol and PO oxycodone for pain * #History of DVT * On Coumadin. Since she had bilateral PE and DVT in October 2022 after she had COVID infection. She had had previous DVT several years ago to her was on Xarelto but was discontinued in due to frequent nosebleeds. Continue Coumadin. * Monitor INR for goal between 2 and 3. * * #History of CAD, s/p stent in 2019. On atorvastatin and metoprolol. #Hypertension: On metoprolol and losartan. #Osteoporosis: On denosumab and vitamin D3 #BALTAZAR: On CPAP nightly. DVT prophylaxis: On Coumadin. Disposition: will benefit from placement. PT/OT On board. Charges/Coding Visit Charges Inpatient E&M: 01282 Subs Hosp L2
--- NOTE | 2023-04-05 14:34 | CHAPLAIN ---
Type of Pastoral Visit _x__ Initial Visit ___ Follow-up Visit ___ On-call Visit ___ General Patient Visit ___ Spiritual Assessment ___ Family Conference ___ Bereavement ___ Rapid Response ___ Code Blue ___ Other (describe below) Pastoral Care Referral From _x__ Patient ___ Family ___ Nurse ___ Physician ___ Adon ___ Bump Grader Operator ___ Other (describe below) Sacrament/Intervention _x__ Active listening ___ Anointing ___ Roman Catholic ___ Bereavement ___ Communion ___ Naty exploration ___ _x__ Life review _x__ Prayer ___ Reconciliation ___ Sacrament of Sick _x__ Supportive presence ___ Wedding ___ Other (describe below) Pastoral Comments patient is resting in bed and is pleasant to talk with about her situation; pt states that her is a good help at home; pt speaks about her marriage and how she has persevered through life; pt reports no concerns; pt welcomes presence and prayer
[2023-04-05] MEDS: Atorvastatin Calcium 40 MG Tablet PO (21:43)
[2023-04-05] MEDS: Metoprolol(XL)Succ 100 MG Tablet PO (21:43)
[2023-04-05] MEDS: MELATONIN 3 MG TABLET PO (21:44)
[2023-04-06] VITALS (9 sets, daily range): BP systolic 124–149; BP diastolic 64–91; PULSE 78–93; RESP 16–18; TEMP 36.2–36.6; O2SAT 96–100
[2023-04-06 08:02] LABS: Absolute Lymphocyte Count 1.03 X10^3/uL (0.83-4.51); Absolute Neutrophil Count 7.4 X10^3/uL (2.0-7.7); Basophil# 0.06 X10^3/uL; Basophil% 0.6 % (0-1); Eosinophil# 0.34 X10^3/uL; Eosinophils% 3.4 % (0-5); Hematocrit 39.9 % (37-47); Hemoglobin 12.6 g/dL (12.0-15.0); Lymphocyte # 1.03 X10^3/ul (0.83-4.51); Lymphocyte % 10.3 % (19-41); Mean Corp Hgb Conc 31.6 g/dL (32-36); Mean Corpuscular Hgb 29.4 pg (27.0-32.0); Mean Corpuscular Volume 93.2 fL (81-99); Mean Platelet Vol. 9.9 fl (6.2-12.0); Monocyte# 1.09 X10^3/uL; Monocyte% 10.9 % (0-10); NRBC Flagged by Analyzer 0 % (0-5); Neutrophil # 7.37 X10^3/uL (2.7-7.7); Neutrophil % 73.3 % (47-70); Platelet Count 265 K/mm3 (150-450); RBC Distribution Width CV 15.6 % (11.6-14.6); RBC Distribution Width SD 53.7 fl (35.1-43.9); Red Blood Count 4.28 M/mm3 (4.2-5.4)
[2023-04-06] MEDS: Losartan Potassium 100 MG Tablet PO (09:16)
[2023-04-06] MEDS: Furosemide 20 MG Tablet PO (09:16)
[2023-04-06] MEDS: Nystatin Powder 15gm Bottle 1 APPLIC TOPICAL ×2 (09:16→20:36)
[2023-04-06 09:23] LABS: International Normalized Ratio 2.7; Prothrombin Time (Protime)PT. 28.8 SECONDS (11.7-14.9)
[2023-04-06 09:54] LABS: Anion Gap 4 (5-15); BUN 30 mg/dL (7-18); BUN/Creat Ratio 37.1 RATIO (10-20); Calcium,Total 8.5 mg/dL (8.5-10.1); Chloride 110 mmol/L (98-107); Creatinine, Serum 0.81 mg/dL (0.55-1.02); EST Glomerular Filtration Rate 72 mL/min (>60); Est Glom Filt Rate - Afr Amer 87 mL/min (>60); Estimated Creatinine Clearance 41.62 ml/min; Glucose 99 mg/dL (74-106); Potassium 3.9 mmol/L (3.5-5.1); Sodium Level 141 mmol/L (136-145)
--- NOTE | 2023-04-06 10:35 | CASEMGMT ---
Addendum entered by Raine Alberto 04/06/23 16:04: Updated Gabriela at [facility] that pt will not dc until tomorrow. Addendum entered by Raine Alberto 04/06/23 11:22: 1100-GRETA GRULLON spoke with SEWER AND DRAIN TECHNICIAN who states pt and did well with the steps and had good communication. GRETA GRULLON back into pt room, pt states he felt they did well but they only did them one time. He states he does not know when they will do them again. He states they would like for pt to go to [facility] if [facility] is not an option. Pt and is aware that [facility] does not have beds available. He states if [facility] cannot take pt then he will take pt home with [facility] as he does not want to pick any other facilities that are less than 4 stars. Pt is also agreeable to [facility] and this plan. Updated SW on pt and choice. Original Note: GRETA GRULLON received tc from Della Garay, pt ACUTE CARE REGISTERED NURSE stating that pt called and he is unable to care for pt. Made her aware of the plan for home with [facility] and how pt did with therapy with the plan of pt working with therapy on steps today to see if she could go home with transporting or need an ambulance. GRETA GRULLON into pt room, SEWER AND DRAIN TECHNICIAN just finishing up with pt. Pt walked to therapy room and did steps, therapist showed pt a different way of doing steps. Per therapist, pt able to go home. Spoke with pt and . He is still concerned about the steps and wants to do them with pt. GRETA GRULLON spoke with therapy, they will bring pt back to therapy room with w/c and do steps with . GRETA GRULLON provided SNF list provided by dc surgeon assistant. GRETA GRULLON to check back with pt and after step practice.
--- NOTE | 2023-04-06 10:55 | CASEMGMT ---
Social Work SW received referral that pt and spouse would like pt to go to [facility] for short term therapy prior to return home. DC therapeutic assistant updated and referral to be made. JEIMY Marie
--- NOTE | 2023-04-06 11:06 | CASEMGMT ---
Addendum entered by Wendy Molina 04/07/23 08:57: Discharge Planning [facility] updated that patient will return home. Wendy Molina, Discharge Planning Asst. Original Note: Discharge Planning Referral sent to [facility] via [facility]. Wendy Molina, Discharge Planning Asst.
--- NOTE | 2023-04-06 12:00 | PN_ITS ---
Subjective Subjective Patient seen and examined. She complained of pain in her knees from the mechanical fall. She denied any fever, chills, palpitations, dizziness, nausea, vomiting or any other symptoms. Objective Data Objective Data Vital Signs: Vital Signs Temp Pulse Resp BP Pulse Ox O2 Del Method O2 Flow Rate 97.8 F 80 16 124/70 H 100 Nasal Cannula 2 04/06/23 10:00 04/06/23 10:00 04/06/23 10:00 04/06/23 10:00 04/06/23 10:01 04/06/23 10:01 04/06/23 10:01 Oxygen Flow Rate (L/min) 2 Oxygen Delivery Method Nasal Cannula Weight: 175 lb Body Mass Index (BMI) 32.0 Intake & Output: Intake and Output for Last 24 Hours 04/04/23 04/05/23 04/06/23 23:59 23:59 23:59 Intake Total 740 / 940 400 / 400 Output Total 300 / 300 Balance 440 / 640 400 / 400 Lab / Micro Data 04/06/23 07:01 04/06/23 07:01 Labs: Laboratory Results - last 24 hr 04/06/23 07:01: WBC 10.0, RBC 4.28, Hgb 12.6, Hct 39.9, MCV 93.2, MCH 29.4, MCHC 31.6 L, RDW Std Deviation 53.7 H, RDW Coeff of Archie 15.6 H, Plt Count 265, MPV 9.9, Immature Gran % (Auto) 1.500 H, Neut % (Auto) 73.3 H, Lymph % (Auto) 10.3 L , [place] % (Auto) 10.9 H, Eos % (Auto) 3.4, Baso % (Auto) 0.6, Absolute Neuts (auto) 7.4, Absolute Lymphs (auto) 1.03, Nucleated RBC % 0, PT 28.8 H, INR 2.7, Sodium 141, Potassium 3.9, Chloride 110 H, Carbon Dioxide 27.0, Anion Gap 4 L, BUN 30 H, Creatinine 0.81, Estim Creat Clear Calc 41.62, Est GFR (MDRD) Af Amer 87, Est GFR (MDRD) Non-Af 72, BUN/Creatinine Ratio 37.1 H, Glucose 99, Calcium 8.5 Physical Exam Const alert, oriented x3 and no apparent distress Constitutional Narrative: Pleasant elderly female, obese, laying comfortably in bed, conversing normally, no acute distress. General Appearance: cooperative and comfortable HEENT normocephalic, head/scalp atraumatic, hearing grossly normal bilaterally, nasal mucous membranes and turbinates normal, moist oral mucous membranes and oropharynx normal Eyes PERRL, EOMs intact bilaterally and conjunctivae normal Neck full ROM, no lymphadenopathy, supple and no JVD Lymph Lymphatic: no lymphadenopathy noted and no lymphedema noted Chest inspection of chest normal Resp normal respiratory effort, normal air movement, no use of accessory muscles and clear to auscultation bilaterally Cardio regular rate, regular rhythm, S1 normal heart sound, S2 normal heart sound, no murmurs and peripheral pulses 2+ throughout GI normal to inspection, nondistended, normoactive bowel sounds, soft to palpation, non-tender and non-distended Back/Spine normal ROM Extremity normal capillary refill, no clubbing, cyanosis or edema and no calf tenderness Extremity Narrative: Mild tenderness to palpation in bilateral knees around the joint. General Extremity: no tenderness to palpation of joints or extremities Skin General Skin Exam: no breakdown Neuro oriented x3, CN's II-XII intact bilaterally, moves all extremities, no focal motor deficits, no sensory deficits noted and deep tendon reflexes 2+ bilaterally Speech: speech normal Motor Exam: strength 5/5 throughout and general weakness Psych mental status grossly normal, thought process normal, cooperative and affect normal Appearance: appropriate Assessment & Plan Assessment/Plan (1) Debility: (2) Fall: PLAN: Plan #Debility due to mechanical fall * PT/OT on board. * Fall precautions * uses a walker at home. * wants placement in rehab to help her regain her strength * PO tylenol and PO oxycodone for pain * #History of DVT * On Coumadin. Since she had bilateral PE and DVT in October 2022 after she had COVID infection. She had had previous DVT several years ago to her was on Xarelto but was discontinued in due to frequent nosebleeds. Continue Coumadin. * Monitor INR for goal between 2 and 3. * INR today is 2.7 * * #History of CAD, s/p stent in 2019. On atorvastatin and metoprolol. #Hypertension: On metoprolol and losartan. #Osteoporosis: On denosumab and vitamin D3 #BALTAZAR: On CPAP nightly. DVT prophylaxis: On Coumadin. Disposition: will benefit from placement. PT/OT On board. Charges/Coding Visit Charges Inpatient E&M: 47758 Subs Hosp L2
[2023-04-06] MEDS: Acetaminophen 325 MG Tablet 650 MG PO (13:23)
--- NOTE | 2023-04-06 15:37 | CASEMGMT ---
Addendum entered by Caitie Geiger 04/06/23 16:33: Social Work SW spoke with pt's spouse regarding no rooms available at [facility]. Spouse is agreeable to take pt home with home health services. Spouse states he is installing non skid alex tonight and can take pt home tomorrow. RNCM updated. Pt updated and agreeable. JEIMY Marie Original Note: Social Work [facility] does not have a bed available. JAIME met with pt an updated. Pt is hopeful she can return home with home health. Permission given for JAIME to call pt and discuss discharge plan. VM left with spouse requesting return call to JAIME. JEIMY Marie
[2023-04-06] MEDS: Metoprolol(XL)Succ 100 MG Tablet PO (20:36)
[2023-04-06] MEDS: Atorvastatin Calcium 40 MG Tablet PO (20:36)
[2023-04-06] MEDS: MELATONIN 3 MG TABLET PO (20:36)
[2023-04-07] MEDS: Acetaminophen 325 MG Tablet 650 MG PO (01:00)
[2023-04-07 02:01] VITALS: BP 134/75; PULSE 100; RESP 18; TEMP 36.8; O2SAT 94
[2023-04-07 06:14] LABS: Absolute Lymphocyte Count 1.07 X10^3/uL (0.83-4.51); Absolute Neutrophil Count 7.2 X10^3/uL (2.0-7.7); Basophil# 0.06 X10^3/uL; Basophil% 0.6 % (0-1); Eosinophil# 0.34 X10^3/uL; Eosinophils% 3.5 % (0-5); Hematocrit 40.4 % (37-47); Hemoglobin 12.7 g/dL (12.0-15.0); Lymphocyte # 1.07 X10^3/ul (0.83-4.51); Mean Corp Hgb Conc 31.4 g/dL (32-36); Mean Corpuscular Hgb 28.5 pg (27.0-32.0); Mean Corpuscular Volume 90.8 fL (81-99); Mean Platelet Vol. 9.8 fl (6.2-12.0); Monocyte# 0.94 X10^3/uL; Monocyte% 9.6 % (0-10); NRBC Flagged by Analyzer 0 % (0-5); Neutrophil # 7.21 X10^3/uL (2.7-7.7); Neutrophil % 73.9 % (47-70); Platelet Count 298 K/mm3 (150-450); RBC Distribution Width CV 15.5 % (11.6-14.6); RBC Distribution Width SD 51.6 fl (35.1-43.9); Red Blood Count 4.45 M/mm3 (4.2-5.4); White Blood Count 9.8 K/mm3 (4.4-11.0)
[2023-04-07 06:24] LABS: International Normalized Ratio 2.7; Prothrombin Time (Protime)PT. 29.4 SECONDS (11.7-14.9)
[2023-04-07 07:33] LABS: Anion Gap 4 (5-15); BUN 29 mg/dL (7-18); BUN/Creat Ratio 37.8 RATIO (10-20); Calcium,Total 8.6 mg/dL (8.5-10.1); Chloride 112 mmol/L (98-107); Creatinine, Serum 0.77 mg/dL (0.55-1.02); EST Glomerular Filtration Rate 76 mL/min (>60); Est Glom Filt Rate - Afr Amer 92 mL/min (>60); Estimated Creatinine Clearance 33.71 ml/min; Glucose 109 mg/dL (74-106); Potassium 3.9 mmol/L (3.5-5.1); Sodium Level 141 mmol/L (136-145)
[2023-04-07 09:35] VITALS: BP 110/68; PULSE 95; RESP 18; TEMP 36.6; O2SAT 100
[2023-04-07] MEDS: Nystatin Powder 15gm Bottle 1 APPLIC TOPICAL (09:37)
[2023-04-07] MEDS: Furosemide 20 MG Tablet PO (09:37)
[2023-04-07] MEDS: Losartan Potassium 100 MG Tablet PO (09:37)
--- NOTE | 2023-04-07 10:58 | CASEMGMT ---
GRETA GRULLON informed by JAIME that pt. would like to speak with me. GRETA GRULLON in to pt. room to speak with pt. Pt. states she is wondering who is in charge of getting her discharged. GRETA GRULLON spoke with pt. about the discharge process and that the plan is to discharge her home with [facility] today, and that we will keep her posted on when we get an order for her discharge. Pt. voices understanding. Pt. states she feels things went well with PT today and that they practiced going up the stairs. Pt. states she feels she will be able to do the stairs to get into her home well, just slowly. Pt. denies having any further questions/concerns at this time.
--- NOTE | 2023-04-07 11:11 | PCM.DC ---
Discharge Instructions Diet Discharge Diet: Low fat / Low cholesterol Activity Discharge Activity: Return to Normal Activity Weight Bearing Status: Weight bearing as tolerated Dressing / Incision Call your doctor if you observe: Fever of 101 or Higher, Shortness of breath, Dizziness, Swelling in the ankles, Chest pain and Increased palpitations (irregular heartbeat) Follow Up Care Test Results: Test results from this visit will be discussed in further detail at your follow-up appointment, if applicable. Discharge Plan Admission Admit Date/Time: 04/04/23 17:11 Primary Reason for Your Visit: mechanical fall, debility Attending Provider: Pallavi Waldrop Primary Care Provider: Della Garay Consulting Providers: Isaiah Bull Instructions Patient Instructions: ED Fall Prevention Discharge Orders/Prescriptions Prescriptions: Continued metoprolol succinate 100 mg tablet extended release 24 hr 100 mg PO QHS Prolia 60 mg/mL syringe 60 mg subcut [id number]-DS-lycopen-lutein 0.4 mg-300 mcg- 250 mcg tablet 1 tab PO DAILY Patient Comments: SUPPLEMENT cholecalciferol (vitamin D3) 1,000 UNIT capsule 10,000 unit PO DAILY atorvastatin 40 MG tablet 40 mg PO QHS losartan 100 mg tablet 100 mg PO DAILY Qty: 30 0RF warfarin 4 mg tablet 4 mg PO QHS Patient Comments: PT STATES SHE ALTERNATES 2, 3, AND 4MG BUT IS UNSURE OF WHICH STRENGTH SHE TAKES WHICH DAY 03/04 pm - talked to and he said she takes 3mg M W F and 2mg the other days furosemide 20 mg tablet 20 mg PO DAILY spironolactone 25 mg tablet 25 mg PO DAILY Patient Comments: TAKE 1 TABLET BY MOUTH EVERY DAY Referrals / Follow Up: Della Garay, INDUSTRIAL GREEN SYSTEMS DESIGNER-C [Primary Care Provider] - Within 1 Week Disposition Disposition (needs filled in before D/C Order can be placed): Home Health Service
--- NOTE | 2023-04-07 11:12 | DS.PCM_ITS ---
Providers Date of Admission: 04/04/23 Date of Discharge: 04/07/23 Primary Care Physician: Della Garay, LOG TURNER-C Reason For Visit: DEBILITY, FALL, BILATERAL KNEE CONTUSIONS Diagnosis Discharge Diagnosis (1) Debility: Status: Acute Code(s): R53.81 - Other malaise (2) Fall: Status: Acute Code(s): W19.XXXA - Unspecified fall, initial encounter Plan #Debility due to mechanical fall * PT/OT on board. * Fall precautions * uses a walker at home. * wants placement in rehab to help her regain her strength * PO tylenol and PO oxycodone for pain * #History of DVT * On Coumadin. Since she had bilateral PE and DVT in October 2022 after she had COVID infection. She had had previous DVT several years ago to her was on Xarelto but was discontinued in due to frequent nosebleeds. Continue Coumadin. * Monitor INR for goal between 2 and 3. * INR today is 2.7 * * #History of CAD, s/p stent in 2019. On atorvastatin and metoprolol. #Hypertension: On metoprolol and losartan. #Osteoporosis: On denosumab and vitamin D3 #BALTAZAR: On CPAP nightly. DVT prophylaxis: On Coumadin. Disposition: will benefit from placement. PT/OT On board. Medications at Discharge Home Medications cholecalciferol (vitamin D3) 25 mcg (1,000 unit) capsule 10,000 unit PO DAILY SUPPLEMENT 08/04/16 metoprolol succinate 100 mg tablet,extended release 24 hr 100 mg PO QHS HEART 12/24/19 atorvastatin 40 mg tablet 40 mg PO QHS CHOLESTEROL 01/22/20 losartan 100 mg tablet 100 mg PO DAILY HEART #30 tabs 02/01/20 denosumab 60 mg/mL subcutaneous syringe (Prolia) 60 mg subcut [id number] 04/30/21 oixgvdgn-icr-jgbsf acid 0.4 mg-lycopene 300 mcg-lutein 250 mcg tablet 1 tab PO DAILY SUPPLEMENT 04/22/22 furosemide 20 mg tablet 20 mg PO DAILY 04/04/23 warfarin 4 mg tablet 4 mg PO QHS blood clots 04/04/23 spironolactone 25 mg tablet 25 mg PO DAILY EDEMA 04/05/23 Hospital Course Operations None Procedures None Summary of Care Provided Minutes Spent on Discharge: 55 Hospital Course: Patient is an 82-year-old female with past medical history as outlined was admitted through the ED on 04/04/2023 with complaint of pain after mechanical fall. She used a walker at all times for ambulation. She was attempting to turn while using her walker and fell. She did not hit her head. She fell to her knees and subsequently had bilateral knee pain. She had had minor falls at home but had been able to get appointment. Review of systems otherwise negative. Imaging done was negative for any evidence of fracture. She was admitted and managed for debility due to mechanical fall. Physical therapy worked with patient. Patient preferred to go back home and was able to ambulate and go up and down stairs with assistance. She remained stable and was discharged home on 04/07/2023. She is to follow-up with her PCP within 1 to 2 weeks. She was discharged home with home health. Patient is very clear prior to discharge. She felt well. Pain had improved. She had an uneventful night. Review of systems otherwise negative. Labs and vitals reviewed. Medication reviewed and reconciled. Physical Exam Const alert, oriented x3 and no apparent distress Constitutional Narrative: Pleasant elderly female, obese, laying comfortably in bed, conversing normally, no acute distress. General Appearance: cooperative and comfortable Orientation / Consciousness: awake HEENT normocephalic, head/scalp atraumatic, hearing grossly normal bilaterally, nasal mucous membranes and turbinates normal, moist oral mucous membranes and oropharynx normal Mouth: oral and palatal mucosa normal Eyes PERRL, EOMs intact bilaterally and conjunctivae normal Neck full ROM, no lymphadenopathy, supple and no JVD Lymph Lymphatic: no lymphadenopathy noted and no lymphedema noted Chest inspection of chest normal Resp normal respiratory effort, normal air movement, no retractions, no use of acc essory muscles and clear to auscultation bilaterally Cardio regular rate, regular rhythm, S1 normal heart sound, S2 normal heart sound, no murmurs and peripheral pulses 2+ throughout GI normal to inspection, nondistended, normoactive bowel sounds, soft to palpation, non-tender and non-distended Back/Spine no CVA tenderness and normal ROM Extremity normal to inspection, full ROM, normal capillary refill, no clubbing, cyanosis or edema and no calf tenderness Extremity Narrative: Mild tenderness to palpation in bilateral knees around the joint. General Extremity: no tenderness to palpation of joints or extremities Skin Skin Narrative: Patient has several small bruises in various stages of healing on her arms and legs throughout, in the setting of being on Coumadin. General Skin Exam: no breakdown Neuro oriented x3, CN's II-XII intact bilaterally, moves all extremities, no focal motor deficits, no sensory deficits noted and deep tendon reflexes 2+ bilaterally Speech: speech normal Motor Exam: strength 5/5 throughout and general weakness Psych mental status grossly normal, thought process normal, cooperative and affect normal Appearance: appropriate Weight / BMI Weight Weight: 175 lb Body Mass Index (BMI) 32.0 ABG / Lab / Microbiology Data 04/07/23 05:29 04/07/23 05:29 Laboratory: Laboratory Results - last 24 hr 04/07/23 05:29: WBC 9.8, RBC 4.45, Hgb 12.7, Hct 40.4, MCV 90.8, MCH 28.5, MCHC 31.4 L, RDW Std Deviation 51.6 H, RDW Coeff of Archie 15.5 H, Plt Count 298, MPV 9.8, Immature Gran % (Auto) 1.400 H, Neut % (Auto) 73.9 H, Lymph % (Auto) 11.0 L , [place] % (Auto) 9.6, Eos % (Auto) 3.5, Baso % (Auto) 0.6, Absolute Neuts (auto) 7.2, Absolute Lymphs (auto) 1.07, Nucleated RBC % 0, PT 29.4 H, INR 2.7, Sodium 141, Potassium 3.9, Chloride 112 H, Carbon Dioxide 25.0, Anion Gap 4 L, BUN 29 H , Creatinine 0.77, Estim Creat Clear Calc 33.71, Est GFR (MDRD) Af Amer 92, Est GFR (MDRD) Non-Af 76, BUN/Creatinine Ratio 37.8 H, Glucose 109 H, Calcium 8.6 D/C Instructions Discharge Diet: Low fat / Low cholesterol Weight Bearing Status: Weight bearing as tolerated Call your doctor if you observe: Fever of 101 or Higher, Shortness of breath, Dizziness, Swelling in the ankles, Chest pain and Increased palpitations (irregular heartbeat) Meaningful Use Info Meaningful Use Diagnoses (Choose all that apply): None applicable Discharge Plan Admission Admit Date/Time: 04/04/23 17:11 Primary Reason for Your Visit: mechanical fall, debility Attending Provider: Pallavi Waldrop Primary Care Provider: Della Garay Consulting Providers: Isaiah Bull Instructions Patient Instructions: ED Fall Prevention Discharge Orders/Prescriptions Prescriptions: Continued metoprolol succinate 100 mg tablet extended release 24 hr 100 mg PO QHS Prolia 60 mg/mL syringe 60 mg subcut [id number]-EP-lycopen-lutein 0.4 mg-300 mcg- 250 mcg tablet 1 tab PO DAILY Patient Comments: SUPPLEMENT cholecalciferol (vitamin D3) 1,000 UNIT capsule 10,000 unit PO DAILY atorvastatin 40 MG tablet 40 mg PO QHS losartan 100 mg tablet 100 mg PO DAILY Qty: 30 0RF warfarin 4 mg tablet 4 mg PO QHS Patient Comments: PT STATES SHE ALTERNATES 2, 3, AND 4MG BUT IS UNSURE OF WHICH STRENGTH SHE TAKES WHICH DAY 03/04 pm - talked to and he said she takes 3mg M W F and 2mg the other days furosemide 20 mg tablet 20 mg PO DAILY spironolactone 25 mg tablet 25 mg PO DAILY Patient Comments: TAKE 1 TABLET BY MOUTH EVERY DAY Referrals / Follow Up: Della Garay, LOG TURNER-C [Primary Care Provider] - 04/11/23 11:30 am Disposition Disposition (needs filled in before D/C Order can be placed): Home Health Service Charges/Coding Visit Charges Inpatient E&M: 23777 Disch Hosp >30min
--- NOTE | 2023-04-07 11:19 | PHA.DC.MR.R ---
Pharmacy [place] Med Reconciliation Pharmacy Service has performed discharge medication reconciliation for this patient. No new medications at time od discharge review. Medications reviewed are from previously reported home medications. The patient's discharge medication list was reviewed for discrepancies and discrepancies were resolved. Medications at Discharge Home Medications cholecalciferol (vitamin D3) 25 mcg (1,000 unit) capsule 10,000 unit PO DAILY SUPPLEMENT 08/04/16 metoprolol succinate 100 mg tablet,extended release 24 hr 100 mg PO QHS HEART 12/24/19 atorvastatin 40 mg tablet 40 mg PO QHS CHOLESTEROL 01/22/20 losartan 100 mg tablet 100 mg PO DAILY HEART #30 tabs 02/01/20 denosumab 60 mg/mL subcutaneous syringe (Prolia) 60 mg subcut [id number] 04/30/21 qcayvkcp-vnp-kefzk acid 0.4 mg-lycopene 300 mcg-lutein 250 mcg tablet 1 tab PO DAILY SUPPLEMENT 04/22/22 furosemide 20 mg tablet 20 mg PO DAILY 04/04/23 warfarin 4 mg tablet 4 mg PO QHS blood clots 04/04/23 spironolactone 25 mg tablet 25 mg PO DAILY EDEMA 04/05/23
--- NOTE | 2023-04-07 11:52 | CASEMGMT ---
Pt. has order for discharge. GRETA GRULLON in to pt. room to discuss needs at discharge. Pt. states she needs assistance with getting to the restroom and then back in bed. GRETA GRULLON put on pt's call light for this assistance and someone was notified that pt. needs assistance to restroom and then to bed. Pt. states her is her ride home and cannot be here to get her till around 1400 or later today; pt. states she will call her to verify this. Pt. reminded that [facility] has a SOC date of 04/08/23 for her [facility]. Pt. denies having any additional questions/concerns or needs at this time. Nurse came to room and was assisting pt. to restroom a GRETA GRULLON was leaving pt. room. GRETA GRULLON informed pt's nurse that her will not be here till around 1400 or later today to pick her up.
--- NOTE | 2023-04-07 12:19 | NURSING ---
This RN went to take Iv out and Tegaderm pulled skin.Approimately 7cm long by 2cm wide. This RN applied Adaptic and 4x4 gauze drsg and wrapped with kerlix. Supplies of these packed in bag for pt to bring home and use on her skin tear.
== END 2023-04-07 14:42 | disposition home health service (06) | DRG 948 ==
LOC: ED 15:35 → MS3 17:34
PROVIDERS: Admitting Provider Hospitalist; Emergency Provider Emergency Medicine; PCP Nurse Practitioner Family; Visit Provider Student in an Organized Health Care Education/Training Program
DX: R53.81 Other malaise (principal); E66.9 Obesity, unspecified; I10 Essential (primary) hypertension; G47.33 Obstructive sleep apnea (adult) (pediatric); I25.10 Atherosclerotic heart disease of native coronary artery without angina pectoris; E78.00 Pure hypercholesterolemia, unspecified; F43.0 Acute stress reaction; W19.XXXA Unspecified fall, initial encounter; S80.01XA Contusion of right knee, initial encounter; S80.02XA Contusion of left knee, initial encounter; I25.2 Old myocardial infarction; Z95.5 Presence of coronary angioplasty implant and graft; Z86.16 Personal history of COVID-19; Z68.32 Body mass index [BMI] 32.0-32.9, adult; Z79.01 Long term (current) use of anticoagulants; Z79.899 Other long term (current) drug therapy; M81.0 Age-related osteoporosis without current pathological fracture; Z86.711 Personal history of pulmonary embolism; Z86.718 Personal history of other venous thrombosis and embolism; R29.6 Repeated falls
CPT/HCPCS: 36415; 73564; 80048; 80053; 85025; 85027; 85610; 94668; 97162; 97166; 97530; 97535; 99252; 99285; G0463

== ENCOUNTER → 2023-06-30 | Outpatient (CLI) | payer MEDICARE, OTHER, SELFPAY ==
[2023-06-30 10:11] LABS: Absolute Lymphocyte Count 1.01 X10^3/uL (0.83-4.51); Absolute Neutrophil Count 8.1 X10^3/uL (2.0-7.7); Basophil# 0.06 X10^3/uL; Basophil% 0.6 % (0-1); Eosinophil# 0.29 X10^3/uL; Eosinophils% 2.8 % (0-5); Hematocrit 43.5 % (37-47); Lymphocyte # 1.01 X10^3/ul (0.83-4.51); Lymphocyte % 9.6 % (19-41); Mean Corp Hgb Conc 32.2 g/dL (32-36); Mean Corpuscular Hgb 29.3 pg (27.0-32.0); Mean Platelet Vol. 10.2 fl (6.2-12.0); Monocyte# 0.85 X10^3/uL; Monocyte% 8.1 % (0-10); NRBC Flagged by Analyzer 0 % (0-5); Neutrophil # 8.14 X10^3/uL (2.7-7.7); Neutrophil % 77.4 % (47-70); Platelet Count 276 K/mm3 (150-450); RBC Distribution Width CV 16.2 % (11.6-14.6); RBC Distribution Width SD 54.8 fl (35.1-43.9); Red Blood Count 4.78 M/mm3 (4.2-5.4); White Blood Count 10.5 K/mm3 (4.4-11.0)
[2023-06-30 10:42] LABS: ALB/GLOB Ratio 0.8 RATIO (0.9-2.4); AST(SGOT) 16 U/L (15-37); Alanine Aminotransfer ALT/SGPT 24 U/L (13-56); Albumin, Serum 3.3 g/dL (3.2-5.0); Alkaline Phosphatase 67 U/L (45-117); Anion Gap 8 (5-15); BUN 60 mg/dL (7-18); BUN/Creat Ratio 45.5 RATIO (10-20); Calcium,Total 9.5 mg/dL (8.5-10.1); Chloride 107 mmol/L (98-107); Cholesterol 151 mg/dL (200); Creatinine, Serum 1.32 mg/dL (0.55-1.02); EST Glomerular Filtration Rate 41 mL/min (>60); Est Glom Filt Rate - Afr Amer 49 mL/min (>60); Globulin 3.9 g/dL (2.2-4.2); Glucose 99 mg/dL (74-106); High Density Lipoprotein 47 mg/dL; Potassium 4.6 mmol/L (3.5-5.1); Protein, Total 7.2 g/dL (6.4-8.2); Sodium Level 138 mmol/L (136-145); Thyroid Stim Hormone (TSH) 3.69 uIU/mL (0.358-3.74); Triglycerides 214 mg/dL; Very Low Density Lipoprotein 43 mg/dL (5-40)
== END | disposition home or self-care (01) ==
PROVIDERS: PCP Nurse Practitioner Family; Referring Provider Nurse Practitioner Family; Visit Provider Nurse Practitioner Family
DX: E78.5 Hyperlipidemia, unspecified (principal); I10 Essential (primary) hypertension; R73.01 Impaired fasting glucose
CPT/HCPCS: 36415; 80053; 80061; 84443; 85025

== ENCOUNTER 2023-08-12 10:30 | Outpatient (CLI) | payer MEDICARE, OTHER, SELFPAY ==
[2023-08-12 11:00] VITALS: BP 107/60; PULSE 72; RESP 14; TEMP 36.6; O2SAT 99; BMI 32.1
[2023-08-12] MEDS: DENOSUMAB 60 MG/ML SC (11:09)
== END 2023-08-12 10:31 | disposition home or self-care (01) ==
LOC: MEDOUTP 10:31
PROVIDERS: PCP Nurse Practitioner Family; Referring Provider Nurse Practitioner; Visit Provider Nurse Practitioner
DX: M81.0 Age-related osteoporosis without current pathological fracture (principal)
CPT/HCPCS: 96372; J0897

== ENCOUNTER 2023-08-23 03:21 | Inpatient (IN) | payer MEDICARE, OTHER, SELFPAY ==
[2023-08-23] VITALS (9 sets, daily range): BP systolic 102–147; BP diastolic 65–101; PULSE 64–109; RESP 16–20; TEMP 36.2–36.9; O2SAT 93–99; BMI 34.3; BMI 33.7
--- NOTE | 2023-08-23 03:40 | CT_ITS ---
INDICATION: left flank pain EXAMINATION: CT ABDOMEN AND PELVIS WITHOUT CONTRAST - CT Abdomen And Pelvis W/O Contrast Injection TECHNIQUE: Helically acquired images were obtained of the abdomen and pelvis without oral or IV contrast. A radiation dose optimization technique was used for this scan. IV Contrast dosage and agent: None. Oral contrast: None. RADIATION DOSAGE (If Supplied By Facility): CTDIvol = ( 21.48 ) mGy, DLP = ( 939.04 ) mGycm COMPARISON: FINDINGS: LOWER CHEST: Lung bases are clear. No cardiomegaly or pericardial effusion. LIVER: Homogeneous. No focal mass. GALLBLADDER AND BILIARY TREE: No calcified gallstones. No gallbladder distension or wall edema. No intra- or extrahepatic biliary ductal dilation. PANCREAS: No focal cystic or solid mass. SPLEEN: Normal size without focal cystic or solid mass. ADRENAL GLANDS: No nodules. KIDNEYS AND URETERS: Multiple bilateral renal cysts are noted, the largest measures 3.5 cm. There is 5 mm stone in the mid left ureter without significant hydronephrosis. PERITONEUM: No ascites or free air. No other fluid collection. BOWEL: No evidence of acute appendicitis. No stomach or bowel distension. There is colon diverticulosis without evidence of diverticulitis. No focal inflammatory change. LYMPH NODES: No enlarged mesenteric or retroperitoneal lymph nodes. VESSELS: Aorta is non-dilated. URINARY BLADDER: Unremarkable. REPRODUCTIVE ORGANS: No pelvic masses. ABDOMINAL WALL: No discrete abdominal or pelvic wall hernia. BONES: No lytic or blastic abnormality. CT/Abdomen/Pelvis without Cont IMPRESSION: Multiple bilateral renal cysts are noted, the largest measures 3.5 cm. There is 5 mm stone in the mid left ureter without significant hydronephrosis. Electronically Signed: Maribel Goss MD at 5:54 EDT ,
[2023-08-23] MEDS: Ondansetron 4 MG/2 ML Vial IV (03:51)
[2023-08-23] MEDS: 0.9% Normal Saline (500mL Bag) 500 ML 999 ML IV (03:51)
[2023-08-23] MEDS: fentaNYL 100 MCG/2 ML Ampul 50 MCG IV ×2 (03:51→06:22)
[2023-08-23 04:00] LABS: Absolute Lymphocyte Count 1.27 X10^3/uL (0.83-4.51); Absolute Neutrophil Count 8.1 X10^3/uL (2.0-7.7); Basophil# 0.08 X10^3/uL; Basophil% 0.7 % (0-1); Eosinophil# 0.58 X10^3/uL; Eosinophils% 5.1 % (0-5); Hemoglobin 12.2 g/dL (12.0-15.0); Lymphocyte # 1.27 X10^3/ul (0.83-4.51); Lymphocyte % 11.2 % (19-41); Mean Corp Hgb Conc 31.3 g/dL (32-36); Mean Corpuscular Hgb 28.6 pg (27.0-32.0); Mean Corpuscular Volume 91.3 fL (81-99); Mean Platelet Vol. 9.3 fl (6.2-12.0); Monocyte# 1.16 X10^3/uL; Monocyte% 10.3 % (0-10); NRBC Flagged by Analyzer 0 % (0-5); Neutrophil # 8.08 X10^3/uL (2.7-7.7); Neutrophil % 71.5 % (47-70); Platelet Count 319 K/mm3 (150-450); RBC Distribution Width CV 15.2 % (11.6-14.6); RBC Distribution Width SD 50.8 fl (35.1-43.9); Red Blood Count 4.27 M/mm3 (4.2-5.4); White Blood Count 11.3 K/mm3 (4.4-11.0)
[2023-08-23 04:16] LABS: Anion Gap 8 (5-15); BUN 66 mg/dL (7-18); BUN/Creat Ratio 48.9 RATIO (10-20); Calcium,Total 8.9 mg/dL (8.5-10.1); Chloride 105 mmol/L (98-107); Creatinine, Serum 1.35 mg/dL (0.55-1.02); EST Glomerular Filtration Rate 40 mL/min (>60); Est Glom Filt Rate - Afr Amer 48 mL/min (>60); Estimated Creatinine Clearance 30.21 ml/min; Glucose 115 mg/dL (74-106); Potassium 4.9 mmol/L (3.5-5.1); Sodium Level 137 mmol/L (136-145)
[2023-08-23 04:30] LABS: Bacteria 0 SEEN /hpf (None Seen); Mucous, Urine 0 SEEN /hpf (<or=2+)
[2023-08-23 04:32] LABS: Color, Urine Yellow (Yellow); Glucose, Dipstick Normal (Normal); Ketone-Dipstick Negative (Negative); Leukocyte Esterase-Dipstick 100 /ul (Negative); Nitrite-Dipstick Negative (Negative); Occult Blood-Urine Negative /ul (Negative); Protein-Dipstick Negative (Negative); Specific Gravity, Urine 1.015 (1.002-1.030); Urine Bilirubin Dipstick Negative (Negative); Urine Clarity Clear (Clear); Urine Urobilinogen Normal (Normal)
[2023-08-23 04:41] LABS: Red Blood Cells-Urine 5-10 SEEN /hpf (0-5); Squamous Epithelial Cells - UA 0-5 SEEN /hpf (5-10); White Blood Cells 0-5 SEEN /hpf (0-5)
[2023-08-23] MEDS: Ketorolac 15 MG/ML Vial IV ×2 (04:51→21:11)
--- NOTE | 2023-08-23 06:23 | EX.ED.DYSGE1 ---
HPI History of Present Illness Chief Complaint: Flank Pain Informant: patient and spouse/S.O. Narrative Narrative: Patient is an 83-year-old female with past medical history of hypertension hyperlipidemia previous DVT and PE currently on Coumadin and debility. She states she had up to use the bathroom this morning and after doing so had sudden onset sharp pain in the left side. She states that there was no recent trauma or excessive activity and she denies any dysuria. She states it did not matter if she lie down or sat up but the pain was the same no matter what position she was in. Therefore EMS was called secondary to the sudden onset and severity of pain and she was brought in for evaluation [facility] Medical History Abnormal bruising Acute ST elevation myocardial infarction (STEMI) Arthritis Atherosclerosis of coronary artery of [place] heart without angina pectoris Benign essential HTN Chondromalacia patellae of left knee Contact with and (suspected) exposure to other viral communicable diseases COVID-19 Debility Dilated aortic root Effusion of left knee joint Essential hypertension Fall Fungal infection History of coronary artery stent placement (12/11/19) History of pulmonary embolism History of recurrent deep vein thrombosis (DVT) History of ST elevation myocardial infarction (STEMI) (12/11/19) HLD (hyperlipidemia) Hypercholesterolemia Kidney tumor laser vein surgery Mass of left thigh Nosebleed Obesity 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 BALTAZAR (obstructive sleep apnea) BALTAZAR on CPAP Osteoarthritis Osteoporosis Osteoporosis Pulmonary embolism Pulmonary HTN Syncope URI (upper respiratory infection) Home Medications cholecalciferol (vitamin D3) 25 mcg (1,000 unit) capsule 10,000 unit PO DAILY SUPPLEMENT 08/04/16 [History Last Taken 04/03/23] metoprolol succinate 100 mg tablet,extended release 24 hr 100 mg PO QHS HEART 12/24/19 [History Last Taken 04/03/23] atorvastatin 40 mg tablet 40 mg PO QHS CHOLESTEROL 01/22/20 [History Last Taken 04/03/23] losartan 100 mg tablet 100 mg PO DAILY HEART #30 tabs 02/01/20 [Rx Last Taken 04/04/23] denosumab 60 mg/mL subcutaneous syringe (Prolia) 60 mg subcut [id number] 04/30/21 [History Last Taken Unknown] jazhwhpg-mkt-bcqlr acid 0.4 mg-lycopene 300 mcg-lutein 250 mcg tablet 1 tab PO DAILY SUPPLEMENT 04/22/22 [History Last Taken 04/04/23] furosemide 20 mg tablet 20 mg PO DAILY 04/04/23 [History Last Taken 04/04/23] warfarin 4 mg tablet 4 mg PO QHS blood clots 04/04/23 [History Last Taken 04/03/23] spironolactone 25 mg tablet 25 mg PO DAILY EDEMA 04/05/23 [History Last Taken Unknown] Allergy/AdvReac Type Severity Reaction Status Date / Time rivaroxaban [From Xarelto] Allergy Intermediate nose bleeds Verified 08/23/23 03:22 adhesive tape [tape] Allergy Unknown Itching Verified 08/23/23 03:22 kiwi Allergy Unknown Anaphylaxis Verified 08/23/23 03:22 trimethoprim [From Bactrim] Allergy Unknown Rash Verified 08/23/23 03:22 tree and shrub pollen Allergy Unknown Verified 08/23/23 03:22 ciprofloxacin HCl AdvReac Severe Itching Verified 08/23/23 03:22 [From Cipro] clarithromycin [From Biaxin] AdvReac Severe Rash Verified 08/23/23 03:22 codeine AdvReac Severe Unknown Verified 08/23/23 03:22 prednisone AdvReac Severe Unknown Verified 08/23/23 03:22 Sulfa (Sulfonamide AdvReac Severe Unknown Verified 08/23/23 03:22 Antibiotics) adhesive AdvReac Intermediate Rash Verified 08/23/23 03:22 animal dander AdvReac Unknown Unknown Verified 08/23/23 03:22 levofloxacin [From Levaquin] AdvReac Unknown Itching Verified 08/23/23 03:22 nickel AdvReac Unknown NOT SURE Verified 08/23/23 03:22 sulfamethoxazole AdvReac Unknown Rash Verified 08/23/23 03:22 [From Bactrim] Family History Father Bone cancer Arthritis Mother Leukemia Heart disease Surgical History A&P repair H/O repair of rotator cuff History of right hip replacement Hx of tonsillectomy Presence of coronary angioplasty implant and graft (~12/11/19) Social History Smoking Status: Never smoker alcohol intake: never substance use type: does not use caffeine: No ROS ROS ED Constitutional Constitutional ED: Denies chills or fever(s) ENT ENT ED: Denies sore throat Cardiovascular Cardiovascular: Denies chest pain Respiratory/Chest Respiratory/Chest: Denies cough or dyspnea Gastrointestinal Gastrointestinal: Reports abdominal pain and nausea; Denies diarrhea or vomiting Genitourinary Genitourinary ED: Denies dysuria, hematuria or urinary frequency Musculoskeletal Musculoskeletal: Reports back pain Integumentary Denies rash Neurologic Neurologic: Denies headache(s) Hematologic/Lymphatic Hematologic/Lymphatic: Reports easy bleeding and easy bruising EXAM Physical Exam Const Vital Signs: 08/23/23 03:23 08/23/23 05:22 Temperature 97.1 F L Temperature Source Temporal Pulse Rate 77 74 Respiratory Rate 18 20 H Blood Pressure 126/101 H 122/98 H Blood Pressure Mean 109 106 Pulse Ox 98 99 Oxygen Delivery Method Room Air Room Air Positive well nourished, well developed and obese General Appearance ED: well developed Nutritional Appearance: obese HEENT HEENT Narrative: Normocephalic atraumatic Eyes PERRL and EOMs intact bilaterally Neck supple Resp normal respiratory effort and clear to auscultation bilaterally Cardio regular rate and regular rhythm Rate: other Other Details: Radial and carotid pulses are equal and symmetric GI non-distended and no masses GI Narrative: Abdomen is soft and nondistended with normal active bowel sounds. Patient has pain with palpation in the left mid upper abdomen without voluntary guarding or rigidity No pulsatile mass or fluid wave Auscultation: normoactive bowel sounds Palpation: soft Back/Spine Back/Spine Narrative: Positive left CVA pain Extremity Extremity Narrative: +2 pitting edema to the bilateral lower extremities that is equal and symmetric and chronic in nature Negative Homans' sign bilaterally Neuro oriented x3, CN's II-XII intact bilaterally and no sensory deficits noted Sensorium / Orientation: alert Motor Exam: strength 5/5 throughout Psych mental status grossly normal Skin no rashes or lesions noted, no wounds and skin turgor normal General Skin Exam: Negative for jaundice MDM MDM MDM Narrative Medical decision making narrative: Patient arrived to the ER with stable vitals and did have mild improvement of her pain with the fentanyl provided by EMS. Based on her history of sudden onset left-sided flank pain that did not worsen or improve with position change differential diagnosis is for kidney stone versus UTI versus pyelonephritis. Basic blood work was obtained and shows stable kidney function with a creatinine of 1.35 and no signs of UTI/urosepsis. CT scan without contrast was obtained and did confirm a 5 mm stone in the left mid ureter which correlates with her history and exam. The patient does not have urosepsis or acute kidney injury but despite multiple doses of pain medication pain has been persistent. Therefore the case was discussed with urology on-call Dr. Delgado. As the patient is having persistent pain despite multiple doses of medication he agrees to admit the patient to the hospital at this time and we will plan on potential stent placement in roughly 1 day as patient will need medical clearance and potentially cycled off her Coumadin. This plan of care was discussed with the patient and family and they are agreeable to it History & Record Review Discussion w/independent historian: Patient and Significant other Lab Data Labs: Laboratory Results - last 24 hr 08/23/23 08/23/23 03:54 04:26 WBC 11.3 H RBC 4.27 Hgb 12.2 Hct 39.0 MCV 91.3 MCH 28.6 MCHC 31.3 L RDW Std Deviation 50.8 H RDW Coeff of Archie 15.2 H Plt Count 319 MPV 9.3 Immature Gran % (Auto) 1.200 H Neut % (Auto) 71.5 H Lymph % (Auto) 11.2 L [place] % (Auto) 10.3 H Eos % (Auto) 5.1 H Baso % (Auto) 0.7 Absolute Neuts (auto) 8.1 H Absolute Lymphs (auto) 1.27 Nucleated RBC % 0 Sodium 137 Potassium 4.9 Chloride 105 Carbon Dioxide 24.0 Anion Gap 8 BUN 66 H Creatinine 1.35 H Estim Creat Clear Calc 30.21 Est GFR (MDRD) Af Amer 48 L Est GFR (MDRD) Non-Af 40 L BUN/Creatinine Ratio 48.9 H Glucose 115 H Calcium 8.9 Urine Color Yellow Urine Clarity Clear Urine pH 6.0 Ur Specific [place] 1.015 Urine Protein Negative Urine Glucose (UA) Normal Urine Ketones Negative Urine Occult Blood Negative Urine Nitrite Negative Urine Bilirubin Negative Urine Urobilinogen Normal Ur Leukocyte Esterase 100 H Urine RBC 5-10 SEEN Urine WBC 0-5 SEEN Ur Squamous Epith Cells 0-5 SEEN Urine Bacteria 0 SEEN Urine Mucus 0 SEEN Radiography Diagnostic Testing: Clinical Impression(s) from Imaging Studies Abdomen/Pelvis CT 08/23/23 03:40 IMPRESSION: Multiple bilateral renal cysts are noted, the largest measures 3.5 cm. There is 5 mm stone in the mid left ureter without significant hydronephrosis. 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
--- NOTE | 2023-08-23 06:36 | NURSING ---
MED SURG OBS MAI KIDNEY STONE AND INTRACTABLE PAIN
--- NOTE | 2023-08-23 06:58 | HP.PCM_ITS ---
HPI - General General Date of Admission: 08/23/23 Date of Service: 08/23/23 Chief Complaint: Left ureteral calculus HPI Narrative JODI SANCHES, is a 83 F who presents with severe intractable pain from a left ureteral calculus the patient has multiple medical problems including history of DVT and is on Coumadin organ to hold the Coumadin plan to take her to surgery tomorrow for left ureteroscopy basket extraction possible laser and stent. [facility] Medical History Abnormal bruising Acute ST elevation myocardial infarction (STEMI) Arthritis Atherosclerosis of coronary artery of [place] heart without angina pectoris Benign essential HTN Chondromalacia patellae of left knee Contact with and (suspected) exposure to other viral communicable diseases COVID-19 Debility Dilated aortic root Effusion of left knee joint Essential hypertension Fall Fungal infection History of coronary artery stent placement (12/11/19) History of pulmonary embolism History of recurrent deep vein thrombosis (DVT) History of ST elevation myocardial infarction (STEMI) (12/11/19) HLD (hyperlipidemia) Hypercholesterolemia Kidney tumor laser vein surgery Mass of left thigh Nosebleed Obesity 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 BALTAZAR (obstructive sleep apnea) BALTAZAR on CPAP Osteoarthritis Osteoporosis Osteoporosis Pulmonary embolism Pulmonary HTN Syncope URI (upper respiratory infection) Home Medications cholecalciferol (vitamin D3) 25 mcg (1,000 unit) capsule 10,000 unit PO DAILY SUPPLEMENT 08/04/16 [History Last Taken 04/03/23] metoprolol succinate 100 mg tablet,extended release 24 hr 100 mg PO QHS HEART 12/24/19 [History Last Taken 04/03/23] atorvastatin 40 mg tablet 40 mg PO QHS CHOLESTEROL 01/22/20 [History Last Taken 04/03/23] losartan 100 mg tablet 100 mg PO DAILY HEART #30 tabs 02/01/20 [Rx Last Taken 04/04/23] denosumab 60 mg/mL subcutaneous syringe (Prolia) 60 mg subcut [id number] 04/30/21 [History Last Taken Unknown] zhpmtfre-qye-aqsdx acid 0.4 mg-lycopene 300 mcg-lutein 250 mcg tablet 1 tab PO DAILY SUPPLEMENT 04/22/22 [History Last Taken 04/04/23] furosemide 20 mg tablet 20 mg PO DAILY 11/27/23 [History Last Taken 04/04/23] warfarin 4 mg tablet 4 mg PO QHS blood clots 04/04/23 [History Last Taken 04/03/23] spironolactone 25 mg tablet 25 mg PO DAILY EDEMA 04/05/23 [History Last Taken Unknown] Allergy/AdvReac Type Severity Reaction Status Date / Time rivaroxaban [From Xarelto] Allergy Intermediate nose bleeds Verified 08/23/23 03:22 adhesive tape [tape] Allergy Unknown Itching Verified 08/23/23 03:22 kiwi Allergy Unknown Anaphylaxis Verified 08/23/23 03:22 trimethoprim [From Bactrim] Allergy Unknown Rash Verified 08/23/23 03:22 tree and shrub pollen Allergy Unknown Verified 08/23/23 03:22 ciprofloxacin HCl AdvReac Severe Itching Verified 08/23/23 03:22 [From Cipro] clarithromycin [From Biaxin] AdvReac Severe Rash Verified 08/23/23 03:22 codeine AdvReac Severe Unknown Verified 08/23/23 03:22 prednisone AdvReac Severe Unknown Verified 08/23/23 03:22 Sulfa (Sulfonamide AdvReac Severe Unknown Verified 08/23/23 03:22 Antibiotics) adhesive AdvReac Intermediate Rash Verified 08/23/23 03:22 animal dander AdvReac Unknown Unknown Verified 08/23/23 03:22 levofloxacin [From Levaquin] AdvReac Unknown Itching Verified 08/23/23 03:22 nickel AdvReac Unknown NOT SURE Verified 08/23/23 03:22 sulfamethoxazole AdvReac Unknown Rash Verified 08/23/23 03:22 [From Bactrim] Family History Father Bone cancer Arthritis Mother Leukemia Heart disease Surgical History A&P repair H/O repair of rotator cuff History of right hip replacement Hx of tonsillectomy Presence of coronary angioplasty implant and graft (~12/11/19) Social History Smoking Status: Never smoker alcohol intake: never substance use type: does not use caffeine: No ROS Constitutional Constitutional: Denies chills, fever(s) or malaise Eyes Eyes: Denies blurry vision or change in vision ENT HEENT: Reports none Cardiovascular Cardiovascular: Denies chest pain or palpitations Respiratory/Chest Respiratory/Chest: Denies cough or shortness of breath with exertion Gastrointestinal Gastrointestinal: Denies abdominal pain, constipation or diarrhea Musculoskeletal Musculoskeletal: Denies back pain, joint stiffness or joint swelling Integumentary Integumentary: Denies dry skin, jaundice, lesions or rash Neurologic Neurologic: Denies confusion, syncope or weakness Psychiatric Psychiatric: Reports none; Denies anxiety or depression Endocrine Endocrinology: Denies excessive sweating, fatigue or flushing Hematologic/Lymphatic Hematologic/Lymphatic: Denies anemia, easy bleeding or easy bruising Vital Signs Vital Signs Vital Signs: 08/23/23 03:23 08/23/23 05:22 08/23/23 06:54 Temperature 97.1 F L 97.6 F L Temperature Source Temporal Pulse Rate 77 74 84 Respiratory Rate 18 20 H 18 Blood Pressure 126/101 H 122/98 H 139/77 H Blood Pressure Mean 109 106 97 Pulse Ox 98 99 98 Oxygen Delivery Method Room Air Room Air Weight Weight: 82.5 kg Body Mass Index (BMI) 34.3 Physical Exam Const alert and oriented x3 General Appearance: cooperative HEENT normocephalic, head/scalp atraumatic, EAC's normal and TM's normal bilaterally Eyes PERRL and EOMs intact bilaterally Pupil: sluggish Neck no lymphadenopathy, supple and no JVD General: trachea midline Lymph Lymphatic: no lymphadenopathy noted, lymphedema and lymphadenopathy Resp normal respiratory effort, normal air movement and clear to auscultation bilaterally Cardio regular rate, regular rhythm and peripheral pulses 2+ throughout GI soft to palpation, non-tender and non-distended Extremity normal capillary refill and no clubbing, cyanosis or edema General Extremity: no tenderness to palpation of joints or extremities Skin no rashes or lesions noted General Skin Exam: turgor normal Lesions: no lesions Rashes: no rashes Neuro CN's II-XII intact bilaterally Speech: speech normal Motor Exam: strength 5/5 throughout; Negative for general weakness Psych thought process normal, cooperative and affect normal Appearance: appropriate Results Lab / Micro Data 08/23/23 03:54 08/23/23 03:54 Labs: Laboratory Results - last 24 hr 08/23/23 03:54: WBC 11.3 H, RBC 4.27, Hgb 12.2, Hct 39.0, MCV 91.3, MCH 28.6, MCHC 31.3 L, RDW Std Deviation 50.8 H, RDW Coeff of Archie 15.2 H, Plt Count 319, MPV 9.3, Immature Gran % (Auto) 1.200 H, Neut % (Auto) 71.5 H, Lymph % (Auto) 11.2 L, [place] % (Auto) 10.3 H, Eos % (Auto) 5.1 H, Baso % (Auto) 0.7, Absolute Neuts (auto) 8.1 H, Absolute Lymphs (auto) 1.27, Nucleated RBC % 0, Sodium 137, Potassium 4.9, Chloride 105, Carbon Dioxide 24.0, Anion Gap 8, BUN 66 H, Creatinine 1.35 H, Estim Creat Clear Calc 30.21, Est GFR (MDRD) Af Amer 48 L, Est GFR (MDRD) Non-Af 40 L, BUN/Creatinine Ratio 48.9 H, Glucose 115 H, Calcium 8.9 08/23/23 04:26: Urine Color Yellow, Urine Clarity Clear, Urine pH 6.0, Ur Specific [place] 1.015, Urine Protein Negative, Urine Glucose (UA) Normal, Urine Ketones Negative, Urine Occult Blood Negative, Urine Nitrite Negative, Urine Bilirubin Negative, Urine Urobilinogen Normal, Ur Leukocyte Esterase 100 H, Urine RBC 5-10 SEEN, Urine WBC 0-5 SEEN, Ur Squamous Epith Cells 0-5 SEEN, Urine Bacteria 0 SEEN, Urine Mucus 0 SEEN Imaging Radiology Impression Abdomen/Pelvis CT 08/23/23 03:40 IMPRESSION: Multiple bilateral renal cysts are noted, the largest measures 3.5 cm. There is 5 mm stone in the mid left ureter without significant hydronephrosis. Electronically Signed: Maribel Goss MD at 5:54 EDT , Assessment & Plan Assessment/Plan (1) Renal colic: PLAN: Admit patient for pain control and will take her to surgery tomorrow for left ureteroscopy basket laser and stent. N.p.o. for surgery consent (2) Kidney stone on left side:
[2023-08-23 07:05] LABS: International Normalized Ratio 2.4; Partial Thromboplast Time 31.3 Seconds (24.1-36.2); Prothrombin Time (Protime)PT. 25.8 SECONDS (11.7-14.9)
[2023-08-23] MEDS: Cefazolin 1 GM/50 ML BAG IV ×2 (08:46→21:11)
[2023-08-23] MEDS: 0.9% Normal Saline (1000mL) 1,000 ML 75 ML IV ×2 (08:46→23:41)
[2023-08-23] MEDS: 0.9% Saline Lock 10 ML Syringe IV (08:46)
[2023-08-23] MEDS: Furosemide 20 MG Tablet PO (09:57)
[2023-08-23] MEDS: oxyCODONE 5 MG Tablet PO ×2 (16:29→18:44)
[2023-08-23] MEDS: Atorvastatin Calcium 40 MG Tablet PO (21:11)
[2023-08-23] MEDS: Metoprolol(XL)Succ 100 MG Tablet PO (21:16)
[2023-08-24] VITALS (10 sets, daily range): BP systolic 122–164; BP diastolic 68–122; PULSE 71–85; RESP 16–18; TEMP 36.1–36.6; O2SAT 94–99; BMI 33.7
--- NOTE | 2023-08-24 05:55 | EKG12_ITS ---
Test Reason : AM EKG Blood Pressure : / mmHG Vent. Rate : 077 BPM Atrial Rate : 077 BPM P-R Int : 192 ms QRS Dur : 068 ms QT Int : 386 ms P-R-T Axes : 044 004 040 degrees QTc Int : 436 ms Normal sinus rhythm Low voltage QRS Possible Inferior infarct (cited on or before 06-DEC-2019) Abnormal ECG Confirmed by ANGELINA ANTONIO, JUAN ([id number]), science editor DANNY DIALLO ([id number]) on 08/24/2023 9:21:17 AM Referred By: MAI Confirmed By:JUAN ALFARO MD
[2023-08-24] MEDS: Sodium Chloride 0.65% 1 SPRAY SPRAY.BTL 2 SPRAY NASAL (06:24)
[2023-08-24 06:54] LABS: Hematocrit 38.7 % (37-47); Hemoglobin 11.7 g/dL (12.0-15.0); Mean Corp Hgb Conc 30.2 g/dL (32-36); Mean Corpuscular Hgb 28.3 pg (27.0-32.0); Mean Corpuscular Volume 93.7 fL (81-99); Mean Platelet Vol. 9.5 fl (6.2-12.0); Platelet Count 330 K/mm3 (150-450); RBC Distribution Width CV 15.5 % (11.6-14.6); RBC Distribution Width SD 53.7 fl (35.1-43.9); Red Blood Count 4.13 M/mm3 (4.2-5.4); White Blood Count 9.4 K/mm3 (4.4-11.0)
[2023-08-24 07:28] LABS: Anion Gap 4 (5-15); BUN 54 mg/dL (7-18); BUN/Creat Ratio 45.4 RATIO (10-20); Calcium,Total 8.8 mg/dL (8.5-10.1); Chloride 111 mmol/L (98-107); Creatinine, Serum 1.19 mg/dL (0.55-1.02); EST Glomerular Filtration Rate 46 mL/min (>60); Est Glom Filt Rate - Afr Amer 56 mL/min (>60); Estimated Creatinine Clearance 33.96 ml/min; Glucose 113 mg/dL (74-106); Sodium Level 139 mmol/L (136-145)
[2023-08-24] MEDS: 0.9% Normal Saline (1000mL) 1,000 ML 15 ML IV (09:11)
[2023-08-24 09:45] LABS: INR Fingerstick 2.4
--- NOTE | 2023-08-24 10:45 | DCINST_ITS ---
Discharge Instructions Diet Discharge Diet: No restrictions Activity Discharge Activity: Return to Normal Activity and May Not Drive (while taking narcotic pain medications.) Dressing / Incision Call your doctor if you observe: Fever of 101 or Higher Follow Up Care Please Follow Up With: Dillon Delgado MD When: Call [phone] for an appointment Test Results: Test results from this visit will be discussed in further detail at your follow- up appointment, if applicable. Discharge Plan Admission Admit Date/Time: 08/23/23 07:03 Primary Reason for Your Visit: kidney stone Attending Provider: Dillon Delgado Primary Care Provider: Della Garay Discharge Orders/Prescriptions Prescriptions: New cephalexin 500 mg capsule 500 mg PO TID Qty: 15 0RF Continued metoprolol succinate 100 mg tablet extended release 24 hr 100 mg PO QHS Prolia 60 mg/mL syringe 60 mg subcut [id number] vndexbyz-qqo-AC-lycopen-lutein 0.4 mg-300 mcg- 250 mcg tablet 1 tab PO DAILY Patient Comments: SUPPLEMENT cholecalciferol (vitamin D3) 1,000 UNIT capsule 10,000 unit PO DAILY atorvastatin 40 MG tablet 40 mg PO QHS losartan 100 mg tablet 100 mg PO DAILY Qty: 30 0RF warfarin 4 mg tablet 4 mg PO QHS Patient Comments: MWF furosemide 20 mg tablet 20 mg PO DAILY Referrals / Follow Up: Dillon Delgado MD [Med Staff - Active Staff] - Della Garay CLOTH EXAMINER HAND-C [Primary Care Provider] - Disposition Disposition (needs filled in before D/C Order can be placed): Home, Self Care
--- NOTE | 2023-08-24 10:45 | OP.PCM_ITS ---
Report of Operation Date of Procedure: 08/24/23 Pre-Operative Diagnosis: Left ureteral calculus Post-Operative Diagnosis: The same Surgery/Procedure Performed:: Cystoscopy left ureteroscopy, left retrograde pyelogram, left stent Description of Surgical Findings:: This is a patient who presents to the hospital for treatment for an obstructing ureter calculi. I discussed with the patient how the surgery would be performed and we reviewed the risks and benefits of the surgery. The risk and benefits include the risk of failure to remove the stone completely and that the patient may need multiple procedures. We discussed the risk of an infection, the risk of bleeding. We discussed the very rare risk of serious complicated injury to the ureter. The patient understands that if the stone is not able to be removed safely that we may abort the procedure and place a stent. After full discussion and all questions address with the patient the consent form was signed the side was marked appropriately and the patient was taken back to the operating room for the procedure. The patient was taken back to the operating room. After induction of anesthesia by the anesthesiology team the patient was placed in dorsolithotomy position. T he genitals were prepped and draped in usual sterile fashion. I went into the bladder with a 21 Liberian rigid cystourethroscope through the urethra. Upon entering the bladder I inspected the trigone the left and right ureteral orifice and the bladder itself. I then cannulated the Left ureteral orifice and advanced a 0.038 Glidewire up into the kidney. Then over the Glidewire I advanced a 5 Fr Ureteral catheter and performed a retrograde pyelogram with about 10cc of contrast, to delineate the anatomy and identify the stone location. Then a ureteral balloon dilator was advanced over the wire and the distal ureter was balloon dilated with a 12 Fr x 5cm balloon dilator. After 3 minutes of dilating the ureter the balloon was backloaded off the 0.038 glidewire over the 0.038 guidewire I went in with the flexible 7.5fr ureteroscope. I was able to go inside with the 7.5Fr utereroscope and I pulled out the guidewire and then through the ureteroscope I went up to the kidney and inspected the kidney and ureter and no stone was found. A retrograde pyelogram was performed with 10cc of contrast and no extravasation of contrast or perforation was identified in the ureter there was some mild irritation of the ureter where the stone was located. I then backed out of the ureter left the wire in place and then over the 0.038 guidewire I placed a double coiled pigtail ureteral stent. The ureteral stent was advanced over the 0.038 guidewire under direct fluoroscopic guidance and direct cystoscopic visual guidance, once the stent was in good position I pulled the wire and the stent co iled in the kidney and bladder in good position. I then drained the patient's bladder and the cystoscope was removed and the patient was taken back to the recovery room in good position. The patient was given discharge instructions to call the office for instructions on when to come to the office to have the stent removed. Surgeon: Dillon Delgado Type of Anesthesia: General Drains: stent Admit VTE Documentation VTE Present on Admission: No VTE Mechan Device Prophylaxis: SCD's VTE Pharm Prophylaxis ordered?: No
--- NOTE | 2023-08-24 10:48 | DS.PCM_ITS ---
Providers Date of Admission: 08/23/23 Date of Discharge: 08/24/23 Primary Care Physician: Della Garay, [employer] Reason For Visit: STONE Diagnosis Discharge Diagnosis (1) Renal colic: Status: Acute Code(s): N23 - Unspecified renal colic Plan: Admit patient for pain control and will take her to surgery tomorrow for left ureteroscopy basket laser and stent. N.p.o. for surgery consent (2) Kidney stone on left side: Status: Acute Code(s): N20.0 - Calculus of kidney Medications at Discharge Home Medications cholecalciferol (vitamin D3) 25 mcg (1,000 unit) capsule 10,000 unit PO DAILY SUPPLEMENT 08/04/16 metoprolol succinate 100 mg tablet,extended release 24 hr 100 mg PO QHS HEART 12/24/19 atorvastatin 40 mg tablet 40 mg PO QHS CHOLESTEROL 01/22/20 losartan 100 mg tablet 100 mg PO DAILY HEART #30 tabs 02/01/20 denosumab 60 mg/mL subcutaneous syringe (Prolia) 60 mg subcut [id number] 04/30/21 thoajjks-izm-kmyfq acid 0.4 mg-lycopene 300 mcg-lutein 250 mcg tablet 1 tab PO DAILY SUPPLEMENT 04/22/22 furosemide 20 mg tablet 20 mg PO DAILY 04/04/23 warfarin 4 mg tablet 4 mg PO QHS blood clots 04/04/23 cephalexin 500 mg capsule 500 mg PO TID #15 caps 08/24/23 Hospital Course Summary of Care Provided Minutes Spent on Discharge: 20 Hospital Course: Patient was taken back to the operating room underwent ureteroscopy and stent placement no stone was found and she will be discharged home with a course of antibiotics. Physical Exam Const alert and oriented x3 General Appearance: cooperative HEENT normocephalic, head/scalp atraumatic, EAC's normal and TM's normal bilaterally Eyes PERRL and EOMs intact bilaterally Pupil: sluggish Neck no lymphadenopathy, supple and no JVD General: trachea midline Lymph Lymphatic: no lymphadenopathy noted, lymphedema and lymphadenopathy Resp normal respiratory effort, normal air movement and clear to auscultation bilaterally Cardio regular rate, regular rhythm and peripheral pulses 2+ throughout GI soft to palpation, non-tender and non-distended Extremity normal capillary refill and no clubbing, cyanosis or edema General Extremity: no tenderness to palpation of joints or extremities Skin no rashes or lesions noted General Skin Exam: turgor normal Lesions: no lesions Rashes: no rashes Neuro CN's II-XII intact bilaterally Speech: speech normal Motor Exam: strength 5/5 throughout; Negative for general weakness Psych thought process normal, cooperative and affect normal Appearance: appropriate Weight / BMI Weight Weight: 81.1 kg Body Mass Index (BMI) 33.7 ABG / Lab / Microbiology Data 08/24/23 06:00 08/24/23 06:00 Laboratory: Laboratory Results - last 24 hr 08/24/23 06:00: WBC 9.4, RBC 4.13 L, Hgb 11.7 L, Hct 38.7, MCV 93.7, MCH 28.3, MCHC 30.2 L, RDW Std Deviation 53.7 H, RDW Coeff of Archie 15.5 H, Plt Count 330, MPV 9.5, Sodium 139, Potassium 5.0, Chloride 111 H, Carbon Dioxide 24.0, Anion Gap 4 L, BUN 54 H, Creatinine 1.19 H, Estim Creat Clear Calc 33.96, Est GFR (MDRD) Af Amer 56 L, Est GFR (MDRD) Non-Af 46 L, BUN/Creatinine Ratio 45.4 H, Glucose 113 H, Calcium 8.8 08/24/23 09:43: POC PT 25.0 H, INR 2.4 D/C Instructions Discharge Diet: No restrictions Call your doctor if you observe: Fever of 101 or Higher Please Follow Up With: Dillon Delgado MD When: Call [phone] for an appointment Meaningful Use Info Meaningful Use Meaningful Use Diagnoses (Choose all that apply): None applicable Ischemic Stroke Statin Dosing Therapy Reference: STATIN DOSE THERAPY REFERENCE: * Patients > 75 years receive moderate or high dose statin therapy. * Patients 75 years or YOUNGER should receive HIGH intensity statin dose unless contraindicated. You will be required to document reason for non-treatment if statin daily dose does not meet guidelines. HIGH DOSE STATIN THERAPY DAILY Atorvastatin > than or = to 40 mg Rosuvastatin > than or = to 20 mg Amlodipine + Atorvastatin > than or = to 2.5/40 mg Ezetimibe + Simvastatin 10/80 mg Simvastatin 80mg Discharge Plan Admission Admit Date/Time: 08/23/23 07:03 Primary Reason for Your Visit: kidney stone Attending Provider: Dillon Delgado Primary Care Provider: Della Garay Discharge Orders/Prescriptions Prescriptions: New cephalexin 500 mg capsule 500 mg PO TID Qty: 15 0RF Continued metoprolol succinate 100 mg tablet extended release 24 hr 100 mg PO QHS Prolia 60 mg/mL syringe 60 mg subcut [id number] dxyzzucz-eiw-KX-lycopen-lutein 0.4 mg-300 mcg- 250 mcg tablet 1 tab PO DAILY Patient Comments: SUPPLEMENT cholecalciferol (vitamin D3) 1,000 UNIT capsule 10,000 unit PO DAILY atorvastatin 40 MG tablet 40 mg PO QHS losartan 100 mg tablet 100 mg PO DAILY Qty: 30 0RF warfarin 4 mg tablet 4 mg PO QHS Patient Comments: MWF furosemide 20 mg tablet 20 mg PO DAILY Referrals / Follow Up: Dillon Delgado MD [Med Staff - Active Staff] - Della Garay [employer] [Primary Care Provider] - Disposition Disposition (needs filled in before D/C Order can be placed): Home, Self Care
[2023-08-24] MEDS: Furosemide 20 MG Tablet PO (12:30)
[2023-08-24] MEDS: Spironolactone 25 MG Tablet PO (12:31)
[2023-08-24] MEDS: Cefazolin 1 GM/50 ML BAG IV (12:31)
[2023-08-24] MEDS: 0.9% Normal Saline (1000mL) 1,000 ML 75 ML IV (12:31)
[2023-08-24] MEDS: Acetaminophen 325 MG Tablet PO (13:29)
--- NOTE | 2023-08-24 13:30 | CASEMGMT ---
[facility] CM Face to Face with patient for initial transition planning/care coordination assessment. RN CM introduced self and role at [facility]. Patient lying in bed, alert and oriented, forgetful at times. Patient willing to participate in assessment and is able to answer most questions appropriately. RN CM called and clarified information with . Care providers, pharmacy, and demographics verified. PCP: Della Garay Specialists: Crys, mold chipper; Sandy, urologist; Lawson, line o scribe operator Preferred Pharmacy: [facility] Insurance: [facility], MMO Prescription Benefit: yes Living Will/HPOA: yes, Jamie Barcenas LNOK: Living Arrangements: Patient lives with in a single story home with 6 steps and railing to enter the home. assist patient with ADLs Transportation: DME/HHC: Patient has shower chair, BSC, grab bars, cpap, hand held shower, walker at home. Patient has been to in the past. Patient is active with [facility]. wishes for patient to discharge home with resumption of [facility] HHC. states he has no further needs or concerns at this time. CM to follow for discharge planning needs that may arise. RN CM called and updated [facility] of discharge today. Disposition Plan: Patient to discharge home with resumption of [facility] HHC, family support, and follow-up plans in place. Chantel CEJA, RN, CM
--- NOTE | 2023-08-24 16:01 | PHA.DC.MC.R ---
Pharmacy [facility] has performed discharge medication reconciliation and counseling for this patient. 1. CEPHALEXIN 500MG PO TID X 5 DAYS The patient's discharge medication list was reviewed for discrepancies and discrepancies were resolved. The patient was counseled on the following discharge medications and changes in medications for homegoing were reviewed. The Reason for Use, instructions for use, and potential side effects were reviewed for all new medications. The patient's questions regarding all of their medications were answered. The patient was able to verbally demonstrate an understanding of their discharge medications. Medications at Discharge Home Medications cholecalciferol (vitamin D3) 25 mcg (1,000 unit) capsule 10,000 unit PO DAILY SUPPLEMENT 08/04/16 metoprolol succinate 100 mg tablet,extended release 24 hr 100 mg PO QHS HEART 12/24/19 atorvastatin 40 mg tablet 40 mg PO QHS CHOLESTEROL 01/22/20 losartan 100 mg tablet 100 mg PO DAILY HEART #30 tabs 02/01/20 denosumab 60 mg/mL subcutaneous syringe (Prolia) 60 mg subcut [id number] 04/30/21 cyznpqry-fmt-crfuw acid 0.4 mg-lycopene 300 mcg-lutein 250 mcg tablet 1 tab PO DAILY SUPPLEMENT 04/22/22 furosemide 20 mg tablet 20 mg PO DAILY 04/04/23 warfarin 4 mg tablet 4 mg PO QHS blood clots 04/04/23 cephalexin 500 mg capsule 500 mg PO TID #15 caps 08/24/23
== END 2023-08-24 16:06 | disposition home health service (06) | DRG 661 ==
LOC: ED 06:17 → PCU 06:28
PROVIDERS: Admitting Provider Urology; Emergency Provider Emergency Medicine; PCP Nurse Practitioner Family; Visit Provider Urology
PROC: 0TJ98ZZ Inspection of Ureter, Via Natural or Artificial Opening Endoscopic (ICD-10-PCS; CPT 52352; principal; 2023-08-24 10:00)
DX: N20.1 Calculus of ureter (principal); E78.00 Pure hypercholesterolemia, unspecified; I10 Essential (primary) hypertension; I25.10 Atherosclerotic heart disease of native coronary artery without angina pectoris; I25.2 Old myocardial infarction; Z95.5 Presence of coronary angioplasty implant and graft; Z79.01 Long term (current) use of anticoagulants; Z79.899 Other long term (current) drug therapy; Z86.16 Personal history of COVID-19; Z86.711 Personal history of pulmonary embolism; Z86.718 Personal history of other venous thrombosis and embolism
CPT/HCPCS: 36415; 36416; 74176; 76000; 80048; 81001; 85025; 85027; 85610; 85730; 93005; 99284; J7030; A4216; C1769; J2405

== ENCOUNTER → 2023-10-06 | Outpatient (CLI) | payer MEDICARE, OTHER, SELFPAY ==
[2023-10-06 10:08] LABS: Absolute Neutrophil Count 7.4 X10^3/uL (2.0-7.7); Basophil# 0.05 X10^3/uL; Basophil% 0.5 % (0-1); Eosinophil# 0.35 X10^3/uL; Eosinophils% 3.6 % (0-5); Hematocrit 41.2 % (37-47); Hemoglobin 13.1 g/dL (12.0-15.0); Lymphocyte % 10.4 % (19-41); Mean Corp Hgb Conc 31.8 g/dL (32-36); Mean Corpuscular Volume 91.2 fL (81-99); Mean Platelet Vol. 9.8 fl (6.2-12.0); Monocyte# 0.79 X10^3/uL; Monocyte% 8.2 % (0-10); NRBC Flagged by Analyzer 0 % (0-5); Neutrophil # 7.38 X10^3/uL (2.7-7.7); Neutrophil % 76.5 % (47-70); Platelet Count 344 K/mm3 (150-450); RBC Distribution Width CV 14.6 % (11.6-14.6); RBC Distribution Width SD 49.4 fl (35.1-43.9); Red Blood Count 4.52 M/mm3 (4.2-5.4); White Blood Count 9.7 K/mm3 (4.4-11.0)
[2023-10-06 10:41] LABS: ALB/GLOB Ratio 0.8 RATIO (0.9-2.4); AST(SGOT) 19 U/L (15-37); Alanine Aminotransfer ALT/SGPT 18 U/L (13-56); Albumin, Serum 3.1 g/dL (3.2-5.0); Alkaline Phosphatase 66 U/L (45-117); Anion Gap 6 (5-15); BUN 50 mg/dL (7-18); BUN/Creat Ratio 43.9 RATIO (10-20); Calcium,Total 9.1 mg/dL (8.5-10.1); Chloride 105 mmol/L (98-107); Cholesterol 147 mg/dL (200); Creatinine, Serum 1.14 mg/dL (0.55-1.02); EST Glomerular Filtration Rate 48 mL/min (>60); Est Glom Filt Rate - Afr Amer 58 mL/min (>60); Glucose 103 mg/dL (74-106); High Density Lipoprotein 41 mg/dL; Potassium 4.9 mmol/L (3.5-5.1); Protein, Total 7.1 g/dL (6.4-8.2); Sodium Level 136 mmol/L (136-145); Thyroid Stim Hormone (TSH) 4.29 uIU/mL (0.358-3.74); Triglycerides 227 mg/dL; Very Low Density Lipoprotein 45 mg/dL (5-40)
== END | disposition home or self-care (01) ==
LOC: MTLAB 08:39
PROVIDERS: PCP Nurse Practitioner Family; Referring Provider Nurse Practitioner Family; Visit Provider Nurse Practitioner Family
DX: E78.5 Hyperlipidemia, unspecified (principal); I10 Essential (primary) hypertension; R73.01 Impaired fasting glucose
CPT/HCPCS: 36415; 80053; 80061; 84443; 85025

== ENCOUNTER → 2023-10-12 08:46 | Outpatient (REF) | payer MEDICARE, OTHER, SELFPAY | LOC: LAB 08:46 | PROVIDERS: PCP Nurse Practitioner Family; Visit Provider Nurse Practitioner Family | DX: Z79.01 Long term (current) use of anticoagulants (principal) ==

== ENCOUNTER → 2024-01-24 | Outpatient (CLI) | payer MEDICARE, OTHER, SELFPAY ==
--- NOTE | 2024-01-24 12:58 | BI_ITS ---
MAMMOGRAPHY - BILATERAL SCREENING REASON FOR EXAM: Female, 83 years old. Routine annual screening examination. PERTINENT HISTORY: Sister with breast cancer. TECHNIQUE: Digital bilateral breast mary ellen (3D mammographic acquisition) in the CC and MLO projections. 2-D mediolateral oblique (MLO) and craniocaudad (CC) views of both breasts were obtained. CAD: Full Field Digital Mammography with Computer Added Detection was performed. COMPARISON: Comparison is made with prior study January 19, 2022 and January 15, 2021. FINDINGS: Breast Composition: The breasts are almost entirely fatty. There are no dominant masses or suspicious calcifications. No other significant abnormalities are identified. There has been no significant change since the prior study. BI/SCRN MAMM (CAD)W/MARY ELLEN BILAT IMPRESSION: Stable bilateral screening mammogram. Yearly follow-up mammogram recommended. (A) ASSESSMENT CATEGORY: BIRADS Category 1: Negative. A letter regarding these results will be sent to the patient by the facility within 30 days. Approximately 10% of breast cancers are not detected by mammography. A normal mammogram should not delay biopsy of a clinically suspicious abnormality. [id number] Electronically Signed: Luis Watkins MD at 14:20 EDT ,
== END | disposition home or self-care (01) ==
LOC: OPBD 12:56
PROVIDERS: PCP Nurse Practitioner Family; Referring Provider Nurse Practitioner Family; Visit Provider Nurse Practitioner Family
DX: Z12.31 Encounter for screening mammogram for malignant neoplasm of breast (principal)
CPT/HCPCS: 77063; 77067

== ENCOUNTER 2024-02-10 10:28 | Outpatient (CLI) | payer MEDICARE, OTHER, SELFPAY ==
[2024-02-10 10:53] VITALS: BP 111/69; PULSE 81; RESP 16; TEMP 36.1; O2SAT 98; BMI 32.1
[2024-02-10] MEDS: DENOSUMAB 60 MG/ML SC (10:56)
== END 2024-02-10 23:59 | disposition home or self-care (01) ==
PROVIDERS: PCP Nurse Practitioner Family; Referring Provider Internal Medicine; Visit Provider Internal Medicine
DX: M81.0 Age-related osteoporosis without current pathological fracture (principal)
CPT/HCPCS: 96372; J0897

== ENCOUNTER 2024-05-26 03:15 | Emergency (ER) | payer MEDICARE, OTHER, SELFPAY ==
[2024-05-26 03:17] VITALS: BP 128/82; PULSE 73; RESP 18; TEMP 36.6; O2SAT 97
[2024-05-26 03:21] VITALS: TEMP 36.6
--- NOTE | 2024-05-26 03:39 | CT_ITS ---
EXAM: CT HEAD WITHOUT INTRAVENOUS CONTRAST CLINICAL INDICATION: fall TECHNIQUE: Multiple axial images were obtained of the head without intravenous contrast. This CT exam was performed using one or more of the following dose reduction techniques: automated exposure control, adjustment of the mA and/or kV according to patient size, and/or use of iterative reconstruction technique. RADIATION DOSE: CTDIvol = 44.99 mGy, DLP = 796.11 mGy-cm COMPARISON: No relevant prior studies available. FINDINGS: BRAIN AND EXTRA-AXIAL SPACES: Diffuse cerebral volume loss. Periventricular small vessel ischemic changes. No intra- or extra-axial hemorrhage. No intracranial mass or mass effect. Posterior fossa structures are unremarkable. No hydrocephalus. Basal cisterns are patent. BONES/JOINTS: Unremarkable. No discrete lytic or blastic abnormalities. VASCULATURE: Vascular calcifications. SINUSES: Unremarkable as visualized. Clear. MASTOID AIR CELLS: Unremarkable. Clear. ORBITS: Visualized globes, extraocular muscles, optic nerves and retrobulbar fat appear unremarkable. CT/Brain/Head without Contrast IMPRESSION: 1. No acute intracranial abnormalities. 2. Age-related changes. Electronically Signed: David Bailey MD at 4:47 EST ,
--- NOTE | 2024-05-26 03:39 | RAD_ITS ---
EXAM: XR PELVIS, 1 OR 2 VIEWS CLINICAL INDICATION: fall TECHNIQUE: Frontal view of the pelvis. COMPARISON: Pelvis from 04/11/2023 FINDINGS: BONES/JOINTS: Right hip arthroplasty. No displaced fracture. No destructive or sclerotic lesions. Note that overlapping bowel shadows may however obscure fine detail. Sacroiliac joints are unremarkable. No widening of the pubic symphysis. SOFT TISSUES: Unremarkable. No soft tissue swelling or gas. RAD/Pelvis 1 or 2 Views IMPRESSION: 1. No acute injuries identified involving the pelvis. 2. Right hip arthroplasty. Electronically Signed: David Bailey MD at 5:14 EST ,
--- NOTE | 2024-05-26 03:39 | CT_ITS ---
EXAM: CT CERVICAL SPINE WITHOUT INTRAVENOUS CONTRAST CLINICAL INDICATION: fall TECHNIQUE: Helically acquired images were obtained of the cervical spine without intravenous contrast. 2D reformatted images were reviewed. This CT exam was performed using one or more of the following dose reduction techniques: automated exposure control, adjustment of the mA and/or kV according to patient size, and/or use of iterative reconstruction technique. RADIATION DOSE: CTDIvol = 25.39 mGy, DLP = 508.76 mGy-cm COMPARISON: No relevant prior studies available. FINDINGS: VERTEBRAE: Degenerative anterolisthesis of C7 on T1. No fracture. No discrete lytic or blastic abnormality. DISCS/SPINAL CANAL/NEURAL FORAMINA: Degenerative changes of the intervertebral discs. No critical stenosis. SOFT TISSUES: Unremarkable. No prevertebral soft tissue swelling. LYMPH NODES: Unremarkable. No cervical adenopathy. LUNG APICES: Unremarkable as visualized. Clear. CT/Spine Cervical without Contras IMPRESSION: 1. No acute injuries identified involving the cervical spine. 2. Degenerative changes. Electronically Signed: David Bailey MD at 4:51 EST ,
--- NOTE | 2024-05-26 04:07 | CT_ITS ---
EXAM: CT THORACIC SPINE WITHOUT INTRAVENOUS CONTRAST CLINICAL INDICATION: pain TECHNIQUE: Helically acquired images were obtained of the thoracic spine without intravenous contrast. 2D reformats were reviewed. This CT exam was performed using one or more of the following dose reduction techniques: automated exposure control, adjustment of the mA and/or kV according to patient size, and/or use of iterative reconstruction technique. RADIATION DOSE: CTDIvol = 23.27 mGy, DLP = 780.78 mGy-cm COMPARISON: No relevant prior studies available. FINDINGS: VERTEBRAE: Unremarkable. No fracture. No traumatic subluxation. No discrete lytic or blastic abnormality. Normal alignment. DISCS/SPINAL CANAL/NEURAL FORAMINA: Degenerative changes of the intervertebral discs. VASCULATURE: Visualized thoracic aorta is not dilated. LYMPH NODES: Unremarkable. No retroperitoneal adenopathy. LUNGS AND PLEURAL SPACES: Unremarkable as visualized. No mass. No consolidation or edema. No pleural effusion or thickening. No pneumothorax. CT/Spine Thoracic without Contras IMPRESSION: 1. No acute injuries identified involving the thoracic spine. 2. Degenerative changes. Electronically Signed: David Bailey MD at 4:53 EST ,
[2024-05-26 04:16] LABS: Bacteria 0 SEEN /hpf (None Seen); Mucous, Urine 0 SEEN /hpf (<or=2+); Red Blood Cells-Urine 0 SEEN /hpf (0-5); Squamous Epithelial Cells - UA 0 SEEN /hpf (5-10); White Blood Cells 0 SEEN /hpf (0-5)
--- NOTE | 2024-05-26 04:16 | RAD_ITS ---
EXAM: XR LEFT KNEE, 3 VIEWS CLINICAL INDICATION: pain TECHNIQUE: Three views of the left knee. COMPARISON: No relevant prior studies available. FINDINGS: BONES/JOINTS: Severe degenerative changes of the lateral femorotibial compartment. No acute fracture. No subluxation. Normal alignment. No sclerotic or destructive changes observed. SOFT TISSUES: Unremarkable. No soft tissue swelling or gas. No radiopaque foreign body. VASCULATURE: Arterial calcifications. RAD/Knee 3 Views IMPRESSION: No acute findings in the left knee. Electronically Signed: David Bailey MD at 5:16 EST ,
[2024-05-26 04:19] LABS: Absolute Lymphocyte Count 1.22 X10^3/uL (0.83-4.51); Basophil# 0.05 X10^3/uL; Basophil% 0.6 % (0-1); Eosinophil# 0.37 X10^3/uL; Eosinophils% 4.3 % (0-5); Hematocrit 42.7 % (37-47); Hemoglobin 13.7 g/dL (12.0-15.0); Lymphocyte # 1.22 X10^3/ul (0.83-4.51); Lymphocyte % 14.3 % (19-41); Mean Corp Hgb Conc 32.1 g/dL (32-36); Mean Corpuscular Hgb 28.7 pg (27.0-32.0); Mean Corpuscular Volume 89.5 fL (81-99); Mean Platelet Vol. 9.6 fl (6.2-12.0); Monocyte# 0.83 X10^3/uL; Monocyte% 9.8 % (0-10); NRBC Flagged by Analyzer 0 % (0-5); Neutrophil # 5.99 X10^3/uL (2.7-7.7); Neutrophil % 70.4 % (47-70); Platelet Count 314 K/mm3 (150-450); RBC Distribution Width CV 15.4 % (11.6-14.6); RBC Distribution Width SD 51.3 fl (35.1-43.9); Red Blood Count 4.77 M/mm3 (4.2-5.4); White Blood Count 8.5 K/mm3 (4.4-11.0)
[2024-05-26 04:22] LABS: Color, Urine Yellow (Yellow); Glucose, Dipstick Normal (Normal); Ketone-Dipstick Negative (Negative); Leukocyte Esterase-Dipstick Negative /ul (Negative); Nitrite-Dipstick Negative (Negative); Occult Blood-Urine Negative /ul (Negative); Protein-Dipstick Negative (Negative); Urine Bilirubin Dipstick Negative (Negative); Urine Clarity Clear (Clear); Urine Urobilinogen Normal (Normal); Urine pH 6.5 (5.0 - 8.0)
[2024-05-26 04:34] LABS: Anion Gap 6 (5-15); BUN 49 mg/dL (7-18); BUN/Creat Ratio 40.5 RATIO (10-20); Calcium,Total 9.2 mg/dL (8.5-10.1); Chloride 105 mmol/L (98-107); Creatinine, Serum 1.21 mg/dL (0.55-1.02); EST Glomerular Filtration Rate 45 mL/min (>60); Est Glom Filt Rate - Afr Amer 54 mL/min (>60); Glucose 118 mg/dL (74-106); Potassium 4.9 mmol/L (3.5-5.1); Sodium Level 135 mmol/L (136-145)
[2024-05-26 04:57] LABS: International Normalized Ratio 1.7; Prothrombin Time (Protime)PT. 20.7 SECONDS (11.7-14.9)
[2024-05-26 05:06] LABS: Partial Thromboplast Time 27.9 Seconds (24.1-36.2)
--- NOTE | 2024-05-26 05:32 | EDS_ITS ---
HPI History of Present Illness Chief Complaint: Fall Informant: patient, spouse/S.O. and EMS Narrative Narrative: Patient is an 83-year-old female with past medical history of hypertension hyperlipidemia osteoarthritis dementia and debility. states that b ecause of her dementia and debility she has recurrent falls. He reports he does well taking care of her at home but recently it has been more difficult. He states this evening the patient got up and he did not realize this and she had a mechanical fall and injured her left knee and right arm. He states she has a history of previous blood clots and is on anticoagulation for this. Therefore based on the fall he does have concern for underlying injury. He also wishes to discuss his options regarding in-home care versus senior care placement. The patient does not offer any further history based on her past medical history of dementia [facility] Medical History Abnormal bruising Acute ST elevation myocardial infarction (STEMI) Arthritis Atherosclerosis of coronary artery of [place] heart without angina pectoris Benign essential HTN Chondromalacia patellae of left knee Contact with and (suspected) exposure to other viral communicable diseases COVID-19 Debility Dilated aortic root Effusion of left knee joint Essential hypertension Fall Fungal infection History of coronary artery stent placement (12/11/19) History of pulmonary embolism History of recurrent deep vein thrombosis (DVT) History of ST elevation myocardial infarction (STEMI) (12/11/19) HLD (hyperlipidemia) Hypercholesterolemia Kidney tumor laser vein surgery Mass of left thigh Nosebleed Obesity 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 BALTAZAR (obstructive sleep apnea) BALTAZAR on CPAP Osteoarthritis Osteoporosis Osteoporosis Pulmonary embolism Pulmonary HTN Syncope URI (upper respiratory infection) Home Medications ?Medication ?Instructions ?Recorded ?Last Taken ?Type metoprolol succinate 100 mg 100 mg PO QHS HEART 12/24/19 04/03/23 History tablet,extended release 24 hr atorvastatin 40 mg tablet 40 mg PO QHS CHOLESTEROL 01/22/20 04/03/23 History hzwafbev-uui-cvisu acid 0.4 1 tab PO DAILY SUPPLEMENT 04/22/22 04/04/23 History mg-lycopene 300 mcg-lutein 250 mcg tablet furosemide 20 mg tablet 20 mg PO DAILY 04/04/23 04/04/23 History spironolactone 25 mg tablet 25 mg PO DAILY 05/26/24 Unknown History warfarin 2 mg tablet 2 mg PO MO 05/26/24 Unknown History warfarin 3 mg tablet 3 mg PO SUTUWETHFRSA 05/26/24 Unknown History Allergy/AdvReac Type Severity Reaction Status Date / Time rivaroxaban (From Xarelto) Allergy Intermediate nose bleeds Verified 05/26/24 03:17 adhesive tape (tape) Allergy Unknown Itching Verified 05/26/24 03:17 kiwi Allergy Unknown Anaphylaxis Verified 05/26/24 03:17 trimethoprim (From Bactrim) Allergy Unknown Rash Verified 05/26/24 03:17 tree and shrub pollen Allergy Unknown Verified 05/26/24 03:17 ciprofloxacin HCl (From AdvReac Severe Itching Verified 05/26/24 03:17 Cipro) clarithromycin (From Biaxin) AdvReac Severe Rash Verified 05/26/24 03:17 codeine AdvReac Severe Unknown Verified 05/26/24 03:17 prednisone AdvReac Severe Unknown Verified 05/26/24 03:17 Sulfa (Sulfonamide AdvReac Severe Unknown Verified 05/26/24 03:17 Antibiotics) adhesive AdvReac Intermediate Rash Verified 05/26/24 03:17 animal dander AdvReac Unknown Unknown Verified 05/26/24 03:17 levofloxacin (From Levaquin) AdvReac Unknown Itching Verified 05/26/24 03:17 nickel AdvReac Unknown NOT SURE Verified 05/26/24 03:17 sulfamethoxazole (From AdvReac Unknown Rash Verified 05/26/24 03:17 Bactrim) Family History Father Bone cancer Arthritis Mother Leukemia Heart disease Surgical History A&P repair H/O repair of rotator cuff History of right hip replacement Hx of tonsillectomy Presence of coronary angioplasty implant and graft (~12/11/19) Social History (Updated 08/23/23 @ 08:01 by Ashley Willett) household members: spouse housing: house Smoking Status: Former smoker alcohol intake: never substance use type: does not use caffeine: No ROS ROS ED ROS Narrative Please note review of systems may be unreliable secondary to patient's history of dementia Constitutional Constitutional ED: Denies chills or fever(s) Eyes Eyes: Denies blurry vision or change in vision ENT ENT ED: Denies sore throat Cardiovascular Cardiovascular: Reports other Details: Negative syncope ; Denies chest pain Respiratory/Chest Respiratory/Chest: Denies cough or dyspnea Gastrointestinal Gastrointestinal: Denies abdominal pain, diarrhea, nausea or vomiting Genitourinary Genitourinary ED: Denies dysuria Musculoskeletal Musculoskeletal: Reports other Details: Positive left knee pain ; Denies back pain or neck pain Integumentary Reports other Details: Positive skin tear right forearm Neurologic Neurologic: Denies headache(s) Hematologic/Lymphatic Hematologic/Lymphatic: Reports easy bleeding and easy bruising EXAM Physical Exam Const Vital Signs: 05/26/24 03:17 05/26/24 03:21 05/26/24 03:21 Temperature 97.8 F 97.8 F Temperature Source Oral Pulse Rate 73 Respiratory Rate 18 Respiratory Effort Normal Non-Labored Normal Non-Labored Respiratory Depth Normal Respiratory Pattern Normal Normal Blood Pressure 128/82 H Blood Pressure Mean 97 Pulse Ox 97 Oxygen Delivery Method Room Air Room Air 05/26/24 06:00 05/26/24 06:08 05/26/24 08:00 Temperature 98.0 F Temperature Source Pulse Rate 70 71 77 Respiratory Rate 16 16 18 Respiratory Effort Respiratory Depth Respiratory Pattern Blood Pressure 119/91 H 114/71 112/54 L Blood Pressure Mean 100 85 73 Pulse Ox 98 98 Oxygen Delivery Method Room Air 05/26/24 09:52 Temperature Temperature Source Pulse Rate Respiratory Rate 17 Respiratory Effort Respiratory Depth Respiratory Pattern Blood Pressure 117/70 Blood Pressure Mean 85 Pulse Ox Oxygen Delivery Method Positive well nourished, well developed and obese General Appearance ED: well developed Nutritional Appearance: obese HEENT HEENT Narrative: Normocephalic atraumatic No signs of depressed or basilar skull fracture Eyes PERRL and EOMs intact bilaterally Neck supple Neck Narrative: No bony deformity or step-off of the cervical spine no midline tenderness to palpation Chest Wall palpation of chest normal Chest Narrative: No bony deformity or crepitance of the chest wall noted No subcutaneous emphysema Resp normal respiratory effort and clear to auscultation bilaterally Cardio regular rate and regular rhythm GI normal to inspection, nondistended, normoactive bowel sounds, non-tender, non- distended and no masses Auscultation: normoactive bowel sounds Palpation: soft Back/Spine Back/Spine Narrative: No bony deformity or step-off of the thoracic or lumbar spine However patient does have upper midline thoracic pain with palpation Extremity Extremity Narrative: Pelvis is stable there is no shortening or external rotation of either lower extremity Patient does have soft tissue swelling ecchymosis to the anterior aspect of the left knee. Patellar tendon is intact and the ligaments are stable Patient has a superficial 2 cm skin tear to the middle third dorsal aspect of the right forearm All compartments are soft and compressible going against compartment syndrome Neuro CN's II-XII intact bilaterally and no sensory deficits noted Neuro Narrative: Patient is at her baseline mental status per No focal neurologic deficit is noted Patient is able to move all extremities without difficulty Sensorium / Orientation: alert Motor Exam: strength 5/5 throughout Psych mental status grossly normal Skin Skin Narrative: Hematoma to the left anterior knee and skin tear of the right forearm as documented above MDM MDM MDM Narrative Medical decision making narrative: Patient presented secondary to reported mechanical fall. As she is on anticoagulation even though there is no signs of head injury there is concern for traumatic skull fracture versus traumatic subarachnoid or subdural hemorrhage so CT of the head was obtained. She has not midline neck tenderness but there is upper thoracic pain therefore in order to rule out a cervical or thoracic compression fracture or spondylolisthesis CTs of the cervical and thoracic spine were ordered. With concern for tibial plateau fracture versus patellar fracture versus contusion and hematoma and x-ray of the knee was ordered. In order to assess for potential cause of the patient's fall other than mechanical basic blood work is obtained to check for acute blood loss anemia thrombocytopenia acute kidney injury UTI or electrolyte abnormality. Blood work revealed no clinically significant finding. Imaging studies revealed no signs of trauma. I discussed with the patient's that there is no medical grounds for admission at this time based on the fact she does not have JUNO clinically significant electrolyte abnormalities acute blood loss anemia or trauma on imaging. However as she is unable to perform her ADLs we could admit for social work consult and potential senior care placement. states he does not want to go that far at this time and would wish to talk to family docto r about home health care versus sending her to a senior care. Therefore as overall workup is negative and patient is at her baseline mental status there is no need for further workup and she is otherwise safe for discharge History & Record Review Discussion w/independent historian: Patient and Significant other Lab Data Attestation: I reviewed the patient's lab results. Labs: Laboratory Results - last 24 hr 05/26/24 03:50 WBC 8.5 RBC 4.77 Hgb 13.7 Hct 42.7 MCV 89.5 MCH 28.7 MCHC 32.1 RDW Std Deviation 51.3 H RDW Coeff of Archie 15.4 H Plt Count 314 MPV 9.6 Immature Gran % (Auto) 0.600 Neut % (Auto) 70.4 H Lymph % (Auto) 14.3 L [place] % (Auto) 9.8 Eos % (Auto) 4.3 Baso % (Auto) 0.6 Absolute Neuts (auto) 6.0 Absolute Lymphs (auto) 1.22 Nucleated RBC % 0 PT 20.7 H INR 1.7 APTT 27.9 Sodium 135 L Potassium 4.9 Chloride 105 Carbon Dioxide 24.0 Anion Gap 6 BUN 49 H Creatinine 1.21 H Est GFR (MDRD) Af Amer 54 L Est GFR (MDRD) Non-Af 45 L BUN/Creatinine Ratio 40.5 H Glucose 118 H Calcium 9.2 Urine Color Yellow Urine Clarity Clear Urine pH 6.5 Ur Specific [place] 1.010 Urine Protein Negative Urine Glucose (UA) Normal Urine Ketones Negative Urine Occult Blood Negative Urine Nitrite Negative Urine Bilirubin Negative Urine Urobilinogen Normal Ur Leukocyte Esterase Negative Urine RBC 0 SEEN Urine WBC 0 SEEN Ur Squamous Epith Cells 0 SEEN Urine Bacteria 0 SEEN Urine Mucus 0 SEEN Radiography Diagnostic Testing: Clinical Impression(s) from Imaging Studies Brain CT 05/26/24 03:39 IMPRESSION: 1. No acute intracranial abnormalities. 2. Age-related changes. Electronically Signed: David Bailey MD at 4:47 EST Reading Location ID and State: [address] [place] [address] Tel , Service support , Cervical Spine CT 05/26/24 03:39 IMPRESSION: 1. No acute injuries identified involving the cervical spine. 2. Degenerative changes. Electronically Signed: David Bailey MD at 4:51 EST Reading Location ID and State: [facility] [place] Tel , Service support , Pelvis X-Ray 05/26/24 03:39 IMPRESSION: 1. No acute injuries identified involving the pelvis. 2. Right hip arthroplasty. Electronically Signed: David Bailey MD at 5:14 EST , Thoracic Spine CT 05/26/24 04:07 IMPRESSION: 1. No acute injuries identified involving the thoracic spine. 2. Degenerative changes. Electronically Signed: David Bailey MD at 4:53 EST , Knee X-Ray 05/26/24 04:16 IMPRESSION: No acute findings in the left knee. Electronically Signed: David Bailey MD at 5:16 EST , Left knee x-ray as interpreted by the emergency medicine physician reveals no acute fracture dislocation or joint effusion 1 view pelvis x-ray as interpreted by the emergency medicine physician reveals previous right hip arthroplasty without acute fracture or dislocation Discharge Plan Triage Chief Complaint: Fall Other Complaint: General Illness ED Provider: Mitchel Walker Dx/Rx/DC Orders Clinical Impression: Accidental fall, Contusion of left knee, Skin tear of right forearm without complication, Dementia, HLD (hyperlipidemia), Current use of [facility] anticoagulation Instructions: Dementia Safety Tips for Caregivers, Dementia Caregiver Tips, ED Skin Tear (Skin Avulsion) Prescriptions: No Action metoprolol succinate 100 mg tablet extended release 24 hr 100 mg PO QHS czgajyom-wab-MB-lycopen-lutein 0.4 mg-300 mcg- 250 mcg tablet 1 tab PO DAILY Patient Comments: SUPPLEMENT atorvastatin 40 MG tablet 40 mg PO QHS furosemide 20 mg tablet 20 mg PO DAILY spironolactone 25 mg tablet 25 mg PO DAILY warfarin 2 mg tablet 2 mg PO MO warfarin 3 mg tablet 3 mg PO SUTUWELVISSA Primary Care Provider: Della Garay Referrals: Della Garay, [employer]-[facility] [Primary Care Provider] - Activity Restrictions/Additional Instructions: Please contact your family doctor on Tuesday and discuss whether she believes formerly [facility], [facility] health care or nursing home/senior care placement is the best option for Sonia. Return to the ER should you have any further concerns Print Language: Bengali Disposition Disposition: Home, Self Care Discharge Date/Time: 05/26/24 10:55
[2024-05-26 06:00] VITALS: BP 119/91; PULSE 70; RESP 16; O2SAT 98
[2024-05-26 06:08] VITALS: BP 114/71; PULSE 71; RESP 16; TEMP 36.7; O2SAT 98
[2024-05-26 08:00] VITALS: BP 112/54; PULSE 77; RESP 18
[2024-05-26 09:52] VITALS: BP 117/70; RESP 17
== END 2024-05-26 10:55 | disposition home or self-care (01) ==
PROVIDERS: Emergency Provider Emergency Medicine; PCP Nurse Practitioner Family; Visit Provider Emergency Medicine
DX: S80.02XA Contusion of left knee, initial encounter (principal); F03.90 Unspecified dementia, unspecified severity, without behavioral disturbance, psychotic disturbance, mood disturbance, and anxiety; I10 Essential (primary) hypertension; S51.801A Unspecified open wound of right forearm, initial encounter; I25.10 Atherosclerotic heart disease of native coronary artery without angina pectoris; E78.00 Pure hypercholesterolemia, unspecified; G47.33 Obstructive sleep apnea (adult) (pediatric); I25.2 Old myocardial infarction; E66.9 Obesity, unspecified; Z79.899 Other long term (current) drug therapy; Z79.01 Long term (current) use of anticoagulants; Z87.891 Personal history of nicotine dependence; Z95.5 Presence of coronary angioplasty implant and graft; Z86.711 Personal history of pulmonary embolism; Z86.718 Personal history of other venous thrombosis and embolism; Z86.16 Personal history of COVID-19; W19.XXXA Unspecified fall, initial encounter

== ENCOUNTER → 2024-06-01 | Outpatient (CLI) | payer MEDICARE, OTHER, SELFPAY ==
[2024-06-01 17:39] LABS: Absolute Lymphocyte Count 1.03 X10^3/uL (0.83-4.51); Basophil# 0.06 X10^3/uL; Basophil% 0.6 % (0-1); Eosinophil# 0.23 X10^3/uL; Eosinophils% 2.2 % (0-5); Hematocrit 46.1 % (37-47); Hemoglobin 14.5 g/dL (12.0-15.0); Lymphocyte # 1.03 X10^3/ul (0.83-4.51); Lymphocyte % 9.9 % (19-41); Mean Corp Hgb Conc 31.5 g/dL (32-36); Mean Corpuscular Hgb 28.3 pg (27.0-32.0); Mean Platelet Vol. 9.5 fl (6.2-12.0); Monocyte% 9.6 % (0-10); NRBC Flagged by Analyzer 0 % (0-5); Neutrophil # 8.02 X10^3/uL (2.7-7.7); Neutrophil % 77.1 % (47-70); Platelet Count 353 K/mm3 (150-450); RBC Distribution Width CV 15.5 % (11.6-14.6); RBC Distribution Width SD 51.4 fl (35.1-43.9); Red Blood Count 5.12 M/mm3 (4.2-5.4); White Blood Count 10.4 K/mm3 (4.4-11.0)
[2024-06-01 18:31] LABS: ALB/GLOB Ratio 0.9 RATIO (0.9-2.4); AST(SGOT) 16 U/L (15-37); Alanine Aminotransfer ALT/SGPT 21 U/L (13-56); Albumin, Serum 3.7 g/dL (3.2-5.0); Alkaline Phosphatase 73 U/L (45-117); Anion Gap 9 (5-15); BUN 51 mg/dL (7-18); BUN/Creat Ratio 35.9 RATIO (10-20); Chloride 103 mmol/L (98-107); Creatinine, Serum 1.42 mg/dL (0.55-1.02); EST Glomerular Filtration Rate 37 mL/min (>60); Est Glom Filt Rate - Afr Amer 45 mL/min (>60); Globulin 4.1 g/dL (2.2-4.2); Glucose 106 mg/dL (74-106); Potassium 4.9 mmol/L (3.5-5.1); Protein, Total 7.8 g/dL (6.4-8.2); Sodium Level 136 mmol/L (136-145)
== END | disposition home or self-care (01) ==
LOC: MTLAB 15:35
PROVIDERS: PCP Nurse Practitioner Family; Referring Provider Nurse Practitioner Family; Visit Provider Nurse Practitioner Family
DX: I12.9 Hypertensive chronic kidney disease with stage 1 through stage 4 chronic kidney disease, or unspecified chronic kidney disease (principal); N18.30 Chronic kidney disease, stage 3 unspecified
CPT/HCPCS: 36415; 80053; 85025

== ENCOUNTER 2024-10-06 09:27 | Emergency (ER) | payer MEDICARE, OTHER, SELFPAY ==
[2024-10-06 09:28] VITALS: BP 122/88; PULSE 85; RESP 18; TEMP 36.4; O2SAT 98; BMI 31.1
[2024-10-06] MEDS: Oxymetazoline 0.05% 1 SPRAY SPRAY.BTL 2 SPRAY NASAL (09:51)
--- NOTE | 2024-10-06 10:01 | EX.ED.DYSGE1 ---
HPI History of Present Illness Chief Complaint: Nosebleed Narrative Narrative: Chief complaint and HPI: Nosebleed. 84-year-old female with past medical history of CAD, HLD, history of DVT/PE on warfarin presents for evaluation of nosebleed. Onset of nosebleed through the night. Patient states that she has been picking/wiping her nose often secondary to dryness. States she developed a bloody nose overnight. States her packed her nose with cotton balls. Triage note states that the bleeding was mostly out of the left nostril however she states it was mostly out of the right. Denies any fever, chills, lightheadedness, syncope, nausea, vomiting, fatigue. Nose currently not bleeding. Review of systems: See HPI Medications: As listed on the chart Allergies: As listed on the chart PFSH: Per chart Vital signs: As listed on the chart. Reviewed. Physical exam: Gen: A&O x3, NAD Head: Normocephalic, atraumatic Eyes: No sclera icterus, conjunctiva clear, PERRL, EOMI ENT: Moist mucous membranes, posterior oropharynx unremarkable without bleeding or dried blood, uvula midline, tonsils not enlarged, bilateral nares with cotton ball-both removed, no active bleeding, patient does have a large septal hole-baseline, dried blood in the right near, left near unremarkable Neck: Trachea midline, No JVD, Full ROM CV: RRR, no murmurs, no peripheral edema Resp: Lungs CTA BL, no w/r/c Musc: Full ROM, no deformity Skin: Warm, dry Neuro: Alert, oriented, grossly intact, sensation intact Psych: Cooperative, appropriate mood and affect [facility] Medical History Abnormal bruising Acute ST elevation myocardial infarction (STEMI) Arthritis Atherosclerosis of coronary artery of [place] heart without angina pectoris Benign essential HTN Chondromalacia patellae of left knee Contact with and (suspected) exposure to other viral communicable diseases COVID-19 Debility Dilated aortic root Effusion of left knee joint Essential hypertension Fall Fungal infection History of coronary artery stent placement (12/11/19) History of pulmonary embolism History of recurrent deep vein thrombosis (DVT) History of ST elevation myocardial infarction (STEMI) (12/11/19) HLD (hyperlipidemia) Hypercholesterolemia Kidney tumor laser vein surgery Mass of left thigh Nosebleed Obesity 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 BALTAZAR (obstructive sleep apnea) BALTAZAR on CPAP Osteoarthritis Osteoporosis Osteoporosis Pulmonary embolism Pulmonary HTN Syncope URI (upper respiratory infection) Home Medications ?Medication ?Instructions ?Recorded ?Last Taken ?Type metoprolol succinate 100 mg 100 mg PO QHS HEART 12/24/19 10/05/24 History tablet,extended release 24 hr atorvastatin 40 mg tablet 40 mg PO QHS CHOLESTEROL 01/22/20 10/05/24 History tmvpoitp-qyo-vjjih acid 0.4 1 tab PO DAILY SUPPLEMENT 04/22/22 10/05/24 History mg-lycopene 300 mcg-lutein 250 mcg tablet furosemide 20 mg tablet 20 mg PO DAILY 04/04/23 10/05/24 History spironolactone 25 mg tablet 25 mg PO DAILY 05/26/24 10/05/24 History warfarin 2 mg tablet 2 mg PO MOFR 05/26/24 10/05/24 History warfarin 3 mg tablet 3 mg PO SUTUWETHSA 05/26/24 10/04/24 History denosumab 60 mg/mL subcutaneous 60 mg subcut .COMPLEX 10/06/24 04/09/24 History syringe (Prolia) Allergy/AdvReac Type Severity Reaction Status Date / Time rivaroxaban (From Xarelto) Allergy Intermediate nose bleeds Verified 05/26/24 03:17 adhesive tape (tape) Allergy Unknown Itching Verified 05/26/24 03:17 kiwi Allergy Unknown Anaphylaxis Verified 05/26/24 03:17 trimethoprim (From Bactrim) Allergy Unknown Rash Verified 05/26/24 03:17 tree and shrub pollen Allergy Unknown Verified 05/26/24 03:17 ciprofloxacin HCl (From AdvReac Severe Itching Verified 05/26/24 03:17 Cipro) clarithromycin (From Biaxin) AdvReac Severe Rash Verified 05/26/24 03:17 codeine AdvReac Severe Unknown Verified 05/26/24 03:17 prednisone AdvReac Severe Unknown Verified 05/26/24 03:17 Sulfa (Sulfonamide AdvReac Severe Unknown Verified 05/26/24 03:17 Antibiotics) adhesive AdvReac Intermediate Rash Verified 05/26/24 03:17 animal dander AdvReac Unknown Unknown Verified 05/26/24 03:17 levofloxacin (From Levaquin) AdvReac Unknown Itching Verified 05/26/24 03:17 nickel AdvReac Unknown NOT SURE Verified 05/26/24 03:17 sulfamethoxazole (From AdvReac Unknown Rash Verified 05/26/24 03:17 Bactrim) Family History Father Bone cancer Arthritis Mother Leukemia Heart disease Surgical History A&P repair H/O repair of rotator cuff History of right hip replacement Hx of tonsillectomy Presence of coronary angioplasty implant and graft (~12/11/19) Social History (Updated 08/23/23 @ 08:01 by Ashley Willett) household members: spouse housing: house Smoking Status: Former smoker alcohol intake: never substance use type: does not use caffeine: No EXAM Physical Exam Const Vital Signs: 10/06/24 09:28 Temperature 97.5 F L Temperature Source Oral Pulse Rate 85 Respiratory Rate 18 Blood Pressure 122/88 H Blood Pressure Mean 99 Pulse Ox 98 Oxygen Delivery Method Room Air MDM MDM MDM Narrative Medical decision making narrative: 84-year-old female with past medical history of CAD, HLD, history of DVT/PE on warfarin presents for evaluation of nosebleed. Onset of nosebleed through the night. Patient states that she has been picking/wiping her nose often secondary to dryness. See physical exam. No active bleeding at this time. I did have patient blow her nose to release any dried clots. Reexamination again shows no bleeding. Vital stable. Will obtain CBC to assess for anemia and thrombocytopenia. Will get INR to test for supratherapeutic INR. Afrin spray will be placed with nose plug to prevent any recurrent bleeding. CBC without leukocytosis or anemia. Platelet count unremarkable. INR therapeutic. Patient was ambulated in the emergency department without recurrent bleeding. She was educated on refraining from touching her nose. She was educated on over the counter saline drops as needed for dryness. Follow-up with PCP. If rebleeding occurs recommend Afrin spray with nasal plug and reevaluation. Return precautions explained. Patient and family member confirmed understand the plan. Impression: 1. Anterior epistaxis, resolved 2. History of anticoagulation on warfarin Lab Data Labs: Laboratory Results - last 24 hr 05/31/25 10:25 WBC 10.7 RBC 5.01 Hgb 14.7 Hct 44.5 MCV 88.8 MCH 29.3 MCHC 33.0 RDW Std Deviation 47.8 H RDW Coeff of Archie 14.6 Plt Count 323 MPV 9.5 Immature Gran % (Auto) 0.700 Neut % (Auto) 78.9 H Lymph % (Auto) 7.6 L [place] % (Auto) 9.4 Eos % (Auto) 2.9 Baso % (Auto) 0.5 Absolute Neuts (auto) 8.4 H Absolute Lymphs (auto) 0.81 L Nucleated RBC % 0 PT 30.0 H INR 2.8 Discharge Plan Triage Chief Complaint: Nosebleed ED Provider: Armani Parks Dx/Rx/DC Orders Clinical Impression: Anterior epistaxis Instructions: ED Epistaxis (Adult) Prescriptions: No Action metoprolol succinate 100 mg tablet extended release 24 hr 100 mg PO QHS ettofkgu-ein-SE-lycopen-lutein 0.4 mg-300 mcg- 250 mcg tablet 1 tab PO DAILY Patient Comments: SUPPLEMENT atorvastatin 40 MG tablet 40 mg PO QHS furosemide 20 mg tablet 20 mg PO DAILY spironolactone 25 mg tablet 25 mg PO DAILY warfarin 2 mg tablet 2 mg PO MOFR warfarin 3 mg tablet 3 mg PO SUTUWETHSA Prolia 60 mg/mL syringe 60 mg subcut .COMPLEX Rx Instructions: 60 mg subcutaneously [id number]; Primary Care Provider: Della Garay Referrals: Della Garay, [facility] [Primary Care Provider] - 3-5 Days Activity Restrictions/Additional Instructions: Follow-up with primary care physician. Return back to the ED if symptoms change or worsen. Recommend bwfm-zwk-gypggkd saline spray for your dry nose. Print Language: Persian Disposition Disposition: Home, Self Care
[2024-10-06 10:40] LABS: Absolute Lymphocyte Count 0.81 X10^3/uL (0.83-4.51); Absolute Neutrophil Count 8.4 X10^3/uL (2.0-7.7); Basophil# 0.05 X10^3/uL; Basophil% 0.5 % (0-1); Eosinophil# 0.31 X10^3/uL; Eosinophils% 2.9 % (0-5); Hematocrit 44.5 % (37-47); Hemoglobin 14.7 g/dL (12.0-15.0); Lymphocyte # 0.81 X10^3/ul (0.83-4.51); Lymphocyte % 7.6 % (19-41); Mean Corpuscular Hgb 29.3 pg (27.0-32.0); Mean Corpuscular Volume 88.8 fL (81-99); Mean Platelet Vol. 9.5 fl (6.2-12.0); Monocyte% 9.4 % (0-10); NRBC Flagged by Analyzer 0 % (0-5); Neutrophil # 8.44 X10^3/uL (2.7-7.7); Neutrophil % 78.9 % (47-70); Platelet Count 323 K/mm3 (150-450); RBC Distribution Width CV 14.6 % (11.6-14.6); RBC Distribution Width SD 47.8 fl (35.1-43.9); Red Blood Count 5.01 M/mm3 (4.2-5.4); White Blood Count 10.7 K/mm3 (4.4-11.0)
[2024-10-06 10:48] LABS: International Normalized Ratio 2.8
[2024-10-06 11:32] VITALS: BP 124/91; PULSE 81; RESP 18; TEMP 36.3; O2SAT 97
== END 2024-10-06 11:33 | disposition home or self-care (01) ==
PROVIDERS: Emergency Provider Surgery; PCP Nurse Practitioner Family; Visit Provider Surgery
DX: R04.0 Epistaxis (principal); I25.10 Atherosclerotic heart disease of native coronary artery without angina pectoris; I10 Essential (primary) hypertension; E78.00 Pure hypercholesterolemia, unspecified; I25.2 Old myocardial infarction; G47.33 Obstructive sleep apnea (adult) (pediatric); Z87.891 Personal history of nicotine dependence; Z79.899 Other long term (current) drug therapy; Z79.01 Long term (current) use of anticoagulants; Z86.718 Personal history of other venous thrombosis and embolism; Z86.711 Personal history of pulmonary embolism; Z86.16 Personal history of COVID-19; Z95.5 Presence of coronary angioplasty implant and graft
CPT/HCPCS: 30901; 85025; 85610; 99285

== ENCOUNTER 2024-11-28 09:53 | Inpatient (IN) | payer MEDICARE, OTHER, SELFPAY ==
[2024-11-28] VITALS (13 sets, daily range): BP systolic 105–143; BP diastolic 68–84; PULSE 78–94; RESP 11–23; TEMP 36.6–37; O2SAT 95–100; BMI 30.2; BMI 29.1
--- NOTE | 2024-11-28 09:56 | EKG12_ITS ---
Test Reason : FALL Blood Pressure : */* mmHG Vent. Rate : 93 BPM Atrial Rate : 93 BPM P-R Int : 192 ms QRS Dur : 74 ms QT Int : 372 ms P-R-T Axes : 28 -6 43 degrees QTcB Int : 462 ms Normal sinus rhythm Low voltage QRS Inferior infarct (cited on or before 06-Dec-2019) Cannot rule out Anterior infarct , age undetermined Abnormal ECG Confirmed by CASSIDY ANTONIO, CRISTIN ([id number]), material expeditor DANNY DIALLO ([id number]) on 11/30/2024 1:13:46 PM Referred By: Confirmed By: CRISTIN BENJAMIN MD
--- NOTE | 2024-11-28 10:04 | EX.ED.DYSGE1 ---
HPI History of Present Illness Chief Complaint: Syncope Informant: patient and EMS Narrative Narrative: Patient is 84-year-old female with history DVT (on Coumadin), coronary artery disease with stents in place, dilated aortic root, BALTAZAR and hyperlipidemia presenting for syncopal episode. Per EMS report from the he was about to check her INR she was eating breakfast when she suddenly passed out. No report of any falls or injuries. Patient does not recall what happened. She states she was eating breakfast the next thing she knows she is here. She denies any prodromal symptoms. I spoke with patient's , Jamie. He tells me that the patient does have dementia. She has had 2-3 episodes of syncope over the past 6 to 8 months. He states today she was seen at the table eating blueberry pancakes her eyes rolled back and she started have slowed breathing. He gave her [id number]-lnjep and then she came around. He also notes that she has gotten weaker lately (over the past 4 to 5 days) and he does not feel that he can take care of her appropriately at home. Feels that she likely needs some group home placement. 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) Syncope Osteoporosis Effusion of left knee joint Chondromalacia patellae of left knee Essential hypertension BALTAZAR on CPAP Atherosclerosis of coronary artery of [place] heart without angina pectoris History of coronary artery stent placement (12/11/19) Acute ST elevation myocardial infarction (STEMI) Mass of left thigh oopherectomy and tumor removed Kidney tumor laser vein surgery Hypercholesterolemia Pulmonary embolism Osteoporosis Arthritis History of pulmonary embolism History of recurrent deep vein thrombosis (DVT) BALTAZAR (obstructive sleep apnea) Osteoarthritis Obesity Pulmonary HTN HLD (hyperlipidemia) Home Medications ?Medication ?Instructions ?Recorded ?Last Taken ?Type metoprolol succinate 100 mg 100 mg PO QHS HEART 12/24/19 10/05/24 History tablet,extended release 24 hr atorvastatin 40 mg tablet 40 mg PO QHS CHOLESTEROL 01/22/20 10/05/24 History gbqccoqf-uxd-zwtkx acid 0.4 1 tab PO DAILY SUPPLEMENT 04/22/22 10/05/24 History mg-lycopene 300 mcg-lutein 250 mcg tablet furosemide 20 mg tablet 20 mg PO DAILY 04/04/23 10/05/24 History spironolactone 25 mg tablet 25 mg PO DAILY 05/26/24 10/05/24 History warfarin 2 mg tablet 2 mg PO MOFR 05/26/24 10/05/24 History warfarin 3 mg tablet 3 mg PO SUTUWETHSA 05/26/24 10/04/24 History denosumab 60 mg/mL subcutaneous 60 mg subcut .COMPLEX 10/06/24 04/09/24 History syringe (Prolia) warfarin 1 mg tablet 1 mg PO DAILY 11/28/24 Unknown History Allergy/AdvReac Type Severity Reaction Status Date / Time rivaroxaban (From Xarelto) Allergy Intermediate nose bleeds Verified 05/26/24 03:17 adhesive tape (tape) Allergy Unknown Itching Verified 05/26/24 03:17 kiwi Allergy Unknown Anaphylaxis Verified 05/26/24 03:17 trimethoprim (From Bactrim) Allergy Unknown Rash Verified 05/26/24 03:17 tree and shrub pollen Allergy Unknown Verified 05/26/24 03:17 ciprofloxacin HCl (From AdvReac Severe Itching Verified 05/26/24 03:17 Cipro) clarithromycin (From Biaxin) AdvReac Severe Rash Verified 05/26/24 03:17 codeine AdvReac Severe Unknown Verified 05/26/24 03:17 prednisone AdvReac Severe Unknown Verified 05/26/24 03:17 Sulfa (Sulfonamide AdvReac Severe Unknown Verified 05/26/24 03:17 Antibiotics) adhesive AdvReac Intermediate Rash Verified 05/26/24 03:17 animal dander AdvReac Unknown Unknown Verified 05/26/24 03:17 levofloxacin (From Levaquin) AdvReac Unknown Itching Verified 05/26/24 03:17 nickel AdvReac Unknown NOT SURE Verified 05/26/24 03:17 sulfamethoxazole (From AdvReac Unknown Rash Verified 05/26/24 03:17 Bactrim) Family History Father Bone cancer Arthritis Mother Leukemia Heart disease Surgical History Presence of coronary angioplasty implant and graft (~12/11/19) Hx of tonsillectomy A&P repair H/O repair of rotator cuff History of right hip replacement Social History household members: spouse housing: house Smoking Status: Former smoker alcohol intake: never substance use type: does not use caffeine: No ROS ROS ED Review of Systems ROS Unobtainable: due to mental status Constitutional Constitutional ED: Reports other Details: Syncope Neurologic Neurologic: Reports weakness EXAM Physical Exam Const Vital Signs: 11/28/24 09:54 11/28/24 10:09 11/28/24 10:27 Temperature 97.8 F Temperature Source Temporal Pulse Rate 94 90 Respiratory Rate 20 H 18 Respiratory Pattern Normal Blood Pressure 117/75 Blood Pressure Mean 89 Pulse Ox 99 99 Oxygen Delivery Method Room Air 11/28/24 10:30 11/28/24 10:45 11/28/24 10:53 Temperature Temperature Source Pulse Rate 89 89 91 Respiratory Rate 16 23 H Respiratory Pattern Blood Pressure 112/69 116/76 117/80 Blood Pressure Mean 81 88 92 Pulse Ox 99 97 Oxygen Delivery Method 11/28/24 11:00 Temperature Temperature Source Pulse Rate 91 Respiratory Rate 11 L Respiratory Pattern Blood Pressure 117/80 Blood Pressure Mean 87 Pulse Ox 99 Oxygen Delivery Method Positive well nourished and well developed General Appearance ED: well developed and NAD HEENT Reports dry mucous membranes Mouth ED: Yes dry mucous membranes Mouth: dry mucous membranes Eyes PERRL and EOMs intact bilaterally Neck supple and no JVD Chest Wall inspection of chest normal and palpation of chest normal Resp normal respiratory effort and clear to auscultation bilaterally Cardio regular rate, regular rhythm and no murmurs Cardio Narrative: 2+ radial and DP pulses, no peripheral edema present Neuro Neuro Narrative: No focal deficits. Pleasantly demented Sensorium / Orientation: alert and orientation impaired Motor Exam: Negative for general weakness Skin no rashes or lesions noted and no wounds MDM MDM MDM Narrative Medical decision making narrative: Patient evaluated for syncope. Has also had increased weakness over the past 4 to 5 days. Vital signs normal in the emergency room. Differential includes symptomatic anemia, cardiogenic syncope, hypovolemia, JUNO, infection and deconditioning. Denies any chest pain but does have a history of coronary artery disease and will obtain troponins as well as EKG. Workup significant for JUNO. Her CBC is normal. Her INR is therapeutic at 2.0. She has mildly elevated anion gap and her creatinine is 1.78 which is above her baseline of 1.2. Suspect she has a component of hypovolemia/dehydration causing some JUNO and increase in her weakness and possibly near syncope. Her high-sensitivity troponin is elevated at 39 however EKG does not show any acute ischemic changes or arrhythmia. Will continue to trend. Urinalysis is not consistent with infection with no bacteria and only 5-10 white blood cells. No nitrites. Chest x-ray viewed by myself does not show any acute pathology. Official radiology interpretation still pending. Patient will be admitted for further evaluation of her syncope and given IV fluids. Will be evaluated for potential group home/rehab placement as well. Spoke with about plan of care. Spoke with Dr. Singletary for admission. Lab Data Attestation: I reviewed the patient's lab results. Labs: Laboratory Results - last 24 hr 11/28/24 11/28/24 10:09 11:42 WBC 8.9 RBC 4.76 Hgb 13.9 Hct 42.3 MCV 88.9 MCH 29.2 MCHC 32.9 RDW Std Deviation 48.1 H RDW Coeff of Archie 14.7 H Plt Count 322 MPV 9.3 Immature Gran % (Auto) 0.600 Neut % (Auto) 82.8 H Lymph % (Auto) 7.9 L [place] % (Auto) 5.2 Eos % (Auto) 2.9 Baso % (Auto) 0.6 Absolute Neuts (auto) 7.4 Absolute Lymphs (auto) 0.70 L Nucleated RBC % 0 PT 23.1 H INR 2.0 Sodium 134 Potassium 5.5 H Chloride 96 L Carbon Dioxide 21.2 Anion Gap 17 H BUN 66 H Creatinine 1.78 H Estim Creat Clear Calc 21.06 L Est GFR (MDRD) Non-Af 28 L BUN/Creatinine Ratio 37.0 H Glucose 210 H Calcium 10.3 Total Bilirubin 0.41 AST 31 ALT 16 Alkaline Phosphatase 80 Troponin T High Sens 39 H Total Protein 7.0 Albumin 3.8 Globulin 3.2 Albumin/Globulin Ratio 1.2 Urine Color Yellow Urine Clarity Clear Urine pH 6.0 Ur Specific [place] 1.015 Urine Protein 15 H Urine Glucose (UA) Normal Urine Ketones Negative Urine Occult Blood Negative Urine Nitrite Negative Urine Bilirubin Negative Urine Urobilinogen Normal Ur Leukocyte Esterase 100 H Urine RBC 0 SEEN Urine WBC 5-10 SEEN Ur Squamous Epith Cells 0-5 SEEN Ur Transition Epith Cell 0-5 SEEN Urine Bacteria 0 SEEN Urine Mucus 0 SEEN Rhythm Strip Rhythm Strip: Sinus Rhythm Rate: 93 Ectopy: None EKG Initial EKG: Attestation: I personally reviewed and interpreted this EKG as follows: Interpretation: Sinus Rhythm Comments: Normal sinus rhythm at a rate of 93 bpm Normal axis Low voltage QRS Normal ST segments Compared to prior EKG on 08/24/2023, no acute changes Management Discussion w/another healthcare provider: Hospitalist Discharge Plan Triage Chief Complaint: Syncope ED Provider: Caitlyn Loyola Dx/Rx/DC Orders Clinical Impression: Syncope, JUNO (acute kidney injury), Generalized weakness, Current use of shelter anticoagulation Prescriptions: No Action metoprolol succinate 100 mg tablet extended release 24 hr 100 mg PO QHS vgadqzem-tiy-BW-lycopen-lutein 0.4 mg-300 mcg- 250 mcg tablet 1 tab PO DAILY Patient Comments: SUPPLEMENT atorvastatin 40 MG tablet 40 mg PO QHS furosemide 20 mg tablet 20 mg PO DAILY spironolactone 25 mg tablet 25 mg PO DAILY warfarin 2 mg tablet 2 mg PO MOFR warfarin 3 mg tablet 3 mg PO SUTUWETHSA Prolia 60 mg/mL syringe 60 mg subcut .COMPLEX Rx Instructions: 60 mg subcutaneously [id number]; warfarin 1 mg tablet 1 mg PO DAILY Primary Care Provider: Della Garay Referrals: Della Garay, SJ-C [Primary Care Provider] - Print Language: Urdu Disposition Disposition: Acute Care Hospital [facility]
[2024-11-28 10:21] LABS: Hematocrit 42.3 % (37-47); Hemoglobin 13.9 g/dL (12.0-15.0); Immature Granulocytes Count 0.050 X10^3/uL (0.0-0.0); Mean Corp Hgb Conc 32.9 g/dL (32-36); Mean Corpuscular Volume 88.9 fL (81-99); Mean Platelet Vol. 9.3 fl (6.2-12.0); NRBC Flagged by Analyzer 0 % (0-5); Platelet Count 322 K/mm3 (150-450); RBC Distribution Width CV 14.7 % (11.6-14.6); RBC Distribution Width SD 48.1 fl (35.1-43.9); Red Blood Count 4.76 M/mm3 (4.2-5.4); White Blood Count 8.9 K/mm3 (4.4-11.0)
[2024-11-28 10:32] LABS: Prothrombin Time (Protime)PT. 23.1 SECONDS (11.7-14.9)
--- NOTE | 2024-11-28 11:10 | RAD_ITS ---
PROCEDURE: CHEST PA AND LATERAL 11/28/2024 REASON FOR EXAM: SYNCOPE TECHNIQUE: CHEST PA AND LATERAL COMPARISON: 11/13/2022. FINDINGS: The heart is enlarged. Faint bibasilar opacities favoring atelectasis. Blunting of the posterior costophrenic sulci which may represent small pleural effusions. No acute osseous abnormalities. RAD/Chest PA and Lateral IMPRESSION: Pulmonary findings as above. Reading Location: [id number]
[2024-11-28 11:17] LABS: AST(SGOT) 31 U/L (<=31); Alanine Aminotransfer ALT/SGPT 16 U/L (<=34); Albumin, Serum 3.8 g/dL (3.4-4.8); Alkaline Phosphatase 80 U/L (35-104); Anion Gap 17 (5-15); BUN 66 mg/dL (4-19); BUN/Creat Ratio 37.0 RATIO (10-20); Calcium,Total 10.3 mg/dL (7.6-11.0); Carbon Dioxide 21.2 mmol/L (21.0-32.0); Chloride 96 mmol/L (98-108); Estimated Creatinine Clearance 21.06 ml/min (50-250); Globulin 3.2 g/dL (2.2-4.2); Glucose 210 mg/dL (70-99); Potassium 5.5 mmol/L (3.3-5.1); Troponin T High Sensitivity 39 ng/L (<=14)
[2024-11-28] MEDS: 0.9% Normal Saline (1000mL) 1,000 ML 125 ML IV ×2 (11:42→19:17)
[2024-11-28 11:47] LABS: Mucous, Urine 0 SEEN /hpf (<or=2+); Red Blood Cells-Urine 0 SEEN /hpf (0-5)
[2024-11-28 11:52] LABS: Color, Urine Yellow (Yellow); Glucose, Dipstick Normal (Normal); Ketone-Dipstick Negative (Negative); Leukocyte Esterase-Dipstick 100 /ul (Negative); Nitrite-Dipstick Negative (Negative); Occult Blood-Urine Negative /ul (Negative); Protein-Dipstick 15 mg/dl (Negative); Specific Gravity, Urine 1.015 (1.002-1.030); Urine Bilirubin Dipstick Negative (Negative)
[2024-11-28 12:01] LABS: Squamous Epithelial Cells - UA 0-5 SEEN /hpf (5-10); Transitional Epithelial - Ur 0-5 SEEN /hpf (0-5)
[2024-11-28 12:46] LABS: Troponin T High Sens 2 HR 36 ng/L (<=14)
[2024-11-28 14:49] LABS: Troponin T High Sens 4 HR 39 ng/L (<=14)
[2024-11-28] MEDS: Warfarin (BKC) 3 MG Tablet PO (17:45)
--- NOTE | 2024-11-28 18:31 | HP.PCM.HOS_ITS ---
HPI - General General Date of Admission: 11/28/24 Date of Service: 11/28/24 Chief Complaint: Syncope, general deconditioning HPI Narrative JODI SANCHES, is a 84 F who presents to the emergency room at [facility] for evaluation after having a syncopal episode at home that lasted a few minutes. Patient's states that he is unable to care for the patient at home, she has dementia and has overall poor oral intake. Patient's would like her to go to an extended care facility for skilled services. Labs obtained in the emergency room included a CBC which was unremarkable, chemistry profile was abnormal for potassium of 5.5, creatinine of 1.78, BUN of 66, and a glucose of 210. First troponin was 39, second troponin was 36, urinalysis was unremarkable. Patient's chest x-ray showed a small right pleural effusion but was otherwise negative. Patient will be admitted to PCU for deconditioning, acute kidney injury, and syncope. She will be monitored on telemetry and she will be given IV fluids. Labs will be monitored. She will be seen by PT. 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) Syncope Osteoporosis Effusion of left knee joint Chondromalacia patellae of left knee Essential hypertension BALTAZAR on CPAP Atherosclerosis of coronary artery of [place] heart without angina pectoris History of coronary artery stent placement (12/11/19) Acute ST elevation myocardial infarction (STEMI) Mass of left thigh oopherectomy and tumor removed Kidney tumor laser vein surgery Hypercholesterolemia Pulmonary embolism Osteoporosis Arthritis History of pulmonary embolism History of recurrent deep vein thrombosis (DVT) BALTAZAR (obstructive sleep apnea) Osteoarthritis Obesity Pulmonary HTN HLD (hyperlipidemia) Home Medications ?Medication ?Instructions ?Recorded ?Last Taken ?Type atorvastatin 40 mg tablet 40 mg PO QHS CHOLESTEROL 10/05/24 History uuwvmipi-bpm-dwsdq acid 0.4 1 tab PO DAILY SUPPLEMENT 04/22/22 10/05/24 History mg-lycopene 300 mcg-lutein 250 mcg tablet furosemide 20 mg tablet 20 mg PO DAILY water pill 10/05/24 History spironolactone 25 mg tablet 25 mg PO DAILY water pill 05/26/24 10/05/24 History warfarin 2 mg tablet 2 mg PO MOFR blood thinner 0 05/26/24 10/05/24 History denosumab 60 mg/mL subcutaneous 60 mg subcut .COMPLEX 10/06/24 04/09/24 History syringe (Prolia) cholecalciferol (vitamin D3) 125 125 mcg PO DAILY supp liment 11/28/24 Unknown History mcg (5,000 unit) tablet (Vitamin D3) metoprolol succinate 50 mg 50 mg PO QDAY heart 5 Unknown History tablet,extended release 24 hr warfarin 1 mg tablet 3 mg PO SUTUWETHSA blood thi nner 11/28/24 Unknown History Allergy/AdvReac Type Severity Reaction Status Date / Time rivaroxaban (From Xarelto) Allergy Intermediate nose bleeds Verified 05/26/24 03:17 adhesive tape (tape) Allergy Unknown Itching Verified 05/26/24 03:17 kiwi Allergy Unknown Anaphylaxis Verified 05/26/24 03:17 trimethoprim (From Bactrim) Allergy Unknown Rash Verified 05/26/24 03:17 tree and shrub pollen Allergy Unknown Verified 05/26/24 03:17 ciprofloxacin HCl (From AdvReac Severe Itching Verified 05/26/24 03:17 Cipro) clarithromycin (From Biaxin) AdvReac Severe Rash Verified 05/26/24 03:17 codeine AdvReac Severe Unknown Verified 05/26/24 03:17 prednisone AdvReac Severe Unknown Verified 05/26/24 03:17 Sulfa (Sulfonamide AdvReac Severe Unknown Verified 05/26/24 03:17 Antibiotics) adhesive AdvReac Intermediate Rash Verified 05/26/24 03:17 animal dander AdvReac Unknown Unknown Verified 05/26/24 03:17 levofloxacin (From Levaquin) AdvReac Unknown Itching Verified 05/26/24 03:17 nickel AdvReac Unknown NOT SURE Verified 05/26/24 03:17 sulfamethoxazole (From AdvReac Unknown Rash Verified 05/26/24 03:17 Bactrim) Family History Father Bone cancer Arthritis Mother Leukemia Heart disease Surgical History Presence of coronary angioplasty implant and graft (~12/11/19) Hx of tonsillectomy A&P repair H/O repair of rotator cuff History of right hip replacement Social History (Updated 11/28/24 @ 13:05 by Jacqueline Garcia) household members: spouse housing: house Smoking Status: Former smoker alcohol intake: never substance use type: does not use caffeine: No ROS ROS Narrative Patient is alert and oriented as to place and self only, she is an unreliable informant due to dementia. Review of Systems ROS Unobtainable: due to mental condition Vital Signs Vital Signs Vital Signs: 11/28/24 09:54 11/28/24 10:09 11/28/24 10:27 Temperature 97.8 F Temperature Source Temporal Pulse Rate 94 90 Respiratory Rate 20 H 18 Respiratory Effort Respiratory Depth Respiratory Pattern Normal Blood Pressure 117/75 Blood Pressure Mean 89 Blood Pressure Source Blood Pressure Position Blood Pressure Location Pulse Ox 99 99 Oxygen Delivery Method Room Air 11/28/24 10:30 11/28/24 10:45 11/28/24 10:53 Temperature Temperature Source Pulse Rate 89 89 91 Respiratory Rate 16 23 H Respiratory Effort Respiratory Depth Respiratory Pattern Blood Pressure 112/69 116/76 117/80 Blood Pressure Mean 81 88 92 Blood Pressure Source Blood Pressure Position Blood Pressure Location Pulse Ox 99 97 Oxygen Delivery Method 11/28/24 11:00 11/28/24 11:30 11/28/24 11:42 Temperature Temperature Source Pulse Rate 91 88 Respiratory Rate 11 L 12 Respiratory Effort Respiratory Depth Respiratory Pattern Blood Pressure 117/80 125/83 H Blood Pressure Mean 87 88 Blood Pressure Source Blood Pressure Position Blood Pressure Location Pulse Ox 99 99 100 Oxygen Delivery Method 11/28/24 12:25 11/28/24 12:28 11/28/24 13:12 Temperature 98.6 F 98 F Temperature Source Oral Pulse Rate 78 78 78 Respiratory Rate 15 15 15 Respiratory Effort Respiratory Depth Respiratory Pattern Blood Pressure 106/69 106/69 105/68 Blood Pressure Mean 82 81 80 Blood Pressure Source Monitor Blood Pressure Position Semi-Fowlers Blood Pressure Location Left Arm Pulse Ox 99 99 97 Oxygen Delivery Method Room Air 11/28/24 13:40 11/28/24 17:50 Temperature 98.1 F Temperature Source Oral Pulse Rate 80 Respiratory Rate 14 Respiratory Effort Normal Non-Labored Respiratory Depth Normal Respiratory Pattern Normal Blood Pressure 143/82 H Blood Pressure Mean 102 Blood Pressure Source Monitor Blood Pressure Position Semi-Fowlers Blood Pressure Location Left Arm Pulse Ox 98 Oxygen Delivery Method Room Air Room Air Weight Weight: 70 kg Body Mass Index (BMI) 29.1 Physical Exam Const alert and no apparent distress General Appearance: cooperative, well kempt and well developed Orientation / Consciousness: awake, oriented to person, oriented to place and confused HEENT normocephalic, head/scalp atraumatic, hearing grossly normal bilaterally and moist oral mucous membranes Eyes PERRL, EOMs intact bilaterally and conjunctivae normal Neck supple, no JVD, thyroid normal and no carotid bruits General: trachea midline Resp normal respiratory effort, no retractions, no use of accessory muscles and clear to auscultation bilaterally Auscultation: Negative for rales, rhonchi or wheezes Cardio regular rate, regular rhythm, S1 normal heart sound, S2 normal heart sound, no murmurs, no rub and no gallops GI normal to inspection, nondistended, normoactive bowel sounds, soft to palpation, non-tender and non-distended Extremity no clubbing, cyanosis or edema Skin no rashes or lesions noted General Skin Exam: no breakdown Neuro CN's II-XII intact bilaterally, moves all extremities, no focal motor deficits and no sensory deficits noted Neuro Narrative: Patient is alert but confused Sensorium / Orientation: awake, alert, oriented to person and oriented to place Speech: speech normal Psych Psych Narrative: Patient is confused Results Lab / Micro Data 11/28/24 10:09 11/28/24 10:09 Labs: Laboratory Results - last 24 hr 11/28/24 10:09: WBC 8.9, RBC 4.76, Hgb 13.9, Hct 42.3, MCV 88.9, MCH 29.2, MCHC 32.9, RDW Std Deviation 48.1 H, RDW Coeff of Archie 14.7 H, Plt Count 322, MPV 9.3, Immature Gran % (Auto) 0.600, Neut % (Auto) 82.8 H, Lymph % (Auto) 7.9 L, [place] % (Auto) 5.2, Eos % (Auto) 2.9, Baso % (Auto) 0.6, Absolute Neuts (auto) 7.4, A bsolute Lymphs (auto) 0.70 L, Nucleated RBC % 0, PT 23.1 H, INR 2.0, Sodium 134, Potassium 5.5 H, Chloride 96 L, Carbon Dioxide 21.2, Anion Gap 17 H, BUN 66 H, C reatinine 1.78 H, Estim Creat Clear Calc 21.06 L, Est GFR (MDRD) Non-Af 28 L, B UN/Creatinine Ratio 37.0 H, Glucose 210 H, Calcium 10.3, Total Bilirubin 0.41, AST 31, ALT 16, Alkaline Phosphatase 80, Troponin T High Sens 39 H, Total Protein 7.0, Albumin 3.8, Globulin 3.2, Albumin/Globulin Ratio 1.2 11/28/24 11:42: Urine Color Yellow, Urine Clarity Clear, Urine pH 6.0, Ur Specific [place] 1.015, Urine Protein 15 H, Urine Glucose (UA) Normal, Urine Ketones Negative, Urine Occult Blood Negative, Urine Nitrite Negative, Urine Bilirubin Negative, Urine Urobilinogen Normal, Ur Leukocyte Esterase 100 H, Urine RBC 0 SEEN, Urine WBC 5-10 SEEN, Ur Squamous Epith Cells 0-5 SEEN, Ur Transition Epith Cell 0-5 SEEN, Urine Bacteria 0 SEEN, Urine Mucus 0 SEEN 11/28/24 12:25: Troponin T Hi Sens 2 Hr 36 H 11/28/24 13:56: Troponin T Hi Sens 4Hr 39 H Rhythm Strip Rhythm Strip: Sinus Rhythm Rate: 93 Ectopy: None Assessment & Plan Assessment/Plan (1) Generalized weakness: PLAN: Plan 1. Acute kidney injury-patient will be admitted to PCU, she will be given IV fluids and labs will be monitored. #2 syncope-etiology unclear, patient has had syncopal episodes in the past according to the medical record here, patient will be monitored on telemetry #3 dementia-complicates care, management, recovery, and prognosis #4 chronic use of anticoagulant-patient has a history of recurrent VTE, she is currently on warfarin, her INR today was 2. INR will be monitored as appropriate. #5 coronary artery disease-patient remains on a beta-macrina and a statin at this time Total clinical time spent by myself addressing the patient's medical issues, reviewing all of her data, and collaborating with patient's care team: 75 minutes Charges/Coding Visit Charges Inpatient E&M: 13883 Init Hosp L3
[2024-11-29 05:50] VITALS: BP 121/72; PULSE 88; RESP 18; TEMP 36.9; O2SAT 96
[2024-11-29 06:50] LABS: Anion Gap 11 (5-15); BUN 51 mg/dL (4-19); BUN/Creat Ratio 38.9 RATIO (10-20); Calcium,Total 9.8 mg/dL (7.6-11.0); Carbon Dioxide 22.8 mmol/L (21.0-32.0); Chloride 104 mmol/L (98-108); Estimated Creatinine Clearance 28.09 ml/min (50-250); Glucose 100 mg/dL (70-99); Potassium 4.6 mmol/L (3.3-5.1)
[2024-11-29 09:00] VITALS: BP 116/83; PULSE 99; RESP 16; TEMP 36.6; O2SAT 99
[2024-11-29 09:05] VITALS: PULSE 99
[2024-11-29] MEDS: Metoprolol(XL)Succ 50 MG Tablet PO (09:05)
[2024-11-29] MEDS: 0.9% Normal Saline (1000mL) 1,000 ML 125 ML IV ×2 (10:17→18:31)
--- NOTE | 2024-11-29 12:53 | CASEMGMT ---
Addendum entered by Maida Finch 11/29/24 15:51: Mirta reports that she will not be able to provide the pt with further assistance or recommendations compared to the pts intelligence engineer. Addendum entered by Maida Finch 11/29/24 13:37: Mirta (Pt Financial Adovocate) notified via e-mail that the pt's was planning on applying the pt for KIKE once a facility accepts. Inquired if the advocate can expedite this process or offer any additional resources to the . Original Note: RN MITCHEL Assessment Face to Face with patient for initial transition planning/care coordination assessment. Pt has a hx of dementia and is A&Ox1-2. TC to the pt's at this time (Jamie). Jamie states that he is willing to participate in the initial assessment. Care providers, pharmacy, and demographics verified. Admitting dx: Syncope, JUNO LACE Strata: 3 PCP: Della Garay Specialists: Jacinda (Pulmonary), Sandy (Urology), JUVENTINO (Cardio) Preferred Pharmacy: [facility] Insurance: [employer] A/B, [employer] [facility] Prescription Benefit: Yes LNOK: Jamie (H) Living Arrangements: Pt lives with her in a single story home with a ramp. Pt states that he is unable to care for the pt at home any longer. Jamie states that he put in a ramp and recently renovated the bathroom but states that this was not enough. Jamie states that he is sad about the situation as they have been many years. Consoled the pts at this time. CM/SW to follow. ADLs/IADLs: helps care for the pt. See above Transportation: DME: CPAP with no additional oxygen. FWW. Walk in shower with built in seat and grab bars. Bedside railings HHC/SNF: Hx with [facility] and [facility] Plan: Anticipate SNF @ the time of DC. Jamie states that he prefers terminal system operator SNF placement for the pt as he does not feel safe caring for the pt at home any longer. Jamie states that he would not be able to afford a custodial stay at a SNF unless his insurances help. Jamie states that he has a intelligence engineer that was going to help the pt apply for KIKE as well. SW notified. At this time, Jamie states that he prefers the pt to go to [facility]. Jamie educated that if [facility] is unable to accept, that CM can provide the with a list of other local in-network SNFs. Jamie states that he will be into the hospital around 3-4pm today. Jamie thanks this RN MITCHEL and denies any further questions or concerns. Report given to PCU Care Management staff. Chelsea Finch RN, CM
--- NOTE | 2024-11-29 13:30 | CASEMGMT ---
Discharge Planning Referral sent to [facility]. Wendy Molina DC Planning Asst.
[2024-11-29 14:45] VITALS: BP 141/80; PULSE 90; RESP 14; TEMP 36.6; O2SAT 93
--- NOTE | 2024-11-29 15:46 | CASEMGMT ---
Addendum entered by Maida Finch 11/29/24 15:55: Also updated the that [place] may not have vegetable trimmer availability. Pt states that he is OK with this and that he prefers to start with [place] short term skilled regardless. Original Note: [facility] has accepted the pt. [place] is requesting pending KIKE application #. GRETA GRULLON to the pt room at this time. Pt's at bedside. Jamie updated that [facility] has accepted the pt for when the pt is medically ready for DC. Requested that Jamie provide the pending KIKE #. 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 Jamie thanks this GRETA GRULLON and denies further questions or concerns at this time.
[2024-11-29] MEDS: Warfarin (BKC) 3 MG Tablet PO (16:35)
[2024-11-29 19:00] VITALS: PULSE 115
--- NOTE | 2024-11-29 19:17 | PCM.PN.HOSP ---
Reason for Visit Chief Complaint: Syncope, general deconditioning Subjective Subjective Patient was seen and examined today, I talked her who was in the room today. Patient's creatinine is improved, it is most probably near baseline at this time, potassium has corrected. Objective Data Objective Data Vital Signs: Vital Signs Temp Pulse Resp BP Pulse Ox O2 Del Method 97.9 F 90 14 141/80 H 93 Room Air 11/29/24 14:45 11/29/24 14:45 11/29/24 14:45 11/29/24 14:45 11/29/24 14:45 11/29/24 14:45 Oxygen Delivery Method Room Air Weight: 70 kg Body Mass Index (BMI) 29.1 Intake & Output: Intake and Output for Last 24 Hours 11/27/24 11/28/24 11/29/24 23:59 23:59 23:59 Intake Total 1322.92 / 1322.92 3145.00 / 3145.00 Balance 1322.92 / 1322.92 3145.00 / 3145.00 Lab / Micro Data 11/28/24 10:09 11/29/24 05:25 Labs: Laboratory Results - last 24 hr 11/29/24 05:25: Sodium 138, Potassium 4.6, Chloride 104, Carbon Dioxide 22.8, Anion Gap 11, BUN 51 H, Creatinine 1.31 H, Estim Creat Clear Calc 28.09 L, Est GFR (MDRD) Non-Af 40 L, BUN/Creatinine Ratio 38.9 H, Glucose 100 H, Calcium 9.8 Rhythm Strip Rhythm Strip: Sinus Rhythm Rate: 93 Ectopy: None Physical Exam Narrative alert and no apparent distress General Appearance: cooperative, well kempt and well developed Orientation / Consciousness: awake, oriented to person, oriented to place and confused HEENT normocephalic, head/scalp atraumatic, hearing grossly normal bilaterally and moist oral mucous membranes Eyes PERRL, EOMs intact bilaterally and conjunctivae normal Neck supple, no JVD, thyroid normal and no carotid bruits General: trachea midline Resp normal respiratory effort, no retractions, no use of accessory muscles and clear to auscultation bilaterally Auscultation: Negative for rales, rhonchi or wheezes Cardio regular rate, regular rhythm, S1 normal heart sound, S2 normal heart sound, no murmurs, no rub and no gallops GI normal to inspection, nondistended, normoactive bowel sounds, soft to palpation, non-tender and non-distended Extremity no clubbing, cyanosis or edema Skin no rashes or lesions noted General Skin Exam: no breakdown Neuro CN's II-XII intact bilaterally, moves all extremities, no focal motor deficits and no sensory deficits noted Neuro Narrative: Patient is alert but confused Sensorium / Orientation: awake, alert, oriented to person and oriented to place Speech: speech normal Psych Psych Narrative: Patient is confused Assessment & Plan Assessment/Plan (1) Generalized weakness: PLAN: Plan 1. 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
[2024-11-29 20:35] VITALS: BP 112/63; PULSE 92; RESP 16; TEMP 36.6; O2SAT 97
[2024-11-29] MEDS: MELATONIN 3 MG TABLET PO (23:43)
[2024-11-30] VITALS (8 sets, daily range): BP systolic 110–131; BP diastolic 55–94; PULSE 69–101; RESP 14–19; TEMP 36.5–36.6; O2SAT 96–100
[2024-11-30] MEDS: 0.9% Normal Saline (1000mL) 1,000 ML 75 ML IV ×2 (06:51→20:54)
--- NOTE | 2024-11-30 08:41 | CASEMGMT ---
Social Work PAS/RR complete in the [facility] system for admit to [place] when medically ready. CHRISTAL Zambrano
[2024-11-30] MEDS: Metoprolol(XL)Succ 50 MG Tablet PO (10:27)
--- NOTE | 2024-11-30 12:26 | CASEMGMT ---
RN CM called and updated that [facility] is able to accept patient and is planned to discharge to [facility] tomorrow. states patient need transportation arranged. Green sheet on chart with PASRR and transport form.
[2024-11-30] MEDS: Jantoven 2 MG Tablet PO (17:07)
--- NOTE | 2024-11-30 18:59 | PCM.PN.HOSP ---
Reason for Visit Chief Complaint: Syncope, general deconditioning Subjective Subjective Patient was seen and examined today, she does not appear to be in distress. She voices no complaints at this time Objective Data Objective Data Vital Signs: Vital Signs Temp Pulse Resp BP Pulse Ox O2 Del Method 97.8 F 72 16 131/77 H 98 Room Air 11/30/24 16:21 11/30/24 16:21 11/30/24 16:21 11/30/24 16:21 11/30/24 16:21 11/30/24 16:21 Oxygen Delivery Method Room Air Weight: 70 kg Body Mass Index (BMI) 29.1 Intake & Output: Intake and Output for Last 24 Hours 11/28/24 11/29/24 11/30/24 23:59 23:59 23:59 Intake Total 1322.92 / 1322.92 3374.17 / 3374.17 1170.83 / 1170.83 Output Total 1300 / 1300 Balance 1322.92 / 1322.92 3374.17 / 3374.17 -129.17 / -129.17 Lab / Micro Data 11/28/24 10:09 11/29/24 05:25 Rhythm Strip Rhythm Strip: Sinus Rhythm Rate: 93 Ectopy: None Physical Exam Narrative alert and no apparent distress General Appearance: cooperative, well kempt and well developed Orientation / Consciousness: awake, oriented to person, oriented to place and confused HEENT normocephalic, head/scalp atraumatic, hearing grossly normal bilaterally and moist oral mucous membranes Eyes PERRL, EOMs intact bilaterally and conjunctivae normal Neck supple, no JVD, thyroid normal and no carotid bruits General: trachea midline Resp normal respiratory effort, no retractions, no use of accessory muscles and clear to auscultation bilaterally Auscultation: Negative for rales, rhonchi or wheezes Cardio regular rate, regular rhythm, S1 normal heart sound, S2 normal heart sound, no murmurs, no rub and no gallops GI normal to inspection, nondistended, normoactive bowel sounds, soft to palpation, non-tender and non-distended Extremity no clubbing, cyanosis or edema Skin no rashes or lesions noted General Skin Exam: no breakdown Neuro CN's II-XII intact bilaterally, moves all extremities, no focal motor deficits and no sensory deficits noted Neuro Narrative: Patient is alert but confused Sensorium / Orientation: awake, alert, oriented to person and oriented to place Speech: speech normal Psych Psych Narrative: Patient is confused Assessment & Plan Assessment/Plan (1) Generalized weakness: PLAN: Plan 1. 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
[2024-11-30] MEDS: MELATONIN 3 MG TABLET PO (20:58)
[2024-12-01 03:00] VITALS: PULSE 83
[2024-12-01 03:22] VITALS: BP 123/75; PULSE 81; RESP 17; TEMP 36.1; O2SAT 97
--- NOTE | 2024-12-01 04:37 | PCM.HOSP.N ---
Hospitalist Note Patient having epistaxis that was not resolved measures approximately 10 minutes. Ordered as needed Afrin to see if that would help with this. Patient is on warfarin but INR has not been checked since . Will check an iron for today.
[2024-12-01] MEDS: Oxymetazoline 0.05% 1 SPRAY SPRAY.BTL 2 SPRAY NASAL (04:46)
[2024-12-01 06:32] LABS: Prothrombin Time (Protime)PT. 24.3 SECONDS (11.7-14.9)
[2024-12-01 08:39] VITALS: BP 109/62; PULSE 83; RESP 17; TEMP 36.5; O2SAT 97
[2024-12-01 08:41] VITALS: PULSE 83
[2024-12-01] MEDS: Metoprolol(XL)Succ 50 MG Tablet PO (08:41)
[2024-12-01] MEDS: 0.9% Normal Saline (1000mL) 1,000 ML 75 ML IV (10:29)
--- NOTE | 2024-12-01 13:37 | TREXTCAR_ITS ---
Diet Diet Order/Speech Therapy: INPATIENT Hospital Diet / Speech Therapy Order(s) 11/28/24 12:56 Diet: Regular - General Food consistency:: Regular Liquid Consistency:: Regular/Thin Routine Orders/Code Status Code Status: Full Code DC O2, CPAP, BIPAP needs Home O2 Discharge instructions: No Therapies Weight Bearing: Full weight bearing Physical Therapy: Eval and Treat Occupational Therapy: Eval and Treat Problem/Diagnosis (1) Generalized weakness: Status: Acute Code(s): R53.1 - Weakness Plan 1. 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, her INR on admission was 2, repeat INR tomorrow #5 coronary artery disease-patient remains on a beta-macrina and a statin at this time Total clinical time spent by myself addressing the patient's medical issues, reviewing all of her data, and collaborating with patient's care team: 35 minutes Allergies/Procedures Done in Hospital Allergies rivaroxaban (From Xarelto) Allergy (Intermediate, Verified 05/26/24 03:17) nose bleeds adhesive tape (tape) Allergy (Unknown, Verified 05/26/24 03:17) Itching kiwi Allergy (Unknown, Verified 05/26/24 03:17) Anaphylaxis trimethoprim (From Bactrim) Allergy (Unknown, Verified 05/26/24 03:17) Rash tree and shrub pollen Allergy (Verified 05/26/24 03:17) Unknown ciprofloxacin HCl (From Cipro) Adverse Reaction (Severe, Verified 05/26/24 03:17) Itching rash clarithromycin (From Biaxin) Adverse Reaction (Severe, Verified 05/26/24 03:17) Rash codeine Adverse Reaction (Severe, Verified 05/26/24 03:17) Unknown prednisone Adverse Reaction (Severe, Verified 05/26/24 03:17) Unknown Sulfa (Sulfonamide Antibiotics) Adverse Reaction (Severe, Verified 05/26/24 03:17) Unknown adhesive Adverse Reaction (Intermediate, Verified 05/26/24 03:17) Rash animal dander Adverse Reaction (Unknown, Verified 05/26/24 03:17) Unknown levofloxacin (From Levaquin) Adverse Reaction (Unknown, Verified 05/26/24 03:17) Itching nickel Adverse Reaction (Unknown, Verified 05/26/24 03:17) NOT SURE sulfamethoxazole (From Bactrim) Adverse Reaction (Unknown, Verified 05/26/24 03:17) Rash Procedures: None Type of Care/Length of Stay Estimated LOS: More Than 30 Days Type of Care Needed: Skilled Rehab Potential: Good Prognosis: Good Additional Orders/Day of Discharge H&P will serve as current which was dated: 11/28/24 Day of Discharge: 12/01/24 Dietary and Speech Recommendations Dietitian Recommendations/Changes: Continue regular diet. PO needs to be established, recommend cardiac diet if pt PO is 75-100% of meals. Will monitor weight trends. Discharge Plan Admission Admit Date/Time: 11/28/24 12:20 Primary Reason for Your Visit: generalized weakness Attending Provider: Delvis Adam Primary Care Provider: Della Garay Discharge Orders/Prescriptions Prescriptions: New warfarin [Jantoven] 3 mg Tablet 3 mg PO SuTuWeThSa@1700 Qty: 0 0RF nystatin 100,000 unit/gram Powder 1 applic topical TID Qty: 0 0RF Protocol: *Topical Application Instructions APPLICATION INSTRUCTIONS: right armpit Deep Sea Nasal 0.65 % Aerosol,[place] 2 spray NASAL TID PRN PRN (Reason: NASAL DRYNESS) Qty: 30 0RF Continued twedosfm-esv-OP-lycopen-lutein 0.4 mg-300 mcg- 250 mcg tablet 1 tab PO DAILY Patient Comments: SUPPLEMENT atorvastatin 40 MG tablet 40 mg PO QHS warfarin 2 mg tablet 2 mg PO MOFR Prolia 60 mg/mL syringe 60 mg subcut .COMPLEX Rx Instructions: 60 mg subcutaneously [id number]; cholecalciferol (vitamin D3) [Vitamin D3] 125 mcg (5,000 unit) tablet 125 mcg PO DAILY metoprolol succinate 50 mg tablet extended release 24 hr 50 mg PO QDAY Discontinued furosemide 20 mg tablet 20 mg PO DAILY spironolactone 25 mg tablet 25 mg PO DAILY warfarin 1 mg tablet 3 mg PO SUTUWETHSA Rx Instructions: 3mg sutuwethsa Referrals / Follow Up: Della Garay, ELECTRICIAN SUBSTATION SUPERVISOR-C [Primary Care Provider] - Disposition Disposition (needs filled in before D/C Order can be placed): Senior Living Facility
--- NOTE | 2024-12-01 14:02 | DS.PCM_ITS ---
Providers Date of Admission: 11/28/24 Date of Discharge: 12/01/24 Primary Care Physician: Della Garay, DAIRY PROCESSING EQUIPMENT OPERATOR-C Reason For Visit: SYNCOPE, JUNO Diagnosis Discharge Diagnosis (1) Generalized weakness: Status: Acute Code(s): R53.1 - Weakness Plan 1. 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, her INR on admission was 2, repeat INR tomorrow #5 coronary artery disease-patient remains on a beta-macrina and a statin at this time Total clinical time spent by myself addressing the patient's medical issues, reviewing all of her data, and collaborating with patient's care team: 35 minutes Medications at Discharge Home Medications atorvastatin 40 mg tablet 40 mg PO QHS CHOLESTEROL 01/22/20 gxqccfcl-xde-monrl acid 0.4 mg-lycopene 300 mcg-lutein 250 mcg tablet 1 tab PO DAILY SUPPLEMENT 04/22/22 warfarin 2 mg tablet 2 mg PO MOFR blood thinner 05/26/24 denosumab 60 mg/mL subcutaneous syringe (Prolia) 60 mg subcut .COMPLEX 10/06/24 cholecalciferol (vitamin D3) 125 mcg (5,000 unit) tablet (Vitamin D3) 125 mcg PO DAILY suppliment 11/28/24 metoprolol succinate 50 mg tablet,extended release 24 hr 50 mg PO QDAY heart 11/28/24 nystatin 100,000 unit/gram topical powder 1 applic topical TID #0 grams 12/01/24 sodium chloride 0.65 % nasal spray aerosol (Deep Sea Nasal) 2 spray NASAL TID PRN PRN NASAL DRYNESS #30 mL 12/01/24 warfarin 3 mg tablet (Jantoven) 3 mg PO SuTuWeThSa@1700 #0 tabs 12/01/24 Hospital Course Operations None Procedures None Summary of Care Provided Minutes Spent on Discharge: 31 Hospital Course: This 84-year-old white female was seen in the emergency room at [facility] after being brought in by squad due to a syncopal episode at home at the kitchen table, patient has a history of dementia and according to the she was not keeping up with oral intake including fluids. Labs obtained in the emergency room showed the patient to be in JUNO, potassium was slightly high at 5.5, creatinine was 1.78 and BUN was 66. Patient was admitted to PCU for deconditioning kidney injury and syncope, she was monitored on telemetry and had no other episodes of syncope. Patient was given IV fluids and her overall medical condition improved. She was seen by PT and OT and consented to the patient going to a skilled care facility for short-term rehab services. On 12/01/2024, patient was seen and examined:alert and no apparent distress General Appearance: cooperative, well kempt and well developed Orientation / Consciousness: awake, oriented to person, oriented to place and confused HEENT normocephalic, head/scalp atraumatic, hearing grossly normal bilaterally and moist oral mucous membranes Eyes PERRL, EOMs intact bilaterally and conjunctivae normal Neck supple, no JVD, thyroid normal and no carotid bruits General: trachea midline Resp normal respiratory effort, no retractions, no use of accessory muscles and clear to auscultation bilaterally Auscultation: Negative for rales, rhonchi or wheezes Cardio regular rate, regular rhythm, S1 normal heart sound, S2 normal heart sound, no murmurs, no rub and no gallops GI normal to inspection, nondistended, normoactive bowel sounds, soft to palpation, non-tender and non-distended Extremity no clubbing, cyanosis or edema Skin no rashes or lesions noted General Skin Exam: no breakdown Neuro CN's II-XII intact bilaterally, moves all extremities, no focal motor deficits and no sensory deficits noted Neuro Narrative: Patient is alert but confused Sensorium / Orientation: awake, alert, oriented to person and oriented to place Speech: speech normal Psych Psych Narrative: Patient is confused Patient was discharged in stable condition on 12/01/2024 Weight / BMI Weight Weight: 70 kg Body Mass Index (BMI) 29.1 ABG / Lab / Microbiology Data 11/28/24 10:09 11/29/24 05:25 Laboratory: Laboratory Results - last 24 hr 12/01/24 06:10: PT 24.3 H, INR 2.1 D/C Instructions DC O2, CPAP, BIPAP Needs Home O2 Discharge instructions: No Meaningful Use Info Meaningful Use Meaningful Use Diagnoses (Choose all that apply): None applicable Discharge Plan Admission Admit Date/Time: 11/28/24 12:20 Primary Reason for Your Visit: generalized weakness Attending Provider: Delvis Adam Primary Care Provider: Della Garay Discharge Orders/Prescriptions Prescriptions: New warfarin [Jantoven] 3 mg Tablet 3 mg PO SuTuWeThSa@1700 Qty: 0 0RF nystatin 100,000 unit/gram Powder 1 applic topical TID Qty: 0 0RF Protocol: *Topical Application Instructions APPLICATION INSTRUCTIONS: right armpit Deep Sea Nasal 0.65 % Aerosol,[place] 2 spray NASAL TID PRN PRN (Reason: NASAL DRYNESS) Qty: 30 0RF Continued goqxriot-vch-HW-lycopen-lutein 0.4 mg-300 mcg- 250 mcg tablet 1 tab PO DAILY Patient Comments: SUPPLEMENT atorvastatin 40 MG tablet 40 mg PO QHS warfarin 2 mg tablet 2 mg PO MOFR Prolia 60 mg/mL syringe 60 mg subcut .COMPLEX Rx Instructions: 60 mg subcutaneously [id number]; cholecalciferol (vitamin D3) [Vitamin D3] 125 mcg (5,000 unit) tablet 125 mcg PO DAILY metoprolol succinate 50 mg tablet extended release 24 hr 50 mg PO QDAY Discontinued furosemide 20 mg tablet 20 mg PO DAILY spironolactone 25 mg tablet 25 mg PO DAILY warfarin 1 mg tablet 3 mg PO SUTUWETHSA Rx Instructions: 3mg sutuwethsa Referrals / Follow Up: Della Garay, DAIRY PROCESSING EQUIPMENT OPERATOR-C [Primary Care Provider] - Disposition Disposition (needs filled in before D/C Order can be placed): [facility] Charges/Coding Visit Charges Inpatient E&M: 76275 Disch Hosp >30min
[2024-12-01 14:41] VITALS: BP 105/62; PULSE 94; RESP 18; TEMP 36.5; O2SAT 97
--- NOTE | 2024-12-01 14:56 | NURSING ---
Attempted to call report to [place]. The RN that needs to take report is currently at lunch. Name and number left for nurse to call me back when available. Will attempt to call report later, if [facility] does not call back prior to patient leaving.
== END 2024-12-01 15:45 | disposition skilled nursing facility (03) | DRG 684 ==
LOC: ED 12:26 → PCU 12:28
PROVIDERS: Admitting Provider Internal Medicine; Emergency Provider Emergency Medicine; PCP Nurse Practitioner Family; Visit Provider Internal Medicine
DX: N17.9 Acute kidney failure, unspecified (principal); E78.00 Pure hypercholesterolemia, unspecified; F03.90 Unspecified dementia, unspecified severity, without behavioral disturbance, psychotic disturbance, mood disturbance, and anxiety; I10 Essential (primary) hypertension; I25.10 Atherosclerotic heart disease of native coronary artery without angina pectoris; I25.2 Old myocardial infarction; G47.33 Obstructive sleep apnea (adult) (pediatric); R55 Syncope and collapse; R04.0 Epistaxis; Z86.16 Personal history of COVID-19; Z86.718 Personal history of other venous thrombosis and embolism; Z95.5 Presence of coronary angioplasty implant and graft; Z79.01 Long term (current) use of anticoagulants; Z79.899 Other long term (current) drug therapy; Z86.711 Personal history of pulmonary embolism; Z87.891 Personal history of nicotine dependence
CPT/HCPCS: 36415; 71046; 80048; 80053; 81001; 84484; 85025; 85610; 93005; 97162; 97165; 97530; 97535; 99285; A4216

== ENCOUNTER → 2025-01-01 04:00 | Outpatient (REF) | payer MEDICARE, OTHER, SELFPAY ==
[2025-01-01 07:09] LABS: Hematocrit 30.7 % (37-47); Hemoglobin 10.1 g/dL (12.0-15.0); Immature Granulocytes Count 0.080 X10^3/uL (0.0-0.0); Mean Corp Hgb Conc 32.9 g/dL (32-36); Mean Corpuscular Volume 87.5 fL (81-99); Mean Platelet Vol. 9.4 fl (6.2-12.0); NRBC Flagged by Analyzer 0 % (0-5); Platelet Count 342 K/mm3 (150-450); RBC Distribution Width CV 15.4 % (11.6-14.6); RBC Distribution Width SD 49.1 fl (35.1-43.9); Red Blood Count 3.51 M/mm3 (4.2-5.4); White Blood Count 7.5 K/mm3 (4.4-11.0)
[2025-01-01 07:27] LABS: Anion Gap 10 (5-15); BUN 21 mg/dL (4-19); BUN/Creat Ratio 24.6 RATIO (10-20); Calcium,Total 9.7 mg/dL (7.6-11.0); Carbon Dioxide 22.1 mmol/L (21.0-32.0); Chloride 104 mmol/L (98-108); Glucose 94 mg/dL (70-99); Potassium 4.0 mmol/L (3.3-5.1)
== END ==
LOC: OLS.WHLTCC 04:00
PROVIDERS: PCP Nurse Practitioner Family; Referring Provider Internal Medicine; Visit Provider Internal Medicine
DX: I27.20 Pulmonary hypertension, unspecified (principal); R54 Age-related physical debility; R55 Syncope and collapse; N17.9 Acute kidney failure, unspecified; F03.90 Unspecified dementia, unspecified severity, without behavioral disturbance, psychotic disturbance, mood disturbance, and anxiety
CPT/HCPCS: 36415; 80048; 85025

== ENCOUNTER → 2025-01-23 | Outpatient (REF) | payer MEDICARE, OTHER, SELFPAY ==
[2025-01-23 08:14] LABS: Prothrombin Time (Protime)PT. 26.8 SECONDS (11.7-14.9)
== END ==
LOC: OLS.WCC 06:50
PROVIDERS: PCP Nurse Practitioner Family; Visit Provider Family Medicine
DX: Z79.899 Other long term (current) drug therapy (principal)
CPT/HCPCS: 36415; 85610

== ENCOUNTER → 2025-02-06 05:00 | Outpatient (REF) | payer MEDICARE, OTHER, SELFPAY ==
[2025-02-06 09:22] LABS: INR Fingerstick 1.9
== END ==
LOC: OLS.WCC 05:00
PROVIDERS: PCP Nurse Practitioner Family; Visit Provider Family Medicine
DX: Z79.01 Long term (current) use of anticoagulants (principal); Z79.899 Other long term (current) drug therapy
CPT/HCPCS: 36416; 85610

== ENCOUNTER → 2025-02-20 | Outpatient (REF) | payer MEDICARE, OTHER, SELFPAY ==
[2025-02-20 09:00] LABS: INR Fingerstick 2.3
== END ==
LOC: OLS.WCC 05:00
PROVIDERS: PCP Nurse Practitioner Family; Visit Provider Family Medicine
DX: I48.91 Unspecified atrial fibrillation (principal)
CPT/HCPCS: 36416; 85610

== ENCOUNTER → 2025-03-06 05:00 | Outpatient (REF) | payer MEDICARE, OTHER, SELFPAY ==
[2025-03-06 08:17] LABS: INR Fingerstick 3.1
== END ==
LOC: OLS.WCC 05:00
PROVIDERS: PCP Nurse Practitioner Family; Visit Provider Family Medicine
DX: Z79.01 Long term (current) use of anticoagulants (principal)
CPT/HCPCS: 36416; 85610

== ENCOUNTER → 2025-03-08 05:00 | Outpatient (REF) | payer MEDICARE, OTHER, SELFPAY ==
[2025-03-08 07:13] LABS: Hematocrit 32.2 % (37-47); Hemoglobin 10.2 g/dL (12.0-15.0); Mean Corp Hgb Conc 31.7 g/dL (32-36); Mean Corpuscular Volume 86.1 fL (81-99); Mean Platelet Vol. 9.7 fl (6.2-12.0); Platelet Count 351 K/mm3 (150-450); RBC Distribution Width CV 15.9 % (11.6-14.6); RBC Distribution Width SD 50.5 fl (35.1-43.9); Red Blood Count 3.74 M/mm3 (4.2-5.4); White Blood Count 6.2 K/mm3 (4.4-11.0)
[2025-03-08 07:47] LABS: Anion Gap 8 (5-15); BUN 20 mg/dL (4-19); BUN/Creat Ratio 24.8 RATIO (10-20); Calcium,Total 10.5 mg/dL (7.6-11.0); Carbon Dioxide 24.1 mmol/L (21.0-32.0); Chloride 108 mmol/L (98-108); Glucose 87 mg/dL (70-99); Potassium 4.2 mmol/L (3.3-5.1); Vitamin D,25 Hydroxy 70.0 ng/mL (30-100)
== END ==
LOC: OLS.WCC 05:00
PROVIDERS: PCP Nurse Practitioner Family; Visit Provider Family Medicine
DX: I25.10 Atherosclerotic heart disease of native coronary artery without angina pectoris (principal); E55.9 Vitamin D deficiency, unspecified; I27.20 Pulmonary hypertension, unspecified; I10 Essential (primary) hypertension; E78.5 Hyperlipidemia, unspecified
CPT/HCPCS: 36415; 80048; 82306; 85027

== ENCOUNTER → 2025-04-03 | Outpatient (REF) | payer MEDICARE, OTHER, SELFPAY ==
[2025-04-03 08:45] LABS: Prothrombin Time (Protime)PT. 25.9 SECONDS (11.7-14.9)
[2025-04-03 08:53] LABS: Cholesterol 111 mg/dL (<=200); Low Density Lipoprotein Calc. 51 mg/dL; Triglycerides 124 mg/dL; Very Low Density Lipoprotein 25 mg/dL (5-40); cholesterol:hdl ratio screen 2.97
== END ==
LOC: OLS.WCC 05:00
PROVIDERS: PCP Nurse Practitioner Family; Visit Provider Family Medicine
DX: E78.5 Hyperlipidemia, unspecified (principal); I25.10 Atherosclerotic heart disease of native coronary artery without angina pectoris; Z79.899 Other long term (current) drug therapy
CPT/HCPCS: 36415; 80061; 85610

== ENCOUNTER → 2025-04-05 06:55 | Outpatient (REF) | payer MEDICARE, OTHER, SELFPAY ==
[2025-04-05 12:40] LABS: Cholesterol 119 mg/dL (<=200); Low Density Lipoprotein Calc. 54 mg/dL; Triglycerides 158 mg/dL; Very Low Density Lipoprotein 32 mg/dL (5-40); cholesterol:hdl ratio screen 3.12
== END ==
LOC: OLS.WCC 06:55
PROVIDERS: PCP Nurse Practitioner Family; Visit Provider Family Medicine
DX: I25.10 Atherosclerotic heart disease of native coronary artery without angina pectoris (principal); E78.5 Hyperlipidemia, unspecified
CPT/HCPCS: 36415; 80061

== ENCOUNTER → 2025-05-01 05:00 | Outpatient (REF) | payer MEDICARE, OTHER, SELFPAY ==
[2025-05-01 05:50] LABS: INR Fingerstick 2.3
== END ==
LOC: OLS.WCC 05:00
PROVIDERS: PCP Nurse Practitioner Family; Visit Provider Family Medicine
DX: Z79.01 Long term (current) use of anticoagulants (principal)
CPT/HCPCS: 36416; 85610